=== PATIENT | female | born 1945 | race Caucasian/White ===

== ENCOUNTER 2019-06-19 13:34 | Outpatient (CLI) | payer MEDICARE, SELFPAY ==
--- NOTE | 2019-06-19 15:08 | ECG_ITS ---
Measurements Intervals [place] Rate: 64 P: 49 MI: 194 QRS: -24 QRSD: 118 T: -1 QT: 430 QTc: 444 Interpretive Statements SINUS RHYTHM RIGHT BUNDLE BRANCH BLOCK BASELINE ARTIFACT- I, II, III, AVR, AVL, AVF ABNORMAL ECG Electronically Signed On 06-19-2019 15:25:48 CDT by Shilo Rand D.O.
[2019-06-19 15:42] LABS: Blood Urea Nitrogen 24 mg/dL (7-17); Calcium 9.4 mg/dL (8.4-10.2); Carbon Dioxide 31 mmol/L (22-30); Chloride 101 mmol/L (98-107); Estimated Glomerular Filt Rate > 60; Glucose 77 mg/dL (65-105); Potassium 3.9 mmol/L (3.4-5.0); Sodium 137 mmol/L (137-145)
== END 2019-06-19 13:35 | disposition home or self-care (01) ==
PROVIDERS: Anesthesiology; PCP Family Medicine; Visit Provider Orthopaedic Surgery
DX: I10 Essential (primary) hypertension (principal); I45.10 Unspecified right bundle-branch block
CPT/HCPCS: 36415; 80048; 93005

== ENCOUNTER 2019-09-27 12:45 | Outpatient (CLI) | payer MEDICARE, SELFPAY ==
[2019-09-27 13:30] LABS: Blood Urea Nitrogen 21 mg/dL (7-17); Calcium 9.7 mg/dL (8.4-10.2); Carbon Dioxide 32 mmol/L (22-30); Chloride 102 mmol/L (98-107); Estimated Glomerular Filt Rate > 60; Glucose 91 mg/dL (65-105); Potassium 3.9 mmol/L (3.4-5.0); Sodium 137 mmol/L (137-145)
== END 2019-09-27 12:46 | disposition home or self-care (01) ==
LOC: ANHSURGERY 12:53
PROVIDERS: Anesthesiology; PCP Family Medicine; Visit Provider Orthopaedic Surgery
DX: Z01.818 Encounter for other preprocedural examination (principal); I10 Essential (primary) hypertension
CPT/HCPCS: 36415; 80048

== ENCOUNTER 2019-10-03 00:02 | Outpatient (CLI) | payer MEDICARE, SELFPAY ==
[2019-10-03 19:45] LABS: SARS-CoV-2 RNA PCR Negative
== END 2019-10-03 00:03 | disposition home or self-care (01) ==
LOC: ANHCOVIDDT 00:02
PROVIDERS: Visit Provider Orthopaedic Surgery
DX: Z01.818 Encounter for other preprocedural examination (principal); Z11.59 Encounter for screening for other viral diseases; M19.072 Primary osteoarthritis, left ankle and foot
CPT/HCPCS: 87635; C9803; U0003

== ENCOUNTER 2019-10-05 01:29 | Day surgery (SDC) | payer MEDICARE, SELFPAY ==
[2019-06-19 15:09] VITALS: BP 148/83; PULSE 71; RESP 18; TEMP 36.9; O2SAT 99; BMI 34.0
[2019-10-05] VITALS (14 sets, daily range): BP systolic 113–169; BP diastolic 64–79; PULSE 59–78; RESP 12–20; TEMP 35.6–36.6; O2SAT 90–100
--- NOTE | ~2019-10-05 | XR_ITS ---
EXAMINATION: XR surgery orthopedic DATE: 10/05/2019 09:49 INDICATION: Left ankle tibiofibular arthrodesis TECHNIQUE: 4 fluoroscopic spot images of the left ankle were obtained during procedure performed by Suzanne Briceño. Radiologist was not present for the imaging or procedure. The amount of fluoroscopy time used during this procedure was 1.3 minutes. COMPARISON: 10/03/2019 FINDINGS: Left ankle and distal tibiofibular arthrodesis. The tibiotalar articulation is spanned by a pair of c annulated lag screws. 2 cancellous screws extend from lateral to medial across the distal tibiofibula r syndesmosis and across the talofibular articulation of the ankle joint. A couple lucent screw track s at the distal tibia and fibula, one with negligible residual metallic residue likely related to pre viously removed internal fixation. Alignment of the arthrodesis appears near-anatomic. No fractures i dentified. The profiled joint spaces in the hindfoot appear relatively preserved. Moderate-sized plan tar calcaneal spur. IMPRESSION: 1. Expected appearance post left ankle and distal tibiofibular arthrodesis. See procedure note for fu rther detail. Reviewed, dictated and finalized at location A. IMPRESSION: 1. Expected appearance post left ankle and distal tibiofibular arthrodesis. See procedure note for further detail.
[2019-10-05] MEDS: IBUPROFEN IV 800 MG/200 ML 800 MG/200 ML BAG 400 MG IVPB ×2 (06:45→22:24)
[2019-10-05] MEDS: LACTATED RINGERS 1,000 ML 30 ML IV CONT ×2 (06:45→10:01)
--- NOTE | 2019-10-05 07:03 | WPDANESEPPF ---
Anes - Initial Pre Proc Eval Procedure: Operation Date: 10/05/19 07:30 Proposed Procedures p Left Ankle Tibiofibular Arthrodesis - Stewart Briceño MD s Left Ankle Arthroscopy - Stewrat Briceño MD Date/Time: 10/05/19 07:03 Surgeon: Stewart Briceño MD Pre Op Diagnosis: Left Ankle Arthritis Patient Data Age: 74 Gender: F Height: 5 ft 4 in Weight: 89.95 kg Last Vital Signs Temp 36.9 C 06/19/19 15:09 Pulse 71 06/19/19 15:09 Resp 18 06/19/19 15:09 BP 148/83 H 06/19/19 15:09 Pulse Ox 99 06/19/19 15:09 Allergies Allergy/AdvReac Type Severity Reaction Status Date / Time onion Allergy Severe Anaphylactic Verified 10/05/19 07:04 Shock codeine Allergy Intermediate Vomiting Verified 10/05/19 07:04 cortisone Allergy Intermediate Hypertensio Verified 10/05/19 07:04 n meperidine Allergy Intermediate Vomiting Verified 10/05/19 07:04 morphine Allergy Intermediate Vomiting Verified 10/05/19 07:04 tramadol AdvReac Severe NAUSEA/VOMI Verified 10/05/19 07:04 TING Home Medications Medication Instructions Recorded Confirmed Type ascorbic acid (vitamin C) 500 mg 1,000 mg PO DAILY 02/03/19 09/26/19 History capsule,extended release aspirin 81 mg tablet,delayed 81 mg PO DAILY 02/03/19 09/26/19 History release calcium carbonate 500 mg calcium 500 mg PO BID 02/03/19 09/26/19 History (1,250 mg) tablet dicyclomine 10 mg capsule 10 mg PO BID 02/03/19 09/26/19 History hydrochlorothiazide 12.5 mg capsule 12.5 mg PO DAILY 02/03/19 09/26/19 History magnesium oxide 400 mg PO BID 02/03/19 09/26/19 History methylcellulose (laxative) 500 mg 500 mg PO BID 02/03/19 09/26/19 History tablet multivitamin 1 cap PO DAILY 02/03/19 09/26/19 History vitamin A-vitamin C-vit E-min 1 tablet PO DAILY 02/03/19 09/26/19 History vit C,E,zinc,copper-rstkj2x 250 1 cap PO QAM 10/03/19 History mg-lutein 5 mg-zeaxanthin 1 mg capsule Patient hx anesthesia problems: none Family hx anesthesia problems: none PMFSH Past Medical History Medical History Food allergy GERD (gastroesophageal reflux disease) History of blood clots HTN (hypertension) 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 Seasonal allergies Vision loss Surgical History Surgical History H/O left wrist surgery H/O sinus surgery H/O: hysterectomy History of cardiac cath History of carpal tunnel release History of cholecystectomy History of fundoplication Hx of arthroscopic knee surgery Hx of total knee arthroplasty Family History Family History Father Family history of malignant neoplasm Mother Family history of chronic obstructive pulmonary disease Other Cancer Diabetes mellitus Heart disease Hypertension Social History Social History Smoking status: Never smoker Alcohol intake: current Substance use: never Gender identity (if verbalized by the patient): Female Anes - Eval Final PreProcedure Day of Procedure 10/05/19 07:03 Patient weight: obese Heart: regular rate and rhythm Lungs: clear to auscultation Airway: Mallampati scale class II Neurological: alert and oriented Last oral intake: >/= 8 hours ASA classification: III Emergent: no Anesthetic plan: proceed Anesthesia type and monitoring: general LMA and standard monitoring Informed Consent: The patient's anesthetic plan and its attendant risks and benefits were discussed with the patient/family/POA. Questions were solicited and answers provided to the satisfaction of the patient/family/POA.
--- NOTE | 2019-10-05 07:17 | WPDHPUPDATE1 ---
History and Physical Update Update Date/Time: 10/05/19 07:17 History and Physical has been reviewed, including an updated exam of the patient. There are NO changes in the patient's condition. Risks, benefits, and alternatives have been discussed and questions answered. Patient agrees to proceed with procedure.
[2019-10-05] MEDS: ceFAZolin 2 GM/D5W 50 ML 2 GM/50 ML BAG IVPB (07:36)
[2019-10-05] MEDS: ONDANSETRON INJ 4 MG/2 ML VIAL IV PUSH ×3 (10:46→22:21)
--- NOTE | 2019-10-05 11:21 | PM.PROC ---
Procedure Note - Detailed Date of procedure: 10/05/19 Pre-op diagnosis: Left Ankle Arthritis Post-op diagnosis: same Procedure performed: Left ankle arthroscopic arthrodesis, distal tibia fibular arthrodesis Description of procedure: Indications: Patient is a 74-year-old woman with posttraumatic arthritis of the left ankle. She has failed conservative treatment with bracing, cortisone injections, physical therapy and medication. She presents now for operative treatment. She desires and is indicated for ankle arthrodesis. What was done: Patient identified in the preoperative holding. Informed consent given. Operative extremity marked. Patient received intravenous antibiotics. Patient brought to the operating room where underwent general anesthetic by anesthesia team. Positioned supine on operating room table. Time-out performed confirming the patient, site of the surgery and the plan. Left leg was placed into a posterior thigh allan and the left ankle was prepped draped usual sterile surgical fashion using a ChloraPrep skin solution. Noninvasive external ankle distractor was applied and standard arthroscopic portals were mapped out. A 15 blade knife was used to make the anteromedial portal and blunt dissection was used to penetrate the capsule. The camera and inflow was started through this portal. A anterolateral working portal established an 18 gauge needle followed by 11 blade knife to incise the skin and blunt penetration the capsule. A 3.5 mm shaver, curette and arthroscopic picks were used to debride the cartilage from the tibia talus and the medial fibula. Extensive degenerative changes noted with arthroscopic visualization. This was debrided with the shaver suction and irrigated with normal saline. Ankle was then aligned and provisionally pinned. Image intensification confirmed the alignment including varus valgus and dorsiflexion. Screw fixation was then achieved and verified with image intensification. Tibia fibular syndesmosis was then aligned and provisionally pinned. Fixation achieved with the 4.5 mm screws x2. Final image intensification showed good alignment and placement of the hardware. Wounds were irrigated and closed with 3 Monocryl subcuticular stitch and 4 O nylon for the skin. Sterile dressings followed by bulky dressing and cast applied. Good capillary refill noted in the toes. The patient was then woken from anesthesia, extubated and taken to the recovery room in stable condition. All sponge, needle, instrument counts were correct at the end of the case. Implants: Arthrex 6.7 mm cannulated screw x2, 4.5 mm screw x2 [facility] Surgeon: Stewart Briceño MD Worship Leader: 1st anesthetic assistant Estimated blood loss (mL): 50 Tourniquet time (min): 0 Drains: No Packing: No Pathology: none sent Complications: None Condition: stable Disposition: PACU
[2019-10-05] MEDS: KCL 20 MEQ/D5/0.45% SOD CHL 1,000 ML 80 ML IV CONT (12:45)
[2019-10-05] MEDS: DICYCLOMINE HCL 10 MG CAPSULE PO (17:02)
[2019-10-05] MEDS: CALCIUM CARBONATE (OSCAL) 500 MG TABLET PO (17:02)
[2019-10-05] MEDS: MAGNESIUM OXIDE 400 MG TABLET PO (17:03)
[2019-10-05] MEDS: DOCUSATE SODIUM 100 MG CAPSULE PO (17:03)
[2019-10-05] MEDS: FAMOTIDINE 20 MG TABLET PO (21:37)
[2019-10-05] MEDS: ENOXAPARIN 30 MG/0.3 ML SYRINGE SUB-Q (21:38)
[2019-10-06 02:33] VITALS: BP 123/59; PULSE 58; RESP 16; TEMP 36; O2SAT 99
[2019-10-06] MEDS: KCL 20 MEQ/D5/0.45% SOD CHL 1,000 ML 80 ML IV CONT (03:01)
[2019-10-06 05:23] VITALS: BP 124/59; PULSE 60; RESP 16; TEMP 36.1; O2SAT 99
--- NOTE | 2019-10-06 09:05 | PM.PNORT ---
Progress Note: A&P Assessment and Plan (1) Traumatic arthritis of left ankle: Code(s): M12.572 - Traumatic arthropathy, left ankle and foot Status: Acute Assessment and Plan: Postoperative day 1. Left ankle arthrodesis. Cast in place, well fitted. Nausea and vomiting yesterday which has resolved. Able to tolerate breakfast. Therapy assistance this morning for ambulation. Plan for discharge home if passes therapy later today. Lovenox b.i.d. for DVT prophylaxis at 30 days. Tylenol and anti-inflammatories for pain control, oxycodone for breakthrough pain. Zofran for nausea. Follow up in orthopedic office October 10 Subjective Subjective Date/Time Seen: 10/06/19 09:05 The patient is awake alert. Nausea and vomiting yesterday, improved today. Minimal complaints of ankle pain. Exam Const: General: healthy appearing; No in distress or confusion Orientation/consciousness: patient oriented x3 and No confusion HENMT: Head: normal to inspection, normocephalic and atraumatic Eyes: Conjunctivae: conjunctivae normal Sclera: sclerae normal Resp: Effort & Inspection: normal respiratory effort and no audible wheezes Neuro: General: patient oriented x3 and No confusion Extrem: Right upper extremity: normal to inspection and normal capillary refill Left upper extremity: normal to inspection and normal capillary refill Right lower extremity: normal to inspection, normal capillary refill and foot Details: normal capillary refill, toes with normal ROM, vascular exam Details: dorsalis pedis pulse present and normal capillary refill and motor-sensory exam Details: light-touch normal Location: in all toes; no tenderness Left lower extremity: ankle (Short-leg cast in place.) and foot Details: normal capillary refill, toes with normal ROM, motor-sensory exam light-touch normal in all toes and other (Able to move toes, good sensation, good capillary refill) Psych: Affect: normal affect Objective Data Vital Signs Vital Signs: Vital Signs - 24 hr 10/05/19 10:01 10/05/19 10:15 10/05/19 10:30 Temperature 97.4 F L Pulse Rate 76 68 72 Respiratory Rate 14 14 14 Blood Pressure 145/76 H 141/74 H 135/76 Pulse Oximetry 100 100 100 10/05/19 10:45 10/05/19 11:00 10/05/19 11:15 Temperature Pulse Rate 67 68 63 Respiratory Rate 12 14 14 Blood Pressure 141/75 H 137/69 147/66 H Pulse Oximetry 93 93 90 10/05/19 11:30 10/05/19 11:31 10/05/19 11:46 Temperature 96.5 F L 96.0 F L Pulse Rate 64 77 78 Respiratory Rate 16 20 20 Blood Pressure 142/70 H 169/75 H 144/66 H Pulse Oximetry 97 99 99 10/05/19 12:16 10/05/19 13:16 10/05/19 17:16 Temperature 97.4 F L 97.5 F L 97.7 F Pulse Rate 72 59 L 62 Respiratory Rate 16 18 18 Blood Pressure 147/67 H 141/69 H 138/64 Pulse Oximetry 100 100 100 10/05/19 22:00 10/06/19 02:33 10/06/19 05:23 Temperature 96.4 F L 96.8 F L 97.0 F L Pulse Rate 63 58 L 60 Respiratory Rate 16 16 16 Blood Pressure 145/71 H 123/59 L 124/59 L Pulse Oximetry 100 99 99 Intake/Output Intake/Output: Intake & Output 10/03/19 10/04/19 10/05/19 10/06/19 23:59 23:59 23:59 23:59 Intake Total 1479 691 Balance 1479 691 Meds/Results Medications: Active Medications Generic Name Dose Route Start Last Admin Trade Name Freq PRN Reason Stop Dose Admin Acetaminophen 650 mg 10/05/19 11:31 Tylenol Tablet PO Q6H PRN Pain Rated 1-3 Ascorbic Acid 1,000 mg 10/06/19 09:00 Vitamin C PO 11/05/19 09:01 DAILY [facility] Aspirin 81 mg 10/06/19 09:00 Aspirin Ec PO DAILY [facility] Bisacodyl 10 mg 10/05/19 11:31 Dulcolax Suppository RECTAL DAILY PRN Constipation Calcium Carbonate 500 mg 10/05/19 17:00 10/05/19 17:02 Oscal 500 Mg PO 500 mg BID [facility] Administration Diazepam 5 mg 10/05/19 11:31 Valium Po PO Q8H PRN Muscle Spasm Dicyclomine HCl 10 mg 10/05/19 17:00 10/05/19 17:02 Bentyl Capsule PO 10 mg BID [facility]
--- NOTE | 2019-10-06 09:14 | P.DS_ITS ---
DS: Admitting Diagnosis Admitting Diagnosis Admitting Diagnosis: Essential (primary) hypertension DS: Discharge Diagnosis Discharge Diagnosis (1) Traumatic arthritis of left ankle: Code(s): M12.572 - Traumatic arthropathy, left ankle and foot Status: Acute DS: Summary Hospital Course Reason for hospitalization: 74-year-old woman admitted for observation after left ankle surgery. Hospital Course: Nausea and vomiting day of surgery, resolved with Zofran. Able to tolerate diet. Pain controlled with oral medication. Physical therapy postop day 1 with nonweightbearing left leg. Cleared for discharge. Status at Discharge Cognitive/behavioral status at discharge: Alert and oriented x3. Functional status at discharge: uses cane/walker Overall status at discharge: patient is back to baseline Time Spent with Patient Time attestation: Total time spent providing and/or coordinating discharge services: Time spent: Less than 30 minutes Exam Const: General: healthy appearing; No in distress or confusion Orientation/consciousness: patient oriented x3 and No confusion HENMT: Head: normal to inspection, normocephalic and atraumatic Eyes: Conjunctivae: conjunctivae normal Sclera: sclerae normal Resp: Effort & Inspection: normal respiratory effort and no audible wheezes Neuro: General: patient oriented x3 and No confusion Extrem: Right upper extremity: normal to inspection and normal capillary refill Left upper extremity: normal to inspection and normal capillary refill Right lower extremity: normal to inspection, normal capillary refill and foot Left lower extremity: ankle (Short-leg cast in place.) and foot Psych: Affect: normal affect Discharge Plan Discharge Patient Disposition: Home, Self-Care Discharge Instructions: JUANITA BRICEÑO M.D. [facility] [address] [place] [address] [address] [place] [address] POST OPERATIVE DISCHARGE INSTRUCTIONS FOOT/ANKLE SURGERY * Elevate the involved extremity on pillows. * For the first 48 hours, make sure that the foot is above the level of your heart. * Carefully observe the exposed toes for evidence of swelling or discoloration. * If the dressing is uncomfortable or tight, call the Dr?s office. * Keep the dressing clean and dry. Remove dressing only as directed by doctor. * If the pain medication does not provide adequate relief, please call Dr?s office. * Take other medication as prescribed. * Please call Dr?s office to confirm follow-up appointment for 1 week. * If you have any questions, please call the Dr?s office. * Diet as tolerated. * Activity:___X____Restrictions as follows: no weight operative leg; crutches or walker for ambulation * Do not drive for 24 hours, unless otherwise instructed. * Additional instructions: Patient Instructions: Cast Care (DC), Crutch Instructions (DC) Follow-up/Referrals: Juanita Briceño MD [Physician] - 10/11/19 8:30 am Discharge Medications: New acetaminophen [Mapap (acetaminophen)] 325 mg Tablet 650 mg PO Q6H PRN (Reason: Pain Rated 1-3) Qty: 60 RF: 0 enoxaparin 30 mg/0.3 mL Syringe 3
--- NOTE | 2019-10-06 09:14 | PM.DS ---
DS: Admitting Diagnosis Admitting Diagnosis Admitting Diagnosis: Essential (primary) hypertension DS: Discharge Diagnosis Discharge Diagnosis (1) Traumatic arthritis of left ankle: Code(s): M12.572 - Traumatic arthropathy, left ankle and foot Status: Acute DS: Summary Hospital Course Reason for hospitalization: 74-year-old woman admitted for observation after left ankle surgery. Hospital Course: Nausea and vomiting day of surgery, resolved with Zofran. Able to tolerate diet. Pain controlled with oral medication. Physical therapy postop day 1 with nonweightbearing left leg. Cleared for discharge. Status at Discharge Cognitive/behavioral status at discharge: Alert and oriented x3. Functional status at discharge: uses cane/walker Overall status at discharge: patient is back to baseline Time Spent with Patient Time attestation: Total time spent providing and/or coordinating discharge services: Time spent: Less than 30 minutes Exam Const: General: healthy appearing; No in distress or confusion Orientation/consciousness: patient oriented x3 and No confusion HENMT: Head: normal to inspection, normocephalic and atraumatic Eyes: Conjunctivae: conjunctivae normal Sclera: sclerae normal Resp: Effort & Inspection: normal respiratory effort and no audible wheezes Neuro: General: patient oriented x3 and No confusion Extrem: Right upper extremity: normal to inspection and normal capillary refill Left upper extremity: normal to inspection and normal capillary refill Right lower extremity: normal to inspection, normal capillary refill and foot Left lower extremity: ankle (Short-leg cast in place.) and foot Psych: Affect: normal affect Discharge Plan Discharge Patient Disposition: Home, Self-Care Discharge Instructions: JUANITA BRICEÑO M.D. [facility] [address] [address] [address] [place] [address] POST OPERATIVE DISCHARGE INSTRUCTIONS FOOT/ANKLE SURGERY Elevate the involved extremity on pillows. For the first 48 hours, make sure that the foot is above the level of your heart. Carefully observe the exposed toes for evidence of swelling or discoloration. If the dressing is uncomfortable or tight, call the Dr?s office. Keep the dressing clean and dry. Remove dressing only as directed by doctor. If the pain medication does not provide adequate relief, please call Dr?s office. Take other medication as prescribed. Please call Dr?s office to confirm follow-up appointment for 1 week. If you have any questions, please call the Dr?s office. Diet as tolerated. Activity:___X____Restrictions as follows: no weight operative leg; crutches or walker for ambulation Do not drive for 24 hours, unless otherwise instructed. Additional instructions: Patient Instructions: Cast Care (DC), Crutch Instructions (DC) Follow-up/Referrals: Juanita Briceño MD [Physician] - 10/11/19 8:30 am Discharge Medications: New acetaminophen [Mapap (acetaminophen)] 325 mg Tablet 650 mg PO Q6H PRN (Reason: Pain Rated 1-3) Qty: 60 RF: 0 enoxaparin 30 mg/0.3 mL Syringe 30 mg subcut Q12HR 30 Days Qty: 18 RF: 0 ondansetron HCl [Zofran] 8 mg tablet 8 mg PO Q8H PRN (Reason: nausea and vomiting) Qty: 10 RF: 1 oxycodone 5 mg capsule 5 mg PO Q6H PRN (Reason: pain) Qty: 14 RF: 0 Continued vitamin A-vitamin C-vit E-min Tablet 1 tablet PO DAILY RF: 0 ascorbic acid (vitamin C) [Vitamin C] 500 mg capsule, extended release 1,000 mg PO DAILY RF: 0 Fiber Therapy (m-cellulose) 500 mg tablet 500 mg PO BID RF: 0 calcium carbonate [Calcium 500] 500 mg calcium (1,250 mg) tablet 500 mg PO BID RF: 0 aspirin [Adult Aspirin Regimen] 81 mg tablet,delayed release (DR/EC) 81 mg PO DAILY RF: 0 magnesium oxide 400 mg kevin
[2019-10-06] MEDS: DOCUSATE SODIUM 100 MG CAPSULE PO (09:17)
[2019-10-06] MEDS: ASCORBIC ACID 500 MG TABLET 1000 MG PO (09:17)
[2019-10-06] MEDS: ENOXAPARIN 30 MG/0.3 ML SYRINGE SUB-Q (09:18)
[2019-10-06] MEDS: hydroCHLOROthiazide 12.5 MG CAPSULE PO (09:18)
[2019-10-06] MEDS: MAGNESIUM OXIDE 400 MG TABLET PO (09:18)
[2019-10-06] MEDS: MULTIVITAMINS THERAPEUTIC TAB (*BKC) 1 TABLET PO (09:18)
[2019-10-06] MEDS: FAMOTIDINE 20 MG TABLET PO (09:18)
[2019-10-06] MEDS: OPTI-GEN TAB 1 TABLET PO (09:18)
[2019-10-06] MEDS: DICYCLOMINE HCL 10 MG CAPSULE PO (09:18)
[2019-10-06] MEDS: CALCIUM CARBONATE (OSCAL) 500 MG TABLET PO (09:18)
[2019-10-06] MEDS: ASPIRIN 81 MG ENTERIC TABLET PO (09:28)
[2019-10-06 10:00] VITALS: BP 142/59; PULSE 62; RESP 15; TEMP 37.1; O2SAT 100
[2019-10-06] MEDS: ACETAMINOPHEN 325 MG TABLET 650 MG PO (10:07)
== END 2019-10-06 14:26 | disposition home or self-care (01) ==
LOC: ANHSURGERY 10:33 → ANH2MED 11:41
PROVIDERS: PCP Family Medicine; Visit Provider Orthopaedic Surgery
PROC: (CPT 28715; principal; 2019-10-05 07:30)
PROC: (CPT 29899; 2019-10-05 07:30)
DX: M12.572 Traumatic arthropathy, left ankle and foot (principal); T14.90XS Injury, unspecified, sequela; W18.39XS Other fall on same level, sequela; I10 Essential (primary) hypertension; K21.9 Gastro-esophageal reflux disease without esophagitis; Z79.82 Long term (current) use of aspirin; E66.9 Obesity, unspecified; Z68.36 Body mass index [BMI] 36.0-36.9, adult
CPT/HCPCS: 29899; 97110; 97161; 97165; 97530; A9270; C1769; J0690; J1100; J1170; J1650; J1741; J2405; J2704; J3010; J3480; J7120

== ENCOUNTER → 2020-05-20 01:40 | Outpatient (CLI) | payer MEDICARE, SELFPAY ==
[2020-05-20 19:35] LABS: SARS-CoV-2 RNA PCR Negative
== END ==
PROVIDERS: PCP Family Medicine; Visit Provider Orthopaedic Surgery
DX: Z01.812 Encounter for preprocedural laboratory examination (principal); Z20.822 Contact with and (suspected) exposure to COVID-19
CPT/HCPCS: C9803; U0003; U0005

== ENCOUNTER 2020-05-20 08:37 | Outpatient (CLI) | payer MEDICARE, SELFPAY ==
[2020-05-20 09:22] LABS: Anion Gap 1 mmol/L (8-16); Blood Urea Nitrogen 18 mg/dL (7-17); Calcium 9.1 mg/dL (8.4-10.2); Carbon Dioxide 33 mmol/L (22-30); Chloride 104 mmol/L (98-107); Estimated Glomerular Filt Rate > 60; Glucose 94 mg/dL (65-105); Potassium 4.2 mmol/L (3.4-5.0); Sodium 138 mmol/L (137-145)
== END 2020-05-20 08:38 | disposition home or self-care (01) ==
LOC: ANHSURGERY 08:40
PROVIDERS: Anesthesiology; PCP Family Medicine; Visit Provider Orthopaedic Surgery
DX: Z01.818 Encounter for other preprocedural examination (principal); Z79.899 Other long term (current) drug therapy
CPT/HCPCS: 36415; 80048; C9803; U0003; U0005

== ENCOUNTER 2020-05-23 00:40 | Day surgery (SDC) | payer MEDICARE, SELFPAY ==
[2020-05-15 13:27] VITALS: BMI 35.5
[2020-05-23] VITALS (14 sets, daily range): BP systolic 125–154; BP diastolic 60–86; PULSE 66–102; RESP 12–18; TEMP 36.2–37.2; O2SAT 94–100; BMI 34.9
--- NOTE | ~2020-05-23 | XR_ITS ---
EXAMINATION: XR surgery orthopedic DATE: 05/23/2020 11:34 INDICATION: Left ankle arthrodesis and instrumentation removal TECHNIQUE: 4 fluoroscopic spot images of the ankle were obtained during procedure performed by Dr. Miguel negro. Radiologist was not present for the imaging or procedure. The amount of fluoroscopy time used during this procedure was 1.9 minutes. COMPARISON: 05/07/2020 FINDINGS: Interval removal of the prior fixation screws with residual lucent screw tracks. The distal portion o f the previously fractured lag screws remains within the talus. There is been placement of a new ante rior plate and screw fixation spanning the tibiotalar joint which is in near-anatomic alignment. No a cute fractures identified. The unfused joint spaces in the visualized mid and hindfoot appear relativ ajit preserved. Moderate-sized plantar calcaneal spur. IMPRESSION: 1. Revision of an attempted left ankle arthrodesis with removal of the prior dictation screws, a frac tured portion of a screw which remains in the talus, and placement of a new anterior plate-screw fixa tion. Reviewed, dictated and finalized at location A. ROCESS ENGINEER IMPRESSION: 1. Revision of an attempted left ankle arthrodesis with removal of the prior di ctation screws, a fractured portion of a screw which remains in the talus, and placement of a new anterior plate-screw fixation.
[2020-05-23] MEDS: ACETAMINOPHEN 500 MG TABLET 1000 MG PO (06:33)
[2020-05-23] MEDS: KETOROLAC 15 MG/ML VIAL (*BKC) IV PUSH (06:33)
[2020-05-23] MEDS: LACTATED RINGERS 1,000 ML 30 ML IV CONT ×2 (06:34→11:59)
--- NOTE | 2020-05-23 06:42 | WPDANESEPPF ---
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, painful hardware Patient Data Age: 75 Gender: F Height: 5 ft 2.5 in Weight: 89.54 kg Allergies Allergy/AdvReac Type Severity Reaction Status Date / Time onion Allergy Severe Anaphylactic Verified 05/23/20 06:15 Shock codeine Allergy Intermediate Vomiting Verified 05/23/20 06:15 cortisone Allergy Intermediate Hypertensio Verified 05/23/20 06:15 n meperidine Allergy Intermediate Vomiting Verified 05/23/20 06:15 morphine Allergy Intermediate Vomiting Verified 05/23/20 06:15 tramadol AdvReac Severe NAUSEA/VOMI Verified 05/23/20 06:15 TING Home Medications Medication Instructions Recorded Confirmed Type ascorbic acid (vitamin C) 500 mg 1,000 mg PO DAILY 02/03/19 05/23/20 History capsule,extended release aspirin 81 mg tablet,delayed 81 mg PO DAILY 02/03/19 05/23/20 History release calcium carbonate 500 mg calcium 500 mg PO BID 02/03/19 05/23/20 History (1,250 mg) tablet dicyclomine 10 mg capsule 10 mg PO BID 02/03/19 05/23/20 History hydrochlorothiazide 12.5 mg capsule 12.5 mg PO DAILY 02/03/19 05/23/20 History magnesium oxide 400 mg PO BID 02/03/19 05/23/20 History methylcellulose (laxative) 500 mg 500 mg PO BID 02/03/19 05/23/20 History tablet vitamin A-vitamin C-vit E-min 1 tablet PO DAILY 02/03/19 05/23/20 History tablet vit C,E,zinc,copper-mrjlz3h 250 1 cap PO QAM 10/03/19 05/23/20 History mg-lutein 5 mg-zeaxanthin 1 mg capsule [id number]-folic acid [One 1 tablet PO QAM 05/15/20 05/23/20 History Daily For Women] oxycodone 5 mg capsule 5 mg PO Q6H PRN #20 cap 05/22/20 Rx rivaroxaban 10 mg tablet 10 mg PO DAILY #40 tablet 05/22/20 Rx Patient hx anesthesia problems: none Family hx anesthesia problems: none PMFSH Past Medical History Medical History Food allergy GERD (gastroesophageal reflux disease) History of blood clots HTN (hypertension) 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 Seasonal allergies Vision loss Surgical History Surgical History H/O left wrist surgery H/O sinus surgery H/O: hysterectomy History of cardiac cath History of carpal tunnel release History of cholecystectomy History of fundoplication Hx of arthroscopic knee surgery Hx of total knee arthroplasty Family History Family History Father Family history of malignant neoplasm Mother Family history of chronic obstructive pulmonary disease Other Cancer Diabetes mellitus Heart disease Hypertension Social History Social History Smoking status: Never smoker Second hand tobacco smoke exposure: No Alcohol intake: never Substance use: never Substance use type: does not use Living arrangements: with family Gender identity (if verbalized by the patient): Female Spiritual care concerns: No Anes - Eval Final PreProcedure Day of Procedure 05/23/20 06:42 Patient weight: obese Heart: regular rate and rhythm Lungs: clear to auscultation Airway: Mallampati scale class II Last oral intake: >/= 8 hours ASA classification: III Emergent: no Anesthetic plan: proceed Anesthesia type and monitoring: general LMA and standard monitoring Informed Consent: The patient's anesthetic plan and its attendant risks and benefits were discussed with the patient/family/POA. Questions were solicited and answers provided to the satisfaction of the patient/family/POA.
--- NOTE | 2020-05-23 07:14 | WPDHPUPDATE1 ---
History and Physical Update Update Date/Time: 05/23/20 07:14 History and Physical has been reviewed, including an updated exam of the patient. There are NO changes in the patient's condition. Covid test negative. Risks, benefits, and alternatives have been discussed and questions answered. Patient agrees to proceed with procedure.
--- NOTE | 2020-05-23 07:30 | WPDANESPNB ---
Anes - Peripheral Nerve Block Date/Time: 05/23/20 07:30 I have discussed with the patient/family/POA the placement of a peripheral nerve block for post-operative pain management, including associated risks, benefits, complications, and side effects. Alternative methods of post-operative analgesia were detailed. Questions were solicited and answers provided to the satisfaction of the patient/family/POA. Time-Out: A pre-procedural Time-Out was completed immediately before starting the procedure and confirmed: Patient Identification, Site, Procedure, Patient Position and the Availability of Requisite Equipment. Clinical Indications: Acute post-operative pain management requested by the operative surgeon. Nerve Block Insertion Note Anes-nerve block: posterior fossa sciatic left and other (saphenous) Patient position: supine Skin prep: chlorhexidine Needle: 22 gauge, stimulating, insulated echogenic needle. Needle length: 80 mm Technique: nerve stimulation lost at (mA) (0.3) Injectate: bupivacaine 0.5% with epi 5 mcg/ml (30 cc sciatic, 10cc saphenous) and dexamethasone (mg) (8) Observations: tolerated well Complications: none Procedure start time:: 714 Procedure end time:: 724
[2020-05-23] MEDS: ceFAZolin 2 GM/D5W 50 ML 2 GM/50 ML BAG IVPB (07:47)
--- NOTE | 2020-05-23 12:13 | PM.PROC ---
Procedure Note - Detailed Date of procedure: 05/23/20 Pre-op diagnosis: left ankle non union, painful hardware Post-op diagnosis: same Procedure performed: Left ankle removal of hardware, revision ankle arthrodesis. 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 Approximately 6 months status post arthrodesis. She has nonunion clinically and on radiographs. She has failure of the hardware. She presents now for operative treatment. What was done: Patient identified in the preoperative holding. Informed consent given. Operative extremity marked. Patient received intravenous antibiotics. Patient brought to the operating room where underwent general anesthetic by anesthesia team. Positioned supine on operating room table. Time-out performed confirming the patient, site of the surgery and the plan. Left lower extremity prepped draped usual sterile surgical fashion using a ChloraPrep skin solution. Foot and ankle exsanguinated and a thigh tourniquet inflated to 250 mmHg. Patient had a nerve block placed preoperatively by the anesthesia team. The hardware was removed 1st. Incisions were made over the medial and lateral tibial screw fixation with a 15 blade knife. Hemostasis controlled electrocautery. Guide pins were placed into the cannulated screws and the screws were removed. The lateral screw was noted to be fractured and only the proximal extent was removed. Incision was then made over the distal fibula with 15 blade knife. Hemostasis controlled electrocautery. The 2 screws from the fibula into the tibia were removed. These wounds were thoroughly irrigated and closed with 3 Monocryl interrupted suture and 4 O nylon interrupted suture. Attention then directed to the ankle. A direct anterior ankle incision was made with 15 blade knife just lateral to the tibialis anterior tendon. Care was taken using no-touch technique. The retinaculum was incised line with skin incision and the tibialis anterior was retracted medially extensor tendons and the neurovascular bundle retracted laterally. Capsule was incised in line with skin incision and the previous ankle arthrodesis was inspected and noted to be ununited. The arthrodesis site was then prepared with osteotome and rongeur to remove scar tissue and fibrous tissue. The arthrodesis site was then feathered with the osteotome. Local bone graft as well as allograft was used. 45 cc of peripheral blood was central fused to obtain the plasma layer. This was then mixed with allograft demineralized bone matrix and inserted into the arthrodesis site. 1.5 cm x 1.5 cm amniotic membrane tissue was also applied to the arthrodesis site. Joint was then reduced and provisionally pinned. Image intensification confirmed alignment. Fixation was achieved with an anterior fusion plate with excellent fixation and compression. Image intensification confirm final positioning. Wound then thoroughly irrigated antibiotic solution. The retinaculum carefully closed with 3 0 Monocryl interrupted suture. Subcutaneous tissue repaired with 3 Monocryl interrupted suture and the skin repaired with 4 O nylon interrupted suture. Bulky dressing was applied. Sterile dressing applied. The patient was then woken from anesthesia, extubated and taken to the recovery room in stable condition. All sponge, needle, instrument counts were correct at the end of the case. Implants: Arthrex anterior ankle fusion plate with 4.5 and 5.5 mm screws. Hardware removed Arthrex 6.5 mm cannulated screws x2 and 4.5 mm screws x2 Anesthesia: GLMA Surgeon: Stewart Briceño MD Skein Washer: 1st captain assistant Estimated blood loss (mL): 150 Tourniquet time (min): 135 Drains: No Packing: No Pathology: other (Bone specimen from the arthrodesis nonunion site left ankle, cultures) Complications: None Condition: stable Disp
--- NOTE | 2020-05-23 13:55 | PC.NURSE ---
Returned from OR per stretcher. Report received from Marta TYSON ].
[2020-05-23] MEDS: KCL 20 MEQ/D5/0.45% SOD CHL 1,000 ML 80 ML IV CONT (14:05)
[2020-05-23] MEDS: ACETAMINOPHEN 325 MG TABLET 650 MG PO ×2 (15:25→21:27)
[2020-05-23] MEDS: CALCIUM CARBONATE (OSCAL) 500 MG TABLET PO (16:42)
[2020-05-23] MEDS: DOCUSATE SODIUM 100 MG CAPSULE PO (16:42)
[2020-05-23] MEDS: DICYCLOMINE HCL 10 MG CAPSULE PO (16:42)
[2020-05-23] MEDS: MAGNESIUM OXIDE 400 MG TABLET PO (16:42)
[2020-05-23] MEDS: FAMOTIDINE 20 MG TABLET PO (20:29)
[2020-05-24 02:00] VITALS: BP 115/51; PULSE 87; RESP 16; TEMP 36.7; O2SAT 99
[2020-05-24 05:44] VITALS: BP 124/65; PULSE 81; RESP 18; TEMP 36.5; O2SAT 100
[2020-05-24 06:00] LABS: Anion Gap 0 mmol/L (8-16); Blood Urea Nitrogen 15 mg/dL (7-17); Calcium 8.9 mg/dL (8.4-10.2); Carbon Dioxide 30 mmol/L (22-30); Chloride 106 mmol/L (98-107); Estimated CRCL calculation 71 ml/min; Estimated Glomerular Filt Rate > 60; Glucose 127 mg/dL (65-105); Potassium 4.1 mmol/L (3.4-5.0); Sodium 136 mmol/L (137-145)
[2020-05-24 06:01] LABS: Basophils Percent Auto 0.1 % (0.2-1.2); Eosinophils Percent Auto 0.1 % (0-4.4); Hematocrit 31.4 % (37.0-47.0); Hemoglobin 10.3 g/dL (12.0-15.0); Immature Granulocyte Absolute 0.04 K/mm3 (0.00-0.031); Immature Granulocyte Percent A 0.4 % (0-0.5); Lymphocytes Absolute Auto 0.86 K/mm3 (0.9-3.2); Lymphocytes Percent Auto 8.8 % (18.3-44.2); Mean Corpuscular HGB Conc 32.8 g/dl (32-36); Mean Corpuscular Hemoglobin 29.9 pg (26-34); Mean Corpuscular Volume 91.3 fl (80-100); Mean Platelet Volume 9.8 fl (7.4-10.4); Monocytes Absolute Auto 0.8 K/mm3 (0.1-0.6); Monocytes Percent Auto 8.5 % (2.6-8.5); Neutrophils Percent Auto 82.1 % (45.5-73.1); Platelet Count Result 228 k/mm3 (150-375); Red Blood Count 3.44 M/mm3 (4.2-5.4); Red Cell Distribution Width 12.9 % (11.5-14.5); White Blood Count 9.7 K/mm3 (4.5-10.0)
[2020-05-24] MEDS: ASCORBIC ACID 500 MG TABLET 1000 MG PO (08:01)
[2020-05-24] MEDS: ASPIRIN 81 MG ENTERIC TABLET PO (08:01)
[2020-05-24] MEDS: FONDAPARINUX SODIUM 2.5 MG/0.5 ML SYRINGE SUB-Q (08:02)
[2020-05-24] MEDS: MAGNESIUM OXIDE 400 MG TABLET PO (08:02)
[2020-05-24] MEDS: THERAPEUTIC MULTIVITAMINS/MINERALS TAB (*BKC) 1 TABLET PO (08:02)
[2020-05-24] MEDS: FAMOTIDINE 20 MG TABLET PO (08:02)
[2020-05-24] MEDS: DICYCLOMINE HCL 10 MG CAPSULE PO (08:02)
[2020-05-24] MEDS: DOCUSATE SODIUM 100 MG CAPSULE PO (08:02)
[2020-05-24] MEDS: OPTI-GEN TAB 1 TABLET PO (08:03)
--- NOTE | 2020-05-24 08:05 | P.PNAN_ITS ---
Anes - Prog Note Post-Op Date/Time: 05/24/20 08:05 Cardiovascular status: normal Respiratory status: normal Airway patency: baseline Mental status: baseline Post-Op hydration status: normal Vital Signs: Last Vital Signs Temp 36.5 C 05/24/20 05:44 Pulse 81 05/24/20 05:44 Resp 18 05/24/20 05:44 BP 124/65 05/24/20 05:44 Pulse Ox 100 05/24/20 05:44 Pain Score (VAS): 0 I/O: Intake & Output 05/23/20 05/24/20 05/24/20 23:59 07:59 15:59 Intake Total 650 1050 Output Total 350 1150 Balance 300 -100 Laboratory Tests 05/24/20 05:26 05/24/20 05:26 05/24/20 05/24/20 05:26 05:26 WBC 9.7 RBC 3.44 L Hgb 10.3 L Hct 31.4 L MCV 91.3 MCH 29.9 MCHC 32.8 RDW 12.9 Plt Count 228 MPV 9.8 Immature Gran % (Auto) 0.4 Neut % (Auto) 82.1 H Lymph % (Auto) 8.8 L [place] % (Auto) 8.5 Eos % (Auto) 0.1 Baso % (Auto) 0.1 L Lymph # (Auto) 0.86 L [place] # (Auto) 0.8 H Eos # (Auto) 0.0 Baso # (Auto) 0.0 Abs Immat Gran (auto) 0.04 H Absolute Neuts (auto) 8.0 H Absolute Nucleated RBC 0.0 Nucleated RBC % 0.0 Sodium 136 L Potassium 4.1 Chloride 106 Carbon Dioxide 30 Anion Gap 0 L BUN 15 Creatinine 0.60 L Estim Creat Clear Calc 71 Estimated GFR > 60 Glucose 127 H Calcium 8.9 Microbiology 05/23/20 10:02 Ankle Left Anaerobic Culture - Preliminary Post-procedural complaints: none Patient Feedback: Patient satisfied with anesthetic care.
[2020-05-24] MEDS: ACETAMINOPHEN 325 MG TABLET 650 MG PO (08:10)
[2020-05-24] MEDS: CALCIUM CARBONATE (OSCAL) 500 MG TABLET PO (09:03)
[2020-05-24] MEDS: hydroCHLOROthiazide 12.5 MG CAPSULE PO (09:03)
--- NOTE | 2020-05-24 11:02 | PM.DS ---
DS: Admitting Diagnosis Admitting Diagnosis Admitting Diagnosis: Left ankle arthrodesis nonunion, painful hardware DS: Discharge Diagnosis Discharge Diagnosis (1) Nonunion of joint fusion: Status: Acute Assessment and Plan: status post revision arthrodesis left ankle with removal of hardware. Postoperative splint in place. Toes neurovascular intact. Continue strict nonweightbearing left lower extremity with crutches or walker for ambulation. Edema control with ice and elevation. Pain control reviewed. Follow up in orthopedic office as scheduled next week. (2) Traumatic arthritis of left ankle: Code(s): M12.572 - Traumatic arthropathy, left ankle and foot Status: Acute DS: Summary Hospital Course Reason for hospitalization: Left ankle nonunion Hospital Course: patient taken the operating room on May 23, 2020 underwent left ankle revision arthrodesis with removal of hardware. Patient tolerated procedure without incident. She had a nerve block placed preoperatively to assist with pain control. Admitted to the hospital postoperatively for medical and pain management. Following routine hospital course. Postoperative day 1 was awake and alert, tolerated regular diet, voiding appropriately. Pain was controlled and she was cleared for discharge. Status at Discharge Cognitive/behavioral status at discharge: Alert and oriented x3. Functional status at discharge: uses cane/walker Overall status at discharge: patient is back to baseline Time Spent with Patient Time attestation: Total time spent providing and/or coordinating discharge services: Exam Const: General: healthy appearing; No in distress or confusion Orientation/consciousness: patient oriented x3 and No confusion HENMT: Head: normal to inspection, normocephalic and atraumatic Eyes: Conjunctivae: conjunctivae normal Sclera: sclerae normal Resp: Effort & Inspection: normal respiratory effort and no audible wheezes Neuro: General: patient oriented x3 and No confusion Extrem: Right upper extremity: normal to inspection and normal capillary refill Left upper extremity: normal to inspection and normal capillary refill Right lower extremity: normal to inspection, normal capillary refill and foot Left lower extremity: ankle (Short-leg splint in place.) Details: other ( no calf pain) and foot Details: normal capillary refill, vascular exam Details: normal capillary refill ( All toes) and motor-sensory exam light-touch normal in all toes Psych: Affect: normal affect DS: Data Data Completed and Pending Completed studies during hospitalization: Pending at discharge 05/23/20 09:56 Surgical [PTH] Routine Labs on day of discharge: Labs from last 24 hours 05/24/20 05/24/20 05:26 05:26 WBC 9.7 RBC 3.44 L Hgb 10.3 L Hct 31.4 L MCV 91.3 MCH 29.9 MCHC 32.8 RDW 12.9 Plt Count 228 MPV 9.8 Immature Gran % (Auto) 0.4 Neut % (Auto) 82.1 H Lymph % (Auto) 8.8 L [place] % (Auto) 8.5 Eos % (Auto) 0.1 Baso % (Auto) 0.1 L Lymph # (Auto) 0.86 L [place] # (Auto) 0.8 H Eos # (Auto) 0.0 Baso # (Auto) 0.0 Abs Immat Gran (auto) 0.04 H Absolute Neuts (auto) 8.0 H Absolute Nucleated RBC 0.0 Nucleated RBC % 0.0 Sodium 136 L Potassium 4.1 Chloride 106 Carbon Dioxide 30 Anion Gap 0 L BUN 15 Creatinine 0.60 L Estim Creat Clear Calc 71 Estimated GFR > 60 Glucose 127 H Calcium 8.9 Preliminary micro results at discharge 05/23/20 10:02 Anaerobic Culture - Preliminary Ankle Left Discharge Plan Discharge Patient Disposition: Home, Self-Care Discharge Instructions: JUANITA DOCKERY M.D. [facility] [address] [place] [address] POST OPERATIVE DISCHARGE INSTRUCTIONS FOOT/ANKLE SURGERY Elevate the involved extremity on pillow
[2020-05-24] MEDS: oxyCODONE HCL (*CRX) 5 MG TAB IR PO (12:23)
[2020-05-24] MEDS: ONDANSETRON INJ 4 MG/2 ML VIAL IV PUSH (12:23)
== END 2020-05-24 12:40 | disposition home or self-care (01) ==
LOC: ANHSURGERY 05:50 → ANH2MED 13:25
PROVIDERS: PCP Family Medicine; Visit Provider Orthopaedic Surgery
PROC: (CPT 28715; principal; 2020-05-23 07:30)
PROC: (CPT 20680; 2020-05-23 07:30)
DX: M96.0 Pseudarthrosis after fusion or arthrodesis (principal); Y83.8 Other surgical procedures as the cause of abnormal reaction of the patient, or of later complication, without mention of misadventure at the time of the procedure; M12.572 Traumatic arthropathy, left ankle and foot; T14.90XS Injury, unspecified, sequela; T84.117A Breakdown (mechanical) of internal fixation device of bone of left lower leg, initial encounter; Z79.82 Long term (current) use of aspirin; T84.84XA Pain due to internal orthopedic prosthetic devices, implants and grafts, initial encounter; K21.9 Gastro-esophageal reflux disease without esophagitis; I10 Essential (primary) hypertension; E66.9 Obesity, unspecified; Z68.34 Body mass index [BMI] 34.0-34.9, adult; Z86.718 Personal history of other venous thrombosis and embolism; G89.18 Other acute postprocedural pain; Z79.01 Long term (current) use of anticoagulants
CPT/HCPCS: 20680; 64445; 64450; 27871; 15271; 36415; 80048; 85025; 87070; 87075; 87205; 88304; 88309; 88311; 97116; 97161; 97165; 97530; 97535; A9270; J0690; J1100; J1652; J1885; J2250; J2370; J2405; J2704; J3010; J3480; J7120; Q4137

== ENCOUNTER 2020-07-10 14:08 | Outpatient (CLI) | payer MEDICARE, SELFPAY ==
[2020-07-10 16:25] LABS: Vitamin D 25 Hydroxy 42.1 ng/mL
== END 2020-07-10 14:09 | disposition home or self-care (01) ==
PROVIDERS: PCP Family Medicine; Visit Provider Orthopaedic Surgery
DX: E55.9 Vitamin D deficiency, unspecified (principal)
CPT/HCPCS: 36415; 82306

== ENCOUNTER 2020-11-25 12:18 | Outpatient (CLI) | payer MEDICARE, SELFPAY ==
--- NOTE | ~2020-11-25 | XR_ITS ---
EXAMINATION: XR ankle LT min 3V DATE: 11/25/2020 12:34 INDICATION: Left ankle pain TECHNIQUE: Anteroposterior, oblique, mortise, and lateral views of the left ankle were obtained. COMPARISON: 10/01/2020 and 08/06/2020 FINDINGS: Anterior plate and screw fixation extending from the distal tibia across the tibiotalar joint to the head of the talus. There is residual lucency extending across the tibiotalar articulation which may r emain ununited. No lucency surrounding the screws or progressive osteolysis to suggest loosening or i nfection. There is a residual fragment the tip of a prior fixation screw at the talar body. Lucency s crew tract and a few residual tiny metallic fragments in the distal fibula likely related to a prior since removed fixation. Large plantar calcaneal spur. 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 Diffuse soft tissue swelling about the distal lower leg, ankle and extending over the dorsum of the forefoot. IMPRESSION: 1. Attempted left tibiotalar instrumented arthrodesis with no evident instrumentation failure or colette prosthetic lucency to suggest infection or loosening. There is however residual lucency along the irr egular joint line suggesting this may remain ununited. Reviewed, dictated and finalized at location B. IMPRESSION: 1. Attempted left tibiotalar instrumented arthrodesis with no evident instrumen tation failure or periprosthetic lucency to suggest infection or loosening. The re is however residual lucency along the irregular joint line suggesting this m ay remain ununited.
== END 2020-11-25 12:19 | disposition home or self-care (01) ==
LOC: ANHBWCIMG 12:19
PROVIDERS: PCP Family Medicine; Visit Provider Orthopaedic Surgery
DX: M25.572 Pain in left ankle and joints of left foot (principal); Z96.662 Presence of left artificial ankle joint
CPT/HCPCS: 73610

== ENCOUNTER 2024-05-08 13:03 | Outpatient (CLI) | payer MEDICARE, SELFPAY ==
--- NOTE | ~2024-05-08 | CT_ITS ---
EXAMINATION: CT LE RT wo con DATE: 05/08/2024 12:43 INDICATION: Right knee osteoarthritis. Preoperative planning. TECHNIQUE: Computed tomography (CT) of the right lower limb was performed without intravenous contras t. Automated exposure control and iterative reconstruction technique were employed. The dose-length p roduct was 1794.35 mGy-cm. COMPARISON: Right knee radiographs 03/22/2024 FINDINGS: There is mild right hip osteoarthritis. There is varus angulation at the knee. No fracture. There is severe osteoarthritis of medial compartment and mild osteoarthritis of lateral and patellof emoral compartments. There is a small knee joint effusion. There is a small Tapia's cyst. IMPRESSION: 1. Severe right knee osteoarthritis. 2. Small right knee joint effusion. 3. Small Tapia's cyst. Reviewed, dictated and finalized at location A. RATIONS MANAGER
--- OUTSIDE RECORDS SUMMARY | 2024-05-08 13:05 | XMS_ITS | Encounter Summary ---
Author Organization [facility] Address [address] [place] [address] Phone Care Team Providers Care Construction Framer Name Role Phone Kimberlee Morocho APRN, KAMARI Unavailable [phone] Savage Long MD Primary Care Provider [phone] Leighton Rios MD Unavailable + [phone] Caroline Candelaria MD Unavailable Oleksandr Borjas MD Unavailable Encounter Details Date Type Department Care Team (Late st Contact Info) Description 12/09/2023 Lab Requisition [facility] 1 [place] [id number] Savage Long MD #[address] [address] Anemia, unspecified Social History Tobacco Use Types Packs/Day Years Used Date Smoking Tobacco: Never Smokeless Tobacco: Never Comments:Never smoked Alcohol Use Standard Drinks/Week Comments Not Currently 0 (1 standard drink = 0.6 oz pur e alcohol) socially [facility] Utilities Answer Date Recorded In the past 12 months has th e electric, gas, oil, or water [employer] threatened to shut off services in your home? Patient declined 11/25/2023 Social Connection and Isolation Panel [NHANES] A nswer Date Recorded In a typical week, how many times do you talk on the phone with family, friends, or neighbors? Patient declined 11/25/2023 How often do you get togethe r with friends or relatives? Patient declined 11/25/2023 How often do you attend restoration or mormonism serv ices? Patient declined 11/25/2023 Do you belong to any clubs o r organizations such as restoration groups, unions, fraternal or athletic groups, or school groups? Patient declined 11/25/2023 How often do you attend meet ings of the clubs or organizations you belong to? Patient declined 11/25/2023 Are you , , di vorced, , never , or living with a partner? Patient declined 11/25/2023 AUDIT-C Answer Date Recorded Q1: How often do you have a drink containing alc ohol? Patient declined 11/25/2023 Q2: How many drinks containi ng alcohol do you have on a typical day when you are drinking? Patient declined 11/25/2023 Q3: How often do you have si x or more drinks on one occasion? Patient declined 11/25/2023 Overall Financial Resource Strain (CARDIA) Answe r Date Recorded How hard is it for you to pa y for the very basics like food, housing, medical care, and heating? Patient declined 11/25/2023 PHQ-2 Answer Date Recorded Total Score - Questions 1-9 0 10/03 [facility] - Occupational Stress Questionnaire Answer Date Recorded Do you feel stress - tense, restless, nervous, or anxious, or unable to sleep at night because your mind is troubled all the time - these days? Patient declined 11/25/2023 Exercise Vital Sign Answer Date Recorde d On average, how many days pe r week do you engage in moderate to strenuous exercise (like a brisk walk)? Patient declined On average, how many minutes do you engage in exercise at this level? Patient declined 11/25/2023 Hunger Vital Sign Answer Date Recorded Within the past 12 months, y ou worried that your food would run out before you got the money to buy more. Patient declined Within the past 12 months, t he food you bought just didn't last and you didn't have money to get more. Patient declined PRAPARE - Transportation Answer Date Re corded In the past 12 months, has l ack of transportation kept you from medical appointments or from getting medications? Patient declined 11/25/2023 In the past 12 months, has l ack of transportation kept you from meetings, work, or from getting things needed for daily living? Patient declined 11/25/2023 Housing Stability Vital Sign Answer Carroll e Recorded In the last 12 months, was t here a time when you were not able to pay the mortgage or rent on time? Patient declined 05/13/19 24 In the last 12 months, how many places have you lived? 1 05/13/2023 In the last 12 months, was t here a time when you did not have a steady place to sleep or slept in a alf (including now)? Patient declined 05/13/2023 Housing Stability Vital Sign Answer Carroll e Recorded In the last 12 months, was t here a time when you were not able to pay the mortgage or rent on time? Patient declined 11/25/19 In the past 12 months, how m any times have you moved where you were living? 1 11/25/2023 At any time in the past 12 m [facility], were you homeless or living in a alf (including now)? Patient declined 11/25/2023 Education Answer Date Recorded What is the highest level of school you have completed or the highest degree you have received? 12th grade 12/15/2021 Sexually Active Control Partners Comments Not Currently Male Comments No Sex and Gender Information Value Date Recorded Sex Assigned at Female 11/16/2022 3:26 PM CDT Legal Sex Female 7:05 PM CDT Gender Identity Female 11/16/2022 3:26 PM CDT Sexual Orientation Not on file Occupation Industry Job Start Date Job End Date retired Not on file Not on file Not on file documented as of this encounter Plan of Treatment Upcoming Encounters Date Type Department Care Team (Late st Contact Info) Description 07/11/2024 10:00 AM CDT [facility] [address] [place] [address] Savage Long MD #[address] [address] 10/17/2024 11:00 AM CD[facility] [address] [place] [address] Evans Isaura [facility], [facility] [address] [place] [address] Discharge Disposition: Discharged to home or Selfcare 10/24/2024 10:00 AM CDT Office Visit [facility] [address] [place] [address] Nathan Isaura [facility], PAC [address] [place] [address] Discharge Disposition: Discharged to home or Selfcare documented as of this encounter Procedures Procedure Name Priority Date/Time Associated Diagnosis Comments IRON,TRANSFERN,CALC.T IBC,%SAT Routine 12/09/2023 12:15 PM CDT Anemia, unspecified CBC WITH AUTO DIFFERENTIAL Routine 12/09/2023 12:15 PM CDT Anemia, unspecified VITAMIN B12 Routine 12/09/2023 12:15 PM CDT Anemia, unspecified LIPID PANEL Routine 12/09/2023 12:15 PM CDT Anemia, unspecified FOLIC ACID (FOLATE) Routine 12/09/2023 1 2:15 PM CDT Anemia, unspecified FERRITIN Routine 12/09/2023 12:15 PM CDT Anemia, unspecified COMPLETE BLOOD COUNT (CBC) WITH DIFF Routine 12/09/2023 12:15 PM CDT Anemia, unspecified documented in this encounter Results * (ABNORMAL) CBC WITH AUTO DIFFERENTIAL (12/09/2023 12:15 PM CDT) [facility] WBC 6.18 4.00 - 12.00 10(3)/mcL 12/09/2023 2:[address] [facility] RBC 3.70(L) 3.80 - 5.30 10(6)/mcL 12/09/2023 2:[address] [facility] HEMOGLOBIN (HGB) 11.1(L) 12.0 - 15.8 g/dL 12/09/2023 2:[address] [facility] HEMATOCRIT (HCT) 35.1(L) 36.0 - 47.0 % 12/09/2023 2:[address] [facility] MCV 94.9 82.0 - 96.0 fL 12/09/2023 2:[address] [facility] MCH 30.0 26.0 - 34.0 pg 12/09/2023 2:[address] [facility] MCHC 31.6 31.0 - 36.0 g/dL 12/09/2023 2:01 PM [facility] PLATELET COUNT 476(H) 140 - 440 10(3)/[facility] 12/09/2023 2:[address] [facility] RDW 15.7(H) 11.8 - 15.5 % 12/09/2023 2:[address] [facility] MPV 9.1(L) 9.7 - 12.4 fL 12/09/2023 2:01 PM [facility] NRBC PER 100 WBC 0 12/09/2023 2:01 PM [facility] Blood No Phlebotomy Charged / Unknown 12/09/2023 12:15 PM CDT 12/09/2023 1:48 PM CDT Savage Long MD HEMATOLOGY ORDERABLES Final Result [facility] [address] [place] [address] * FOLIC ACID (FOLATE) (12/09/2023 12:15 PM CDT) FOLATE 12.1 7.0 - 31.4 ng/mL 12/09/2023 2:46 PM CDT [facility] Blood No Phlebotomy Charged / Unknown 12/09/2023 12:15 PM CDT 12/09/2023 1:48 PM CDT Savage Long MD CHEMISTRY ORDERABLES Final Result Performing Organization Address City/[facility]/ZIP Co de Phone Number [facility] [address] [place] [address] * (ABNORMAL) VITAMIN B12 (12/09/2023 12:15 PM CDT) VITAMIN B12 993(H) 213 - 816 pg/mL 12/09/2023 2:46 PM CDT [facility] Blood No Phlebotomy Charged / Unknown 12/09/2023 12:15 PM CDT 12/09/2023 1:48 PM CDT Savage Long MD CHEMISTRY ORDERABLES Final Result [facility] [address] [place] [address] * (ABNORMAL) FERRITIN (12/09/2023 12:15 PM CDT) FERRITIN 290(H) 5 - 204 ng/mL 12/09/2023 2:56 PM CDT [facility] Blood No Phlebotomy Charged / Unknown 12/09/2023 12:15 PM CDT 12/09/2023 1:48 PM CDT Savage Long MD CHEMISTRY ORDERABLES Final Result Performing Organization Address City/[facility]/ZIP Co de Phone Number [facility] [address] [place] [address] * IRON,TRANSFERN,CALC.TIBC,%SAT (12/09/2023 12:15 PM CDT) IRON 77 25 - 156 mcg/dL 12/09/2023 2:43 PM CDT [facility] TRANSFERRIN 229 173 - 360 mg/dL 12/09/2023 2:43 PM CDT [facility] TIBC, CALCULATED 286 265 - 497 mcg/dL 12/09/2023 2:43 PM CDT [facility] % SATURATION * 27 15 - 62 % 12/09/2023 2:43 PM CDT [facility] Blood No Phlebotomy Charged / Unknown 12/09/2023 12:15 PM CDT 12/09/2023 1:48 PM CDT Savage Long MD CHEMISTRY ORDERABLES Final Result Performing Organization Address City/[facility] Co de Phone Number [facility] [address] [place] [address] * LIPID PANEL (12/09/2023 12:15 PM CDT) CHOLESTEROL 147 <200 mg/dL 12/09/2023 2:43 PM CDT [facility] TRIGLYCERIDES 91 <150 mg/dL 12/09/2023 2:43 PM CDT [facility] HDL CHOLESTEROL 47 >40 mg/dL 2:43 PM CDT [facility] LDL 82 <130 mg/dL 12/09/2023 2:43 PM CDT [facility] VLDL 18 10 - 50 mg/dL 12/09/2023 2:43 PM CDT [facility] CHOL/HDL RATIO 3.1 0.0 - 4.4 12/09/2023 2:43 PM CDT [facility] NON-HDL CHOLESTEROL 100 <130 mg/dL 12/09/2023 2:43 PM CDT [facility] Blood No Phlebotomy Charged / Unknown 12/09/2023 12:15 PM CDT 12/09/2023 1:48 PM CDT Savage Long MD CHEMISTRY ORDERABLES Final Result [facility] [address] [place] [address] documented in this encounter Visit Diagnoses Diagnosis Anemia, unspecified documented in this encounter Additional Health Concerns Active Problems Noted Date Diagnosed Date Quality of Life (General Plan of Care) Infection Onset Date Last Indicated Resolved Time Respiratory Rule-Out 04/07/2024 04/07/2024 025 10:22 AM INTERNATIONAL STUDENT ADVISOR COVID - 19 04/07/2024 04/07/2024 04/07/2024 10:2 2 AM INTERNATIONAL STUDENT ADVISOR Assessment Noted Time PHQ-9 Depression Total Score: 0 10/13/19 2:26 PM CDT documented as of this encounter Care Teams Construction Framer Relationship Specialty Start Date End Date Savage Long MD #[address] [address] PCP - General Family Medicine 09/16/20 Kimberlee Morocho, RAILROAD CAR INSPECTOR, WEB DESIGN INTERN Nurse Practitioner Advanced Practice Nurse 10/24/15 Leighton Rios MD #[address] [address] Consulting Physician Clinical Cardiac Electrophysiology 04/10/22 Caroline Candelaria MD #[address] [address] Consulting Physician Endocrinology 02/24/23 Oleksandr Borjas MD #[address] [address] Consulting Physician Colon and Rectal Surgery 05/20/23 documented as of this encounter
--- OUTSIDE RECORDS SUMMARY | 2024-05-08 13:05 | XMS_ITS | Encounter Summary ---
Author Organization 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 Historical Provider Final Res ult documented in this encounter Visit Diagnoses Not on filedocumented in this encounter Additional Health Concerns Infection Onset Date Last Indicated Resolved Time COVID: Suspected 11/13/2023 11/13/2023 11/13/2023 11:34 AM CDT COVID19 11/13/2023 11/13/2023 11/23/2023 3:07 AM CDT COVID: Recovered Comment:Added based on recent COVID infection. 11/23/2023 12/02/2023 02/21/2024 3:[address] documented as of this encounter Care Teams Spent Grain Dryer Relationship Specialty Start Date End Date Shari Borrego MD PCP - General 09/15/16 06/18/22 Savage Long MD [address] [address] PCP - General Family Medicine 06/19/22 documented as of this encounter
--- OUTSIDE RECORDS SUMMARY | 2024-05-08 13:05 | XMS_ITS | Encounter Summary ---
Author Organization [facility] Address [address] [place] [address] Phone Care Team Providers Care Civil Design Specialist Name Role Phone Kimberlee Morocho APRN, KAMARI Unavailable [phone] Savage Long MD Primary Care Provider [phone] Leighton Rios MD Unavailable [phone]- [phone] Caroline Candelaria MD Unavailable Brittnee Mae RN Unavailable Unavailable Oleksandr Borjas MD Unavailable Encounter Details Date Type Department Care Team (Late st Contact Info) Description 12/02/2023 Lab Requisition [facility] Laboratory Services 1 [place] [id number] Savage Long MD #[address] [address] Essential (primary) hypertension; Abnormal coagulation profile; Hyperkalemia Social History Tobacco Use Types Packs/Day Years Used Date Smoking Tobacco: Never Smokeless Tobacco: Never Comments:Never smoked Alcohol Use Standard Drinks/Week Comments Not Currently 0 (1 standard drink = 0.6 oz pur e alcohol) socially [facility] Utilities Answer Date Recorded In the past 12 months has e electric, gas, oil, or water company threatened to shut off services in your home? Patient declined 11/25/2023 Social Connection and Isolation Panel [NHANES] A nswer Date Recorded In a typical week, how many times do you talk on the phone with family, friends, or neighbors? Patient declined 11/25/2023 How often do you get togethe r with friends or relatives? Patient declined 11/25/2023 How often do you attend confucianist or mandaeism serv ices? Patient declined 11/25/2023 Do you belong to any clubs o r organizations such as confucianist groups, unions, fraternal or athletic groups, or [...] Total Score - Questions 1-9 0 10/03 [facility] - Occupational [...] place to sleep or slept in a retirement (including now)? Patient declined 05/13/2023 Housing Stability [...] any time in the past 12 m [facility], were you homeless or living in a retirement (including now)? Patient declined 11/25/2023 Education Answer [...] Description 07/11/2024 10:00 AM CDT Office Visit [facility] - Family [facility] #[address] [place] [address] Savage Long MD #[address] [address] 10/17/2024 11:00 AM CDT Lab [facility] Oncology Services [address] [place] [address] Isaura Evans Tanika, PAC [address] [place] [address] Discharge Disposition: Discharged to home or Selfcare 10/24/2024 10:00 AM CDT Office Visit [facility] Services [address] [place] [address] Isaura Evans Tanika, PAC [address] [place] [address] Discharge Disposition: Discharged to home or Selfcare documented as of this encounter Procedures Procedure Name Priority Date/Time Associated Diagnosis Comments CBC WITH AUTO DIFFERENTIAL Routine 12/02/2023 12:00 PM CDT Essential (primary) hypertension Abnormal coagulation profile Hyperkalemia COMPLETE BLOOD COUNT (CBC) WITH DIFF Routine 12/02/2023 12:00 PM CDT Essential (primary) hypertension Abnormal coagulation profile Hyperkalemia BASIC METABOLIC PANEL W/ CALCIUM TOTAL Routine 12/02/2023 12:00 PM CDT Essential (primary) hypertension Abnormal coagulation profile Hyperkalemia documented in this encounter Results * (ABNORMAL) CBC WITH AUTO DIFFERENTIAL (12/02/2023 12:00 PM CDT) WBC 5.85 4.00 - 12.00 10(3)/mcL 12/02/2023 12:38 PM CDT [facility] RBC 2.98(L) 3.80 - 5.30 10(6)/mcL 12/02/2023 12:38 PM CDT [facility] HEMOGLOBIN (HGB) 8.9(L) 12.0 - 15.8 g/dL 12/02/2023 12:38 PM CDT [facility] HEMATOCRIT (HCT) 26.7(L) 36.0 - 47.0 % 12/02/2023 12:38 PM CDT [facility] MCV 89.6 82.0 - 96.0 fL 12/02/2023 12:38 PM CDT [facility] MCH 29.9 26.0 - 34.0 pg 12/02/2023 12:38 PM CDT [facility] MCHC 33.3 31.0 - 36.0 g/dL 12/02/2023 12:38 PM CDT [facility] PLATELET COUNT 342 140 - 440 10(3)/[facility] 12/02/2023 12:38 PM CDT [facility] RDW 13.1 11.8 - 15.5 % 12/02/2023 12:38 PM CDT [facility] MPV 9.4(L) 9.7 - 12.4 fL 12/02/2023 12:38 PM CDT [facility] NEUTROPHILS 66.5 47.0 - 73.0 % 12/02/2023 12:38 PM CDT [facility] LYMPHOCYTES 16.1(L) 18.0 - 42.0 % 12/02/2023 12:38 PM CDT [facility] MONOCYTES 10.6 4.0 - 12.0 % 12/02/2023 12:38 PM CDT [facility] EOSINOPHILS 5.6(H) 0.0 - 5.0 % 12/02/2023 12:38 PM CDT [facility] BASOPHILS 1.2(H) 0.0 - 1.0 % 12/02/2023 12:38 PM CDT [facility] ABSOLUTE NEUTROPHILS 3.89 1.60 - 7.70 10(3)/[facility] 12/02/2023 12:38 PM CDT [facility] ABSOLUTE LYMPHOCYTES 0.94(L) 1.30 - 3.20 10(3)/mcL 12/02/2023 12:38 PM CDT [facility] ABSOLUTE MONOCYTES 0.62 0.20 - 1.00 10(3)/[facility] 12/02/2023 12:38 PM CDT [facility] ABSOLUTE EOSINOPHIL 0.33 0.00 - 0.40 10(3)/[facility] 12/02/2023 12:38 PM CDT [facility] ABSOLUTE BASOPHILS 0.07 0.00 - 0.10 10(3)/[facility] 12/02/2023 12:38 PM CDT [facility] NRBC PER 100 WBC 0 12/02/19 12:38 PM CDT [facility] Blood No Phlebotomy Charged / Unknown 12/02/2023 12:00 PM CDT 12/02/2023 12:27 PM CDT Savage Long MD HEMATOLOGY ORDERABLES Final Result [facility] [address] [place] [address] * (ABNORMAL) BASIC METABOLIC PANEL W/ CALCIUM TOTAL (12/02/2023 12:00 PM CDT) SODIUM 139 136 - 145 mmol/L 12/02/2023 1:06 PM CDT [facility] POTASSIUM 3.7 3.5 - 5.1 mmol/L 12/02/2023 1:06 PM CDT [facility] CHLORIDE 105 98 - 107 mmol/L 12/02/2023 1:06 PM CDT [facility] CO2, VENOUS 26 22 - 30 mmol/L 12/02/2023 1:06 PM CDT [facility] ANION GAP 11.7 <18.0 mmol/L 12/02/2023 1:06 PM CDT [facility] GLUCOSE 107(H) 70 - 99 mg/dL 12/02/2023 1:06 PM CDT [facility] BUN 12 10 - 20 mg/dL 12/02/2023 1:06 PM CDT [facility] CREATININE, BLOOD 0.62 0.60 - 1.00 mg/dL 12/02/2023 1:06 PM CDT [facility] BUN/CREATININE RATIO 19 12 - 20 ratio 12/02/2023 1:06 PM CDT [facility] CALCIUM 8.9 8.7 - 10.5 mg/dL 12/02/2023 1:06 PM CDT [facility] GFR, ESTIMATED >60 >=60 12/02/2023 1:06 PM CDT [facility] Comment: Creatinine Clearance is the preferred criteria for selecting drug dose adjustments in renally impaired patients. ??The GFR is provided as additional pertinent clinical information. GFR is reported in mL/min/1.73 sq m. Calculation based on the Chronic Kidney Disease Epidemiology Collaboration (CKD- EPI) equation refit without adjustment for race. GFR, EST. >60 >=60 024 1:06 PM CDT [facility] GFR, EST. NONAFRICAN >60 >=60 12/02/2023 1:06 PM CDT [facility] Blood No Phlebotomy Charged / Unknown 12/02/2023 12:00 PM CDT 12/02/2023 12:27 PM CDT us Savage Long MD CHEMISTRY ORDERABLES Final Result [facility] [address] [place] [address] documented in this encounter Visit Diagnoses Diagnosis Essential (primary) hypertension Unspecified essential hypertension Abnormal coagulation profile Hyperkalemia Hyperpotassemia documented in this encounter Additional Health Concerns Active Problems Noted Date Diagnosed Date Quality of Life (General Plan of Care) 4 Infection Onset Date Last Indicated Resolved Time Respiratory Rule-Out 04/07/2024 04/07/2024 025 10:22 AM TELEMETRY TECHNICIAN COVID - 19 04/07/2024 04/07/2024 04/07/2024 10:2 2 AM TELEMETRY TECHNICIAN Assessment Noted Time PHQ-9 Depression Total Score: 0 10/13/19 24 2:26 PM CDT documented as of this encounter Care Teams Civil Design Specialist Relationship Specialty Start Date End Date Savage Long MD #[address] [address] PCP - General Family Medicine 09/16/20 Kimberlee Morocho APRN, NURSE INFORMATICS EDUCATOR Nurse Practitioner Advanced Practice Nurse 10/24/15 Leighton Rios MD #[address] [address] Consulting Physician Clinical Cardiac Electrophysiology 04/10/22 Caroline Candelaria MD #[address] [address] Consulting Physician Endocrinology 02/24/23 Brittnee Mae RN [place] Nurse Salvage Inspector 02/06/22 12/02/23 Oleksandr Borjas MD #[address] [address] Consulting Physician Colon and Rectal Surgery 05/20/23 documented as of this encounter
--- OUTSIDE RECORDS SUMMARY | 2024-05-08 13:05 | XMS_ITS | Encounter Summary ---
Author Organization [facility] Address [address] [place] [address] Phone Care Team Providers Care Reaming Machine Tender Name Role Phone Kimberlee Morocho APRN, CNP Unavailable [phone] Savage Long MD Primary Care Provider [phone] Brittnee Mae RN Unavailable Unavailable Leighton Rios MD Unavailable [phone] Caroline Candelaria MD Unavailable Brittnee Mae RN Unavailable Unavailable Oleksandr Borjas MD Unavailable Reason for Visit * Reason Comments Medication Refill Encounter Details Date Type Department Care Team (Late st Contact Info) Description 09/04/2022 Refill [facility] Medicine [facility] [address] [place] [address] Savage Long MD [address] [address] Medication Refill Social History Tobacco Use Types Packs/Day Years Used Date Smoking Tobacco: Never Smokeless Tobacco: Never Alcohol Use Standard Drinks/Week Comments Yes 0 (1 standard drink = 0.6 oz pur e alcohol) socially PHQ-2 Answer Date Recorded Total Score - Questions 1-9 0 06/03 Education Answer Date Recorded What is the highest level of school you have completed or the highest degree you have received? 12th grade 12/15/2021 Comments No Sex and Gender Information Value Date Recorded Sex Assigned at Female 11/16/2022 3:26 PM CDT Legal Sex Female 7:05 PM CDT Gender Identity Female 11/16/2022 3:26 PM CDT Sexual Orientation Not on file Occupation Industry Job Start Date Job End Date retired Not on file Not on file Not on file COVID-19 Exposure Response Date Recorded In the last 10 days, have yo u been in contact with someone who was confirmed or suspected to have Coronavirus/COVID-19? No / Unsure 08/24/2022 9:58 AM CDT documented as of this encounter Miscellaneous Notes * Telephone Encounter - Flory Ahmadi RN - 09/04/2022 1:45 PM CDT PRN medication requires review from provider Per nursing clinical judgement, provider to review and approve the medication(s) order(s) if appropriate. Requested Prescriptions Pending Prescriptions Disp Refills dicyclomine (BENTYL) 10 MG Capsule [Pharmacy Med Name: DICYCLOMINE 10 MG CAPSULE] 180 Capsule 0 Sig: Take 1 Capsule by mouth 2 times daily as needed (.). Antispasmodic Agents Protocol Passed - 09/04/2022 2:12 AM Passed - Visit with relevant provider in past 12 months or upcoming 90 days Recent Visits Date Type Provider Dept 07/02/22 Office Visit Savage Long MD [facility] 05/28/22 Telemedicine Savage Long MD [facility] 05/26/22 Office Visit Saavge Long MD [facility] 03/26/22 Office Visit Savage Long MD [facility] 02/10/22 Office Visit Yuniel Finley APRN, K[facility] 12/22/21 Office Visit Savage Long MD [facility] 09/15/21 Office Visit Yuniel Finley APRN, SERVICE CENTER REPRESENTATIVE [facility] Showing recent visits within past 365 days and meeting all other requirements Future Appointments Date Type Provider Dept 10/15/22 Appointment Savage Long MD [facility] Showing future appointments within next 90 days and meeting all other requirements documented in this encounter Plan of Treatment Upcoming Encounters Date Type Department Care Team (Late st Contact Info) Description 07/11/2024 10:00 AM CDT Office Visit [facility] - [facility] [address] [place] [address] Savage Long MD [address] [address] 10/17/2024 11:00 AM CDT Lab [facility] [address] [place] [address] Isaura Evans Tanika, PAC [address] [place] [address] Discharge Disposition: Discharged to home or Selfcare 10/24/2024 10:00 AM CDT Office Visit [facility] [address] [place] [address] Isaura Evans Tanika, PAC [address] [place] [address] Discharge Disposition: Discharged to home or Selfcare documented as of this encounter Visit Diagnoses Not on filedocumented in this encounter Additional Health Concerns Infection Onset Date Last Indicated Resolved Time Respiratory Rule-Out 04/07/2024 04/07/2024 025 10:22 AM FLOAT REMOVER COVID - 19 04/07/2024 04/07/2024 04/07/2024 10:2 2 AM FLOAT REMOVER Assessment Noted Time PHQ-9 Depression Total Score: 0 09/17/19 21 1:00 PM CDT documented as of this encounter Care Teams Reaming Machine Tender Relationship Specialty Start Date End Date Savage Long MD [address]2 [facility] [address] [place] [address] PCP - General Family Medicine 09/16/20 Kimberlee Morocho, ROCKET MOTOR MECHANIC, SERVICE CENTER REPRESENTATIVE Nurse Practitioner Advanced Practice Nurse 10/24/15 Brittnee Mae, JAH [place] Director Camp 02/06/22 03/30/23 Leighton Rios MD [place] Consulting Physician Clinical Cardiac Electrophysiology 04/10/22 Caroline Candelaria MD [address]2 [facility] [address] [place] [address] Consulting Physician Endocrinology 02/24/23 Brittnee Mae RN [place] Nurse Director Camp 02/06/22 12/02/23 Oleksandr Borjas MD [address]2 [facility] [address] [place] [address] Consulting Physician Colon and Rectal Surgery 05/20/23 documented as of this encounter
--- OUTSIDE RECORDS SUMMARY | 2024-05-08 13:05 | XMS_ITS | Clinical Summary ---
Author Organization [facility] Address [address] [place] [address]. [place], [place] [id number] [place] [address] Care Team Providers Care Heat Set Operator Name Role Phone Unavailable Primary Care Provider Unavailabl e Social History Tobacco Use Types Packs/Day Years Used Date Smoking Tobacco: Never Assessed Comments Unknown Sex and Gender Information Value Date Recorded Sex Assigned at Not on file Legal Sex Female 4:04 PM CDT Gender Identity Not on file Sexual Orientation Not on file Plan of Treatment Health Maintenance Due Date Last Done Comments Hepatitis C 02/11/1962 DTaP, Tdap and Td Vaccines ( 1 - Tdap) 02/11/1963 Zoster Vaccines (1 of 2) 02/11/1994 Dexa Scan (General) 02/11/2009 Pneumococcal Vaccine: 65+ Ye ars (1 of 1 - PCV) 02/11/2009 RSV Immunization or 60+ Years (1 - 1-dose 75+ series) 02/11/2019 COVID-19 Vaccine (2023-2 5 season) 2023 Influenza Adult (#1) 2024 Meningococcal B Vaccine Aged Out No l onger eligible based on patient's age to complete this topic Meningococcal Vaccine Aged Out No gerri lashell eligible based on patient's age to complete this topic RSV Immunizations Under 20 Months Aged Out No longer eligible based on patient's age to complete this topic
--- OUTSIDE RECORDS SUMMARY | 2024-05-08 13:05 | XMS_ITS | Encounter Summary ---
Author Organization [facility] Address [address] [place] [address] Phone Care Team Providers Care Help Desk Rep Name Role Phone Kimberlee Morocho APRN, CNP Unavailable [phone] Savage Long MD Primary Care Provider [phone] Leighton Rios MD Unavailable [phone] Caroline Candelaria MD Unavailable Brittnee Mae RN Unavailable Unavailable Oleksandr Borjas MD Unavailable Encounter Details Date Type Department Care Team (Late st Contact Info) Description 12/02/2023 Lab Requisition [facility] [address] [place] [id number] Savage Long MD [address] [address] Abnormal coagulation profile; Essential (primary) hypertension; Hyperkalemia Social History Tobacco Use Types Packs/Day [...] declined 11/25/2023 How often do you attend yarsani or presybeterian serv ices? Patient declined 11/25/2023 Do you belong to any clubs o r organizations such as yarsani groups, unions, fraternal or athletic groups, or [...] Total Score - Questions 1-9 0 10/03 [facility] - Occupational Stress [...] place to sleep or slept in a care home (including now)? Patient declined 05/13/2023 Housing Stability [...] any time in the past 12 [facility], were you homeless or living in a care home (including now)? Patient declined 11/25/2023 Education Answer [...] Description 07/11/2024 10:00 AM CDT Office Visit [facility] - Family [facility] [address] [place] [address] Savage Long MD #[address] [address] 10/17/2024 11:00 AM CDT Lab [facility] [address] [place] [address] Isaura Evans Tanika, PAC [address] [place] [address] Discharge Disposition: Discharged to home or Selfcare 10/24/2024 10:00 AM CDT [facility] [address] [place] [address] Isaura Evans Tanika, PAC [address] [place] [address] Discharge Disposition: Discharged to home or Selfcare documented as of this encounter Procedures Procedure Name Priority Date/Time Associated Diagnosis Comments APTT (PTT) Routine 12/02/2023 12:00 PM CDT Abnormal coagulation profile Essential (primary) hypertension Hyperkalemia PROTIME (PT) (PROTHROMBIN TIME) Routine 12/02/2023 12:00 PM CDT Abnormal coagulation profile Essential (primary) hypertension Hyperkalemia documented in this encounter Results * (ABNORMAL) APTT (PTT) (12/02/2023 12:00 PM CDT) PTT 38(H) 24 - 36 sec 12/02/2023 1:29 PM CDT [facility] Blood No Phlebotomy Charged / Unknown 12/02/2023 12:00 PM CDT 12/02/2023 12:59 PM CDT Narrative [facility] - 12/02/2023 1:29 PM CDT Therapeutic range for unfractionated heparin at 0.3-0.7 U/mL is an aPTT value in the range of 71-100 seconds. Critical value for the PTT test is >= 122 seconds. Savage Long MD HEMATOLOGY ORDERABLES Final Result Performing Organization Address City/[facility]/ZIP Co de Phone Number [facility] [address] [place] [address] * (ABNORMAL) PROTIME (PT) (PROTHROMBIN TIME) (12/02/2023 12:00 PM CDT) PROTIME-PATIENT 16.5(H) 11.6 - 14.8 sec 12/02/2023 1:29 PM CDT [facility] INR 1.3(H) 0.9 - 1.2 12/02/2023 1:29 PM CDT [facility] Comment: Therapeutic Ranges INR = 2.0-3.0: Venous thromb, atrial fib, pul embolism, tissue heart valve, ami. INR = 2.5-3.5: Mechanical heart valve Critical value for INR is >/= 4.5 Blood No Phlebotomy Charged / Unknown 12/02/2023 12:00 PM CDT 12/02/2023 12:59 PM CDT Savage Long MD HEMATOLOGY ORDERABLES Final Result Performing Organization Address [facility] Co de Phone Number [facility] [address] [place] [address] documented in this encounter Visit Diagnoses Diagnosis Abnormal coagulation profile Essential (primary) hypertension Unspecified essential hypertension Hyperkalemia Hyperpotassemia documented in this encounter Additional Health Concerns Active Problems Noted Date Diagnosed Date Quality of Life (General Plan of Care) Infection Onset Date Last Indicated Resolved Time Respiratory Rule-Out 04/07/2024 04/07/2024 025 10:22 AM [employer] COVID - 19 04/07/2024 04/07/2024 04/07/2024 10:2 2 AM [employer] Assessment Noted Time PHQ-9 Depression Total Score: 0 10/13/19 2:26 PM CDT documented as of this encounter Care Teams Help Desk Rep Relationship Specialty Start Date End Date Savage Long MD #2 [facility] [address] [place] [address] PCP - General Family Medicine 09/16/20 Kimberlee Morocho, WHARF HELPER, INSTRUMENTATION SPECIALIST Nurse Practitioner Advanced Practice Nurse 10/24/15 Leighton Rios MD #2 [facility] [address] [place] [address] Consulting Physician Clinical Cardiac Electrophysiology 04/10/22 Caroline Candelaria MD #[address] [address] Consulting Physician Endocrinology 02/24/23 Brittnee Mae, JAH [place] Nurse Customer Consulting Manager 02/06/22 12/02/23 Oleksandr Borjas MD #[address] [address] Consulting Physician Colon and Rectal Surgery 05/20/23 documented as of this encounter
--- OUTSIDE RECORDS SUMMARY | 2024-05-08 13:06 | XMS_ITS | Clinical Summary ---
Author Organization [facility] Address [facility] [place] [address] Care Team Providers Care Diamond Blender Name Role Phone Savage Long MD Primary Care Provider [phone] Allergies Active Allergy Reactions Criticality Noted Date Comments Codeine Other (See comments) Reaction: UNKNOWN, Hydrocortisone Other (See comments) Low 04/17/2015 High blood pressure Latex Hives Medium 08/26/2022 Meperidine Other (See comments) Reaction: UNKNOWN, Morphine Other (See comments),Nausea only Low 11/13/2023 Reaction: UNKNOWN Onion Hives,Swelling High 08/19/2022 Opioids - Morphine Analogues Penicillins Hives Medium 08/19/2022 When she was young Tramadol Medications dicyclomine (BENTYL) 10 mg capsule Take 1 capsule (10 mg total) by mouth daily Active aspirin 81 mg enteric coated tablet Take 1 tablet (81 mg total) by mouth daily Active magnesium oxide 400 mg magnesium capsule Take by mouth Active ascorbic acid (vitamin C) 1,000 mg tablet Take 1 tablet (1,000 mg total) by mouth daily Active polycarbophil (Fiber-Tabs) 625 mg tablet Active calcium carbonate (OS-XOCHILT) 1,500 mg (600 mg elemental) tablet daily Active cloNIDine (CATAPRES) 0.1 mg tablet Take 1 tablet (0.1 mg total) by mouth 2 (two) times a day as needed for high blood pressure Of 160 or higher 60 tablet 11 3 Active warfarin (COUMADIN) 1 mg tablet Take 1 tablet (1 mg total) by mouth daily 90 tablet 3 3 Active flecainide (TAMBOCOR) 50 mg tablet Take 1 tablet by mouth twice daily 60 tablet 11 4 Active metoprolol XL (TOPROL-XL) 25 mg extended release tablet Take 1 tablet by mouth once daily 90 tablet [address] (PROTONIX) 40 mg EC tablet Take 1 tablet (40 mg total) by mouth daily 90 tablet 3 4 07/22/19 25 Active L. acidophilus-dig enz cmb 5 5-250 mg capsule Take by mouth Activ e LORazepam (ATIVAN) 1 mg tablet Take one pill 30 minutes before planned MRI. May repeat x1 if needed. 2 tablet 4 Active Additional Information Patient not taking.Reported on 11/01/2023 furosemide (LASIX) 40 mg tablet Take 1 tablet (40 mg total) by mouth daily 30 tablet 11 4 09/20/19 25 Active dexAMETHasone 0.5 mg/5 mL solution FILL CUP WITH 2.5 ML OF SOLUTION & 25 ML OF WATER. SWISH IN MOUTH FOR 30 SECONDS ONCE DAILY. SPIT OUT & DO NOT SWALLOW. AVOID EATING FOR UP TO 30 MINUTES. ONLY USE FOR TWO CONSECUTIVE WEEKS, THEN TAKE A SMALL BREAK AND REPEAT NECESSARY FOR FLARES 4 Active valsartan (DIOVAN) 160 mg tablet Take 1 tablet (160 mg total) by mouth daily 90 tablet 3 4 11/02/19 25 Active albuterol HFA (PROVENTIL HFA,VENTOLIN HFA,PROAIR HFA) 90 mcg/actuation inhalerIndicati ons:COVID-19 Inhale 2 puffs every 6 (six) hours as needed for shortness of breath 18 g 4 Active warfarin (COUMADIN) 2 mg tablet Take 1 tablet by mouth once daily 90 tablet 3 4 Active warfarin (COUMADIN) 3 mg tablet Take 1 tablet (3 mg total) by mouth daily 90 tablet 3 4 Active Active Problems Problem Noted Date Diagnosed Date Cardiac pacemaker in situ 11/01/2023 Intercostal pain 11/01/2023 History of repair of hiatal hernia 07/22/2023 History of colonic diverticulitis 07/22/2023 Lymph node symptom 07/22/2023 Irritable bowel syndrome with diarrhea 3 Assessment & Plan (10/02/2023 11:26 AM CDT): Colonoscopy from 02/2023 showed 8 mm cecal polyp and diverticulosis, random bx normal. Diarrhea work up from 12/2022 showed negative stool culture, Giardia, Cryptosporidium, C diff, celiac panel, 5 HIAA, VIP. She had follow up visit with [facility] 07/2023 and was noted to have elevated chromogranin A level with subsequent PET Dotatate scan from 07/2023 that showed no concerns of neuroendocrine tumor. KUB 08/2023 showed no obstruction with few prominent air-filled loops of small bowel that may be related to ileus or enteritis Blood pressure goes up and down, has intermittent episodes of dizziness and presyncope, previously had negative orthostatics per patient. Diarrhea overall doing well with imodium as needed, only had one episode during one of her presyncopal episodes. Plan Suspect patient has vasovagal syncope episodes Continue imodium as needed Assessment & Plan (12/10/2022 11:16 AM CDT): Diarrhea is mostly well controlled with loose stools about 1-2 times a week and no signs of hematochezia, melena or weight loss. However she does report a few episodes of clamminess, feeling sweaty and flushed prior to diarrhea. Which raises concern for possible carcinoid syndrome and VIPoma. Labs from 12/03/2022 showed normal CBC with elevated eosinophils and basophils, normal CMP, TSH, cortisol, glucose tolerance test, INR 2.55 from 12/05/2022 Upper GI series 10/2015 showed moderate to severe reflux with Kasia fundoplication changes EGD from 11/2015 showed intact Kasia fundoplication also the GE junction seem somewhat loosened Colonoscopy 2012 showed no polyps, internal hemorrhoids was told to repeat in 5- 7 years Plan Will schedule colonoscopy for diarrhea work up and colon cancer screening Will check 24 hour urine 5 HIAA, VIP, and celiac panel With her elevated eosinophils will also check stool culture, giardia, and c diff Screening for colon cancer 12/08/2022 Implantable loop recorder present 10/27/2022 Sick sinus syndrome (CMS/HCC) 08/26/2022 Overview (08/26/2022): Heart rate down to the 20s and 30s while awake. Status post Biotronik Edora 8 DRT dual-chamber pacemaker on 19 Aug 2022 (RL). Assessment & Plan (08/26/2022 2:25 PM CDT): Patient has felt ? so much better? since pacemaker was put in. Now she has much more energy and she is not dizzy anymore. We discussed today's device remote check showing 100% RA pacing and 100% RV pacing with good numbers otherwise. She will follow up with Dr. Garcia in October as scheduled. Bradycardia 08/14/2022 Paroxysmal atrial fibrillation (CMS/HCC) 023 Paroxysmal ventricular tachycardia 06/03/2022 Essential hypertension 06/03/2022 Nasal polyp 09/23/2016 Rash 10/24/2012 Lichen planus 08/19/2012 Sinusitis 08/19/2012 Hiatal hernia 08/13/2011 Gastroesophageal reflux disease 01/16/2010 Assessment & Plan (10/02/2023 11:24 AM CDT): EGD from 07/2023 for worsening reflux showed acute erosive gastritis and small hiatal hernia with intact fundoplication, mild reflux esophagitis. Currently on protonix 40 mg daily with reflux well controlled, will continue current medication and continue follow antireflux lifestyle Assessment & Plan (12/10/2022 11:12 AM CDT): Some occasional heartburn, takes Prilosec OTC at night with some relief but not completely Usually eats out for dinner, likes sodas, ketchup and hot sauce, usually feels worse after that. I counseled her extensively on antireflux lifestyle modifications Will continue her prilosec 20 mg for now and work on eating smaller dinners and avoiding trigger foods. Resolved Problems Problem Noted Date Diagnosed Date Resolved Date Family history of esophageal cancer 07/22/2023 07/22/2023 Encounters Date Type Department Care Team Description 05/01/2024 10:40 AM ARCHITECTURAL DESIGN PROFESSOR Lab [address] [address] Paroxysmal atrial fibrillation (CMS/HCC) (FORM[facility]LY [facility]) 05/01/2024 Anticoagulation Visit [place] [facility] Apprentice at [address] [place] [phone] Luis Buitrago MA 04/21/2024 10:00 AM ARCHITECTURAL DESIGN PROFESSOR Lab [address] [address] Paroxysmal atrial fibrillation (CMS/HCC) (HCC) 04/21/2024 Anticoagulation Visit [place] [facility]ice at [address] [place] [address] Kristal Kwok MA 04/19/2024 9:40 AM ARCHITECTURAL DESIGN PROFESSOR Lab [address] [address] Paroxysmal atrial fibrillation (CMS/HCC) (HCC) 04/19/[address] [facility] App[facility]ice at [address] [place] [address] Luis Buitrago MA 04/03/2024 9:30 AM ARCHITECTURAL DESIGN PROFESSOR Lab [address] [address] Paroxysmal atrial fibrillation (CMS/HCC) (HCC) 04/03/[address] Apprentice at [address] [address] Luis Buitrago MA 03/27/2024 9:40 AM ARCHITECTURAL DESIGN PROFESSOR Lab [address] [address] Paroxysmal atrial fibrillation (CMS/HCC) (HCC) 03/27/[address] Apprentice at [address] [place] [address] Kristal Kwok MA 03/16/2024 11:10 AM ARCHITECTURAL DESIGN PROFESSOR Lab [address] [address] Paroxysmal atrial fibrillation (CMS/HCC) (HCC) 03/16/[address] Apprentice at [address] [place] [address] Luis Buitrago MA 03/07/[address] [facility] App[facility]ice at [address] [place] [address] Luis Buitrago MA 02/17/2024 10:25 AM ARCHITECTURAL DESIGN PROFESSOR Lab [facility] [address] [place] [address] Paroxysmal atrial fibrillation (CMS/HCC) (HCC) 02/17/2024 Anticoagulation Telephone Call [place] [facility]ice at [facility] [address] [facility] [address] [place] [address] Rika Contreras MA 02/16/2024 2:00 PM ARCHITECTURAL DESIGN PROFESSOR Ancillary Procedure [place] [employer] [facility] [address] [place] [address] [address] [place] [address] Paroxysmal atrial fibrillation (CMS/HCC) (HCC) (Primary Dx); Sick sinus syndrome (CMS/HCC) (HCC); Cardiac pacemaker in situ 02/14/2024 Orders Only [place] [employer] [facility] [employer] [address] [place] [address] [address] [place] [address] Nelda Pyle Sick sinus syndrome (CMS/HCC) (HCC) (Primary Dx); Chest pain, unspecified type; Paroxysmal atrial fibrillation (CMS/HCC) (HCC); Cardiac pacemaker in situ from Last 3 Months Immunizations Name Administration Dates Next Due Influenza, Quadrivalent, Hig h Dose, Preservative Free, Intrr 12/25/2022,12/06/2019 Influenza, Quadrivalent, Spl it, Preservative Free, Intramuscular 12/22/2021,01/19/2019,12/28/2017,12/21,12/22/2014 Influenza, Trivalent, High D ose, Split, Preservative Free, Intramuscular 12/06/2019,12/13/2015 Influenza, Trivalent, Preser vative Free, Intramuscular 12/05/2020,01/03/2014 Pneumococcal Conjugate PCV 13 12/06/2019, 016 Pneumococcal Polysaccharide PPV23 01/02/2013 Sars-cov-2 Covid-19 Mrna, Bi valent, Original/omicron Ba.1 12/25/2022 Tdap 05/26/2011 Surgical History Surgery Date Site/Laterality Comments CHOLECYSTECTOMY GASTRIC FUNDOPLICATION KNEE ARTHROSCOPY Left REPLACEMENT TOTAL KNEE Left SINUS SURGERY CARPAL TUNNEL RELEASE Right INCONTINENCE SURGERY HYSTERECTOMY CARPAL TUNNEL RELEASE Left WRIST SURGERY Left ANKLE FUSION Left COLONOSCOPY 10 yrs ago UPPER GASTROINTESTINAL ENDOSCOPY COLONOSCOPY 02/03/2023 - 03/04/2023 CATARACT EXTRACTION 04/05/2022 - 04/04/2023 Bilateral Nov left eye and Dec right eye INSERT / REPLACE / REMOVE PACEMAKER 08/03/2022 - 09/02/2022 Dual pacemaker Medical History Medical History Date Comments Hypertension Arrhythmia Atrial fibrillation (CMS/HCC) (HCC) Colon polyp Family History Medical History Relation Name Comments Cancer Father Family history of malignant neoplasm - (Added by JESSICA Conv) Diabetes Father Family history of diabetes mellitus - (Added by JESSICA Conv) Relation Name Status Comments Father Social History Tobacco Use Types Packs/Day Years Used Date Smoking Tobacco: Never Smokeless Tobacco: Never Tobacco Cessation:Counseling Given: Not Answered AUDIT-C Answer Date Recorded Q1: How often do you have a drink containing alcohol? Never 10/01/2023 Q2: How many drinks containi ng alcohol do you have on a typical day when you are drinking? Patient does not drink Q3: How often do you have si x or more drinks on one occasion? Never 10/01/2023 Personal Safety Answer Date Recorded Have you ever been in or are you currently in a harmful physical or emotional relationship or is someone making you feel afraid or unsafe? Denies 07/27/2023 Comments Unknown Sex and Gender Information Value Date Recorded Sex Assigned at Not on file Legal Sex Female 3:40 AM ARCHITECTURAL DESIGN PROFESSOR Gender Identity Not on file Sexual Orientation Not on file Obstetrics History Last Filed Vital Signs Vital Sign Reading Time Taken Comments Blood Pressure 134/72 11/13/2023 11:15 AM CDT Pulse 78 11/13/2023 11:15 AM CDT Temperature 36.6 ??C (97.8 ??F) 11/13/2023 11:15 AM C DT Respiratory Rate 22 11/13/2023 11:15 AM CDT Oxygen Saturation 99% 11/13/2023 11:15 AM CDT Inhaled Oxygen Concentration - - Weight 97.1 kg (214 lb) 11/13/2023 11:15 AM CDT Height 157.5 cm (5' 2 ) 11/13/2023 11:15 AM CDT Body Mass Index 39.14 11/13/2023 11:15 AM CDT Plan of Treatment Health Maintenance Due Date Last Done Comments Depression Screening 1945 Hepatitis B Screening 02/11/1962 Zoster Vaccine (1 of 2) 02/11/1994 Well Visit 65+ 02/11/2009 DTaP/Tdap/Td Vaccine (2 - Td or Tdap) 05/26/2021 05/26/2011 Osteoporosis Screening-Bone Density Scan 06/28/2023 06/27/2021, 06/27/2021 Covid-19 Vaccine (6 - 2023-2 5 season) 2023 12/25/2022, 08/22/2021, 12/31/2020, Additional history exists Influenza Vaccine (#1) 2023 , 12/22/2021, 12/05/2020, Additional history exists Fall Risk Assessment 07/26/2024 07/27/2023 Pneumococcal vaccine 65+ Completed 020, 04/24/2015, 01/02/2013 Colon Cancer Screening-CT Colonography Discontinued 02/10/2023 Colon Cancer Screening-Colonoscopy Discontinued 02/10/2023 Colon Cancer Screening-DNA Stool Discontinued 02/11/20 Colon Cancer Screening-FIT Discontinued 02/10/2023 Colon Cancer Screening-FOBT Discontinued 02/10/2023 Colon Cancer Screening-Sigmoidoscopy Discontinued 02/10/2023 Colorectal Cancer Screening Discontinued Medical Devices Implanted Type Area Mobile Battery Technician Device Identifier Shelf Expiration Date Model / Serial / Lot [employer]ik Inc Biomonitor Iii Monitor Cardiac Sterile Disposable Latex Free [id number] - [id number] - [id number] Implanted:Qty: 1 on 06/12/2022 by Jared Hernandez MD at [facility] Implantable Loop Recorder N/A: Chest Wall [employer]ronik Inc 11/03/2023 [id number] / [id number] / Medtronic [employer] Tyrx Absorbable Antibacterial Envelope-Large 3.3x2.9in [id number] - [id number] Implanted:Qty: 1 on 08/19/2022 by Jared Hernandez MD at [facility] Mesh Med[employer]onic Inc 04/08/2023 [id number] / [employer]ronik Inc Endocardial Pacing Lead Promri Solia T [id number] - [id number] - [id number] Implanted:Qty: 1 on 08/19/2022 by Jared Hernandez MD at [facility] Pacemaker [employer]ik Inc 07/04/2023 [id number] / [id number] / Bi[employer]ronik Inc Endocardial Pacing Lead Promri Kalynia Jt 45 [id number] - [id number] - [id number] Implanted:Qty: 1 on 08/19/2022 by Jared Hernandez MD at [facility] Pacemaker [employer]ik Inc 02/03/2024 [id number] / [id number] / [employer] Inc Edora Promri [id number] Dual Chamber Rate Adaptive Unipolar Bipolar [id number] - [id number] - [id number] Implanted:Qty: 1 on 08/19/2022 by Jared Hernandez MD at [facility] Pacemaker [employer] Inc 11/03/2023 [id number] / [id number] / Procedures Procedure Name Priority Date/Time Associated Diagnosis Comments PROTIME-INR Routine 05/01/2024 10:48 AM ARCHITECTURAL DESIGN PROFESSOR Paroxysmal atrial fibrillation (CMS/HCC) (HCC) PROTIME-INR Routine 04/21/2024 10:20 AM ARCHITECTURAL DESIGN PROFESSOR Paroxysmal atrial fibrillation (CMS/HCC) (HCC) PROTIME-INR Routine 04/19/2024 9:58 AM ARCHITECTURAL DESIGN PROFESSOR Paroxysmal atrial fibrillation (CMS/HCC) (HCC) PROTIME-INR Routine 04/03/2024 9:35 AM ARCHITECTURAL DESIGN PROFESSOR Paroxysmal atrial fibrillation (CMS/HCC) (HCC) PROTIME-INR Routine 03/27/2024 9:43 AM ARCHITECTURAL DESIGN PROFESSOR Paroxysmal atrial fibrillation (CMS/HCC) (HCC) PROTIME-INR Routine 03/16/2024 11:19 AM ARCHITECTURAL DESIGN PROFESSOR Paroxysmal atrial fibrillation (CMS/HCC) (HCC) PROTIME-INR Routine 02/17/2024 10:28 AM ARCHITECTURAL DESIGN PROFESSOR Paroxysmal atrial fibrillation (CMS/HCC) (HCC) DEVICE CHECK - REMOTE Routine 02/15/2024 11:50 AM ARCHITECTURAL DESIGN PROFESSOR Sick sinus syndrome (CMS/HCC) (HCC) Cardiac pacemaker in situ COLONOSCOPY 02/10/2023 7:17 AM ARCHITECTURAL DESIGN PROFESSOR from Last 3 Months or Most Recently Relevant to Health Maintenance Results * (ABNORMAL) Protime-INR (05/01/2024 10:48 AM ARCHITECTURAL DESIGN PROFESSOR) PT 28.0(H) 9.7 - 13.0 sec [facility] ([place]) INR 2.54(H) 0.90 - 1.20 [facility] ([place]) Comment: Interpretive data Oral anticoagulant therapeutic ranges: Venous thromboembolism prophylaxis or treatment: 2.0-3.0 CARDIOLOGY Standard range: 2.0-3.0 High-intensity range: 2.5-3.5 Refer to indication-specific guidelines for appropriate target ranges for prosthetic heart valve replacement. Current interpretive data was last revised on 2019. Blood 05/01/2024 10:4 8 AM ARCHITECTURAL DESIGN PROFESSOR 05/01/2024 11:03 AM ARCHITECTURAL DESIGN PROFESSOR Dusty Garcia MD LAB BLOOD ORDERABLES Final Resu lt [facility]ANE [facility] ([place]) [address] [facility] [place] [address] * (ABNORMAL) Protime-INR (04/21/2024 10:20 AM ARCHITECTURAL DESIGN PROFESSOR) PT 27.5(H) 9.7 - 13.0 sec [facility] ([place]) INR 2.50(H) 0.90 - 1.20 [facility] ([place]) Comment: Interpretive data Oral anticoagulant therapeutic ranges: Venous thromboembolism prophylaxis or treatment: 2.0-3.0 CARDIOLOGY Standard range: 2.0-3.0 High-intensity range: 2.5-3.5 Refer to indication-specific guidelines for appropriate target ranges for prosthetic heart valve replacement. Current interpretive data was last revised on 2019. Blood 04/21/2024 10:2 0 AM ARCHITECTURAL DESIGN PROFESSOR 04/21/2024 11:00 AM ARCHITECTURAL DESIGN PROFESSOR us Carmen Riley NP LAB BLOOD ORDERABLES Fi nal Result [facility] ([place]) [address] [facility] Department [place] [address] * (ABNORMAL) Protime-INR (04/19/2024 9:58 AM ARCHITECTURAL DESIGN PROFESSOR) PT 57.8(H) 9.7 - 13.0 sec [facility] ([place]) Comment:OK INR 5.18(C) 0.90 - 1.20 [facility] ([place]) Comment: Critical result called to and read back by KIRBY LAGUERRE (DRChapo OFFICE) on 04/19/2024 11:04:36 ARCHITECTURAL DESIGN PROFESSOR to TIM BAE. Interpretive data Oral anticoagulant therapeutic ranges: Venous thromboembolism prophylaxis or treatment: 2.0-3.0 CARDIOLOGY Standard range: 2.0-3.0 High-intensity range: 2.5-3.5 Refer to indication-specific guidelines for appropriate target ranges for prosthetic heart valve replacement. Current interpretive data was last revised on 2019. Blood 04/19/2024 9:58 AM ARCHITECTURAL DESIGN PROFESSOR 04/19/2024 10:45 AM ARCHITECTURAL DESIGN PROFESSOR Dusty Garcia MD LAB BLOOD ORDERABLES Final Resu lt [facility] ([place]) [address] [facility] Department [place] [place] [address] * (ABNORMAL) Protime-INR (04/03/2024 9:35 AM ARCHITECTURAL DESIGN PROFESSOR) PT 21.8(H) 9.7 - 13.0 sec [facility] ([place]) INR 1.99(H) 0.90 - 1.20 [facility] ([place]) Comment: Interpretive data Oral anticoagulant therapeutic ranges: Venous thromboembolism prophylaxis or treatment: 2.0-3.0 CARDIOLOGY Standard range: 2.0-3.0 High-intensity range: 2.5-3.5 Refer to indication-specific guidelines for appropriate target ranges for prosthetic heart valve replacement. Current interpretive data was last revised on 2019. Blood 04/03/2024 9:35 AM ARCHITECTURAL DESIGN PROFESSOR 04/03/2024 9:39 AM ARCHITECTURAL DESIGN PROFESSOR Carmen Riley TOOL ROOM LATHE OPERATOR LAB BLOOD ORDERABLES Fi nal Result Performing Organization Address [facility] Co de Phone Number [facility]ANE GOOD[facility] ([place]) 1 [facility] [place] [address] * (ABNORMAL) Protime-INR (03/27/2024 9:43 AM ARCHITECTURAL DESIGN PROFESSOR) PT 21.8(H) 9.7 - 13.0 sec [facility] ([place]) INR 1.99(H) 0.90 - 1.20 [facility] ([place]) Comment: Interpretive data Oral anticoagulant therapeutic ranges: Venous thromboembolism prophylaxis or treatment: 2.0-3.0 CARDIOLOGY Standard range: 2.0-3.0 High-intensity range: 2.5-3.5 Refer to indication-specific guidelines for appropriate target ranges for prosthetic heart valve replacement. Current interpretive data was last revised on 2019. Blood 03/27/2024 9:43 AM ARCHITECTURAL DESIGN PROFESSOR 03/27/2024 10:19 AM ARCHITECTURAL DESIGN PROFESSOR Carmen Riley TOOL ROOM LATHE OPERATOR LAB BLOOD ORDERABLES nal Result Performing Organization Address [facility] Co de Phone Number [facility] ([place]) [address] [facility] [place] [address] * (ABNORMAL) Protime-INR (03/16/2024 11:19 AM ARCHITECTURAL DESIGN PROFESSOR) PT 20.8(H) 9.7 - 13.0 sec [facility] ([place]) INR 1.90(H) 0.90 - 1.20 [facility] ([place]) Comment: Interpretive data Oral anticoagulant therapeutic ranges: Venous thromboembolism prophylaxis or treatment: 2.0-3.0 CARDIOLOGY Standard range: 2.0-3.0 High-intensity range: 2.5-3.5 Refer to indication-specific guidelines for appropriate target ranges for prosthetic heart valve replacement. Current interpretive data was last revised on 2019. Blood 03/16/2024 11:1 9 AM ARCHITECTURAL DESIGN PROFESSOR 03/16/2024 12:01 PM ARCHITECTURAL DESIGN PROFESSOR Carmen Riley NP LAB BLOOD ORDERABLES Fi nal Result Performing Organization Address [facility] Co de Phone Number DIANE [facility] ([place]) [address] [facility] [place] [address] * (ABNORMAL) Protime-INR (02/17/2024 10:28 AM ARCHITECTURAL DESIGN PROFESSOR) PT 31.6(H) 9.7 - 13.0 sec [facility] ([place]) INR 2.86(H) 0.90 - 1.20 [facility] ([place]) Comment: Interpretive data Oral anticoagulant therapeutic ranges: Venous thromboembolism prophylaxis or treatment: 2.0-3.0 CARDIOLOGY Standard range: 2.0-3.0 High-intensity range: 2.5-3.5 Refer to indication-specific guidelines for appropriate target ranges for prosthetic heart valve replacement. Current interpretive data was last revised on 2019. Blood 02/17/2024 10:2 8 AM ARCHITECTURAL DESIGN PROFESSOR 02/17/2024 10:42 AM ARCHITECTURAL DESIGN PROFESSOR Dusty Garcia MD LAB BLOOD ORDERABLES Final Resu lt Performing Organization Address [facility] Co de Phone Number [facility] ([place] [address] [facility] [place] [address] * DEVICE CHECK - REMOTE (02/15/2024 11:50 AM ARCHITECTURAL DESIGN PROFESSOR) Anatomical Region Laterality Modality Other Narrative 02/24/2024 11:33 PM ARCHITECTURAL DESIGN PROFESSOR Images from the original result were not included. 02/16/2024 [employer] quarterly remote device check NOTE The following shows snippets from the complete quarterly report. ?? The complete report in its entirety is attached to this Result Text in Corporate Strategy Intern Presenting EGM Last in-office check 11/01/2023 Next in-office check 11/06/2024 DC PPM, implanted 08/19/2022 with 85% est remaining longevity Ap 96% RVp 74% 3 AT event episodes recorded in this monitoring quarter, longest 36 minutes 6 seconds Controlled rates 60's-80s Taking Warfarin No anomalies noted on remote Reviewed By Amanda Dee CAGE CLERK ATTESTATION I have reviewed the device interrogation report associated with this encounter in detail. I agree with the documentation recorded/scanned into the electronic medical record. Recommendations: Continue current device follow-up. Dusty Garcia MD us Dusty Garcia MD [facility] C[facility] PROCEDURES Final Result * COLONOSCOPY (02/10/2023 7:17 AM ARCHITECTURAL DESIGN PROFESSOR) Anatomical Region Laterality Modality Other Narrative Procedure Note Jer Sung MD - 02/10/2023 7:17 AM CST [facility] Patient Name: Tamica Saxena Procedure Date: 02/10/2023 7:17 AM Date of : 1945 Admit Type: Outpatient Age: 77 Gender: Female Attending MD: Jer Sung M.D. Room: [facility] ENDOSCOPY ROOM 2 Note Status: Finalized Patient Profile: This is a 77 year old female hx of paroxysmal AFibon warfarin, sick sinus syndrome status post defibrillator 08/2022, kasia fundoplication 2001with revision 2011 here for evaluation of chronicdiarrhea associated with flushing. Colonoscopy 2012 showedno polyps, internal hemorrhoids was told to repeat in5-7 years. No family hx of colon cancer or colitis. Procedure: Colonoscopy Indications: Last colonoscopy 10 years ago, Chronic diarrhea Referring MD: Savage Long M.D. Providers: Jer Sung M.D. Impression: - The examined portion of the ileum was normal. - One 8 mm polyp in the cecum, removed with a cold snare. Resected and retrieved. - Diverticulosis in the entire examined colon. - Internal hemorrhoids. - The examination was otherwise normal. - Biopsies were taken with a cold forceps from the entire colon for evaluation of microscopiccolitis. Recommendation: - Patient has a contact number available for emergencies. The signs and symptoms of potential delayed complications were discussed with thepatient. Return to normal activities tomorrow. Written discharge instructions were provided to thepatient. - Discharge patient to home (with escort). - Resume previous diet. - Continue present medications. - Await pathology results. - Okay to resume warfarin today. - Return to GI clinic as previously scheduled. - Repeat surveillance colonoscopy is notrecommended given age and co-morbidities. Medicines: Monitored Anesthesia Care Complications: No immediate complications. Estimated Blood Loss: Estimated blood loss was minimal. Procedure: Pre-Anesthesia Assessment: - Prior to the procedure, a History and Physicalwas performed, and patient medications and allergieswere reviewed. The patient is competent. The risks and benefits of the procedure and the sedation optionsand risks were discussed with the patient. Allquestions were answered and informed consent was obtained. Patient identification and proposed procedure were verified by the physician, the pilot supervisor and the er medical technician in the endoscopy suite. Mental Status Examination: normal. Prophylactic Antibiotics: The patient does not require prophylactic antibiotics. Prior Anticoagulants: The patient has takenCoumadin (warfarin), last dose was 5 days prior toprocedure. After reviewing the risks and benefits, the patient was deemed in satisfactory condition to undergo the procedure. The anesthesia plan was to use monitored anesthesia care (MAC). Immediately prior to administration of medications, the patient was re-assessed for adequacy to receive sedatives. The heart rate, respiratory rate, oxygen saturations, blood pressure, adequacy of pulmonary ventilation,and response to care were monitored throughout the procedure. The physical status of the patient was re-assessed after the procedure. The benefits, risks and alternatives of theprocedure and sedation were discussed and informed consentwas obtained. All questions were answered. Please referto the signed informed consent document in the medical record. The bowel preparation used was Miralax and bisacodyl tablets via split dose instruction. The scope was passed under direct vision. TheColonoscope [id number] was introduced through the anus and advanced to the the terminal ileum. The colonoscopy was performed without difficulty. The patient tolerated the procedure well. The qualityof the bowel preparation was good. Bowel prep was administered using a split dose. Findings: The perianal and digital rectal examinations were normal. The terminal ileum appeared normal. An 8 mm polyp was found in the cecum. The polyp was flat. The polypwas removed with a cold snare. Resection and retrieval were complete. Scattered small and large-mouthed diverticula were found in theentire colon. Internal hemorrhoids were found during retroflexion and duringendoscopy. The exam was otherwise without abnormality. Biopsies for histology were taken with a cold forceps from the entire colon for evaluation of microscopic colitis. Jer Sung M.D. 02/10/2023 9:44:11 AM Number of Addenda: 0 Note Initiated On: 02/10/2023 7:17 AM Procedure Code(s): --- Professional --- 66559, Colonoscopy, flexible; with removal of tumor(s), polyp(s), or other lesion(s) by snare technique 78067, 59, Colonoscopy, flexible; with biopsy, single or multiple --- Technical --- 51351, Colonoscopy, flexible; with removal of tumor(s), polyp(s), or other lesion(s) by snare technique 45635, 59, Colonoscopy, flexible; with biopsy, single or multiple Diagnosis Code(s): --- Professional --- K64.8, Other hemorrhoids D12.0, Benign neoplasm of cecum K52.9, Noninfective gastroenteritis and colitis, unspecified K57.30, Diverticulosis of large intestine without perforation orabscess without bleeding --- Technical --- K64.8, Other hemorrhoids D12.0, Benign neoplasm of cecum K52.9, Noninfective gastroenteritis and colitis, unspecified K57.30, Diverticulosis of large intestine without perforation orabscess without bleeding CPT copyright 2020 [employer]. All rights reserved. The codes documented in this report are preliminary and upon boatbuilder supervisor reviewmay be revised to meet current compliance requirements. 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
--- OUTSIDE RECORDS SUMMARY | 2024-05-08 13:06 | XMS_ITS | Clinical Summary ---
Author Organization [facility] Address [address] [place] [address] Phone Care Team Providers Care [employer] Supervisor Name Role Phone Kimberlee Morocho Krystal LENNON, GLAZE SPRAYER Unavailable [phone] Savage Long MD Primary Care Provider [phone] Leighton Rios MD Unavailable [phone] Caroline Candelaria MD Unavailable Oleksandr Borjas MD Unavailable Allergies Active Allergy Reactions Criticality Noted Date Comments Codeine Vomiting,Other (see Comments) Medium 04/17/2015 Reaction: UNKNOWN, Hydrocortisone Other (see Comments) 04/17/2015 High blood pressure Meperidine Vomiting,Other (see Comments) Medium 04/17/2015 Reaction: UNKNOWN, Latex Hives Medium 08/26/2022 Morphine Vomiting,Nausea High 04/17/2015 Reaction: UNKNOWN Morphine And Codeine Nausea Onion Unknown 10/24/2015 Penicillins Rash 04/17/2015 Tramadol Vomiting Medium 04/17/2015 Medications Multiple Vitamin (MULTI-VITAMIN PO) Take 1 Tablet by mouth daily. Active FIBER COMPLETE PO Take 2 Tabs by mouth 2 times daily. Active Ascorbic Acid (VITAMIN C) 1000 MG Tablet Take 1,000 mg by mouth daily. Active flecainide (TAMBOCOR) 50 MG Tablet Take 50 mg by mouth 2 times daily. Active metoprolol Succinate (TOPROL-XL) 25 MG TABLET SR 24 HR Take 50 mg by mouth daily. 11/30/19 23 Active Blood Glucose Monitoring Suppl Device Diagnosis: R73.9 Use once daily 1 Each 01/21/20 Active Glucose Blood (OneTouch Ultra) Strip Test once daily R73.9 90 Strip 3 01/21/20 Active Lancets Misc Use once daily R73.9 90 Lancet 3 01/21/20 23 Active pantoprazole (PROTONIX) 40 MG Tablet Delayed Response Take 40 mg by mouth daily. 07/22/19 24 Active valsartan (DIOVAN) 160 MG Tablet Take 1 Tablet by mouth daily. 90 Tablet 3 08/25/19 24 Active polyethylene glycol (GLYCOLAX, MIRALAX) 17 g PackIndications:Co nstipation Take 1 Packet by mouth 2 times daily as needed for Constipation - 1st line. Dissolve in 4-8 oz of liquid. Indications: Constipation 90 Packet 11/27/19 Active Calcium Carbonate (CALCIUM 500 PO) Take 1 Tablet by mouth in the morning and at bedtime. Active Magnesium 400 MG Tablet Take 1 Tablet by mouth 2 times daily. Active docusate sodium (Stool Softener) 100 MG Capsule Take 100 mg by mouth 2 times daily. Active dicyclomine (BENTYL) 10 MG CapsuleIndications :Irritable bowel syndrome, unspecified type TAKE 1 CAPSULE BY MOUTH TWICE DAILY NEEDED 60 Capsule 03/13/20 24 Active warfarin (COUMADIN) 3 MG Tablet Take 3 mg by mouth. WEDNESDAY-Wednesday03/16/20 24 Active warfarin (COUMADIN) 4 MG Tablet Take 4 mg by mouth. ON MONDAYS Active Cyanocobalamin (B-12) 500 MCG TabletIndications: B12 deficiency Take 1 Tablet by mouth daily for 90 doses. 90 Tablet 3 04/24/19 25 025 Active ergocalciferol (VITAMIN D) 20974 UNIT CapsuleIndications :Vitamin D deficiency Take 1 Capsule by mouth once a week for 12 doses. 12 Capsule 04/24/19 25 025 Active trimethoprim-polym yxin b (POLYTRIM) 96062-3.1 UNIT/ML-% SolutionIndication s:Bacterial conjunctivitis of left eye Place 1 Drop in left eye 4 times daily for 7 days. 10 mL 04/07/19 25 025 azithromycin (ZITHROMAX) 250 MG Tablet Take 2 Tablets by mouth daily for 1 day, THEN 1 Tablet daily for 4 days. 2 tab(s) daily for 1 day, then 1 tab(s) daily for days 2-5. 6 Tablet 04/11/19 25 025 Active Problems Problem Noted Date Diagnosed Date Abnormality of plasma protein 04/26/2024 Vitamin D deficiency 04/24/2024 B12 deficiency 04/24/2024 Encounter for screening mamm ogram for malignant neoplasm of breast 01/05/2024 Blood loss anemia 01/05/2024 COVID-19 12/22/2023 Chronic anticoagulation 12/22/2023 Anemia, normocytic normochromic 12/05/2023 Hyperkalemia 12/01/2023 Prolonged Q-T interval on ECG 11/26/2023 Elevated INR 11/26/2023 Syncope and collapse 11/25/2023 Supratherapeutic INR 11/25/2023 Hypomagnesemia 11/25/2023 Left knee pain 11/25/2023 Hypertension 11/25/2023 Enteritis 08/25/2023 Diarrhea 08/25/2023 Dry eyes 08/25/2023 Hypotension 08/25/2023 Lichen planus 06/21/2023 Mouth pain 06/21/2023 Postmenopausal 05/13/2023 Diverticulitis 05/13/2023 Cataract of both eyes 01/28/2023 Morbid obesity 01/28/2023 Heat intolerance 01/28/2023 Syncope 01/28/2023 Irritable bowel syndrome 11/16/2022 Hyperglycemia 10/15/2022 Chronic pain of right knee 09/29/2022 Chronic foot pain, left 07/02/2022 Anticoagulated on Coumadin 07/02/2022 On Coumadin for atrial fibrillation 03/26/2022 Constipation 03/26/2022 Hypokalemia 12/22/2021 Insomnia 12/22/2021 Cough 12/22/2021 Obesity (BMI 30-39.9) 09/16/2020 Mild intermittent asthma without complication 06 / Bilateral leg edema 09/16/2020 Bilateral sciatica 09/16/2020 PAF (paroxysmal atrial fibrillation) 06/07/2018 Status post open reduction w ith internal fixation (ORIF) of fracture of ankle 03/01/2018 Carpal tunnel syndrome, left 05/07/2016 High blood pressure 05/06/2016 Gastroesophageal reflux disease 10/24/2015 History of Stacy fundoplication 10/24/2015 Irritable bowel syndrome with diarrhea 6 Encounters Date Type Department Care Team Description 04/26/2024 10:45 AM WILL CALL ORDER CLERK [facility] [address] [place] [address] Isaura Evans, PAC Anemia, normocytic normochromic (Primary Dx); Blood loss anemia; PAF (paroxysmal atrial fibrillation) (HCC); Abnormality of plasma protein Discharge Disposition: Discharged to home or Selfcare 04/26/2024 Travel 04/24/2024 Results Follow-Up [facility] [address] [place] [address] Savage Long MD Vitamin D deficiency (Primary Dx); B12 deficiency 04/11/2024 Patient Outreach [facility] Managed Services Consultant Management [address] [place] [address] Brittnee Mae, RN Care Management 04/07/2024 10:30 AM WILL CALL ORDER CLERK Office Visit [facility] [address] [place] [address] Yuniel Finley APRN, GLAZE SPRAYER Primary hypertension (Primary Dx); Bacterial conjunctivitis of left eye; Viral URI; Acute cough Discharge Disposition: Discharged to home or Selfcare 04/07/2024 Travel 04/04/2024 7:15 AM WILL CALL ORDER CLERK - 04/04/2024 11:59 PM WILL CALL ORDER CLERK Hospital Encounter [facility] Mammography [address] [place] [address] Rell Escamilla MD Discharge Disposition: Discharged to home or Selfcare 04/03/2024 Travel 03/28/2024 [facility] [address] [place] [address] Savage Long MD 03/24/2024 [facility] [address] [place] [address] Savage Long MD 03/20/2024 Travel 03/13/2024 [facility] [address] [place] [address] Savage Long MD Medication Refill 02/15/2024 Patient Outreach [facility] [address] [place] [phone] Noreen Montgomery Care Management from Last 3 Months Immunizations Immunization Administration Dates Next Due COVID-19 mRNA, bivalent, original/Sheldon BA.1, Non-US Vaccine Product, [employer] 12/25/2022 COVID-19, Mrna, Lnp-s, Pf, 5 0 mcg/0.5 mL 12/25/2022 Covid-19, Mrna, Lnp-s, PF, 1 00 mcg/0.5 mL Dose (Moderna) 12/31/2020,07/26/2020,06/28/2020 Influenza Vaccine 12/05/2020,01/03/2014,01/04/20 14 Influenza Vaccine greater than 3 yrs 12/22/2014 Influenza Vaccine, Quadrivalent, PF 12/04,01/19/2019,12/28/2017,2016,12/22/2014 Influenza, High-dose, Quadrivalent 12/25/2022 Influenza, high-dose, trivalent, PF 12/06/2019,0 12/13/2015 PUR FLU HIGH DOSE (FLUZONE) 12/13/2015 PUR PCV-13 04/24/2015 Pneumococcal Vaccine - 13 Valent 12/06/2019,04/06 Pneumococcal Vaccine Adult - 23 Valent 01/02/2013,01/02/2013 TDAP Vaccine 05/26/2011 Family History Medical History Relation Name Comments No Known Problems Brother No Known Problems Daughter Cancer Father Dinh pancreatic Hypertension Father Dinh Heart Attack Maternal Grandfather No Known Problems Maternal Grandmother Congestive Heart Failure Mother Janette High Cholesterol Mother Janette Hypertension Mother Janette No Known Problems Paternal Grandfather Cancer Paternal Grandmother Ovarian Cancer Paternal Grandmother No Known Problems Son 1 No Known Problems Son 2 Relation Name Status Comments Brother Alive Daughter Alive Father Dinh Maternal Grandfather Maternal Grandmother Mother Janette Paternal Grandfather Paternal Grandmother Son 1 Alive Son 2 Alive Social History Tobacco Use Types Packs/Day Years Used Date Smoking Tobacco: Never Smokeless Tobacco: Never Tobacco Cessation:Counseling Given: No Comments:Never smoked Alcohol Use Standard Drinks/Week Comments Not Currently 0 (1 standard drink = 0.6 oz pur e alcohol) socially [employer] Utilities Answer Date Recorded In the past 12 months has th e electric, gas, oil, or water company [...] declined 11/25/2023 How often do you attend yazidi or anglican serv ices? Patient declined 11/25/2023 Do you belong to any clubs o r organizations such as yazidi groups, unions, fraternal or athletic groups, or [...] Recorded Total Score - Questions 1-9 0 06/2024 [facility] - Occupational [...] place to sleep or slept in a [place] facility (including now)? Patient declined 05/13/2023 Housing Stability Vital Sign Answer Carroll e Recorded In the last 12 months, was t here a time when you were not able to pay the mortgage or rent on time? Patient declined 11/25/19 24 In the past 12 months, how m any times have you moved where you were living? 1 11/25/2023 At any time in the past 12 m [facility], were you homeless or living in a [place] health [place] facility (including now)? Patient declined 11/25/2023 Education Answer [...] file Not on file Not on file Last Filed Vital Signs Vital Sign Reading Time Taken Comments Blood Pressure 123/82 04/26/2024 10:38 AM WILL CALL ORDER CLERK Pulse 74 04/26/2024 10:38 AM WILL CALL ORDER CLERK Temperature 36.6 ??C (97.9 ??F) 04/26/2024 10:[address] Respiratory Rate 20 04/26/2024 10:38 AM WILL CALL ORDER CLERK Oxygen Saturation 98% 04/26/2024 10:38 AM WILL CALL ORDER CLERK Inhaled Oxygen Concentration - - Weight 87 kg (191 lb 14.4 oz) 04/26/2024 10:38 A M WILL CALL ORDER CLERK Height 158.8 cm (5' 2.5 ) 04/26/2024 10:38 AM CS T Body Mass Index 34.54 04/26/2024 10:38 AM WILL CALL ORDER CLERK Plan of Treatment Upcoming Encounters Date Type Department Care Team (Late st Contact Info) Description 07/11/2024 10:00 AM CDT Office Visit [facility] - [facility] [address] [place] [address] Savage Long MD [address] [address] 10/17/2024 11:00 AM CDT [facility] [address] [place] [address] Isaura Evans PAC [address] [place] [address] Discharge Disposition: Discharged to home or Selfcare 10/24/2024 10:00 AM CDT Office Visit [facility] [address] [place] [address] Isaura Evans Tanika, PAC [address] [place] [address] Discharge Disposition: Discharged to home or Selfcare Health Maintenance Due Date Last Done Comments Zoster Immunization (1 of 2) 02/11/1994 Respiratory Syncytial Virus (RSV) Immunization (Adult) (1 - 1-dose 75+ series) 02/11/2019 Td Immunization Every 10 Years (Adults With 1 Tdap) 05/26/2021 05/26/2011 DEXA Bone Density 06/28/2023 06/27/2021 Influenza Immunization (#1) 12/05/202312/05, 12/22/2021, 12/05/2020, Additional history exists SARS-COV-2 Immunization ( season) 2023 12/25/2022, 08/22/2021, 12/31/2020, Additional history exists Pneumococcal Immunization (50+ years) Completed 12/06/2019, 04/24/2015, 04/24/2015, Additional history exists Pneumococcal Immunization Combined Discontinued 12/06/2019, 04/24/2015, 04/24/2015, Additional history exists Hepatitis C Virus (HCV) Screening Completed 10/08/2020 Colonoscopy High Risk Discontinued 02/10/2023 , 02/10/2023, 02/10/2023, Additional history exists Colonoscopy Discontinued 02/10/2023, 11/2022, 02/10/2023, Additional history exists Colorectal Cancer Screening Discontinued Cologuard Discontinued Hepatitis B Immunization Aged Out No longer eligible based on patient's age to complete this topic Immunochemical Fecal Occult Blood Discontinued Meningococcal Immunization (ACWY) Aged Out No longer eligible based on patient's age to complete this topic Rotavirus Immunization Aged Out No lo nger eligible based on patient's age to complete this topic Procedures Procedure Name Priority Date/Time Associated Diagnosis Comments POC SARS-COV-2 BY MOLECULAR Routine 04/07/2024 10:12 AM WILL CALL ORDER CLERK Acute cough POC INFLUENZA A AND B BY MOLECULAR Routine 04/07/2024 10:12 AM WILL CALL ORDER CLERK Acute cough LUX SCREENING BILATERAL DIGITAL W CAD W NICOLE Routine 04/04/2024 8:00 AM WILL CALL ORDER CLERK Anemia, normocytic normochromic PAF (paroxysmal atrial fibrillation) (HCC) Encounter for screening mammogram for malignant neoplasm of breast CBC WITH AUTO DIFFERENTIAL Routine 04/03/2024 8:49 AM WILL CALL ORDER CLERK Anemia, normocytic normochromic LIPID PANEL Routine 04/03/2024 8:49 AM WILL CALL ORDER CLERK Primary hypertension VITAMIN B12 Routine 04/03/2024 8:49 AM WILL CALL ORDER CLERK Anemia, normocytic normochromic FOLIC ACID (FOLATE) Routine 04/03/2024 8 :49 AM WILL CALL ORDER CLERK Anemia, normocytic normochromic FERRITIN Routine 04/03/2024 8:49 AM WILL CALL ORDER CLERK Anemia, normocytic normochromic IRON,TRANSFERN,CALC.TIB C,%SAT Routine 04/03/2024 8:49 AM WILL CALL ORDER CLERK Anemia, normocytic normochromic COMPLETE BLOOD COUNT (CBC) WITH DIFF Routine 04/03/2024 8:49 AM WILL CALL ORDER CLERK Anemia, normocytic normochromic BASIC METABOLIC PANEL W/ CALCIUM TOTAL Routine 04/03/2024 8:49 AM WILL CALL ORDER CLERK Primary hypertension XR - LOWER EXTREMITY 03/22/2024 12:00 AM WILL CALL ORDER CLERK CBC WITH AUTO DIFFERENTIAL Routine 03/20/2024 11:00 AM WILL CALL ORDER CLERK Anemia, normocytic normochromic PAF (paroxysmal atrial fibrillation) (HCC) FREE KAPPA & LAMBDA LIGHT CHAINS SERUM Routine 03/20/2024 11:00 AM WILL CALL ORDER CLERK Anemia, normocytic normochromic PAF (paroxysmal atrial fibrillation) (HCC) IMMUNOFIXATION W/ ELECTROPHORESIS SERUM Routine 03/20/2024 11:00 AM WILL CALL ORDER CLERK Anemia, normocytic normochromic PAF (paroxysmal atrial fibrillation) (HCC) VITAMIN B12 Routine 03/20/2024 11:00 AM WILL CALL ORDER CLERK Anemia, normocytic normochromic PAF (paroxysmal atrial fibrillation) (HCC) RETICULOCYTE COUNT (RETIC) Routine 03/20/2024 11:00 AM WILL CALL ORDER CLERK Anemia, normocytic normochromic PAF (paroxysmal atrial fibrillation) (HCC) FOLIC ACID (FOLATE) Routine 03/20/2024 1 1:00 AM WILL CALL ORDER CLERK Anemia, normocytic normochromic PAF (paroxysmal atrial fibrillation) (HCC) IRON,TRANSFERN,CALC.TIB C,%SAT Routine 03/20/2024 11:00 AM WILL CALL ORDER CLERK Anemia, normocytic normochromic PAF (paroxysmal atrial fibrillation) (HCC) FERRITIN Routine 03/20/2024 11:00 AM WILL CALL ORDER CLERK Anemia, normocytic normochromic PAF (paroxysmal atrial fibrillation) (HCC) CMP (COMPREHENSIVE METABOLIC PANEL) Routine 03/20/2024 11:00 AM WILL CALL ORDER CLERK Anemia, normocytic normochromic PAF (paroxysmal atrial fibrillation) (HCC) COMPLETE BLOOD COUNT (CBC) WITH DIFF Routine 03/20/2024 11:00 AM WILL CALL ORDER CLERK Anemia, normocytic normochromic PAF (paroxysmal atrial fibrillation) (HCC) HM COLONOSCOPY 02/10/2023 12:00 AM WILL CALL ORDER CLERK LUX BONE DENSITOMETRY AXIAL SKELETON Routine 06/27/2021 10:19 AM CDT Asymptomatic menopausal state HEPATITIS C ANTIBODY Routine 10/08/2020 7:11 AM CDT Encounter for hepatitis C screening test for low risk patient from Last 3 Months or Most Recently Relevant to Health Maintenance Results * POC SARS-COV-2 BY MOLECULAR (04/07/2024 10:12 AM WILL CALL ORDER CLERK) SARSCOV2 Negative Negative, INVALID PROCEDURE CONTROL Valid 04/07/2024 10:1 2 AM WILL CALL ORDER CLERK Yuniel Finley APRN, CNP POINT OF CARE TE STING (MANUAL) Final Result * POC INFLUENZA A AND B BY MOLECULAR (04/07/2024 10:12 AM WILL CALL ORDER CLERK) INFLUENZA A RNA Negative Negative, Invalid INFLUENZA B RNA Negative Negative, Invalid PROCEDURE CONTROL Valid 04/07/2024 10:1 2 AM WILL CALL ORDER CLERK Yuniel Finley APRN, CNP POINT OF CARE TE STING (MANUAL) Final Result * LUX SCREENING BILATERAL DIGITAL W CAD W NICOLE (04/04/2024 8:00 AM WILL CALL ORDER CLERK) Anatomical Region Laterality Modality breast Bilateral Mammography 04/04/2024 8:28 AM WILL CALL ORDER CLERK Narrative 04/06/2024 9:33 AM WILL CALL ORDER CLERK - LUX SCREENING BILATERAL DIGITAL W CAD W NICOLE BILATERAL DIGITAL SCREENING MAMMOGRAM 3D/2D WITH CAD WITH MEDIOLATERAL OBLIQUE CRANIOCAUDAL: 04/04/2024 The study was acquired using digital technology and interpreted from soft copy. Current study was also evaluated with ICAD version 7.2. 2D digital mammographic views, as well as 3D digital tomosynthesis were performed in the CC and MLO projections. ?? CLINICAL: Routine screening. Patient has no complaints. She has a new pacemaker since her last exam. She reports some weight loss since being ill this year. No personal history of cancer. No family history of breast cancer. ?? COMPARISONS: Comparison is made to exams dated: ??06/09/2022, 05/30/2021, 05/14/2020, and 05/09/2019 [facility]. BREAST TISSUE:There are scattered areas of fibroglandular density. ?? FINDINGS: Left axillary pace maker is present. ?? No significant masses, calcifications, or other findings are seen in either breast. ?? There has been no significant interval change. IMPRESSION: BENIGN There is no mammographic evidence of malignancy. A 1 year screening mammogram is recommended. ?? A letter will be sent to the patient with these results. The patient will be entered into a reminder system with a target due date of 1 year for her next screening exam. Electronically signed by: Maddy Novak M.D. ? ab/penrad:04/04/2024 14:11:35 ?? Sheeter Operator(s): Myla ??BLANKA Garza)(Armando), [facility] letter sent: Normal Exam ?? Reading location: [facility] Mammogram BI-RADS: Category 2: Benign Procedure Note Maddy Novak MD - 04/06/2024 - LUX SCREENING BILATERAL DIGITAL W CAD W NICOLE BILATERAL DIGITAL SCREENING MAMMOGRAM 3D/2D WITH CAD WITH MEDIOLATERAL OBLIQUE CRANIOCAUDAL: 04/04/2024 The study was acquired using digital technology and interpreted from soft copy. Current study was also evaluated with ICAD version 7.2. 2D digital mammographic views, as well as 3D digital tomosynthesis were performed in the CC and MLO projections. CLINICAL: Routine screening. Patient has no complaints. She has a new pacemaker since her last exam. She reports some weight loss since being ill this year. No personal history of cancer. No family history of breast cancer. COMPARISONS: Comparison is made to exams dated: 06/09/2022, 05/30/2021, 05/14/2020, and 05/09/2019 [facility]. BREAST TISSUE:There are scattered areas of fibroglandular density. FINDINGS: Left axillary pace maker is present. No significant masses, calcifications, or other findings are seen in either breast. There has been no significant interval change. IMPRESSION: BENIGN There is no mammographic evidence of malignancy. A 1 year screening mammogram is recommended. A letter will be sent to the patient with these results. The patient will be entered into a reminder system with a target due date of 1 year for her next screening exam. Electronically signed by: Maddy Novak M.D. ab/penrad:04/04/2024 14:11:35 Sheeter Operator(s): RT Seth(R)(M), [facility]: Normal Exam Reading location: [place] Mammogram BI-RADS: Category 2: Benign us Rell Escamilla MD IMG MAMMO ORDERABLES Fin al Result * IRON,TRANSFERN,CALC.TIBC,%SAT (04/03/2024 8:49 AM WILL CALL ORDER CLERK) Only the most recent of2 resultswithin the time period is included. IRON 95 25 - 156 mcg/dL 04/03/2024 9:47 AM WILL CALL ORDER CLERK [facility] TRANSFERRIN 315 173 - 360 mg/dL 04/03/2024 9:47 AM WILL CALL ORDER CLERK [facility] TIBC, CALCULATED 394 265 - 497 mcg/dL 04/03/2024 9:47 AM WILL CALL ORDER CLERK [facility] % SATURATION * 24 15 - 62 % 04/03/2024 9:47 AM WILL CALL ORDER CLERK [facility] Blood Venipuncture / Unknown 04/03/2024 8:49 AM WILL CALL ORDER CLERK 04/03/2024 9:21 AM WILL CALL ORDER CLERK Savage Long MD CHEMISTRY ORDERABLES Final Result [facility] [address] [place] [address] * (ABNORMAL) CBC WITH AUTO DIFFERENTIAL (04/03/2024 8:49 AM WILL CALL ORDER CLERK) Only the most recent of2 resultswithin the time period is included. WBC 6.10 4.00 - 12.00 10(3)/mcL 04/03/2024 9:28 AM WILL CALL ORDER CLERK [facility] RBC 4.26 3.80 - 5.30 10(6)/mcL 04/03/2024 9:28 AM WILL CALL ORDER CLERK [facility] HEMOGLOBIN (HGB) 12.5 12.0 - 15.8 g/dL 04/03/2024 9:28 AM WILL CALL ORDER CLERK [facility] HEMATOCRIT (HCT) 39.6 36.0 - 47.0 % 04/03/2024 9:28 AM [facility] MCV 93.0 82.0 - 96.0 fL 04/03/2024 9:28 AM [facility] MCH 29.3 26.0 - 34.0 pg 04/03/2024 9:28 AM [facility] MCHC 31.6 31.0 - 36.0 g/dL 04/03/2024 9:28 AM [facility] PLATELET COUNT 238 140 - 440 10(3)/mcL 04/03/2024 9:28 AM [facility] RDW 13.3 11.8 - 15.5 % 04/03/2024 9:28 AM [facility] MPV 9.7 9.7 - 12.4 fL 04/03/2024 9:28 AM [facility] NEUTROPHILS 63.3 47.0 - 73.0 % 04/03/2024 9:28 AM [facility] LYMPHOCYTES 20.0 18.0 - 42.0 % 04/03/2024 9:28 AM [facility] MONOCYTES 9.7 4.0 - 12.0 % 04/03/2024 9:28 AM [facility] EOSINOPHILS 5.9(H) 0.0 - 5.0 % 04/03/2024 9:28 AM [facility] BASOPHILS 1.1(H) 0.0 - 1.0 % 04/03/2024 9:28 AM [facility] ABSOLUTE NEUTROPHILS 3.86 1.60 - 7.70 10(3)/mcL 04/03/2024 9:28 AM [facility] ABSOLUTE LYMPHOCYTES 1.22(L) 1.30 - 3.20 10(3)/mcL 04/03/2024 9:28 AM [facility] ABSOLUTE MONOCYTES 0.59 0.20 - 1.00 10(3)/mcL 04/03/2024 9:28 AM [facility] ABSOLUTE EOSINOPHIL 0.36 0.00 - 0.40 10(3)/mcL 04/03/2024 9:28 AM WILL CALL ORDER CLERK [facility] ABSOLUTE BASOPHILS 0.07 0.00 - 0.10 10(3)/mcL 04/03/2024 9:28 AM WILL CALL ORDER CLERK [facility] NRBC PER 100 WBC 0 04/03/20 9:28 AM WILL CALL ORDER CLERK [facility] Blood Venipuncture / Unknown 04/03/2024 8:49 AM WILL CALL ORDER CLERK 04/03/2024 9:21 AM WILL CALL ORDER CLERK Savage Long MD HEMATOLOGY ORDERABLES Final Result [facility] [address] [place] [address] * VITAMIN B12 (04/03/2024 8:49 AM WILL CALL ORDER CLERK) Only the most recent of2 resultswithin the time period is included. VITAMIN B12 362 213 - 816 pg/mL 04/03/2024 10:20 AM WILL CALL ORDER CLERK [facility] Blood Venipuncture / Unknown 04/03/2024 8:49 AM WILL CALL ORDER CLERK 04/03/2024 9:21 AM WILL CALL ORDER CLERK Savage Long MD CHEMISTRY ORDERABLES Final Result [facility] [address] [place] [address] * LIPID PANEL (04/03/2024 8:49 AM WILL CALL ORDER CLERK) CHOLESTEROL 176 <200 mg/dL 04/03/2024 9:47 AM WILL CALL ORDER CLERK [facility] TRIGLYCERIDES 67 <150 mg/dL 04/03/2024 9:47 AM WILL CALL ORDER CLERK [facility] HDL CHOLESTEROL 68 >40 mg/dL 9:47 AM WILL CALL ORDER CLERK [facility] LDL 95 <130 mg/dL 04/03/2024 9:47 AM WILL CALL ORDER CLERK [facility] VLDL 13 10 - 50 mg/dL 04/03/2024 9:47 AM WILL CALL ORDER CLERK [facility] CHOL/HDL RATIO 2.6 0.0 - 4.4 04/03/2024 9:47 AM WILL CALL ORDER CLERK [facility] NON-HDL CHOLESTEROL 108 <130 mg/dL 04/03/2024 9:47 AM WILL CALL ORDER CLERK [facility] IS THE PATIENT REQUIRED TO BE FASTING? Yes 04/03/2024 9:47 AM WILL CALL ORDER CLERK [facility] HAS THE PATIENT BEEN FASTING? Yes 04/03/2024 9:47 AM WILL CALL ORDER CLERK [facility] Blood Venipuncture / Unknown 04/03/2024 8:49 AM WILL CALL ORDER CLERK 04/03/2024 9:21 AM WILL CALL ORDER CLERK Savage Long MD CHEMISTRY ORDERABLES Final Result Performing Organization Address City/[facility] Co de Phone Number [facility] [address] [place] [address] * FOLIC ACID (FOLATE) (04/03/2024 8:49 AM WILL CALL ORDER CLERK) Only the most recent of2 resultswithin the time period is included. FOLATE 14.9 7.0 - 31.4 ng/mL 04/03/2024 10:20 AM WILL CALL ORDER CLERK [facility] IS THE PATIENT REQUIRED TO BE FASTING? No 04/03/2024 10:20 AM WILL CALL ORDER CLERK [facility] Blood Venipuncture / Unknown 04/03/2024 8:49 AM WILL CALL ORDER CLERK 04/03/2024 9:21 AM WILL CALL ORDER CLERK Savage Long MD CHEMISTRY ORDERABLES Final Result Performing Organization Address City/[facility]/ZIP Co de Phone Number [facility] [address] [place] [address] * FERRITIN (04/03/2024 8:49 AM WILL CALL ORDER CLERK) Only the most recent of2 resultswithin the time period is included. FERRITIN 53 5 - 204 ng/mL 04/03/2024 10:04 AM WILL CALL ORDER CLERK [facility] Blood Venipuncture / Unknown 04/03/2024 8:49 AM WILL CALL ORDER CLERK 04/03/2024 9:21 AM WILL CALL ORDER CLERK Savage Long MD CHEMISTRY ORDERABLES Final Result [facility] [address] [place] [address] * (ABNORMAL) BASIC METABOLIC PANEL W/ CALCIUM TOTAL (04/03/2024 8:49 AM WILL CALL ORDER CLERK) Pathologist [facility] SODIUM 139 136 - 145 mmol/L 04/03/2024 9:47 AM WILL CALL ORDER CLERK [facility] POTASSIUM 4.0 3.5 - 5.1 mmol/L 04/03/2024 9:47 AM [facility] CHLORIDE 104 98 - 107 mmol/L 04/03/2024 9:47 AM [facility] CO2, VENOUS 27 22 - 30 mmol/L 04/03/2024 9:47 AM [facility] ANION GAP 12.0 <18.0 mmol/L 04/03/2024 9:47 AM [facility] GLUCOSE 96 70 - 99 mg/dL 04/03/2024 9:47 AM [facility] BUN 21(H) 10 - 20 mg/dL 04/03/2024 9:47 AM [facility] CREATININE, BLOOD 0.84 0.60 - 1.00 mg/dL 04/03/2024 9:47 AM [facility] BUN/CREATININE RATIO 25(H) 12 - 20 ratio 04/03/2024 9:47 AM [facility] CALCIUM 9.4 8.7 - 10.5 mg/dL 04/03/2024 9:47 AM [facility] IS THE PATIENT REQUIRED TO BE FASTING? No 04/03/2024 9:47 AM WILL CALL ORDER CLERK [facility] GFR, ESTIMATED >60 >=60 04/03/2024 9:47 AM WILL CALL ORDER CLERK [facility] Comment: Creatinine Clearance is the preferred criteria for selecting drug dose adjustments in renally impaired patients. ??The GFR is provided as additional pertinent clinical information. GFR is reported in mL/min/1.73 sq m. Calculation based on the Chronic Kidney Disease Epidemiology Collaboration (CKD- EPI) equation refit without adjustment for race. GFR, EST. >60 >=60 024 9:47 AM WILL CALL ORDER CLERK [facility] GFR, EST. NONAFRICAN >60 >=60 04/03/2024 9:47 AM WILL CALL ORDER CLERK [facility] Blood Venipuncture / Unknown 04/03/2024 8:49 AM WILL CALL ORDER CLERK 04/03/2024 9:21 AM WILL CALL ORDER CLERK us Savage Long MD CHEMISTRY ORDERABLES Final Result Performing Organization Address City/[facility] Co de Phone Number [facility] [address] [place] [address] * XR - LOWER EXTREMITY (03/22/2024 12:00 AM WILL CALL ORDER CLERK) 03/22/2024 us Provider Scan IMG DIAGNOSTIC ORDERABLES Final Result Performing Organization Address City/[facility]/ZIP Co de Phone Number SCAN * (ABNORMAL) FREE KAPPA & LAMBDA LIGHT CHAINS SERUM (03/20/2024 11:00 AM WILL CALL ORDER CLERK) Free Canjilon Lt Chn 33.92(H) 3.30 - 19.40 mg/L 03/22/2024 10:10 AM WILL CALL ORDER CLERK [facility] Free Lambda Lt Chn 16.22 5.71 - 26.30 mg/L 03/22/2024 10:10 AM WILL CALL ORDER CLERK [facility] free julio gordon ratio 2.09(H) 0.26 - 1.65 03/22/2024 10:10 AM WILL CALL ORDER CLERK [facility] Blood Venipuncture / Unknown 03/20/2024 11:00 AM WILL CALL ORDER CLERK 03/20/2024 11:39 AM WILL CALL ORDER CLERK Rell Escamilla MD CHEMISTRY ORDERABLES Fin al Result Performing Organization Address City/[facility]/ZIP Co de Phone Number [facility] [address] [place] [address], [place] * RETICULOCYTE COUNT (RETIC) (03/20/2024 11:00 AM WILL CALL ORDER CLERK) RETICULOCYTES 1.2 0.5 - 2.0 % 03/20/2024 11:46 AM WILL CALL ORDER CLERK [facility] Blood Venipuncture / Unknown 03/20/2024 11:00 AM WILL CALL ORDER CLERK 03/20/2024 11:39 AM WILL CALL ORDER CLERK Rell Escamilla MD HEMATOLOGY ORDERABLES Fi nal Result Performing Organization Address City/[facility]/ZIP Co de Phone Number [facility] [address] [place] [address] * (ABNORMAL) IMMUNOFIXATION W/ ELECTROPHORESIS SERUM (03/20/2024 11:00 AM WILL CALL ORDER CLERK) TOTAL PROTEIN 6.4 6.3 - 8.2 g/dL 03/21/2024 3:57 PM WILL CALL ORDER CLERK [facility] % ALBUMIN 51.5(L) 55.8 - 66.7 % 03/21/2024 3:57 PM WILL CALL ORDER CLERK [facility] ALBUMIN SERUM 3.3 2.5 - 5.4 g/dL 03/21/2024 3:57 PM WILL CALL ORDER CLERK [facility] % ALPHA 1 GLOBULIN 3.7 2.9 - 4.9 % 03/21/2024 3:57 PM WILL CALL ORDER CLERK [facility] ALPHA 1 0.2 0.2 - 0.4 g/dL 03/21/2024 3:57 PM WILL CALL ORDER CLERK [facility] % ALPHA 2 GLOBULIN 11.5 7.1 - 11.8 % 03/21/2024 3:57 PM WILL CALL ORDER CLERK [facility] ALPHA 2 0.7 0.5 - 1.0 g/dL 03/21/2024 3:57 PM [facility] % BETA 15.4(H) 8.4 - 13.1 % 03/21/2024 3:57 PM [facility] BETA-GLOBULIN 1.0 0.5 - 1.1 g/dL 03/21/2024 3:57 PM [facility] % GAMMA GLOBULIN 18.0 11.1 - 18.8 % 03/21/2024 3:57 PM WILL CALL ORDER CLERK [facility] GAMMA 1.1 0.7 - 1.5 g/dL 03/21/2024 3:57 PM [facility] IMMUNOGLOBULIN G 1,115 552 - 1,631 mg/dL 03/21/2024 3:57 PM [facility] IMMUNOGLOBULIN A 231 69 - 517 mg/dL 03/21/2024 3:57 PM [facility] IMMUNOGLOBULIN M 85 33 - 293 mg/dL 03/21/2024 3:57 PM [facility] INTERPRETATION SERUM No abnormal protein band is detected by serum protein electrophoresis. Serum immunofixation electrophoresis is negative for monoclonal immunoglobulins. Reviewed by Yahir Navas, Ph.D. 03/21/2024 3:57 PM [facility] A/G RATIO, SERUM 1.1 03/21/20 24 3:57 PM [facility] Blood Venipuncture / Unknown 03/20/2024 11:00 AM WILL CALL ORDER CLERK 03/20/2024 11:39 AM WILL CALL ORDER CLERK Narrative [facility] - 03/21/2024 3:57 PM WILL CALL ORDER CLERK Reviewed By Suresh Mendez M.D. us Rell aSrah Escamilla MD CHEMISTRY ORDERABLES Fin al Result [facility] [address] [place] [address], [place] * (ABNORMAL) CMP (COMPREHENSIVE METABOLIC PANEL) (03/20/2024 11:00 AM WILL CALL ORDER CLERK) SODIUM 142 136 - 145 mmol/L 03/20/2024 12:45 PM [facility] POTASSIUM 3.7 3.5 - 5.1 mmol/L 03/20/2024 12:45 PM [facility] CHLORIDE 106 98 - 107 mmol/L 03/20/2024 12:45 PM [facility] CO2, VENOUS 31(H) 22 - 30 mmol/L 03/20/2024 12:45 PM [facility] ANION GAP 8.7 <18.0 mmol/L 03/20/2024 12:45 PM [facility] GLUCOSE 91 70 - 99 mg/dL 03/20/2024 12:45 PM [facility] BUN 20 10 - 20 mg/dL 03/20/2024 12:45 PM [facility] CREATININE, BLOOD 0.88 0.60 - 1.00 mg/dL 03/20/2024 12:45 PM [facility] BUN/CREATININE RATIO 23(H) 12 - 20 ratio 03/20/2024 12:45 PM [facility] TOTAL PROTEIN 6.8 6.3 - 8.2 g/dL 03/20/2024 12:45 PM [facility] ALBUMIN 3.8 3.5 - 5.0 g/dL 03/20/2024 12:45 PM [facility] A/G RATIO 1.3 1.0 - 2.2 03/20/2024 12:45 PM [facility] CALCIUM 9.4 8.7 - 10.5 mg/dL 03/20/2024 12:45 PM [facility] T BILI 0.4 0.2 - 1.2 mg/dL 03/20/2024 12:45 PM [facility] SGOT (AST) 21 5 - 34 U/L 03/20/2024 12:45 PM [facility] SGPT (ALT) 16 0 - 55 U/L 03/20/2024 12:45 PM [facility] ALKALINE PHOSPHATASE 54 40 - 150 U/L 03/20/2024 12:45 PM WILL CALL ORDER CLERK [facility] IS THE PATIENT REQUIRED TO BE FASTING? No 03/20/2024 12:45 PM WILL CALL ORDER CLERK [facility] GFR, ESTIMATED >60 >=60 03/20/2024 12:45 PM WILL CALL ORDER CLERK [facility] Comment: Creatinine Clearance is the preferred criteria for selecting drug dose adjustments in renally impaired patients. ??The GFR is provided as additional pertinent clinical information. GFR is reported in mL/min/1.73 sq m. Calculation based on the Chronic Kidney Disease Epidemiology Collaboration (CKD- EPI) equation refit without adjustment for race. GFR, EST. >60 >=60 024 12:45 PM WILL CALL ORDER CLERK [facility] GFR, EST. NONAFRICAN >60 >=60 03/20/2024 12:45 PM WILL CALL ORDER CLERK [facility] Blood Venipuncture / Unknown 03/20/2024 11:00 AM WILL CALL ORDER CLERK 03/20/2024 11:38 AM WILL CALL ORDER CLERK Rell Escamilla MD CHEMISTRY ORDERABLES Fin al Result Performing Organization Address City/[facility]/ZIP Co de Phone Number [facility] [address] [place] [address] * HM COLONOSCOPY (02/10/2023 12:00 AM WILL CALL ORDER CLERK) 02/10/2023 Savage Long MD PROCEDURE/MINOR SURGICAL OR DERABLES Final Result SCAN * LUX BONE DENSITOMETRY AXIAL SKELETON (06/27/2021 10:19 AM CDT) Anatomical Region Laterality Modality BODY N/A Other 06/27/2021 1:05 PM CDT Impressions 06/27/2021 1:08 PM CDT IMPRESSION: ?? Normal bone density. REFERENCE: Bone mineral density: ? Normal (T-score above or = -1.0) ? Low bone mass ??(T-score between -1.0 and -2.5) replaces the previously used term osteopenia ? Osteoporosis (T-score = or below -2.5) Medical evaluation for secondary causes of low bone mineral density may be appropriate. FRAX is a World Health Organization validated fracture risk assessment tool that calculates a person's 10 year probability of a major osteoporosis related fracture and hip fracture. ??According to the National Osteoporosis Foundation guidelines, postmenopausal women and men age 50 or older with low bone mass and a 10 year probability of a major osteoporosis related fracture = or greater than 20% or a 10 year probability of a hip fracture = or greater than 3% should be considered for treatment. For further information, including treatment recommendations, please refer to the 2013 ISCD Official Positions (http://www.iscd.org) and the NOF's Clinician's Guide to Prevention and Treatment of Osteoporosis (http://www.nof.org/professionals/clinical-guidelines) Narrative 06/27/2021 1:08 PM CDT EXAM DESCRIPTION: ?? LUX BONE DENSITOMETRY AXIAL SKELETON REASON FOR STUDY: ?76 y/o ?? year old ?? F ??with given history of screening. 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 [employer] (S/N [id number]) CLINICAL INFORMATION: Current height: ?? 5 foot 3 ??inches ? Maximum height: 5 foot 3 inches ? Weight: 220 pounds Risk factors: adult fracture. COMPARISON: None available. FINDINGS: AP LUMBAR SPINE L1-L4: Total BMD is ?? 1.525 ??g/cm2 T-score is 2.7 LEFT HIP: Total BMD is 1.053 g/cm2 T-score is 0.4 Femoral neck BMD is 0.914 g/cm2 T-score is -0.9 THIS IS AN ELECTRONICALLY VERIFIED FINAL REPORT 06/27/2021 1:05 PM - Electronically signed by ??Luther Christensen M.D. AG: AG D: ??06/27/2021 1:05 PM T: ??06/27/2021 1:05 PM Report ID: [id number] Reading Location: ??[id number] Procedure Note Luther Christensen MD - 06/27/2021 EXAM DESCRIPTION: LUX BONE DENSITOMETRY AXIAL SKELETON REASON FOR STUDY: 76 y/o year old F with given history of screening. Polysomnographer/Model: [employer] (S/N [id number]) CLINICAL INFORMATION: Current height: 5 foot 3 inches Maximum height: 5 foot 3 inches Weight: 220 pounds Risk factors: adult fracture. COMPARISON: None available. FINDINGS: AP LUMBAR SPINE L1-L4: Total BMD is 1.525 g/cm2 T-score is 2.7 LEFT HIP: Total BMD is 1.053 g/cm2 T-score is 0.4 Femoral neck BMD is 0.914 g/cm2 T-score is -0.9 THIS IS AN ELECTRONICALLY VERIFIED FINAL REPORT 06/27/2021 1:05 PM - Electronically signed by Luther Christensen M.D. AG: AG Report ID: [id number] Reading Location: [place] [address] IMPRESSION: Normal bone density. REFERENCE: Bone mineral density: Normal (T-score above or = -1.0) Low bone mass (T-score between -1.0 and -2.5) replaces the previously used term osteopenia Osteoporosis (T-score = or below -2.5) Medical evaluation for secondary causes of low bone mineral density may be appropriate. FRAX is a World Health Organization validated fracture risk assessment tool that calculates a person's 10 year probability of a major osteoporosis related fracture and hip fracture. According to the National Osteoporosis Foundation guidelines, postmenopausal women and men age 50 or older with low bone mass and a 10 year probability of a major osteoporosis related fracture = or greater than 20% or a 10 year probability of a hip fracture = or greater than 3% should be considered for treatment. For further information, including treatment recommendations, please refer to the 2013 ISCD Official Positions (http://www.iscd.org) and the NOF's Clinician's Guide to Prevention and Treatment of Osteoporosis (http://www.nof.org/professionals/clinical-guidelines) us Yuniel Finley APRN, GLAZE SPRAYER IMG DEXA ORDERAB LES Final Result * HEPATITIS C ANTIBODY (10/08/2020 7:11 AM CDT) hepatitis C antibody 0.24 <1 S/CO [facility] [id number] B 10/08/2020 3:02 PM CDT [facility] Comment: Signal/Cutoff ratio ??< 0.79 is Nondetected Signal/Cutoff ratio 0.80-0.99 is Grayzone Signal/Cutoff ratio > 0.99 is Detected Supplemental assays are recommended if signal/cutoff ratio is >/=1.00. ??Signal/cutoff ratio result >/= 5.00 is 97% predictive of positivity for recombinant immunoblot assay (RIBA) and will be reported to the [place] Department of Public Health as required. 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 PRE-ARREST: Use entire range of life support measures to stabilize the patient. * Full Code Date Activated Date Inactivated Comments 05/07/2016 6:31 AM 05/07/2016 4:22 PM CPR-Full Treat ment: FULL ARREST: Attempt Resuscitation/CPR wit intubation and mechanical ventilation. PRE-ARREST: Use entire range of life support measures to stabilize the patient. Care Teams Rocket Propellant Plant Supervisor Relationship Specialty Start Date End Date Savage Long MD #2 [facility] [address] [place] [address] PCP - General Family Medicine 09/16/20 Kimberlee Morocho, PATENT CHEMIST, GLAZE SPRAYER Nurse Practitioner Advanced Practice Nurse 10/24/15 Leighton Rios MD #2 [facility] [address] [place] [address] Consulting Physician Clinical Cardiac Electrophysiology 04/10/22 Caroline Candelaria MD #2 [facility] [address] [place] [address] Consulting Physician Endocrinology 02/24/23 Oleksandr Borjas MD [address] [address] Consulting Physician Colon and Rectal Surgery 05/20/23
--- OUTSIDE RECORDS SUMMARY | 2024-05-08 13:06 | XMS_ITS | Encounter Summary ---
Author Organization [facility] Address [address] [place] [address] Phone Care Team Providers Care Solutions Architect Consultant Name Role Phone Kimberlee Morocho APRN, CNP Unavailable [phone] Savage Long MD Primary Care Provider [phone] Brittnee Mae RN Unavailable Unavailable Leighton Rios MD Unavailable [phone] Caroline Candelaria MD Unavailable Brittnee Mae RN Unavailable Unavailable Oleksandr Borjas MD Unavailable Reason for Visit * Reason Comments Medication Refill Encounter Details Date Type Department Care Team (Late st Contact Info) Description 01/29/2022 Refill [facility] [address] [place] [address] Savage Long MD #[address] [address] Medication Refill Social History Tobacco Use Types [...] on file documented as of this encounter Miscellaneous Notes * Telephone Encounter - Flory Ahmadi RN - 01/29/2022 11:14 AM CDT PRN medication requires review from provider Per nursing clinical judgement, provider to review and approve the medication(s) order(s) if appropriate. Requested Prescriptions Pending Prescriptions Disp Refills dicyclomine (BENTYL) 10 MG Capsule [Pharmacy Med Name: Dicyclomine HCl 10 MG Oral Capsule] 180 Capsule 1 Sig: TAKE 1 CAPSULE BY MOUTH TWICE DAILY NEEDED Antispasmodic Agents Protocol Passed - 01/29/2022 9:04 AM Passed - Visit with relevant provider in past 12 months or upcoming 90 days Recent Visits Date Type Provider Dept 12/22/21 Office Visit Savage Long MD [facility] 09/15/21 Office Visit Yuniel Finley APRN, [facility] 06/13/21 Office Visit [facility] Showing recent visits within past 365 days and meeting all other requirements Future Appointments Date Type Provider Dept 03/26/22 Appointment Savage Long MD [facility] Showing future appointments within next 90 days and meeting all other requirements documented in this encounter Plan of Treatment Upcoming Encounters Date Type Department Care Team (Late st Contact Info) Description 07/11/2024 10:00 AM CDT Office Visit [facility] - Family Medicine - [facility] [address] [place] [address] Savage Long MD [address] [address] 10/17/2024 11:00 AM CDT [facility] [address] [place] [address] Nathan Isaura Tanika, PAC [address] [place] [address] Discharge Disposition: Discharged to home or Selfcare 10/24/2024 10:00 AM CDT [facility] [address] [place] [address] Isaura Evans Tnaika, PAC [address] [place] [address] Discharge Disposition: Discharged to home or Selfcare documented as of this encounter Visit Diagnoses Not on filedocumented in this encounter Additional Health Concerns Infection Onset Date Last Indicated Resolved Time COVID - 19 05/26/2022 05/26/2022 05/26/2022 10:0 5 AM [facility] COVID - 19 05/26/2022 05/26/2022 06/05/2022 12:1 6 AM [facility] Respiratory Rule-Out 04/07/2024 04/07/2024 025 10:22 AM [facility] COVID - 19 04/07/2024 04/07/2024 04/07/2024 10:2 2 AM [facility] Assessment Noted Time PHQ-9 Depression Total Score: 0 09/17/19 1:00 PM CDT documented as of this encounter Care Teams Solutions Architect Consultant Relationship Specialty Start Date End Date Savage Long MD #[address] [address] PCP - General Family Medicine 09/16/20 Kimberlee Morocho, BRASS ROLLER, BASKETBALLS AND FOOTBALLS REVERSER Nurse Practitioner Advanced Practice Nurse 10/24/15 Brittnee Mae, RN [place] Geography Instructor 02/06/22 03/30/23 Leighton Rios MD [place] Consulting Physician Clinical Cardiac Electrophysiology 04/10/22 Caroline Candelaria MD #[address] [address] Consulting Physician Endocrinology 02/24/23 Brittnee Mae RN [place] Nurse Geography Instructor 02/06/22 12/02/23 Oleksandr Borjas MD #[address] [address] Consulting Physician Colon and Rectal Surgery 05/20/23 documented as of this encounter
--- OUTSIDE RECORDS SUMMARY | 2024-05-08 13:06 | XMS_ITS | Referral Summary ---
Author Organization [facility] Address [facility] [place] [address] Care Team Providers Care Electrical Accessories I Assembler Name Role Phone Savage Long MD Primary Care Provider [phone] Encounters Date Type Department Care Team Description 05/01/2024 Anticoagulation Visit [place] [facility] Coordinator at [address] [address] Luis Buitrago MA 05/01/2024 10:40 AM MACHINE COIL ASSEMBLER Lab [address] [address] Paroxysmal atrial fibrillation (CMS/HCC) ([facility]) 04/21/2024 Anticoagulation Visit [place] [facility] Service Coordinator at [address] [address] Kristal Kwok MA 04/21/2024 10:00 AM MACHINE COIL ASSEMBLER Lab [address] [address] Paroxysmal atrial fibrillation (CMS/HCC) (HCC) 04/19/2024 Anticoagulation Visit [place] [facility] Coordinator at [address] [address] Luis Buitrago MA 04/19/2024 9:40 AM MACHINE COIL ASSEMBLER Lab [address] [address] Paroxysmal atrial fibrillation (CMS/HCC) (HCC) 04/03/2024 Anticoagulation Visit [place] [facility] Coordinator at [address] [address] Luis Buitrago MA 04/03/2024 9:30 AM MACHINE COIL ASSEMBLER Lab [address] [address] Paroxysmal atrial fibrillation (CMS/HCC) (HCC) 03/27/2024 Anticoagulation Visit [place] [facility] Coordinator at [address] [address] Kristal Kwok MA 03/27/2024 9:40 AM MACHINE COIL ASSEMBLER Lab [address] [address] Paroxysmal atrial fibrillation (CMS/HCC) (HCC) 03/16/2024 Anticoagulation Visit [place] [facility] Coord[facility] at [address] [address] Luis Buitrago MA 03/16/2024 11:10 AM MACHINE COIL ASSEMBLER Lab [address] [address] Paroxysmal atrial fibrillation (CMS/HCC) (HCC) 03/07/[address] [facility] at [address] [address] Luis Buitrago MA 02/17/[address] [facility] at [address] [address] Rika Contreras MA 02/17/2024 10:25 AM MACHINE COIL ASSEMBLER Lab [address] [address] Paroxysmal atrial fibrillation (CMS/HCC) (HCC) 02/16/2024 2:00 PM MACHINE COIL ASSEMBLER Ancillary Procedure [facility] [address] [place] [phone] Paroxysmal atrial fibrillation (CMS/HCC) ([facility]) (Primary Dx); Sick sinus syndrome (CMS/HCC) (HCC); Cardiac pacemaker in situ 02/14/2024 Orders Only [facility] [address] [place] [phone] Nelda Pyle Sick sinus syndrome (CMS/HCC) (HCC) (Primary Dx); Chest pain, unspecified type; Paroxysmal atrial fibrillation (CMS/HCC) (HCC); Cardiac pacemaker in situ from Last 3 Months Allergies Active Allergy Reactions Criticality Noted Date [...] Family history of esophageal cancer 07/22/2023 07/22/2023 Immunizations Name Administration Dates Next Due Influenza, Quadrivalent, Hig h Dose, Preservative Free, Intrr 12/25/2022,12/06/2019 Influenza, Quadrivalent, Spl it, Preservative Free, Intramuscular 12/22/2021,01/19/2019,12/28/2017,12/21,12/22/2014 Influenza, Trivalent, High D ose, Split, Preservative Free, Intramuscular 12/06/2019,12/13/2015 Influenza, Trivalent, Preser vative Free, Intramuscular 12/05/2020,01/03/2014 Pneumococcal Conjugate PCV 13 12/06/2019, 016 Pneumococcal Polysaccharide PPV23 01/02/2013 Sars-cov-2 Covid-19 Mrna, Bi valent, Original/cyrus Ba.1 12/25/2022 Tdap 05/26/2011 Social History Tobacco Use Types Packs/Day Years [...] on file Legal Sex Female 3:40 AM MACHINE COIL ASSEMBLER Gender Identity Not on file Sexual Orientation Not on file Last Filed Vital Signs [...] 11/13/2023 11:15 AM CDT Plan of Treatment Not on file Medical Devices Implanted Type Area Saw Feeder Device Identifier Shelf Expiration Date Model / Serial / Lot [employer] Biomonitor Iii Monitor Cardiac Sterile Disposable Latex Free [id number] - [id number] - [id number] Implanted:Qty: 1 on 06/12/2022 by Jared Hernandez MD at [facility] Implantable Loop Recorder N/A: Chest Wall [employer] 11/03/2023 [id number] / [id number] / Medtronic Inc Tyrx Absorbable Antibacterial Envelope-Large 3.3x2.9in [id number] - [id number] Implanted:Qty: 1 on 08/19/2022 by Jared Hernandez MD at [facility] Mesh Med[employer]onic Inc 04/08/2023 [id number] / [employer]ot[employer] Endocardial Pacing Lead Promri Solia T [id number] - [id number] - [id number] Implanted:Qty: 1 on 08/19/2022 by Jared Hernandez MD at [facility] Pacemaker [employer] Inc 07/04/2023 [id number] / [id number] / Biot[employer] Endocardial Pacing Lead Promri Epifanio Jt 45 [id number] - [id number] - [id number] Implanted:Qty: 1 on 08/19/2022 by Jared Hernandez MD at [facility] Pacemaker [employer] Inc 02/03/2024 [id number] / [id number] / Biot[employer] Inc Edora Promri [id number] Dual Chamber Rate Adaptive Unipolar Bipolar [id number] - [id number] - [id number] Implanted:Qty: 1 on 08/19/2022 by Jared Hernandez MD at [facility] Pacemaker [employer] 11/03/2023 [id number] / [id number] / Procedures Procedure Name Priority Date/Time Associated Diagnosis Comments PROTIME-INR Routine 05/01/2024 10:48 AM MACHINE COIL ASSEMBLER Paroxysmal atrial fibrillation (CMS/HCC) (HCC) PROTIME-INR Routine 04/21/2024 10:20 AM MACHINE COIL ASSEMBLER Paroxysmal atrial fibrillation (CMS/HCC) (HCC) PROTIME-INR Routine 04/19/2024 9:58 AM MACHINE COIL ASSEMBLER Paroxysmal atrial fibrillation (CMS/HCC) (HCC) PROTIME-INR Routine 04/03/2024 9:35 AM MACHINE COIL ASSEMBLER Paroxysmal atrial fibrillation (CMS/HCC) (HCC) PROTIME-INR Routine 03/27/2024 9:43 AM MACHINE COIL ASSEMBLER Paroxysmal atrial fibrillation (CMS/HCC) (HCC) PROTIME-INR Routine 03/16/2024 11:19 AM MACHINE COIL ASSEMBLER Paroxysmal atrial fibrillation (CMS/HCC) (HCC) PROTIME-INR Routine 02/17/2024 10:28 AM MACHINE COIL ASSEMBLER Paroxysmal atrial fibrillation (CMS/HCC) (HCC) DEVICE CHECK - REMOTE Routine 02/15/2024 11:50 AM MACHINE COIL ASSEMBLER Sick sinus syndrome (CMS/HCC) (HCC) Cardiac pacemaker in situ COLONOSCOPY 02/10/2023 7:17 AM MACHINE COIL ASSEMBLER from Last 3 Months or Most Recently Relevant to Health Maintenance Results * (ABNORMAL) Protime-INR (05/01/2024 10:48 AM MACHINE COIL ASSEMBLER) PT 28.0(H) 9.7 - 13.0 sec [facility] ([place]) INR 2.54(H) 0.90 - 1.20 [facility] ([place]) Comment: Interpretive data Oral anticoagulant therapeutic ranges: Venous thromboembolism prophylaxis or treatment: 2.0-3.0 CARDIOLOGY Standard range: 2.0-3.0 High-intensity range: 2.5-3.5 Refer to indication-specific guidelines for appropriate target ranges for prosthetic heart valve replacement. Current interpretive data was last revised on 2019. Blood 05/01/2024 10:4 8 AM MACHINE COIL ASSEMBLER 05/01/2024 11:03 AM MACHINE COIL ASSEMBLER us Dusty Garcia MD LAB BLOOD ORDERABLES Final Resu lt [facility] ([place]) [address] [facility] [place] [address] * (ABNORMAL) Protime-INR (04/21/2024 10:20 AM MACHINE COIL ASSEMBLER) PT 27.5(H) 9.7 - 13.0 sec [facility] ([place]) INR 2.50(H) 0.90 - 1.20 [facility] ([place]) Comment: Interpretive data Oral anticoagulant therapeutic ranges: Venous thromboembolism prophylaxis or treatment: 2.0-3.0 CARDIOLOGY Standard range: 2.0-3.0 High-intensity range: 2.5-3.5 Refer to indication-specific guidelines for appropriate target ranges for prosthetic heart valve replacement. Current interpretive data was last revised on 2019. Blood 04/21/2024 10:2 0 AM MACHINE COIL ASSEMBLER 04/21/2024 11:00 AM MACHINE COIL ASSEMBLER us Carmen Riley NP LAB BLOOD ORDERABLES Fi nal Result Performing Organization Address City/[facility] Co de Phone Number [facility] ([place]) 1 [facility] [place] [address] * (ABNORMAL) Protime-INR (04/19/2024 9:58 AM MACHINE COIL ASSEMBLER) PT 57.8(H) 9.7 - 13.0 sec [facility] ([place]) Comment:OK INR 5.18(C) 0.90 - 1.20 [facility] ([place]) Comment: Critical result called to and read back by KIRBY LAGUERRE (DRChapo OFFICE) on 04/19/2024 11:04:36 MACHINE COIL ASSEMBLER to TIM BAE. Interpretive data Oral anticoagulant therapeutic ranges: Venous thromboembolism prophylaxis or treatment: 2.0-3.0 CARDIOLOGY Standard range: 2.0-3.0 High-intensity range: 2.5-3.5 Refer to indication-specific guidelines for appropriate target ranges for prosthetic heart valve replacement. Current interpretive data was last revised on 2019. Blood 04/19/2024 9:58 AM MACHINE COIL ASSEMBLER 04/19/2024 10:45 AM MACHINE COIL ASSEMBLER us Dusty Garcia MD LAB BLOOD ORDERABLES Final Resu lt Performing Organization Address [facility] Co de Phone Number [facility] ([place]) 1 [facility] [place] [address] * (ABNORMAL) Protime-INR (04/03/2024 9:35 AM MACHINE COIL ASSEMBLER) PT 21.8(H) 9.7 - 13.0 sec [facility] ([place]) INR 1.99(H) 0.90 - 1.20 [facility] ([place]) Comment: Interpretive data Oral anticoagulant therapeutic ranges: Venous thromboembolism prophylaxis or treatment: 2.0-3.0 CARDIOLOGY Standard range: 2.0-3.0 High-intensity range: 2.5-3.5 Refer to indication-specific guidelines for appropriate target ranges for prosthetic heart valve replacement. Current interpretive data was last revised on 2019. Blood 04/03/2024 9:35 AM MACHINE COIL ASSEMBLER 04/03/2024 9:39 AM MACHINE COIL ASSEMBLER Carmen Riley FORMING PROCESS WORKER LAB BLOOD ORDERABLES Fi nal Result Performing Organization Address [facility] de Phone Number [facility] ([place]) 1 [facility] [place] [address] * (ABNORMAL) Protime-INR (03/27/2024 9:43 AM MACHINE COIL ASSEMBLER) PT 21.8(H) 9.7 - 13.0 sec [facility] ([place]) INR 1.99(H) 0.90 - 1.20 [facility] ([place]) Comment: Interpretive data Oral anticoagulant therapeutic ranges: Venous thromboembolism prophylaxis or treatment: 2.0-3.0 CARDIOLOGY Standard range: 2.0-3.0 High-intensity range: 2.5-3.5 Refer to indication-specific guidelines for appropriate target ranges for prosthetic heart valve replacement. Current interpretive data was last revised on 2019. Blood 03/27/2024 9:43 AM MACHINE COIL ASSEMBLER 03/27/2024 10:19 AM MACHINE COIL ASSEMBLER Carmen Riley FORMING PROCESS WORKER LAB BLOOD ORDERABLES Fi nal Result Performing Organization Address [facility] Co de Phone Number [facility] ([place]) 1 [facility] [place] [address] * (ABNORMAL) Protime-INR (03/16/2024 11:19 AM MACHINE COIL ASSEMBLER) PT 20.8(H) 9.7 - 13.0 sec [facility] ([place]) INR 1.90(H) 0.90 - 1.20 [facility] ([place]) Comment: Interpretive data Oral anticoagulant therapeutic ranges: Venous thromboembolism prophylaxis or treatment: 2.0-3.0 CARDIOLOGY Standard range: 2.0-3.0 High-intensity range: 2.5-3.5 Refer to indication-specific guidelines for appropriate target ranges for prosthetic heart valve replacement. Current interpretive data was last revised on 2019. Blood 03/16/2024 11:1 9 AM MACHINE COIL ASSEMBLER 03/16/2024 12:01 PM MACHINE COIL ASSEMBLER Carmen Riley NP LAB BLOOD ORDERABLES Fi nal Result Performing Organization Address [facility] de Phone Number [facility] ([place]) [address] [facility] [place] [address] * (ABNORMAL) Protime-INR (02/17/2024 10:28 AM MACHINE COIL ASSEMBLER) PT 31.6(H) 9.7 - 13.0 sec [facility] ([place]) INR 2.86(H) 0.90 - 1.20 [facility] ([place]) Comment: Interpretive data Oral anticoagulant therapeutic ranges: Venous thromboembolism prophylaxis or treatment: 2.0-3.0 CARDIOLOGY Standard range: 2.0-3.0 High-intensity range: 2.5-3.5 Refer to indication-specific guidelines for appropriate target ranges for prosthetic heart valve replacement. Current interpretive data was last revised on 2019. Blood 02/17/2024 10:2 8 AM MACHINE COIL ASSEMBLER 02/17/2024 10:42 AM MACHINE COIL ASSEMBLER Dusty Garcia MD LAB BLOOD ORDERABLES Final Resu lt Performing Organization Address [facility] de Phone Number [facility] ([place]) [address] [facility] [place] [address] * DEVICE CHECK - REMOTE (02/15/2024 11:50 AM MACHINE COIL ASSEMBLER) Anatomical Region Laterality Modality Other Narrative 02/24/2024 11:33 PM MACHINE COIL ASSEMBLER Images from the original result were not included. 02/16/2024 [employer] quarterly remote device check NOTE The following shows snippets from the complete quarterly report. ?? The complete report in its entirety is attached to this Result Text in Fur Puller Presenting EGM Last in-office check 11/01/2023 Next in-office check 11/06/2024 DC PPM, implanted 08/19/2022 with 85% est remaining longevity Ap 96% RVp 74% 3 AT event episodes recorded in this monitoring quarter, longest 36 minutes 6 seconds Controlled rates 60's-80s Taking Warfarin No anomalies noted on remote Reviewed By Amanda Dee BUSINESS LINE MANAGER ATTESTATION I have reviewed the device interrogation report associated with this encounter in detail. I agree with the documentation recorded/scanned into the electronic medical record. Recommendations: Continue current device follow-up. Dusty Garcia MD us Dusty Garcia MD [facility] CARDIAC SERVICES PROCEDURES Final Result * COLONOSCOPY (02/10/2023 7:17 AM MACHINE COIL ASSEMBLER) Anatomical Region Laterality Modality Other Narrative Procedure Note Jer Sung MD - 02/10/2023 7:17 AM CST [facility] Patient Name: Tamica Saxena Procedure Date: 02/10/2023 7:17 AM Date of : 1945 Admit Type: Outpatient Age: 77 Gender: Female Attending MD: Jer Sung M.D. Room: [facility] ROOM 2 Note Status: Finalized Patient [...] procedure were verified by the physician, the class a lineman and the plant maintenance technician in the endoscopy suite. Mental Status [...] scope was passed under direct vision. TheColonoscope [id number] was introduced through the anus and advanced [...] 7:17 AM Procedure Code(s): --- Professional --- 67927, Colonoscopy, flexible; with removal of tumor(s), polyp(s), or other lesion(s) by snare technique 11277, 59, Colonoscopy, flexible; with biopsy, single or multiple --- Technical --- 36228, Colonoscopy, flexible; with removal of tumor(s), polyp(s), or other lesion(s) by snare technique 43147, 59, Colonoscopy, flexible; with biopsy, single or [...] perforation orabscess without bleeding CPT copyright 2020 [employer]. All rights reserved. The codes documented in this report are preliminary and upon continuous improvement coordinator reviewmay be revised to meet current compliance requirements. Recognized by the [employer] for promoting quality in endoscopy Jer Sung MD ENDOSCOPY PROCEDURES Final Resul t from Last 3 Months or Most Recently Relevant to Health Maintenance Insurance MEDICARE [facility] MEDICARE BLUE CROSS MEDICARE SUPPLEMENT MEDICARE [facility] Advance Directives For more information, please contact: [phone] Documents on File Type Date Recorded Patient Director Product Safety Expl anation ADVANCE DIRECTIVE 06/27/2017 12:00 AM NASH R OF CONTAINER PACKER OPERATOR FINANCIAL/MEDICAL * Full Code (Latest Code Status [...] 8:49 AM 06/12/2022 2:55 PM Care Teams Electrical Accessories I Assembler Relationship Specialty Start Date End Date Savage Long MD [address] [address] PCP - General Family Medicine 06/19/22
--- OUTSIDE RECORDS SUMMARY | 2024-05-08 13:06 | XMS_ITS | Encounter Summary ---
Author Organization [facility] Address [address] [place] [address] Phone Care Team Providers Care [employer] Wiring Technician Name Role Phone Kimberlee Morocho APRN, CNP Unavailable [phone] Savage Long MD Primary Care Provider [phone] Brittnee Mae RN Unavailable Unavailable Leighton Rios MD Unavailable [phone] Caroline Candelaria MD Unavailable Brittnee Mae RN Unavailable Unavailable Oleksandr Borjas MD Unavailable Reason for Visit * Reason Comments Medication Refill Encounter Details Date Type Department Care Team (Late st Contact Info) Description 03/18/2021 Refill [facility] - [facility] [address] [place] [address] Savage Long MD [address] [address] Medication Refill Social History Tobacco Use Types Packs/Day Years Used Date Smoking Tobacco: Never Smokeless Tobacco: Never Alcohol Use Standard Drinks/Week Comments Yes 0 (1 standard drink = 0.6 oz pur e alcohol) socially PHQ-2 Answer Date Recorded Total Score - Questions 1-9 0 09/03 Comments No Sex and Gender Information Value [...] Telephone Encounter - Flory Ahmadi RN - 03/19/2021 11:16 AM CST PRN medication requires review from provider Per nursing clinical judgement, provider to review and approve the medication(s) order(s) if appropriate. Requested Prescriptions Pending Prescriptions Disp Refills dicyclomine (BENTYL) 10 MG Capsule [Pharmacy Med Name: Dicyclomine HCl 10 MG Oral Capsule] 180 Capsule 1 Sig: TAKE 1 CAPSULE BY MOUTH TWICE DAILY NEEDED Antispasmodic Agents Protocol Passed - 03/18/2021 5:24 PM Passed - Visit with relevant provider in past 12 months or upcoming 90 days Recent Visits Date Type Provider Dept 12/10/20 Office Visit Savage Long MD [facility] 09/16/20 [facility] Showing recent visits within past 365 days and meeting all other requirements Future Appointments Date Type Provider Dept 06/13/21 Appointment Savage Long MD [facility] Showing future appointments within next 90 days and meeting all other requirements ECTION CONSULTANT documented in this encounter Plan of Treatment Upcoming Encounters Date Type Department Care Team (Late st Contact Info) Description 07/11/2024 10:00 AM CDT Office Visit [facility] - [facility] [address] [place] [address] Savage Long MD [address] [address] 10/17/2024 11:00 AM CDT [facility] [address] [place] [address] Isaura Evans, PAC [address] [place] [address] Discharge Disposition: Discharged to home or Selfcare 10/24/2024 10:00 AM CDT Office Visit [facility] [address] [place] [address] Isaura Evans Tanika, PAC [address] [place] [address] Discharge Disposition: Discharged to home or Selfcare documented as of this encounter Visit Diagnoses Not on filedocumented in this encounter Additional Health Concerns Infection Onset Date Last Indicated Resolved Time COVID - 19 03/07/2021 03/07/2021 03/27/2021 12:1 6 AM PROTECTION CONSULTANT COVID - 19 05/26/2022 05/26/2022 05/26/2022 10:0 5 AM PROTECTION CONSULTANT COVID - 19 05/26/2022 05/26/2022 06/05/2022 12:1 6 AM PROTECTION CONSULTANT Respiratory Rule-Out 04/07/2024 04/07/2024 025 10:22 AM PROTECTION CONSULTANT COVID - 19 04/07/2024 04/07/2024 04/07/2024 10:2 2 AM PROTECTION CONSULTANT Assessment Noted Time PHQ-9 Depression Total Score: 0 09/17/19 1:00 PM CDT documented as of this encounter Care Teams [employer] Wiring Technician Relationship Specialty Start Date End Date Savage Long MD [address] [address] PCP - General Family Medicine 09/16/20 Kimberlee Morocho, DAIRY HUSBANDRY TEACHER, HARDNESS TESTER Nurse Practitioner Advanced Practice Nurse 10/24/15 Brittnee Mae RN [place] Regulated Program Manager 02/06/22 03/30/23 Leighton Rios MD [place] Consulting Physician Clinical Cardiac Electrophysiology 04/10/22 Caroline Candelaria MD [address] [address] Consulting Physician Endocrinology 02/24/23 Brittnee Mae RN [place] Nurse Regulated Program Manager 02/06/22 12/02/23 Oleksandr Borjas MD #[address] [address] Consulting Physician Colon and Rectal Surgery 05/20/23 documented as of this encounter
--- NOTE | 2024-05-08 13:25 | ECG_ITS ---
Test Date: 2024-05-08 13:49:09 Measurements Intervals Ida Rate: 80 P: 236 CT: 335 QRS: -69 QRSD: 182 T: 79 QT: 442 QTc: 513 Interpretive Statements ELECTRONIC ATRIAL PACEMAKER ELECTRONIC VENTRICULAR PACEMAKER BASELINE ARTIFACT- I, II, AVR NO FURTHER INTERPRETATION IS POSSIBLE ATYPICAL ECG No previous ECG available for comparison Electronically Signed On 05-08-2024 14:18:20 TEST PULLER by Shilo Rand D.O.
[2024-05-08 14:19] LABS: Albumin Level 3.5 g/dL (3.5-5.1); Estimated Glomerular Filt Rate > 60
== END 2024-05-08 13:04 | disposition home or self-care (01) ==
PROVIDERS: PCP Family Medicine; Visit Provider Orthopaedic Surgery
DX: M17.11 Unilateral primary osteoarthritis, right knee (principal); Z95.0 Presence of cardiac pacemaker
CPT/HCPCS: 36415; 73700; 82040; 82565; 93005

== ENCOUNTER 2024-07-05 14:07 | Outpatient (CLI) | payer MEDICARE, SELFPAY ==
--- OUTSIDE RECORDS SUMMARY | 2024-07-05 15:35 | XMS_ITS | Encounter Summary ---
Author Organization [facility] Address [address] [place] [address] Phone Care Team Providers Care Full Time Name Role Phone Kimberlee Morocho APRN, KAMARI Unavailable [phone] Savage Long MD Primary Care Provider [phone] Leighton Rios MD Unavailable + [phone] Caroline Candelaria MD Unavailable Oleksandr Borjas MD Unavailable Encounter Details Date Type Department Care Team (Late st Contact Info) Description 12/09/2023 [facility] [address] [place] [id number] Savage Long MD #[address] [address] Anemia, unspecified Social History Tobacco Use Types Packs/Day Years Used Date Smoking Tobacco: Never Smokeless Tobacco: Never Comments:Never smoked Alcohol Use Standard Drinks/Week Comments Not Currently 0 (1 standard drink = 0.6 oz pur e alcohol) socially [facility] Utilities Answer Date Recorded In the past 12 months has th e electric, gas, oil, or water [facility] threatened to shut off services in your home? Patient declined 11/25/2023 Social Connection and Isolation Panel [NHANES] A nswer Date Recorded In a typical week, how many times do you talk on the phone with family, friends, or neighbors? Patient declined 11/25/2023 How often do you get togethe r with friends or relatives? Patient declined 11/25/2023 How often do you attend latter-day or roman catholic serv ices? Patient declined 11/25/2023 Do you belong to any clubs o r organizations such as latter-day groups, unions, fraternal or athletic groups, or [...] Total Score - Questions 1-9 0 10/03 [facility] - Occupational [...] place to sleep or slept in a senior living (including now)? Patient declined 05/13/2023 Housing Stability [...] any time in the past 12 m [facility], were you homeless or living in a senior living (including now)? Patient declined 11/25/2023 Education Answer [...] Visit [facility] #2 [place] [address] Savage Long MD #[address] [address] 10/17/2024 11:00 AM CDT Lab [facility] [address] [place] [address] sIaura Evans Tanika, PAC [address] [place] [address] Discharge Disposition: Discharged to home or Selfcare 10/24/2024 10:00 AM CDT Office Visit [facility] Oncology Services [address] [place] [address] Isaura Evans Tanika, PAC [address] [place] [address] Discharge Disposition: Discharged to home or Selfcare [...] WITH AUTO DIFFERENTIAL (12/09/2023 12:15 PM CDT) WBC 6.18 4.00 - 12.00 10(3)/mcL 12/09/2023 2:01 PM CDT [facility] RBC 3.70(L) 3.80 - 5.30 10(6)/mcL 12/09/2023 2:01 PM CDT [facility] HEMOGLOBIN (HGB) 11.1(L) 12.0 - 15.8 g/dL 12/09/2023 2:01 PM CDT [facility] HEMATOCRIT (HCT) 35.1(L) 36.0 - 47.0 % 12/09/2023 2:01 PM CDT [facility] MCV 94.9 82.0 - 96.0 fL 12/09/2023 2:01 PM CDT [facility] MCH 30.0 26.0 - 34.0 pg 12/09/2023 2:01 PM CDT [facility] MCHC 31.6 31.0 - 36.0 g/dL 12/09/2023 2:01 PM CDT [facility] PLATELET COUNT 476(H) 140 - 440 10(3)/[facility] 12/09/2023 2:01 PM CDT [facility] RDW 15.7(H) 11.8 - 15.5 % 12/09/2023 2:01 PM CDT [facility] MPV 9.1(L) 9.7 - 12.4 fL 12/09/2023 2:01 PM CDT [facility] NRBC PER 100 WBC 0 12/09/2023 2:01 PM CDT [facility] Blood No Phlebotomy Charged / Unknown 12/09/2023 12:15 PM CDT 12/09/2023 1:48 PM CDT Savage Long MD HEMATOLOGY ORDERABLES Final Result [facility] #[address] [place] [address] * FOLIC ACID (FOLATE) (12/09/2023 12:15 PM CDT) FOLATE 12.1 7.0 - 31.4 ng/mL 12/09/2023 2:46 PM CDT [facility] Blood No Phlebotomy Charged / Unknown 12/09/2023 12:15 PM CDT 12/09/2023 1:48 PM CDT Savage Long MD CHEMISTRY ORDERABLES Final Result Performing Organization Address City/[facility] [address]/ZIP Co de Phone Number [facility] #[address] [place] [address] * (ABNORMAL) VITAMIN B12 (12/09/2023 12:15 PM CDT) VITAMIN B12 993(H) 213 - 816 pg/mL 12/09/2023 2:46 PM CDT [facility] Blood No Phlebotomy Charged / Unknown 12/09/2023 12:15 PM CDT 12/09/2023 1:48 PM CDT Savage Long MD CHEMISTRY ORDERABLES Final Result Performing Organization Address City/[facility] [address]/ZIP Co de Phone Number [facility] [address] [place] [address] * (ABNORMAL) FERRITIN (12/09/2023 12:15 PM CDT) FERRITIN 290(H) 5 - 204 ng/mL 12/09/2023 2:56 PM CDT [facility] Blood No Phlebotomy Charged / Unknown 12/09/2023 12:15 PM CDT 12/09/2023 1:48 PM CDT Savage Long MD CHEMISTRY ORDERABLES Final Result Performing Organization Address City/[facility] [address]/ZIP Co de Phone Number [facility] #[address] [place] [address] * IRON,TRANSFERN,CALC.TIBC,%SAT (12/09/2023 12:15 PM CDT) IRON 77 25 - 156 mcg/dL 12/09/2023 2:43 PM CDT [facility] TRANSFERRIN 229 173 - 360 mg/dL 12/09/2023 2:43 PM CDT [facility] TIBC, CALCULATED 286 265 - 497 mcg/dL 12/09/2023 2:43 PM CDT [facility] % SATURATION * 27 15 - 62 % 12/09/2023 2:43 PM CDT [facility] Blood No Phlebotomy Charged / Unknown 12/09/2023 12:15 PM CDT 12/09/2023 1:48 PM CDT Savage Long MD CHEMISTRY ORDERABLES Final Result Performing Organization Address [facility] [address]/[facility] Co de Phone Number [facility] [address] [place] [address] * LIPID PANEL (12/09/2023 12:15 PM CDT) CHOLESTEROL 147 <200 mg/dL 12/09/2023 2:43 PM CDT [facility] TRIGLYCERIDES 91 <150 mg/dL 12/09/2023 2:43 PM CDT [facility] HDL CHOLESTEROL 47 >40 mg/dL 2:43 PM CDT [facility] LDL 82 <130 mg/dL 12/09/2023 2:43 PM CDT [facility] VLDL 18 10 - 50 mg/dL 12/09/2023 2:43 PM CDT [facility] CHOL/HDL RATIO 3.1 0.0 - 4.4 12/09/2023 2:43 PM CDT [facility] NON-HDL CHOLESTEROL 100 <130 mg/dL 12/09/2023 2:43 PM CDT [facility] Blood No Phlebotomy Charged / Unknown 12/09/2023 12:15 PM CDT 12/09/2023 1:48 PM CDT Savage Long MD CHEMISTRY ORDERABLES Final Result [facility] #[address] [place] [address] documented in this encounter Visit Diagnoses Diagnosis Anemia, unspecified documented in this encounter Additional Health Concerns Active Problems Noted Date Diagnosed Date Quality of Life (General Plan of Care) Infection Onset Date Last Indicated Resolved Time Respiratory Rule-Out 04/07/2024 04/07/2024 025 10:22 AM RESTAURANT AND BAR MANAGER COVID - 19 04/07/2024 04/07/2024 04/07/2024 10:2 2 AM RESTAURANT AND BAR MANAGER Assessment Noted Time PHQ-9 Depression Total Score: 0 10/13/19 24 2:26 PM CDT documented as of this encounter Care Teams Full Time Relationship Specialty Start Date End Date Savage Long MD #[address] [address] PCP - General Family Medicine 09/16/20 Kimberlee Morocho, LIQUEFIED NATURAL GAS PLANT OPERATOR, VP INFORMATICS Nurse Practitioner Advanced Practice Nurse 10/24/15 Leighton Rios MD #[address] [address] Consulting Physician Clinical Cardiac Electrophysiology 04/10/22 Caroline Candelaria MD [address] [address] Consulting Physician Endocrinology 02/24/23 Oleksandr Borjas MD [address] [address] Consulting Physician Colon and Rectal Surgery 05/20/23 documented as of this encounter
--- OUTSIDE RECORDS SUMMARY | 2024-07-05 15:35 | XMS_ITS | Encounter Summary ---
Author Organization [facility] Address [address] [place] [address] Phone Care Team Providers Care File System Installer Name Role Phone Kimberlee Morocho APRN, CNP Unavailable [phone] Savage Long MD Primary Care Provider [phone] Leighton Rios MD Unavailable [phone]- [phone] Caroline Candelaria MD Unavailable Brittnee Mae RN Unavailable Unavailable Oleksandr Borjas MD Unavailable Encounter Details Date Type Department Care Team (Late st Contact Info) Description 12/02/2023 Lab Requisition [facility] Laboratory Services 1 [place] [phone] Savage Long MD #[address] [address] Essential (primary) hypertension; Abnormal coagulation profile; Hyperkalemia [...] declined 11/25/2023 How often do you attend taoist or buddhism serv ices? Patient declined 11/25/2023 Do you belong to any clubs o r organizations such as taoist groups, unions, fraternal or athletic groups, or [...] Total Score - Questions 1-9 0 10/03 [facility] Occup[facility] - Occupational [...] place to sleep or slept in a fdc (including now)? Patient declined 05/13/2023 Housing Stability [...] any time in the past 12 m [facility], were you homeless or living in a fdc (including now)? Patient declined 11/25/2023 Education Answer [...] Description 07/11/2024 10:00 AM CDT Office Visit [facility] - Family Medicine - [place] [address] [place] [address] Savage Long MD [address] [place] [address] 10/17/2024 11:00 AM CDT Lab [facility] Oncology Services [address] [place] [address] Isaura Evans Tanika, PAC [address] [place] [address] Discharge Disposition: Discharged to home or Selfcare 10/24/2024 10:00 AM CDT Office Visit [facility] Oncology Services [address] [place] [address] Isaura Evans Tanika, PAC [address] [place] [address] Discharge Disposition: Discharged to home or Selfcare [...] - 12.00 10(3)/mcL 12/02/2023 12:38 PM CDT [facility] RBC 2.98(L) 3.80 - 5.30 10(6)/mcL 12/02/2023 12:38 PM CDT [facility] HEMOGLOBIN (HGB) 8.9(L) 12.0 - 15.8 g/dL 12/02/2023 12:38 PM CDT [facility] HEMATOCRIT (HCT) 26.7(L) 36.0 - 47.0 % 12/02/2023 12:38 PM CDT [facility] MCV 89.6 82.0 - 96.0 fL 12/02/2023 12:38 PM CDT [facility] MCH 29.9 26.0 - 34.0 pg 12/02/2023 12:38 PM CDT [facility] MCHC 33.3 31.0 - 36.0 g/dL 12/02/2023 12:38 PM CDT [facility] PLATELET COUNT 342 140 - 440 10(3)/mcL 12/02/2023 12:38 PM CDT [facility] RDW 13.1 11.8 - 15.5 % 12/02/2023 12:38 PM CDT [facility] MPV 9.4(L) 9.7 - 12.4 fL 12/02/2023 12:38 PM T [facility] NEUTROPHILS 66.5 47.0 - 73.0 % 12/02/2023 12:38 PM CDT [facility] LYMPHOCYTES 16.1(L) 18.0 - 42.0 % 12/02/2023 12:38 PM CDT [facility] MONOCYTES 10.6 4.0 - 12.0 % 12/02/2023 12:38 PM CDT [facility] EOSINOPHILS 5.6(H) 0.0 - 5.0 % 12/02/2023 12:38 PM CDT [facility] BASOPHILS 1.2(H) 0.0 - 1.0 % 12/02/2023 12:38 PM CDT [facility] ABSOLUTE NEUTROPHILS 3.89 1.60 - 7.70 10(3)/mcL 12/02/2023 12:38 PM CDT [facility] ABSOLUTE LYMPHOC[facility]TES 0.94(L) 1.30 - 3.20 10(3)/[facility] 12/02/2023 12:38 PM CDT [facility] ABSOLUTE MONOCYTES 0.62 0.20 - 1.00 10(3)/[facility] 12/02/2023 12:38 PM CDT [facility] ABSOLUTE EOSINOPHIL 0.33 0.00 - 0.40 10(3)/[facility] 12/02/2023 12:38 PM CDT [facility] ABSOLUTE BASOPHILS 0.07 0.00 - 0.10 10(3)/[facility] 12/02/2023 12:38 PM CDT [facility] NRBC PER 100 WBC 0 12/02/19 12:38 PM CDT [facility] Blood No Phlebotomy Charged / Unknown 12/02/2023 12:00 PM CDT 12/02/2023 12:27 PM CDT Savage Long MD HEMATOLOGY ORDERABLES Final Result [facility] #[address] [place] [address] * (ABNORMAL) BASIC METABOLIC PANEL W/ CALCIUM TOTAL (12/02/2023 12:00 PM CDT) SODIUM 139 136 - 145 mmol/L 12/02/2023 1:06 PM CDT [facility] POTASSIUM 3.7 3.5 - 5.1 mmol/L 12/02/2023 1:06 PM CDT [facility] CHLORIDE 105 98 - 107 mmol/L 12/02/2023 1:06 PM CDT [facility] CO2, VENOUS 26 22 - 30 mmol/L 12/02/2023 1:06 PM CDT [facility] ANION GAP 11.7 <18.0 mmol/L 12/02/2023 1:06 PM CDT [facility] GLUCOSE 107(H) 70 - 99 mg/dL 12/02/2023 1:06 PM CDT [facility] BUN 12 10 - 20 mg/dL 12/02/2023 1:06 PM CDT [facility] CREATININE, BLOOD 0.62 0.60 - 1.00 mg/dL 12/02/2023 1:06 PM CDT [facility] BUN/CREATININE RATIO 19 12 - 20 ratio 12/02/2023 1:06 PM CDT [facility] CALCIUM 8.9 8.7 - 10.5 mg/dL 12/02/2023 1:06 PM CDT [facility] GFR, ESTIMATED >60 >=60 12/02/2023 1:06 PM CDT [facility] Comment: Creatinine Clearance is the preferred criteria for selecting drug dose adjustments in renally impaired patients. The GFR is provided as additional pertinent clinical information. GFR is reported in mL/min/1.73 sq m. Calculation based on the Chronic Kidney Disease Epidemiology Collaboration (CKD- EPI) equation refit without adjustment for race. GFR, EST. >60 >=60 024 1:06 PM CDT [facility] GFR, EST. NONAFRICAN >60 >=60 12/02/2023 1:06 PM CDT [facility] Blood No Phlebotomy Charged / Unknown 12/02/2023 12:00 PM CDT 12/02/2023 12:27 PM CDT us Savage Long MD CHEMISTRY ORDERABLES Final Result [facility] [address] [place] [address] documented in this encounter Visit Diagnoses Diagnosis Essential (primary) hypertension Unspecified essential hypertension Abnormal coagulation profile Hyperkalemia Hyperpotassemia documented in this encounter Additional Health Concerns Active Problems Noted Date Diagnosed Date Quality of Life (General Plan of Care) 4 Infection Onset Date Last Indicated Resolved Time Respiratory Rule-Out 04/07/2024 04/07/2024 025 10:22 AM FOOD AND BEVERAGE ORDER CLERK COVID - 19 04/07/2024 04/07/2024 04/07/2024 10:2 2 AM FOOD AND BEVERAGE ORDER CLERK Assessment Noted Time PHQ-9 Depression Total Score: 0 10/13/19 2:26 PM CDT documented as of this encounter Care Teams File System Installer Relationship Specialty Start Date End Date Savage Long MD #2 [facility] [address] [place] [address] PCP - General Family Medicine 09/16/20 Kimberlee Morocho APRN, BILLET DRILLER Nurse Practitioner Advanced Practice Nurse 10/24/15 Leighton Rios MD #[address] [address] Consulting Physician Clinical Cardiac Electrophysiology 04/10/22 Caroline Candelaria MD #[address] [address] Consulting Physician Endocrinology 02/24/23 Brittnee Mae RN [place] Nurse Machinery Rigger 02/06/22 12/02/23 Oleksandr Borjas MD #[address] [address] Consulting Physician Colon and Rectal Surgery 05/20/23 documented as of this encounter
--- OUTSIDE RECORDS SUMMARY | 2024-07-05 15:35 | XMS_ITS | Encounter Summary ---
Author Organization [facility] Address [address] [place] [address] Phone Care Team Providers Care Nuclear Plant Construction Worker Name Role Phone Kimberlee Morocho APRN, CNP Unavailable [phone] Savage Long MD Primary Care Provider [phone] Brittnee Mae RN Unavailable Unavailable Leighton Rios MD Unavailable [phone] Caroline Candelaria MD Unavailable Brittnee Mae RN Unavailable Unavailable Oleksandr Borjas MD Unavailable Reason for Visit * Reason Comments Medication Refill Encounter Details Date Type Department Care Team (Late st Contact Info) Description 01/29/2022 Refill [facility] #2 [place] [address] Savage Long MD #[address] [address] Medication Refill Social History Tobacco Use Types [...] 06/13/21 Office Visit Yuniel Finley APRN, [facility] Showing recent visits within past 365 days and meeting all other requirements Future Appointments Date Type Provider Dept 03/26/22 Appointment Savage Long MD [facility] Showing future appointments within next 90 days and meeting all other requirements documented in this encounter Plan of Treatment Upcoming Encounters Date Type Department Care Team (Late st Contact Info) Description 07/11/2024 10:00 AM CDT Office Visit [facility] - Family Medicine - [place] #[address] [place] [address] Savage Long MD #[address] [address] 10/17/2024 11:00 AM CDT [facility] [address] [place] [address] Isaura Evans Tanika, PAC [address] [place] [address] Discharge Disposition: Discharged to home or Selfcare 10/24/2024 10:00 AM CDT Office Visit [facility] Oncology Services [address] [place] [address] Isaura Evans Tanika, PAC [address] [place] [address] Discharge Disposition: Discharged to home or Selfcare documented as of this encounter Visit Diagnoses Not on filedocumented in this encounter Additional Health Concerns Infection Onset Date Last Indicated Resolved Time COVID - 19 05/26/2022 05/26/2022 05/26/2022 10:0 5 AM GREY TENDER COVID - 19 05/26/2022 05/26/2022 06/05/2022 12:1 6 AM GREY TENDER Respiratory Rule-Out 04/07/2024 04/07/2024 025 10:22 AM GREY TENDER COVID - 19 04/07/2024 04/07/2024 04/07/2024 10:2 2 AM GREY TENDER Assessment Noted Time PHQ-9 Depression Total Score: 0 09/17/19 1:00 PM CDT documented as of this encounter Care Teams Nuclear Plant Construction Worker Relationship Specialty Start Date End Date Savage Long MD #[address] [address] PCP - General Family Medicine 09/16/20 Kimberlee Morocho, SCRUM PROJECT MANAGER, READING TUTOR Nurse Practitioner Advanced Practice Nurse 10/24/15 Brittnee Mae, RN [place] Microfilm Processor 02/06/22 03/30/23 Leighton Rios MD [place] Consulting Physician Clinical Cardiac Electrophysiology 04/10/22 Caroline Candelaria MD #[address] [address] Consulting Physician Endocrinology 02/24/23 Brittnee Mae RN [place] Nurse Microfilm Processor 02/06/22 12/02/23 Oleksandr Borjas MD #[address] [address] Consulting Physician Colon and Rectal Surgery 05/20/23 documented as of this encounter
--- OUTSIDE RECORDS SUMMARY | 2024-07-05 15:35 | XMS_ITS | Encounter Summary ---
Author Organization [facility] Address [address] [place] [address] Phone Care Team Providers Care Creative Services Specialist Name Role Phone Kimberlee Morocho APRN, CNP Unavailable [phone] Savage Long MD Primary Care Provider [phone] Leighton Rios MD Unavailable [phone]- [phone] Caroline Candelaria MD Unavailable Brittnee Mae RN Unavailable Unavailable Oleksandr Borjas MD Unavailable Encounter Details Date Type Department Care Team (Late st Contact Info) Description 12/02/2023 Lab Requisition [facility] Laboratory Services [address] [place] [phone] Savage Long MD #[address] [address] Abnormal coagulation profile; Essential (primary) hypertension; Hyperkalemia [...] declined 11/25/2023 How often do you attend sabianism or adventism serv ices? Patient declined 11/25/2023 Do you belong to any clubs o r organizations such as sabianism groups, unions, fraternal or athletic groups, or [...] Total Score - Questions 1-9 0 10/03 [facility] ional Health - [...] any time in the past [address] [facility], were you homeless or living in a [...] Description 07/11/2024 10:00 AM CDT Office Visit [facility] Medical Group - Family [facility] #[address] [place] [address] Savage Long MD #[address] [place] [address] 10/17/2024 11:00 AM CDT [facility] [address] [place] [address] Isaura Evans Tanika, PAC [address] [place] [address] Discharge Disposition: Discharged to home or Selfcare 10/24/2024 10:00 AM CDT [facility] [address] [place] [address] Isaura Evans Tanika, PAC [address] [place] [address] Discharge Disposition: Discharged to home or Selfcare [...] - 36 sec 12/02/2023 1:29 PM CDT [facility] Blood No Phlebotomy Charged / Unknown 12/02/2023 12:00 PM CDT 12/02/2023 12:59 PM CDT Narrative [facility] - 12/02/2023 1:29 PM CDT Therapeutic range for unfractionated heparin at 0.3-0.7 U/mL is an aPTT value in the range of 71-100 seconds. Critical value for the PTT test is >= 122 seconds. Savage Long MD HEMATOLOGY ORDERABLES Final Result Performing Organization Address City/[facility] Co de Phone Number [facility] #[address] [place] [address] * (ABNORMAL) PROTIME (PT) (PROTHROMBIN TIME) (12/02/2023 12:00 PM CDT) PROTIME-PATIENT 16.5(H) 11.6 - 14.8 sec 12/02/2023 1:29 PM CDT [facility] INR 1.3(H) 0.9 - 1.2 12/02/2023 1:29 PM CDT [facility] Comment: Therapeutic Ranges INR = 2.0-3.0: Venous thromb, atrial fib, pul embolism, tissue heart valve, ami. INR = 2.5-3.5: Mechanical heart valve Critical value for INR is >/= 4.5 Blood No Phlebotomy Charged / Unknown 12/02/2023 12:00 PM CDT 12/02/2023 12:59 PM CDT Savage Long MD HEMATOLOGY ORDERABLES Final Result Performing Organization Address [facility] Co de Phone Number [facility] #[address] [place] [address] documented in this encounter Visit Diagnoses Diagnosis Abnormal coagulation profile Essential (primary) hypertension Unspecified essential hypertension Hyperkalemia Hyperpotassemia documented in this encounter Additional Health Concerns Active Problems Noted Date Diagnosed Date Quality of Life (General Plan of Care) Infection Onset Date Last Indicated Resolved Time Respiratory Rule-Out 04/07/2024 04/07/2024 025 10:22 AM SECURITY SPECIALIST COVID - 19 04/07/2024 04/07/2024 04/07/2024 10:2 2 AM SECURITY SPECIALIST Assessment Noted Time PHQ-9 Depression Total Score: 0 10/13/19 2:26 PM CDT documented as of this encounter Care Teams Creative Services Specialist Relationship Specialty Start Date End Date Savage Long MD #2 [facility] [address] [place] [address] PCP - General Family Medicine 09/16/20 Kimberlee Morocho, PREVENTATIVE MAINTENANCE TECHNICIAN, ICING MACHINE OPERATOR Nurse Practitioner Advanced Practice Nurse 10/24/15 Leighton Rios MD #[address] [address] Consulting Physician Clinical Cardiac Electrophysiology 04/10/22 Caroline Candelaria MD #[address] [address] Consulting Physician Endocrinology 02/24/23 Brittnee Mae RN [place] Nurse Rubber Goods Inspector Tester 02/06/22 12/02/23 Oleksandr Borjas MD #[address] [address] Consulting Physician Colon and Rectal Surgery 05/20/23 documented as of this encounter
--- OUTSIDE RECORDS SUMMARY | 2024-07-05 15:35 | XMS_ITS | Clinical Summary ---
Author Organization [facility] Address [address] [place] [id number] Care Team Providers Care Public Health Educator Name Role Phone Unavailable Primary Care Provider Unavailabl e Social History Tobacco Use Types Packs/Day Years Used Date Smoking Tobacco: Never Assessed Comments Unknown Sex and Gender Information Value Date Recorded Sex Assigned at Not on file Legal Sex Female 4:04 PM CDT Gender Identity Not on file Sexual Orientation Not on file Plan of Treatment Health Maintenance Due Date Last Done Comments DTaP, Tdap and Td Vaccines ( 1 [...]
--- OUTSIDE RECORDS SUMMARY | 2024-07-05 15:35 | XMS_ITS | Referral Summary ---
Author Organization [facility] Address [address] [place] [address] Care Team Providers Care Monomer Purification Operator Name Role Phone Savage Long MD Primary Care Provider [phone] Encounters Date Type Department Care Team Description 06/28/2024 Anticoagulation Visit [facility] at [address] [place] [address] Luis Buitrago MA 06/28/2024 11:10 AM CDT Lab [address] [address] Paroxysmal atrial fibrillation (HCC) 06/27/2024 12:15 PM CDT Lab [address] [address] Paroxysmal atrial fibrillation (HCC) 06/27/2024 11:15 AM CDT Office Visit [facility] at [address] [place] [address] Jer Sung MD Gastroesophageal reflux disease with esophagitis without hemorrhage (Primary Dx); Irritable bowel syndrome with diarrhea 05/29/2024 Anticoagulation Visit [facility] at [address] [place] [address] Elaina Saldana MA 05/29/2024 10:05 AM AIR TRAFFIC CONTROL EQUIPMENT REPAIRER Lab [address] [address] Paroxysmal atrial fibrillation (HCC) 05/22/2024 Anticoagulation Visit [facility] at [address] [place] [address] Elaina Saldana MA 05/22/2024 9:00 AM AIR TRAFFIC CONTROL EQUIPMENT REPAIRER Lab [address] [address] Paroxysmal atrial fibrillation (HCC) 05/17/2024 7:30 AM AIR TRAFFIC CONTROL EQUIPMENT REPAIRER Ancillary Procedure [facility] [id number] [phone] Chest pain, unspecified type; Sick sinus syndrome (HCC); Paroxysmal atrial fibrillation (HCC); Cardiac pacemaker in situ 05/01/2024 Anticoagulation Visit [facility] at [address] [address] Luis Buitrago MA 05/01/2024 10:40 AM AIR TRAFFIC CONTROL EQUIPMENT REPAIRER Lab [address] [address] Paroxysmal atrial fibrillation (HCC) 04/21/2024 Anticoagulation Visit [facility] at [address] [address] Kristal Kwok MA 04/21/2024 10:00 AM AIR TRAFFIC CONTROL EQUIPMENT REPAIRER Lab [address] [address] Paroxysmal atrial fibrillation (HCC) 04/19/2024 Anticoagulation Visit [facility] at [address] [address] Luis Buitrago MA 04/19/2024 9:40 AM AIR TRAFFIC CONTROL EQUIPMENT REPAIRER Lab [address] [address] Paroxysmal atrial fibrillation (HCC) from Last 3 Months Allergies Active Allergy [...] Of 160 or higher 60 tablet 11 08/07/19 23 Active warfarin (COUMADIN) 1 mg tablet Take 1 tablet (1 mg total) by mouth daily 90 tablet 3 01/05/20 23 Active flecainide (TAMBOCOR) 50 mg tablet Take 1 tablet by mouth twice daily 60 tablet 11 07/15/19 24 Active metoprolol XL (TOPROL-XL) 25 mg extended release tablet Take 1 tablet by mouth once daily 90 tablet 3 07/15/19 24 Active L. acidophilus-di g enz cmb 5 5-250 mg capsule Take by mouth Active LORazepam (ATIVAN) 1 mg tablet Take one pill 30 minutes before planned MRI. May repeat x1 if needed. 2 tablet 07/30/19 24 Active Additional Information Patient not taking.Reported on 06/27/2024 furosemide (LASIX) 40 mg tablet Take 1 tablet (40 mg total) by mouth daily 30 tablet 11 09/20/19 24 025 Active dexAMETHasone 0.5 mg/5 mL solution FILL CUP WITH 2.5 ML OF SOLUTION & 25 ML OF WATER. SWISH IN MOUTH FOR 30 SECONDS ONCE DAILY. SPIT OUT & DO NOT SWALLOW. AVOID EATING FOR UP TO 30 MINUTES. ONLY USE FOR TWO CONSECUTIVE WEEKS, THEN TAKE A SMALL BREAK AND REPEAT NECESSARY FOR FLARES 10/22/19 24 Active valsartan (DIOVAN) 160 mg tablet Take 1 tablet (160 mg total) by mouth daily 90 tablet 3 11/02/19 24 025 Active albuterol HFA (PROVENTIL HFA,VENTOLIN HFA,PROAIR HFA) 90 mcg/actuation inhalerIndicat ions:COVID-19 Inhale 2 puffs every 6 (six) hours as needed for shortness of breath 18 g 08/10/20 24 Active warfarin (COUMADIN) 2 mg tablet Take 1 tablet by mouth once daily 90 tablet 3 02/18/20 24 Active warfarin (COUMADIN) 3 mg tablet Take 1 tablet (3 mg total) by mouth daily 90 tablet 3 03/16/[address] (PROTONIX) 40 mg EC tablet Take 1 tablet (40 mg total) by mouth daily 90 tablet 3 06/29/[address] (PROTONIX) 40 mg EC tablet Take 1 tablet (40 mg total) by mouth daily 90 tablet 3 07/22/19 24 025 Discontinued Active Problems Problem Noted Date Diagnosed Date Cardiac pacemaker in situ 11/01/2023 Intercostal pain 11/01/2023 History of repair of hiatal hernia 07/22/2023 History of colonic diverticulitis 07/22/2023 Lymph node symptom 07/22/2023 Irritable bowel syndrome with diarrhea Assessment & Plan (10/02/2023 11:26 AM CDT): [...] loop recorder present 10/27/2022 Sick sinus syndrome 08/26/2022 Overview (08/26/2022): Heart rate down to the 20s and 30s while awake. Status post Biotronik Edora 8 DRT dual-chamber pacemaker on 19 Aug 2022 (RL). Assessment & Plan (08/26/2022 2:25 PM CDT): Patient has felt s o much better since pacemaker was put in. Now she has much more energy and she is not dizzy anymore. We discussed today's device remote check showing 100% RA pacing and 100% RV pacing with good numbers otherwise. She will follow up with Dr. Garcia in October as scheduled. Bradycardia 08/14/2022 Paroxysmal atrial fibrillation 06/03/2022 Paroxysmal ventricular tachycardia 06/03/2022 Essential hypertension 06/03/2022 [...] history of esophageal cancer 07/22/2023 07/22/2023 Immunizations Immunization Administration Dates Next Due Influenza, Quadrivalent, Hig h Dose, Preservative Free, Intrr 12/25/2022,12/06/2019 Influenza, Quadrivalent, Spl it, Preservative Free, Intramuscular 12/22/2021,01/19/2019,12/28/2017,12/21,12/22/2014 Influenza, Trivalent, High D ose, Split, Preservative Free, Intramuscular 12/06/2019,12/13/2015 Influenza, Trivalent, Preser vative Free, Intramuscular 12/05/2020,01/03/2014 Pneumococcal Conjugate PCV 13 12/06/2019, 016 Pneumococcal Polysaccharide PPV23 01/02/2013 Sars-cov-2 Covid-19 Mrna, Bi valent, Original/omicron Ba.1 12/25/2022 Tdap 05/26/2011 Social History Tobacco Use Types Packs/Day Years Used Date Smoking Tobacco: Never Smokeless Tobacco: Never Tobacco Cessation:Counseling Given: Not Answered AUDIT-C Answer Date Recorded Q1: How often do you have a drink containing alcohol? Never 06/27/2024 Q2: How many drinks containi ng alcohol do you have on a typical day when you are drinking? Patient does not drink Q3: How often do you have si x or more drinks on one occasion? Never 06/27/2024 Personal Safety Answer Date Recorded Have you ever been in or are you currently in a harmful physical or emotional relationship or is someone making you feel afraid or unsafe? Denies 07/27/2023 Comments Unknown Sex and Gender Information Value Date Recorded Sex Assigned at Not on file Legal Sex Female 3:40 AM AIR TRAFFIC CONTROL EQUIPMENT REPAIRER Gender Identity Not on file Sexual Orientation Not on file Last Filed Vital Signs Vital Sign Reading Time Taken Comments Blood Pressure 129/83 06/27/2024 11:20 AM CDT Pulse 70 06/27/2024 11:20 AM CDT Temperature 36.6 C (97.8 F) 11/13/2023 11:15 AM CDT Respiratory Rate 22 11/13/2023 11:15 AM CDT Oxygen Saturation 96% 06/27/2024 11:20 AM CDT Inhaled Oxygen Concentration - - Weight 87.1 kg (192 lb) 06/27/2024 11:20 AM CDT Height 157.5 cm (5' 2 ) 06/27/2024 11:20 AM CDT Body Mass Index 35.12 06/27/2024 11:20 AM CDT Plan of Treatment Not on file Medical Devices Implanted Type Area Well Treatment Offsider Device Identifier Shelf Expiration Date Model / Serial / Lot Biotronik Inc Biomonitor Iii Monitor Cardiac Sterile Disposable Latex Free [id number] - [id number] - [id number] Implanted:Qty: 1 on 06/12/2022 by Jared Hernandez MD at [facility] Implantable Loop Recorder N/A: Chest Wall [employer] Inc 11/03/2023 [id number] / [id number] / Medtronic [employer] Tyrx Absorbable Antibacterial Envelope-Large 3.3x2.9in [id number] - [id number] Implanted:Qty: 1 on 08/19/2022 by Jared Hernandez MD at [facility] Mesh Med[employer]onic Inc 04/08/2023 [id number] / [employer]otronik Inc Endocardial Pacing Lead Promri Solia T 53 [id number] - [id number] - [id number] Implanted:Qty: 1 on 08/19/2022 by Jared Hernandez MD at [facility] Pacemaker [employer]ik Inc 07/04/2023 [id number] / [id number] / Biotronik [employer] Endocardial Pacing Lead Promri Solia Jt 45 [id number] - [id number] - [id number] Implanted:Qty: 1 on 08/19/2022 by Jared Hernandez MD at [facility] Pacemaker [employer]ik Inc 02/03/2024 [id number] / [id number] / [employer] Edora Promri 60t57a7.5mm Dual Chamber Rate Adaptive Unipolar Bipolar [id number] - [id number] - [id number] Implanted:Qty: 1 on 08/19/2022 by Jared Hernandez MD at [facility] Pacemaker [employer] Inc 11/03/2023 [id number] / [id number] / Procedures Procedure Name Priority Date/Time Associated Diagnosis Comments PROTIME-INR Routine 06/28/2024 11:18 AM CDT Paroxysmal atrial fibrillation (HCC) PROTIME-INR Routine 05/29/2024 10:13 AM AIR TRAFFIC CONTROL EQUIPMENT REPAIRER Paroxysmal atrial fibrillation (HCC) PROTIME-INR Routine 05/22/2024 9:23 AM AIR TRAFFIC CONTROL EQUIPMENT REPAIRER Paroxysmal atrial fibrillation (HCC) DEVICE CHECK - REMOTE Routine 05/17/2024 10:57 AM AIR TRAFFIC CONTROL EQUIPMENT REPAIRER Chest pain, unspecified type Sick sinus syndrome (HCC) Paroxysmal atrial fibrillation (HCC) Cardiac pacemaker in situ PROTIME-INR Routine 05/01/2024 10:48 AM AIR TRAFFIC CONTROL EQUIPMENT REPAIRER Paroxysmal atrial fibrillation (HCC) PROTIME-INR Routine 04/21/2024 10:20 AM AIR TRAFFIC CONTROL EQUIPMENT REPAIRER Paroxysmal atrial fibrillation (HCC) PROTIME-INR Routine 04/19/2024 9:58 AM AIR TRAFFIC CONTROL EQUIPMENT REPAIRER Paroxysmal atrial fibrillation (HCC) COLONOSCOPY 02/10/2023 7:17 AM AIR TRAFFIC CONTROL EQUIPMENT REPAIRER from Last 3 Months or Most Recently Relevant to Health Maintenance Results * (ABNORMAL) Protime-INR (06/28/2024 11:18 AM CDT) PT 27.4(H) 9.7 - 13.0 sec [facility] ([place]) INR 2.49(H) 0.90 - 1.20 [facility] ([place]) Comment: Interpretive data Oral anticoagulant therapeutic ranges: Venous thromboembolism prophylaxis or treatment: 2.0-3.0 CARDIOLOGY Standard range: 2.0-3.0 High-intensity range: 2.5-3.5 Refer to indication-specific guidelines for appropriate target ranges for prosthetic heart valve replacement. Current interpretive data was last revised on 2019. Blood 06/28/2024 11:1 8 AM CDT 06/28/2024 11:25 AM CDT Dusty Garcia MD LAB BLOOD ORDERABLES Final Resu lt Performing Organization Address [facility] de Phone Number DANGFORMERLY NAMED [facility] ([place]) [address] [facility] [place] [address] * (ABNORMAL) Protime-INR (05/29/2024 10:13 AM AIR TRAFFIC CONTROL EQUIPMENT REPAIRER) PT 23.8(H) 9.7 - 13.0 sec [facility] ([place]) INR 2.17(H) 0.90 - 1.20 [facility] ([place]) Comment: Interpretive data Oral anticoagulant therapeutic ranges: Venous thromboembolism prophylaxis or treatment: 2.0-3.0 CARDIOLOGY Standard range: 2.0-3.0 High-intensity range: 2.5-3.5 Refer to indication-specific guidelines for appropriate target ranges for prosthetic heart valve replacement. Current interpretive data was last revised on 2019. Blood 05/29/2024 10:1 3 AM AIR TRAFFIC CONTROL EQUIPMENT REPAIRER 05/29/2024 10:59 AM AIR TRAFFIC CONTROL EQUIPMENT REPAIRER Dusty Garcia MD LAB BLOOD ORDERABLES Final Resu lt Performing Organization Address [facility] de Phone Number [facility] ([place]) [address] [facility] [place] [address] * (ABNORMAL) Protime-INR (05/22/2024 9:23 AM AIR TRAFFIC CONTROL EQUIPMENT REPAIRER) PT 17.7(H) 9.7 - 13.0 sec [facility] ([place]) INR 1.62(H) 0.90 - 1.20 [facility] ([place]) Comment: Interpretive data Oral anticoagulant therapeutic ranges: Venous thromboembolism prophylaxis or treatment: 2.0-3.0 CARDIOLOGY Standard range: 2.0-3.0 High-intensity range: 2.5-3.5 Refer to indication-specific guidelines for appropriate target ranges for prosthetic heart valve replacement. Current interpretive data was last revised on 2019. Blood 05/22/2024 9:23 AM AIR TRAFFIC CONTROL EQUIPMENT REPAIRER 05/22/2024 9:59 AM AIR TRAFFIC CONTROL EQUIPMENT REPAIRER Dusty Garcia MD LAB BLOOD ORDERABLES Final Resu lt [facility] ([place]) 1 [facility] [place] Department [place] [address] * DEVICE CHECK - REMOTE (05/17/2024 10:57 AM AIR TRAFFIC CONTROL EQUIPMENT REPAIRER) Anatomical Region Laterality Modality Other Narrative 05/18/2024 8:29 PM AIR TRAFFIC CONTROL EQUIPMENT REPAIRER Images from the original result were not included. 05/17/2024 [employer] quarterly remote device check NOTE The following shows snippets from the complete quarterly report. The complete report in its entirety is attached to this Result Text in It Security Specialist Presenting EGM Last in-office check 11/01/2023 Next in-office check 11/06/2024 DC PPM, implanted 08/19/2022 with 85% est remaining longevity Ap 95% RVp 76% Afib burden 0%- No recorded AT/AF No event/alert episodes recorded this monitoring quarter Reviewed By Amanda Dee RESOLUTION SPECIALIST ATTESTATION I have reviewed the device interrogation report associated with this encounter in detail. I agree with the documentation recorded/scanned into the electronic medical record. Recommendations: Continue current device follow-up. Dusty Garcia MD Dusty Garcia MD CV CARDIAC SERVICES PROCEDURES Final Result * (ABNORMAL) Protime-INR (05/01/2024 10:48 AM AIR TRAFFIC CONTROL EQUIPMENT REPAIRER) PT 28.0(H) 9.7 - 13.0 sec [facility] ([place]) INR 2.54(H) 0.90 - 1.20 [facility] ([place]) Comment: Interpretive data Oral anticoagulant therapeutic ranges: Venous thromboembolism prophylaxis or treatment: 2.0-3.0 CARDIOLOGY Standard range: 2.0-3.0 High-intensity range: 2.5-3.5 Refer to indication-specific guidelines for appropriate target ranges for prosthetic heart valve replacement. Current interpretive data was last revised on 2019. Blood 05/01/2024 10:4 8 AM AIR TRAFFIC CONTROL EQUIPMENT REPAIRER 05/01/2024 11:03 AM AIR TRAFFIC CONTROL EQUIPMENT REPAIRER us Dusty Garcia MD LAB BLOOD ORDERABLES Final Resu lt Performing Organization Address City/[facility]/ZIP Co de Phone Number [email or web address] ([place]) 1 [facility] [place] [address] * (ABNORMAL) Protime-INR (04/21/2024 10:20 AM AIR TRAFFIC CONTROL EQUIPMENT REPAIRER) PT 27.5(H) 9.7 - 13.0 sec [facility] ([place]) INR 2.50(H) 0.90 - 1.20 [facility] ([place]) Comment: Interpretive data Oral anticoagulant therapeutic ranges: Venous thromboembolism prophylaxis or treatment: 2.0-3.0 CARDIOLOGY Standard range: 2.0-3.0 High-intensity range: 2.5-3.5 Refer to indication-specific guidelines for appropriate target ranges for prosthetic heart valve replacement. Current interpretive data was last revised on 2019. Blood 04/21/2024 10:2 0 AM AIR TRAFFIC CONTROL EQUIPMENT REPAIRER 04/21/2024 11:00 AM AIR TRAFFIC CONTROL EQUIPMENT REPAIRER Carmen Riley NP LAB BLOOD ORDERABLES Fi nal Result [facility] ([place]) [address] [facility] [place] [address] * (ABNORMAL) Protime-INR (04/19/2024 9:58 AM AIR TRAFFIC CONTROL EQUIPMENT REPAIRER) PT 57.8(H) 9.7 - 13.0 sec [facility] ([place]) Comment:OK INR 5.18(C) 0.90 - 1.20 [facility] ([place]) Comment: Critical result called to and read back by KIRBY LAGUERRE (DR. OFFICE) on 04/19/2024 11:04:36 AIR TRAFFIC CONTROL EQUIPMENT REPAIRER to TIM BAE. Interpretive data Oral anticoagulant therapeutic ranges: Venous thromboembolism prophylaxis or treatment: 2.0-3.0 CARDIOLOGY Standard range: 2.0-3.0 High-intensity range: 2.5-3.5 Refer to indication-specific guidelines for appropriate target ranges for prosthetic heart valve replacement. Current interpretive data was last revised on 2019. Blood 04/19/2024 9:58 AM AIR TRAFFIC CONTROL EQUIPMENT REPAIRER 04/19/2024 10:45 AM AIR TRAFFIC CONTROL EQUIPMENT REPAIRER us Dusty Garcia MD LAB BLOOD ORDERABLES Final Resu lt [facility] ([place]) 1 [facility] Department [place] [address] * COLONOSCOPY (02/10/2023 7:17 AM AIR TRAFFIC CONTROL EQUIPMENT REPAIRER) Anatomical Region Laterality Modality Other Narrative Procedure Note Jer Sung MD - 02/10/2023 7:17 AM CST [facility] [place] Patient Name: Tamica Saxena Procedure Date: 02/10/2023 7:17 AM Date of : 1945 Admit Type: Outpatient Age: 77 Gender: Female Attending MD: Jer Sung M.D. Room: [facility] ENDOSCOPY ROOM 2 Note Status: [...] diarrhea Referring MD: Savage Long M.D. Providers: Jre Sung M.D. Impression: - The examined portion [...] procedure were verified by the physician, the jig and fixture maker and the gallery or museum technician in the endoscopy suite. Mental Status [...] scope was passed under direct vision. TheColonoscope [id number] was introduced through the anus and advanced [...] 7:17 AM Procedure Code(s): --- Professional --- 91273, Colonoscopy, flexible; with removal of tumor(s), polyp(s), or other lesion(s) by snare technique [id number], 59, Colonoscopy, flexible; with biopsy, single or multiple --- Technical --- 90104, Colonoscopy, flexible; with removal of tumor(s), polyp(s), or other lesion(s) by snare technique [id number], 59, Colonoscopy, flexible; with biopsy, single or [...] perforation orabscess without bleeding CPT copyright 2020 [place] [employer]. All rights reserved. The codes documented in this report are preliminary and upon nude model reviewmay be revised to meet current compliance requirements. Recognized by the [place] [employer] for promoting quality in endoscopy Jer Sung MD ENDOSCOPY PROCEDURES Final Resul t from Last 3 Months or Most Recently Relevant to Health Maintenance Insurance MEDICARE [facility] MEDICARE BLUE CROSS MEDICARE SUPPLEMENT MEDICARE [facility] Advance Directives For more information, please contact: [phone] Documents on File Type Date Recorded Patient Digital X Ray Service Engineer Expl anation ADVANCE DIRECTIVE 06/27/2017 12:00 AM [employer] EMPLOYMENT LAW SPECIALIST FINANCIAL/MEDICAL * Full Code (Latest Code Status [...] 8:49 AM 06/12/2022 2:55 PM Care Teams Monomer Purification Operator Relationship Specialty Start Date End Date Savage Long MD [address] [place] [address] PCP - General Family Medicine 06/19/22
--- OUTSIDE RECORDS SUMMARY | 2024-07-05 15:35 | XMS_ITS | Encounter Summary ---
Author Organization [facility] Care Team Providers Care Pyrotechnic Assembler Name Role Phone Shari Borrego MD Primary Care Provider [phone] Savage Long MD Primary Care Provider [phone] Encounter Details Date Type Department Care Team (Latest Contact Info) Description 06/10/2017 Orders Only [facility] CLINCONV ProviderDominga MD [address] [place] [address] Social History Tobacco Use Types Packs/Day Years Used Date Smoking Tobacco: Never Comments Unknown Sex and Gender Information Value Date Recorded Sex Assigned at Not on file Legal Sex Female 3:40 AM WOMEN'S STUDIES LECTURER Gender Identity Not on file Sexual Orientation Not on file documented as of this encounter Plan of Treatment Not on file documented as of this encounter Procedures Procedure Name Priority Date/Time Associated Diagnosis Comments PROCEDURE - RESULT 06/10/2017 12 :00 AM WOMEN'S STUDIES LECTURER documented in this encounter Results * PROCEDURE - RESULT (06/10/2017 12:00 AM WOMEN'S STUDIES LECTURER) Narrative 06/10/2017 12:00 AM WOMEN'S STUDIES LECTURER Ordered by an unspecified provider. Historical Provider [...] documented as of this encounter Care Teams Pyrotechnic Assembler Relationship Specialty Start Date End Date Shari Borrego MD PCP - General 09/15/16 06/18/22 Savage Long MD [address] [address] PCP - General Family Medicine 06/19/22 documented as of this encounter
--- OUTSIDE RECORDS SUMMARY | 2024-07-05 15:35 | XMS_ITS | Clinical Summary ---
Author Organization [facility] Address [address] [place] [address] Phone Care Team Providers Care Benzol Still Operator Name Role Phone Kimberlee Morocho Krystal LENNON, STICK INSERTER Unavailable [phone] Savage Long MD Primary Care Provider [phone] Leighton Rios MD Unavailable [phone] Caroline Candelaria MD Unavailable Oleksandr Borjas MD [...] Active polyethylene glycol (GLYCOLAX, MIRALAX) 17 g PackIndication s:Constipation Take 1 Packet by mouth 2 times [...] mg by mouth 2 times daily. Active warfarin (COUMADIN) 3 MG Tablet Take 3 mg by mouth. WEDNESDAY-Wednesday03/16/20 24 Active warfarin (COUMADIN) 4 MG Tablet Take 4 mg by mouth. ON MONDAYS Active Cyanocobalamin (B-12) 500 MCG TabletIndicati ons:B12 deficiency Take 1 Tablet by mouth daily for 90 doses. 90 Tablet 3 04/24/19 25 025 Active ergocalciferol (VITAMIN D) 21474 UNIT CapsuleIndicat ions:Vitamin D deficiency Take 1 Capsule by mouth once a week for 12 doses. 12 Capsule 04/24/19 25 025 Active dicyclomine (BENTYL) 10 MG CapsuleIndicat ions:Irritable bowel syndrome, unspecified type TAKE 1 CAPSULE BY MOUTH TWICE DAILY NEEDED 60 Capsule 06/17/19 25 Active dicyclomine (BENTYL) 10 MG CapsuleIndicat ions:Irritable bowel syndrome, unspecified type TAKE 1 CAPSULE BY MOUTH TWICE DAILY NEEDED 60 Capsule 03/13/20 24 025 Discontinued Active Problems Problem Noted [...] 30-39.9) 09/16/2020 Mild intermittent asthma without complication Bilateral leg edema 09/16/2020 Bilateral sciatica 09/16/2020 PAF (paroxysmal atrial fibrillation) 06/07/2018 Status post open reduction w ith internal fixation (ORIF) of fracture of ankle 03/01/2018 Carpal tunnel syndrome, left 05/07/2016 High blood pressure 05/06/2016 Gastroesophageal reflux disease 10/24/2015 History of Stacy fundoplication 10/24/2015 Irritable bowel syndrome with diarrhea 6 Encounters Date Type Department Care Team Description 07/05/2024 Results Follow-Up [facility] [place] [address] Savage Long MD 06/27/2024 Travel 06/15/2024 Refill [facility] [address] [place] [address] Savage Long MD Medication Refill 04/26/2024 10:45 AM BEAUTY PARLOR CLEANER Office Visit [facility] Oncology Services [address] [place] [address] Isaura Evans Tanika, Anemia, normocytic normochromic (Primary Dx); Blood loss anemia; PAF (paroxysmal atrial fibrillation) (HCC); Abnormality of plasma protein Discharge Disposition: Discharged to home or Selfcare 04/26/2024 Travel 04/24/2024 Results Follow-Up [facility] [address] [place] [address] Savage Long MD Vitamin D deficiency (Primary Dx); B12 deficiency 04/11/2024 Patient Outreach [facility] Pathology Laboratory Technologist Management [address] [place] [address] Brittnee Mae, RN Care Management 04/07/2024 10:30 AM BEAUTY PARLOR CLEANER Office Visit [facility] [address] [place] [address] Yuniel Finley APRN, STICK INSERTER Primary hypertension (Primary Dx); Bacterial conjunctivitis of left eye; Viral URI; Acute cough Discharge Disposition: Discharged to home or Selfcare 04/07/2024 Travel from Last 3 Months Immunizations Immunization Administration Dates Next Due COVID-19 mRNA, bivalent, original/Omicron BA.1, Non-US Vaccine Product, [employer] 12/25/2022 COVID-19, Mrna, Lnp-s, Pf, 5 0 [...] = 0.6 oz pur e alcohol) socially [employer] Utilities Answer Date Recorded In the past 12 months has th e [employer], gas, oil, or water company threatened to [...] declined 11/25/2023 How often do you attend shinto or mosque serv ices? Patient declined 11/25/2023 Do you belong to any clubs o r organizations such as shinto groups, unions, fraternal or athletic groups, or [...] Total Score - Questions 1-9 0 06/2024 [facility] - Occupational [...] place to sleep or slept in a longterm (including now)? Patient declined 05/13/2023 Housing Stability [...] any time in the past 12 m [facility], were you homeless or living in a longterm (including now)? Patient declined 11/25/2023 Education Answer [...] Comments Blood Pressure 123/82 04/26/2024 10:38 AM BEAUTY PARLOR CLEANER Pulse 74 04/26/2024 10:38 AM BEAUTY PARLOR CLEANER Temperature 36.6 C (97.9 F) 04/26/2024 10:38 AM BEAUTY PARLOR CLEANER Respiratory Rate 20 04/26/2024 10:38 AM BEAUTY PARLOR CLEANER Oxygen Saturation 98% 04/26/2024 10:38 AM BEAUTY PARLOR CLEANER Inhaled Oxygen Concentration - - Weight 87 kg (191 lb 14.4 oz) 04/26/2024 10:38 A M BEAUTY PARLOR CLEANER Height 158.8 cm (5' 2.5 ) 04/26/2024 10:38 AM CS T Body Mass Index 34.54 04/26/2024 10:38 AM BEAUTY PARLOR CLEANER Plan of Treatment Upcoming Encounters Date Type Department Care Team (Late st Contact Info) Description 07/11/2024 10:00 AM CDT Office Visit [facility] - Family Medicine [facility] [address] [place] [address] Savage Long MD [address] [address] 10/17/2024 11:00 AM CDT Lab [facility] Oncology Services [address] [place] [address] Isaura Evans Tanika, [facility] [address] [place] [address] Discharge Disposition: Discharged to home or Selfcare 10/24/2024 10:00 AM CDT Office Visit [facility] Oncology Services [address] [place] [address] Isaura Evans Tanika, [facility] [address] [place] [address] Discharge Disposition: Discharged to home or Selfcare Health Maintenance Due Date Last Done Comments Zoster Immunization (1 of 2) 02/11/1994 Respiratory Syncytial Virus (RSV) Immunization (Adult) (1 - 1-dose 75+ series) 02/11/2019 Td Immunization Every 10 Years (Adults With 1 Tdap) 05/26/2021 05/26/2011 DEXA Bone Density 06/28/2023 06/27/2021 SARS-COV-2 Immunization ( season) 2023 12/25/2022, 08/22/2021, 12/31/2020, Additional history exists Influenza Immunization (Season Ended) 2024 12/25/2022, 12/22/2021, 12/05/2020, Additional history exists Pneumococcal Immunization (50+ years) [...] Procedure Name Priority Date/Time Associated Diagnosis Comments VITAMIN B12 Routine 06/27/2024 9:26 AM CDT B12 deficiency VITAMIN D, 25 HYDROXY TOTAL Routine 06/27/2024 9:26 AM CDT Vitamin D deficiency CT - LOWER EXTREMITY 05/08/2024 12:00 AM BEAUTY PARLOR CLEANER POC SARS-COV-2 BY MOLECULAR Routine 04/07/2024 10:12 AM BEAUTY PARLOR CLEANER Acute cough POC INFLUENZA A AND B BY MOLECULAR Routine 04/07/2024 10:12 AM BEAUTY PARLOR CLEANER Acute cough HM COLONOSCOPY 02/10/2023 12:00 AM BEAUTY PARLOR CLEANER LUX BONE DENSITOMETRY AXIAL SKELETON Routine 06/27/2021 10:19 AM CDT Asymptomatic menopausal state HEPATITIS C ANTIBODY Routine 10/08/2020 7:11 AM CDT Encounter for hepatitis C screening test for low risk patient from Last 3 Months or Most Recently Relevant to Health Maintenance Results * VITAMIN D, 25 HYDROXY TOTAL (06/27/2024 9:26 AM CDT) VITAMIN D, 25 HYDROX 45.8 ng/mL 06/27/2024 11:28 AM CDT [facility] Blood Venipuncture / Unknown 06/27/2024 9:26 AM CDT 06/27/2024 10:39 AM CDT Narrative [facility] - 06/27/2024 11:28 AM CDT Published reference ranges for Vitamin D vary depending on time and place and method of testing, and on patient's age, sex, ethnicity and levels of other measured analytes such as parathormone, calcium and phosphorus. The result should be evaluated in conjunction with clinical findings and suspicions. [place] of [employer] and Endocrine Clinical Practice Guidelines: Status Vitamin D levels (ng/mL) Deficient <=20 At risk of inadequacy 21-29 Sufficient 30-100 Centers of Disease Control and Prevention Guidelines: Status Vitamin D levels (ng/mL) Deficient <13 At risk of inadequacy 13-19 Sufficient 20-50 Possibly harmful >50 References: [place] [employer], 2010 Dietary reference intakes for calcium and vitamin D. [place]: The National Academies Press. Kimberlee M, Radha N, Whit BRAXTON, et al., Evaluation, treatment, and prevention of Vitamin D deficiency: an Endocrinology Clinical Practice Guideline. JCEM 2011 96: 7 7853-9422. Krystal A, Guy C, Bill D, et al., Vitamin D Status: [place], 5330-6678, [facility] data brief, no. 59, MD [place]: National Center for Health Statistics. 2011. Savage Long MD CHEMISTRY ORDERABLES Final Result [facility] [address] [place] [address] * VITAMIN B12 (06/27/2024 9:26 AM CDT) VITAMIN B12 449 213 - 816 pg/mL 06/27/2024 11:28 AM CDT [facility] Blood Venipuncture / Unknown 06/27/2024 9:26 AM CDT 06/27/2024 10:39 AM CDT Savage Long MD CHEMISTRY ORDERABLES Final Result [facility] [address] [place] [address] * CT - LOWER EXTREMITY (05/08/2024 12:00 AM BEAUTY PARLOR CLEANER) 05/08/2024 us Provider Scan IMG CT ORDERABLES Final Result Performing Organization Address [facility] Co de Phone Number SCAN * POC SARS-COV-2 BY MOLECULAR (04/07/2024 10:12 AM BEAUTY PARLOR CLEANER) SARSCOV2 Negative Negative, INVALID PROCEDURE CONTROL Valid 04/07/2024 10:1 2 AM BEAUTY PARLOR CLEANER Yuniel Finley APRN, CNP POINT OF CARE TE STING (MANUAL) Final Result * POC INFLUENZA A AND B BY MOLECULAR (04/07/2024 10:12 AM BEAUTY PARLOR CLEANER) INFLUENZA A RNA Negative Negative, Invalid INFLUENZA B RNA Negative Negative, Invalid PROCEDURE CONTROL Valid 04/07/2024 10:1 2 AM BEAUTY PARLOR CLEANER Yuniel Finley APRN, CNP POINT OF CARE TE STING (MANUAL) Final Result * HM COLONOSCOPY (02/10/2023 12:00 AM BEAUTY PARLOR CLEANER) 02/10/2023 Savage Long MD PROCEDURE/MINOR SURGICAL OR DERABLES Final Result Performing Organization Address City/[facility]/ZIP Co de Phone Number SCAN * LUX BONE DENSITOMETRY AXIAL SKELETON (06/27/2021 10:19 AM CDT) Anatomical Region Laterality Modality BODY N/A Other 06/27/2021 1:05 PM CDT Impressions 06/27/2021 1:08 PM CDT IMPRESSION: Normal bone density. REFERENCE: Bone mineral [...] Narrative 06/27/2021 1:08 PM CDT EXAM DESCRIPTION: LUX BONE DENSITOMETRY AXIAL SKELETON REASON FOR STUDY: 76 y/o year old F with given history of screening. Precision Filer Hand/Model: NJVC (S/N [id number]) CLINICAL INFORMATION: Current height: 5 foot 3 [...] Electronically signed by Luther Christensen M.D. AG: [employer] Report ID: [id number] Reading Location: [place] [address] Procedure Note Luther Christensen MD - 06/27/2021 EXAM DESCRIPTION: LUX BONE DENSITOMETRY AXIAL SKELETON REASON FOR STUDY: 76 y/o year old F with given history of screening. Precision Filer Hand/Model: NJVC (S/N [id number]) CLINICAL INFORMATION: Current height: 5 foot 3 [...] Electronically signed by Luther Christensen M.D. AG: CRYSTAL Report ID: [id number] Reading Location: [place] [address] IMPRESSION: Normal bone density. REFERENCE: Bone mineral [...] of Osteoporosis (http://www.nof.org/professionals/clinical-guidelines) us Yuniel Finley APRN, STICK INSERTER IMG DEXA ORDERAB LES Final Result * HEPATITIS C ANTIBODY (10/08/2020 7:11 AM CDT) hepatitis C antibody 0.24 <1 S/CO [facility] ARCH [id number] 10/08/2020 3:02 PM CDT [facility] Comment: Signal/Cutoff ratio < 0.79 is Nondetected Signal/Cutoff ratio 0.80-0.99 is Grayzone Signal/Cutoff ratio > 0.99 is Detected Supplemental assays are recommended if signal/cutoff ratio is >/=1.00. Signal/cutoff ratio result >/= 5.00 is 97% predictive of positivity for recombinant immunoblot assay (RIBA) and will be reported to the [place] Department of Public Health as required. Blood Venipuncture / Unknown 10/08/2020 7:11 AM CDT 10/08/2020 7:11 AM CDT us Savage Long MD CHEMISTRY ORDERABLES Final Result [facility] [address] [place] [address], from Last 3 Months or Most Recently Relevant to Health Maintenance Additional Health Concerns Active Problems Noted Date Diagnosed Date Quality of Life (General Plan of Care) 4 Insurance [facility] MEDICARE Advance Directives Documents on File Type Date Recorded Patient Plug Grower Expl anation Other Advance Directive 05/06/2022 3:03 [...] measures to stabilize the patient. Care Teams Benzol Still Operator Relationship Specialty Start Date End Date Savage Long MD [address]2 [facility] [address] [place] [address] PCP - General Family Medicine 09/16/20 Kimberlee Morocho APRN, STICK INSERTER Nurse Practitioner Advanced Practice Nurse 10/24/15 Leighton Rios MD [address]2 [facility] [address] [place] [address] Consulting Physician Clinical Cardiac Electrophysiology 04/10/22 Caroline Candelaria MD [address]2 [facility] [address] [place] [address] Consulting Physician Endocrinology 02/24/23 Oleksandr Borjas MD [address] [address] Consulting Physician Colon and Rectal Surgery 05/20/23
--- OUTSIDE RECORDS SUMMARY | 2024-07-05 15:35 | XMS_ITS | Encounter Summary ---
Author Organization [facility] Address [address] [place] [address] Phone Care Team Providers Care Landing Scaler Name Role Phone Kimberlee Morocho APRN, CNP Unavailable [phone] Savage Long MD Primary Care Provider [phone] Brittnee Mae RN Unavailable Unavailable Leighton Rios MD Unavailable [phone] Caroline Candelaria MD Unavailable Brittnee Mae RN Unavailable Unavailable Oleksandr Borjas MD Unavailable Reason for Visit * Reason Comments Medication Refill Encounter Details Date Type Department Care Team (Late st Contact Info) Description 03/18/2021 Refill [facility] [address] [place] [address] Savage Long MD [address] [address] Medication Refill Social History Tobacco Use Types [...] Jensen 09/16/20 Office Visit Savage Long MD [facility] Showing recent visits within past 365 days and meeting all other requirements Future Appointments Date Type Provider Dept 06/13/21 Appointment Savage Long MD [facility] Showing future appointments within next 90 days and meeting all other requirements DERRICK OPERATOR documented in this encounter Plan of Treatment Upcoming Encounters Date Type Department Care Team (Late st Contact Info) Description 07/11/2024 10:00 AM CDT [facility] Visit [facility] - [place] [address] [place] [address] Savage Long MD [address] [address] 10/17/2024 11:00 AM CDT [facility] [address] [place] [address] Isaura Evans September, PAC [address] [place] [address] Discharge Disposition: Discharged to home or Selfcare 10/24/2024 10:00 AM CDT Office Visit [facility] Oncology Services [address] [place] [address] [facility] September, PAC [address] [place] [address] Discharge Disposition: Discharged to home or Selfcare documented as of this encounter Visit Diagnoses Not on filedocumented in this encounter Additional Health Concerns Infection Onset Date Last Indicated Resolved Time COVID - 19 03/07/2021 03/07/2021 03/27/2021 12:1 6 AM OIL DERRICK OPERATOR COVID - 19 05/26/2022 05/26/2022 05/26/2022 10:0 5 AM OIL DERRICK OPERATOR COVID - 19 05/26/2022 05/26/2022 06/05/2022 12:1 6 AM OIL DERRICK OPERATOR Respiratory Rule-Out 04/07/2024 04/07/2024 025 10:22 AM OIL DERRICK OPERATOR COVID - 19 04/07/2024 04/07/2024 04/07/2024 10:2 2 AM OIL DERRICK OPERATOR Assessment Noted Time PHQ-9 Depression Total Score: 0 09/17/19 1:00 PM CDT documented as of this encounter Care Teams Landing Scaler Relationship Specialty Start Date End Date Savage Long MD #[address] [address] PCP - General Family Medicine 09/16/20 Kimberlee Morocho, DIE CASTING MACHINE MAINTAINER, ELIGIBILITY COUNSELOR Nurse Practitioner Advanced Practice Nurse 10/24/15 Brittnee Mae RN [place] Vascular Neurologist 02/06/22 03/30/23 Leighton Rios MD [place] Consulting Physician Clinical Cardiac Electrophysiology 04/10/22 Caroline Candelaria MD #[address] [address] Consulting Physician Endocrinology 02/24/23 Brittnee Mae RN [place] Nurse Vascular Neurologist 02/06/22 12/02/23 Oleksandr Borjas MD #[address] [address] Consulting Physician Colon and Rectal Surgery 05/20/23 documented as of this encounter
--- OUTSIDE RECORDS SUMMARY | 2024-07-05 15:35 | XMS_ITS | Encounter Summary ---
Author Organization [facility] Address [address] [place] [address] Phone Care Team Providers Care Bar Attendant Name Role Phone Kimberlee Morocho APRN, CNP Unavailable [phone] Savage Long MD Primary Care Provider [phone] Leighton Rios MD Unavailable [phone] Caroline Candelaria MD Unavailable Oleksandr Borjas MD Unavailable Encounter Details Date Type Department Care Team (Late st Contact Info) Description 07/05/2024 Results Follow-Up [facility] - Family Medicine [facility] [address] [place] [address] Savage Long MD #[address] [address] Social History Tobacco Use Types Packs/Day Years Used Date Smoking Tobacco: Never Smokeless Tobacco: Never Comments:Never smoked Alcohol Use Standard Drinks/Week Comments Not Currently 0 (1 standard drink = 0.6 oz pur e alcohol) socially [facility] Utilities Answer Date Recorded In the past 12 months has th e electric, gas, oil, or water [employer] threatened to shut off services in your home? Patient declined 11/25/2023 Social Connection and Isolation Panel [NHANES] A nswer Date Recorded In a typical week, how many times do you talk on the phone with family, friends, or neighbors? Patient declined 11/25/2023 How often do you get togethe r with friends or relatives? Patient declined 11/25/2023 How often do you attend mosque or spiritism serv ices? Patient declined 11/25/2023 Do you belong to any clubs o r organizations such as mosque groups, unions, fraternal or athletic groups, or [...] Recorded Total Score - Questions 1-9 0 01/0 06/2024 [facility] - Occupational [...] any time in the past 12 m [facility], were you homeless or living in a [...] Office Visit [facility] [address] [place] [address] Savage Long MD #[address] [address] 10/17/2024 11:00 AM CDT [facility] [address] [place] [address] [facility] [address] [place] [address] Discharge Disposition: Discharged to home or Selfcare 10/24/2024 10:00 AM CDT Office Visit [facility] Oncology Services [address] [place] [address] [facility], [facility] [address] [place] [address] Discharge Disposition: Discharged to home or Selfcare documented as of this encounter Visit Diagnoses Not on filedocumented in this encounter Additional Health Concerns Active Problems Noted Date Diagnosed Date Quality of Life (General Plan of Care) 4 Assessment Noted Time PHQ-9 Depression Total Score: 0 04/07/19 25 9:47 AM DIRECTOR OF INFORMATICS documented as of this encounter Care Teams Bar Attendant Relationship Specialty Start Date End Date Savage Long MD #[address] [address] PCP - General Family Medicine 09/16/20 Kimberlee Morocho AUTO ADJUDICATION SPECIALIST, RESPIRATORY CARE SPECIALIST Nurse Practitioner Advanced Practice Nurse 10/24/15 Leighton Rios MD #[address] [address] Consulting Physician Clinical Cardiac Electrophysiology 04/10/22 Caroline Candelaria MD #[address] [address] Consulting Physician Endocrinology 02/24/23 Oleksandr Borjas MD #[address] [address] Consulting Physician Colon and Rectal Surgery 05/20/23 documented as of this encounter
--- OUTSIDE RECORDS SUMMARY | 2024-07-05 15:35 | XMS_ITS | Clinical Summary ---
Author Organization [facility] Address [facility] [place] [address] Care Team Providers Care Welder Experimental Name Role Phone Savage Long MD Primary Care Provider [phone] Allergies Active Allergy Reactions Criticality Noted Date [...] needed for shortness of breath 18 g 11/13/19 24 Active warfarin (COUMADIN) 2 mg tablet [...] Date Type Department Care Team Description 06/28/2024 11:10 AM CDT Lab [address] [address] Paroxysmal atrial fibrillation (HCC) 06/28/2024 Anticoagulation Visit [facility] Specialist at [address] [place] [address] Luis Buitrago MA 06/27/2024 12:15 PM CDT Lab [address] [address] Paroxysmal atrial fibrillation (HCC) 06/27/2024 11:15 AM CDT Office Visit [facility] Gastroenterology at [address] [place] [address] Jer Sung MD Gastroesophageal reflux disease with esophagitis without hemorrhage (Primary Dx); Irritable bowel syndrome with diarrhea 05/29/2024 10:05 AM AIRCRAFT NAVIGATOR Lab [address] [address] Paroxysmal atrial fibrillation (HCC) 05/29/2024 Anticoagulation Visit [facility] Specialist at [address] [address] Elaina Saldana MA 05/22/2024 9:00 AM AIRCRAFT NAVIGATOR Lab [address] [address] Paroxysmal atrial fibrillation (HCC) 05/22/2024 Anticoagulation Visit [facility] Specialist at [address] [address] Elaina Saldana MA 05/17/2024 7:30 AM AIRCRAFT NAVIGATOR Ancillary Procedure [facility] [address] [place] [phone] Chest pain, unspecified type; Sick sinus syndrome (HCC); Paroxysmal atrial fibrillation (HCC); Cardiac pacemaker in situ 05/01/2024 10:40 AM AIRCRAFT NAVIGATOR Lab [address] [address] Paroxysmal atrial fibrillation (HCC) 05/01/2024 Anticoagulation Visit [facility] Specialist at [address] [address] Luis Buitrago MA 04/21/2024 10:00 AM AIRCRAFT NAVIGATOR Lab [address] [address] Paroxysmal atrial fibrillation (HCC) 04/21/2024 Anticoagulation Visit [facility] Specialist at [address] [place] [address] Kristal Kwok MA 04/19/2024 9:40 AM AIRCRAFT NAVIGATOR Lab [facility] [address] [place] [address] Paroxysmal atrial fibrillation (HCC) 04/19/2024 Anticoagulation Visit [facility] Translational Specialist at [address] [place] [address] Luis Buitrago MA from Last 3 Months Immunizations Immunization Administration Dates Next Due Influenza, [...] History Date Comments Hypertension Arrhythmia Atrial fibrillation (HCC) Colon polyp Family History Medical History Relation Name Comments Cancer Father Family history of malignant neoplasm - (Added by TW Conv) Diabetes Father Family history of diabetes mellitus - (Added by TW Conv) Relation Name Status Comments Father Social [...] on file Legal Sex Female 3:40 AM AIRCRAFT NAVIGATOR Gender Identity Not on file Sexual Orientation [...] 06/27/2024 11:20 AM CDT Plan of Treatment Health Maintenance Due Date Last Done Comments Depression Screening 1945 Hepatitis B Screening 02/11/1962 Zoster Vaccine (1 of 2) 02/11/1994 Well Visit 65+ 02/11/2009 DTaP/Tdap/Td Vaccine (2 - Td or Tdap) 05/26/2021 05/26/2011 Osteoporosis Screening-Bone Density Scan 06/28/2023 06/27/2021, 06/27/2021 Covid-19 Vaccine (2023-2 5 season) 2023 12/25/2022, 08/22/2021, 12/31/2020, Additional history exists Fall Risk Assessment 07/26/2024 07/27/2023 Influenza Vaccine (Season Ended) 2024 12/25/2022, 12/22/2021, 12/05/2020, Additional history exists Pneumococcal vaccine 65+ Completed 020, 04/24/2015, 01/02/2013 Colon Cancer Screening-CT Colonography Discontinued 02/10/2023 Colon Cancer Screening-Colonoscopy Discontinued 02/10/2023 Colon Cancer Screening-DNA Stool Discontinued 02/11/20 Colon Cancer Screening-FIT Discontinued 02/10/2023 Colon Cancer Screening-FOBT Discontinued 02/10/2023 Colon Cancer Screening-Sigmoidoscopy Discontinued 02/10/2023 Colorectal Cancer Screening Discontinued Medical Devices Implanted Type Area Protohistorian Device Identifier Shelf Expiration Date Model / Serial / Lot [employer] Biomonitor Iii Monitor Cardiac Sterile Disposable Latex Free [id number] - [id number] - [id number] Implanted:Qty: 1 on 06/12/2022 by Jared Hernandez MD at [facility] Implantable Loop Recorder N/A: Chest Wall [employer] 11/03/2023 [id number] / [id number] / Medtronic [employer] Tyrx Absorbable Antibacterial Envelope-Large 3.3x2.9in [id number] - [id number] Implanted:Qty: 1 on 08/19/2022 by Jared Hernandez MD at [facility] Mesh Med[employer]onic Inc 04/08/2023 [id number] / [employer] Endocardial Pacing Lead Promri Solia T [id number] - [id number] - [id number] Implanted:Qty: 1 on 08/19/2022 by Jared Hernandez MD at [facility] Pacemaker [employer] 07/04/2023 [id number] / [id number] / [employer] Endocardial Pacing Lead Promri Solia Jt [id number] - [id number] - [id number] Implanted:Qty: 1 on 08/19/2022 by Jared Hernandez MD at [facility] Pacemaker [employer] 02/03/2024 [id number] / [id number] / [employer] Edora Promri [id number] Dual Chamber Rate Adaptive Unipolar Bipolar [id number] - [id number] - [id number] Implanted:Qty: 1 on 08/19/2022 by Jared Hernandez MD at [facility] Pacemaker [employer] 11/03/2023 [id number] / [id number] / Procedures Procedure Name Priority Date/Time Associated Diagnosis Comments PROTIME-INR Routine 06/28/2024 11:18 AM CDT Paroxysmal atrial fibrillation (HCC) PROTIME-INR Routine 05/29/2024 10:13 AM AIRCRAFT NAVIGATOR Paroxysmal atrial fibrillation (HCC) PROTIME-INR Routine 05/22/2024 9:23 AM AIRCRAFT NAVIGATOR Paroxysmal atrial fibrillation (HCC) DEVICE CHECK - REMOTE Routine 05/17/2024 10:57 AM AIRCRAFT NAVIGATOR Chest pain, unspecified type Sick sinus syndrome (HCC) Paroxysmal atrial fibrillation (HCC) Cardiac pacemaker in situ PROTIME-INR Routine 05/01/2024 10:48 AM AIRCRAFT NAVIGATOR Paroxysmal atrial fibrillation (HCC) PROTIME-INR Routine 04/21/2024 10:20 AM AIRCRAFT NAVIGATOR Paroxysmal atrial fibrillation (HCC) PROTIME-INR Routine 04/19/2024 9:58 AM AIRCRAFT NAVIGATOR Paroxysmal atrial fibrillation (HCC) COLONOSCOPY 02/10/2023 7:17 AM AIRCRAFT NAVIGATOR from Last 3 Months or Most Recently Relevant to Health Maintenance Results * (ABNORMAL) Protime-INR (06/28/2024 11:18 AM CDT) PT 27.4(H) 9.7 - 13.0 sec [facility] INR 2.49(H) 0.90 - 1.20 [facility] Comment: Interpretive data Oral anticoagulant therapeutic ranges: Venous thromboembolism prophylaxis or treatment: 2.0-3.0 CARDIOLOGY Standard range: 2.0-3.0 High-intensity range: 2.5-3.5 Refer to indication-specific guidelines for appropriate target ranges for prosthetic heart valve replacement. Current interpretive data was last revised on 2019. Blood 06/28/2024 11:1 8 AM CDT 06/28/2024 11:25 AM CDT Dusty Garcia MD LAB BLOOD ORDERABLES Final Resu lt Performing Organization Address [facility] Co de Phone Number [facility] [address] [facility] [place] [address] * (ABNORMAL) Protime-INR (05/29/2024 10:13 AM AIRCRAFT NAVIGATOR) PT 23.8(H) 9.7 - 13.0 sec [facility] INR 2.17(H) 0.90 - 1.20 [facility] Comment: Interpretive data Oral anticoagulant therapeutic ranges: Venous thromboembolism prophylaxis or treatment: 2.0-3.0 CARDIOLOGY Standard range: 2.0-3.0 High-intensity range: 2.5-3.5 Refer to indication-specific guidelines for appropriate target ranges for prosthetic heart valve replacement. Current interpretive data was last revised on 2019. Blood 05/29/2024 10:1 3 AM AIRCRAFT NAVIGATOR 05/29/2024 10:59 AM AIRCRAFT NAVIGATOR Dusty Garcia MD LAB BLOOD ORDERABLES Final Resu lt Performing Organization Address [facility] Co de Phone Number [facility] [address] [facility] [place] [address] * (ABNORMAL) Protime-INR (05/22/2024 9:23 AM AIRCRAFT NAVIGATOR) PT 17.7(H) 9.7 - 13.0 sec [facility] INR 1.62(H) 0.90 - 1.20 [facility] Comment: Interpretive data Oral anticoagulant therapeutic ranges: Venous thromboembolism prophylaxis or treatment: 2.0-3.0 CARDIOLOGY Standard range: 2.0-3.0 High-intensity range: 2.5-3.5 Refer to indication-specific guidelines for appropriate target ranges for prosthetic heart valve replacement. Current interpretive data was last revised on 2019. Blood 05/22/2024 9:23 AM AIRCRAFT NAVIGATOR 05/22/2024 9:59 AM AIRCRAFT NAVIGATOR Dusty Garcia MD LAB BLOOD ORDERABLES Final Resu lt [facility] [address] [facility] [place] [address] * DEVICE CHECK - REMOTE (05/17/2024 10:57 AM AIRCRAFT NAVIGATOR) Anatomical Region Laterality Modality Other Narrative 05/18/2024 8:29 PM AIRCRAFT NAVIGATOR Images from the original result were not included. 05/17/2024 [employer] quarterly remote device check NOTE The following shows snippets from the complete quarterly report. The complete report in its entirety is attached to this Result Text in Flame Hardening Machine Operator Presenting EGM Last in-office check 11/01/2023 Next in-office check 11/06/2024 DC PPM, implanted 08/19/2022 with 85% est remaining longevity Ap 95% RVp 76% Afib burden 0%- No recorded AT/AF No event/alert episodes recorded this monitoring quarter Reviewed By Amanda Dee SYSTEMS REQUIREMENTS PLANNER ATTESTATION I have reviewed the device interrogation report associated with this encounter in detail. I agree with the documentation recorded/scanned into the electronic medical record. Recommendations: Continue current device follow-up. Dusty Garcia MD Dusty Garcia MD CV CARDIAC SERVICES PROCEDURES Final Result * (ABNORMAL) Protime-INR (05/01/2024 10:48 AM AIRCRAFT NAVIGATOR) PT 28.0(H) 9.7 - 13.0 sec [facility] INR 2.54(H) 0.90 - 1.20 [facility] Comment: Interpretive data Oral anticoagulant therapeutic ranges: Venous thromboembolism prophylaxis or treatment: 2.0-3.0 CARDIOLOGY Standard range: 2.0-3.0 High-intensity range: 2.5-3.5 Refer to indication-specific guidelines for appropriate target ranges for prosthetic heart valve replacement. Current interpretive data was last revised on 2019. Blood 05/01/2024 10:4 8 AM AIRCRAFT NAVIGATOR 05/01/2024 11:03 AM AIRCRAFT NAVIGATOR Dusty Garcia MD LAB BLOOD ORDERABLES Final Resu lt Performing Organization Address [facility] Co de Phone Number [facility] [address] [facility] [place] [address] * (ABNORMAL) Protime-INR (04/21/2024 10:20 AM AIRCRAFT NAVIGATOR) PT 27.5(H) 9.7 - 13.0 sec [facility] INR 2.50(H) 0.90 - 1.20 [facility] Comment: Interpretive data Oral anticoagulant therapeutic ranges: Venous thromboembolism prophylaxis or treatment: 2.0-3.0 CARDIOLOGY Standard range: 2.0-3.0 High-intensity range: 2.5-3.5 Refer to indication-specific guidelines for appropriate target ranges for prosthetic heart valve replacement. Current interpretive data was last revised on 2019. Blood 04/21/2024 10:2 0 AM AIRCRAFT NAVIGATOR 04/21/2024 11:00 AM AIRCRAFT NAVIGATOR Carmen Riley NP LAB BLOOD ORDERABLES Fi nal Result Performing Organization Address [facility] Co de Phone Number [facility] [address] [facility] [place] [address] * (ABNORMAL) Protime-INR (04/19/2024 9:58 AM AIRCRAFT NAVIGATOR) PT 57.8(H) 9.7 - 13.0 sec [facility] Comment:OK INR 5.18(C) 0.90 - 1.20 [facility] Comment: Critical result called to and read back by KIRBY LAGUERRE (DRChapo OFFICE) on 04/19/2024 11:04:36 AIRCRAFT NAVIGATOR to TIM BAE. Interpretive data Oral anticoagulant therapeutic ranges: Venous thromboembolism prophylaxis or treatment: 2.0-3.0 CARDIOLOGY Standard range: 2.0-3.0 High-intensity range: 2.5-3.5 Refer to indication-specific guidelines for appropriate target ranges for prosthetic heart valve replacement. Current interpretive data was last revised on 2019. Blood 04/19/2024 9:58 AM AIRCRAFT NAVIGATOR 04/19/2024 10:45 AM AIRCRAFT NAVIGATOR us Dusty Garcia MD LAB BLOOD ORDERABLES Final Resu lt [facility] [address] [facility] Department [place] [address] * COLONOSCOPY (02/10/2023 7:17 AM AIRCRAFT NAVIGATOR) Anatomical Region Laterality Modality Other Narrative Procedure Note Jer Sung MD - 02/10/2023 7:17 AM CST [facility] Patient Name: Tamica Saxena Procedure Date: 02/10/2023 7:17 AM Date of : 1945 Admit Type: Outpatient Age: 77 Gender: Female Attending MD: Jer Sugn M.D. Room: [facility]COPY ROOM 2 [...] Referring MD: Savage Long M.D. Providers: Jer uSng M.D. Impression: - The examined portion of [...] procedure were verified by the physician, the quality control inspector heading and the cdl service technician in the endoscopy suite. Mental Status [...] scope was passed under direct vision. TheColonoscope [id number] was introduced through the anus and advanced [...] 7:17 AM Procedure Code(s): --- Professional --- 83576, Colonoscopy, flexible; with removal of tumor(s), polyp(s), or other lesion(s) by snare technique [id number], 59, Colonoscopy, flexible; with biopsy, single or multiple --- Technical --- 83542, Colonoscopy, flexible; with removal of tumor(s), polyp(s), or other lesion(s) by snare technique 67701, 59, Colonoscopy, flexible; with biopsy, single or [...] perforation orabscess without bleeding CPT copyright 2020 [employer]. All rights reserved. The codes documented in this report are preliminary and upon c developer reviewmay be revised to meet current compliance requirements. Recognized by the [employer] for promoting quality in endoscopy Jer Sung MD ENDOSCOPY PROCEDURES Final Resul t from Last 3 Months or Most Recently Relevant to Health Maintenance Insurance MEDICARE [facility] MEDICARE BLUE CROSS MEDICARE SUPPLEMENT MEDICARE [facility] Advance Directives For more information, please contact: [phone] Documents on File Type Date Recorded Patient Airborne Mission Systems Superintendent Expl anation ADVANCE DIRECTIVE 06/27/2017 12:00 AM NASH R OF ASSISTANT PROFESSOR NURSE EDUCATION FINANCIAL/MEDICAL * Full Code (Latest Code Status [...] 8:49 AM 06/12/2022 2:55 PM Care Teams Welder Experimental Relationship Specialty Start Date End Date Savage Long MD [address] [address] PCP - General Family Medicine 06/19/22
--- OUTSIDE RECORDS SUMMARY | 2024-07-05 15:35 | XMS_ITS | Encounter Summary ---
Author Organization [facility] Address [address] [place] [address] Phone Care Team Providers Care Wheat Combine Driver Name Role Phone Kimberlee Morocho APRN, CNP Unavailable [phone] Savage Long MD Primary Care Provider [phone] Brittnee Mae RN Unavailable Unavailable Leighton Rios MD Unavailable [phone] Caroline Candelaria MD Unavailable Brittnee Mae RN Unavailable Unavailable Oleksandr Borjas MD Unavailable Reason for Visit * Reason Comments Medication Refill Encounter Details Date Type Department Care Team (Late st Contact Info) Description 09/04/2022 Refill [facility] [address] [place] [address] Savage oLng MD #[address] [address] Medication Refill Social History Tobacco Use Types [...] Long MD [facility] 05/26/22 Office Visit Savage Long MD [facility] 03/26/22 Office Visit Savage Long MD [facility] 02/10/22 Office Visit Yuniel Finley APRN, K[facility] 12/22/21 Office Visit Savage Long MD [facility] 09/15/21 Office Visit Yuniel Finley APRN, RENTAL CLERK TOOL AND EQUIPMENT [facility] Showing recent visits within past 365 days and meeting all other requirements Future Appointments Date Type Provider Dept 10/15/22 Appointment Savage Long MD [facility] Showing future appointments within next 90 days and meeting all other requirements documented in this encounter Plan of Treatment Upcoming Encounters Date Type Department Care Team (Late st Contact Info) Description 07/11/2024 10:00 AM CDT Office Visit [facility] - Family Medicine [facility] [address] [place] [address] Savage Long MD #[address] [address] 10/17/2024 11:00 AM CDT Lab [facility] [address] [place] [address] Isaura Evans Tanika, PAC [address] [place] [address] Discharge Disposition: Discharged to home or Selfcare 10/24/2024 10:00 AM CDT Office Visit [facility] [address] [place] [address] Isaura Evans Tanika, PAC [address] [place] [address] Discharge Disposition: Discharged to home or Selfcare documented as of this encounter Visit Diagnoses Not on filedocumented in this encounter Additional Health Concerns Infection Onset Date Last Indicated Resolved Time Respiratory Rule-Out 04/07/2024 04/07/2024 025 10:22 AM PATIENT SAFETY ATTENDANT COVID - 19 04/07/2024 04/07/2024 04/07/2024 10:2 2 AM PATIENT SAFETY ATTENDANT Assessment Noted Time PHQ-9 Depression Total Score: 0 09/17/19 21 1:00 PM CDT documented as of this encounter Care Teams Wheat Combine Driver Relationship Specialty Start Date End Date Savage Long MD #2 [facility] [address] [place] [address] PCP - General Family Medicine 09/16/20 Kimberlee Morocho, FURNITURE DELIVERY DRIVER, RENTAL CLERK TOOL AND EQUIPMENT Nurse Practitioner Advanced Practice Nurse 10/24/15 Brittnee Mae, JAH [place] Pipe Machine Operator 02/06/22 03/30/23 Leighton Rios MD [place] Consulting Physician Clinical Cardiac Electrophysiology 04/10/22 Caroline Candelaria MD #2 [facility] [address] [place] [address] Consulting Physician Endocrinology 02/24/23 Brittnee Mae RN [place] Nurse Pipe Machine Operator 02/06/22 12/02/23 Oleksandr Borjas MD #2 [facility] [address] [place] [address] Consulting Physician Colon and Rectal Surgery 05/20/23 documented as of this encounter
[2024-07-05 15:53] LABS: Basophils Absolute Auto 0.1 K/mm3 (0.0-0.1); Eosinophils Absolute Auto 0.5 K/mm3 (0-0.3); Eosinophils Percent Auto 8.9 % (0-4.4); Hemoglobin 12.2 g/dL (12.0-15.0); Immature Granulocyte Absolute 0.01 K/mm3 (0.00-0.031); Immature Granulocyte Percent A 0.2 % (0-0.5); Lymphocytes Absolute Auto 1.66 K/mm3 (0.9-3.2); Lymphocytes Percent Auto 28.8 % (18.3-44.2); Mean Corpuscular HGB Conc 31.3 g/dl (32-36); Mean Corpuscular Hemoglobin 29.3 pg (26-34); Mean Corpuscular Volume 93.5 fl (80-100); Mean Platelet Volume 9.4 fl (7.4-10.4); Monocytes Absolute Auto 0.5 K/mm3 (0.1-0.6); Neutrophils Percent Auto 52.1 % (45.5-73.1); Platelet Count Result 245 k/mm3 (150-375); Red Blood Count 4.17 M/mm3 (4.2-5.4); Red Cell Distribution Width 14.1 % (11.5-14.5); White Blood Count 5.8 K/mm3 (4.5-10.0)
[2024-07-05 16:04] LABS: INR 2.2; Prothrombin Time 24.6 Seconds (11.1-14.7)
[2024-07-05 16:07] LABS: Albumin Level 3.9 g/dL (3.5-5.1)
[2024-07-05 16:09] LABS: Anion Gap 6 mmol/L (4-12); Blood Urea Nitrogen 30 mg/dL (7-17); Calcium 9.5 mg/dL (8.4-10.2); Carbon Dioxide 28 mmol/L (22-30); Chloride 103 mmol/L (98-107); Estimated Glomerular Filt Rate > 60; Glucose 99 mg/dL (65-110); Potassium 4.1 mmol/L (3.4-5.0); Sodium 137 mmol/L (137-145)
[2024-07-05 16:32] LABS: Urine Cotinine NEGATIVE
[2024-07-05 16:51] LABS: Hemoglobin A1C 5.3 % (<5.7)
[2024-07-05 17:04] LABS: MRSA (PCR) NOT DETECTED (NOT DETECTE)
== END 2024-07-05 14:08 | disposition home or self-care (01) ==
LOC: ANHSURGERY 14:12
PROVIDERS: Anesthesiology; PCP Family Medicine; Visit Provider Orthopaedic Surgery
DX: Z01.812 Encounter for preprocedural laboratory examination (principal); M17.11 Unilateral primary osteoarthritis, right knee; Z79.01 Long term (current) use of anticoagulants; I10 Essential (primary) hypertension
CPT/HCPCS: 36415; 80048; 80307; 82040; 83036; 85025; 85610; 85730; 87641

== ENCOUNTER 2024-07-31 00:27 | Day surgery (SDC) | payer MEDICARE, SELFPAY ==
--- NOTE | 2024-07-05 14:10 | PC.NURSE ---
Report to the Outpatient Waiting Room, entrance under the green pavilion located off [facility], at time _10 AM on date _07/31/24 . Planned Procedure Time: __1200 NOON .? Time changes happen often and if your time is changed the preop area will call you the afternoon before. - You and your visitor will be asked to self-screen and do not enter if you have any COVID symptoms. Please call surgeon if you need to reschedule. - A mask is optional within the hospital at this time. Patients may have clear liquids (water, carbonated beverages, clear teas, apple juice) until 3 hours prior to surgery ( 9AM) with a maximum of 20 ounces. - No food from midnight until time of surgery and no smoking, or chewing tobacco (or any form of nicotine). No chewing gum, candy or mints. - Take only the following medications with a SIP of water on the morning of surgery: ___METOPROLOL_,INHALER IF NEEDED,FLECAINIDE DO NOT STOP ANY OF YOUR OTHER PRESCRIPTION MEDICATIONS PRIOR TO SURGERY EXCEPT THE FOLLOWING Hold all vitamins and supplements for 3 days per anesthesiologist.LAST DOSE 07/27/24 Medications to discontinue per physician ____HOLD ASPIRIN 7 DAYS PRE OP PER DR ALLEN LAST DOSE 07/23/24 HOLD COUMADIN 3 DAYS PRE OP PER DR NAGEL. LAST DOSE 07/27/24 MAY TAKE TYLENOL IF NEEDED FOR PAIN Please no make-up, nail solomon islander, hairspray, perfume, deodorant, or body powder the day of surgery.? No jewelry (including any body piercings) or valuables the day of surgery, leave them at home.? Please take a shower or bath the night before, or the morning of, surgery with an antibacterial soap.? Wear comfortable, loose fitting clothing.? Children are encouraged to wear pajamas. - Jewelry must be removed prior to entering the operating room.? Rings and piercings that are not removed may be cut off. - The hospital will not accept responsibility for valuables.? - Please leave all valuables, including medications, at home the day of surgery. If you are going home after surgery, a licensed shuttle truck driver must drive you home.? - NO public transportation without another adult if you receive anesthesia. - We recommend that an adult stay with you for 24 hours following discharge. - We also recommend that you do not drive, make important decision, drink alcoholic beverages, or take any drugs that were not prescribed by your health care provider for at least 24 hours after your discharge time. For Pediatric surgeries, we recommend two adults accompany the child home. Follow any additional instructions given to you from your surgeon. VERBAL AND WRITTEN instructions given to ___PATIENT and asked if any additional questions and then verbalized understanding. Patient advised to call surgeon office or pre surgery nurse liaison [phone] if any additional questions.
[2024-07-05 14:21] VITALS: BMI 35.2
[2024-07-05 15:20] VITALS: BP 133/79; PULSE 80; RESP 18; TEMP 36.8; O2SAT 98
[2024-07-31] VITALS (13 sets, daily range): BP systolic 108–159; BP diastolic 56–86; PULSE 70–82; RESP 14–20; TEMP 35.8–36.4; O2SAT 94–100
--- NOTE | ~2024-07-31 | XR_ITS ---
EXAMINATION: [id number] DATE: 07/31/2024 14:58 INDICATION: Postoperative evaluation following right total knee arthroplasty. TECHNIQUE: Anteroposterior and lateral views of the right knee were obtained. COMPARISON: 03/22/2024 FINDINGS: Right total knee arthroplasty with patellar resurfacing appears well seated and in near anatomic alig nment. No fractures identified. Expected postoperative subcutaneous and intra-articular gas. IMPRESSION: 1. Right total knee arthroplasty, negative for postoperative purposes. Reviewed, dictated and finalized at location B.
--- OUTSIDE RECORDS SUMMARY | 2024-07-31 00:30 | XMS_ITS | Encounter Summary ---
Author Organization [facility] Address [address] [place] [address] Phone Care Team Providers Care Operations Representative Name Role Phone Kimberlee Morocho APRN, CNP Unavailable Savage Long MD Primary Care Provider [phone] Brittnee Mae RN Unavailable Unavailable Leighton Rios MD Unavailable [phone]- [phone] Caroline Candelaria MD Unavailable Brittnee Mae RN Unavailable Unavailable Oleksandr Borjas MD Unavailable Brittnee Mae RN Unavailable Unavailable Reason for Visit * Reason Comments Medication Refill Encounter Details Date Type Department Care Team (Late st Contact Info) Description 03/18/2021 Refill [facility] [address] [place] [address] Savage Long MD #[address] [address] Medication Refill Social History Tobacco Use Types [...] Dept 12/10/20 Office Visit Savage Long MD [facility] 09/16/20 Office Visit Savage Long MD [facility] Showing recent visits within past 365 days and meeting all other requirements Future Appointments Date Type Provider Dept 06/13/21 Appointment Savage Long MD [facility] Showing future appointments within next 90 days and meeting all other requirements O REFINISHER documented in this encounter Plan of Treatment Upcoming Encounters Date Type Department Care Team (Late st Contact Info) Description 10/02/2024 9:30 AM CDT Appointment [facility] [address] [place] [address] Savage Long MD #[address] [address] Discharge Disposition: Discharged to home or Selfcare 10/17/2024 11:00 AM CDT [facility] [address] [place] [address] EvansKennyIsaura September, PAC [address] [place] [address] Discharge Disposition: Discharged to home or Selfcare 10/24/2024 10:00 AM CDT [facility] [address] [place] [address] EvansIsaura September, PAC [address] [place] [address] Discharge Disposition: Discharged to home or Selfcare 11/14/2024 9:30 AM CDT Office Visit [facility] - Family Medicine [facility] [address] [place] [address] Savage Long MD #[address] [address] documented as of this encounter Visit Diagnoses Not on filedocumented in this encounter Additional Health Concerns Infection Onset Date Last Indicated Resolved Time COVID - 19 03/07/2021 03/07/2021 03/27/2021 12:1 6 AM PIANO REFINISHER COVID - 19 05/26/2022 05/26/2022 05/26/2022 10:0 5 AM PIANO REFINISHER COVID - 19 05/26/2022 05/26/2022 06/05/2022 12:1 6 AM PIANO REFINISHER Respiratory Rule-Out 04/07/2024 04/07/2024 025 10:22 AM PIANO REFINISHER COVID - 19 04/07/2024 04/07/2024 04/07/2024 10:2 2 AM PIANO REFINISHER Assessment Noted Time PHQ-9 Depression Total Score: 0 09/17/19 1:00 PM CDT documented as of this encounter Care Teams Operations Representative Relationship Specialty Start Date End Date Savage Long MD #2 [facility] [address] [place] [address] PCP - General Family Medicine 09/16/20 Kimberlee Morocho, DEPALLETIZER OPERATOR, ELECTRICAL AND ELECTRONIC ASSEMBLER Nurse Practitioner Advanced Practice Nurse 10/24/15 Brittnee Mae, RN [place] Legal Transcriptionist 02/06/22 03/30/23 Leighton Rios MD [place] Consulting Physician Clinical Cardiac Electrophysiology 04/10/22 Caroline Candelaria MD #2 [facility] [address] [place] [address] Consulting Physician Endocrinology 02/24/23 Brittnee Mae, JAH [place] Nurse Legal Transcriptionist 02/06/22 12/02/23 Oleksandr Borjas MD #2 [facility] [address] [place] [address] Consulting Physician Colon and Rectal Surgery 05/20/23 Brittnee Mae, RN [place] Nurse Legal Transcriptionist 07/06/24 07/06/24 documented as of this encounter
--- OUTSIDE RECORDS SUMMARY | 2024-07-31 00:30 | XMS_ITS | Encounter Summary ---
Author Organization [facility] Address [address] [place] [address] Phone Care Team Providers Care Sane Nurse Name Role Phone Kimberlee Morocho APRN, GEAR GRINDING MACHINE OPERATOR Unavailable [phone] Savage Long MD Primary Care Provider [phone] Leighton Rios MD Unavailable +- [phone] Caroline Candelaria MD Unavailable Brittnee Mae RN Unavailable Unavailable Oleksandr Borjas MD Unavailable rBittnee Mae RN Unavailable Unavailable Encounter Details Date Type Department Care Team (Late st Contact Info) Description 12/02/2023 Lab Requisition [facility] Laboratory Services 1 [place] [address] Savage Long MD #[address] [address] Essential (primary) hypertension; Abnormal coagulation profile; Hyperkalemia Social History Tobacco Use Types Packs/Day Years Used Date Smoking Tobacco: Never Smokeless Tobacco: Never Comments:Never smoked Alcohol Use Standard Drinks/Week Comments Not Currently 0 (1 standard drink = 0.6 oz pur e alcohol) socially [facility] Utilities Answer Date Recorded In the [...] declined 11/25/2023 How often do you attend mormon or spiritism serv ices? Patient declined 11/25/2023 Do you belong to any clubs o r organizations such as mormon groups, unions, fraternal or athletic groups, or [...] Total Score - Questions 1-9 0 10/03 [facility] of Occupat ional Health - Occupational Stress [...] place to sleep or slept in a half-way (including now)? Patient declined 05/13/2023 Housing Stability [...] time in the past 12 m [facility], were you homeless or living in a half-way (including now)? Patient declined 11/25/2023 Education Answer [...] Info) Description 10/02/2024 9:30 AM CDT [facility] 1 [place] [address] Savage Long MD #2 [facility] [address] [place] [address] Discharge Disposition: Discharged to home or Selfcare 10/17/2024 11:00 AM CDT [facility] [address] [place] [address] Isaura Evans, PAC [address] [place] [address] Discharge Disposition: Discharged to home or Selfcare 10/24/2024 10:00 AM CDT [facility] [address] [facility] [place] [address] Isaura Evans, PAC [address] [place] [address] Discharge Disposition: Discharged to home or Selfcare 11/14/2024 9:30 AM CDT Office Visit [facility] Medical Group - Family Medicine [facility] #2 [place] [address] Savage Long MD #[address] [address] documented as of this encounter Procedures Procedure [...] - 12.00 10(3)/mcL 12/02/2023 12:38 PM CDT [facility] RBC 2.98(L) 3.80 - 5.30 10(6)/mcL 12/02/2023 12:38 PM CDT [facility] HEMOGLOBIN (HGB) 8.9(L) 12.0 - 15.8 g/dL 12/02/2023 12:38 PM CDT [facility] HEMATOCRIT (HCT) 26.7(L) 36.0 - 47.0 % 12/02/2023 12:38 PM CDT [facility] MCV 89.6 82.0 - 96.0 fL 12/02/2023 12:38 PM CDT [facility] MCH 29.9 26.0 - 34.0 pg 12/02/2023 12:38 PM CDT [facility] MCHC 33.3 31.0 - 36.0 g/dL 12/02/2023 12:38 PM CDT [facility] PLATELET COUNT 342 140 - 440 10(3)/mcL 12/02/2023 12:38 PM CDT [facility] RDW 13.1 11.8 - 15.5 % 12/02/2023 12:38 PM CDT [facility] MPV 9.4(L) 9.7 - 12.4 fL 12/02/2023 12:38 PM CDT [facility] NEUTROPHILS 66.5 47.0 - 73.0 % 12/02/2023 12:38 PM CDT [facility] LYMPHOCYTES 16.1(L) 18.0 - 42.0 % 12/02/2023 12:38 PM CDT [facility] MONOCYTES 10.6 4.0 - 12.0 % 12/02/2023 12:38 PM CDT [facility] EOSINOPHILS 5.6(H) 0.0 - 5.0 % 12/02/2023 12:38 PM CDT [facility] BASOPHILS 1.2(H) 0.0 - 1.0 % 12/02/2023 12:38 PM CDT [facility] ABSOLUTE NEUTROPHILS 3.89 1.60 - 7.70 10(3)/mcL 12/02/2023 12:38 PM CDT [facility] ABSOLUTE LYMPHOCYTES 0.94(L) 1.30 - 3.20 10(3)/[facility] 12/02/2023 12:38 PM CDT [facility] ABSOLUTE MONOCYTES 0.62 0.20 - 1.00 10(3)/[facility] 12/02/2023 12:38 PM CDT [facility] ABSOLUTE EOSINOPHIL 0.33 0.00 - 0.40 10(3)/[facility] 12/02/2023 12:38 PM CDT [facility] ABSOLUTE BASOPHILS 0.07 0.00 - 0.10 10(3)/[facility] 12/02/2023 12:38 PM CDT [facility] NRBC PER 100 WBC 0 12/02/19 24 12:38 PM CDT [facility] Blood No Phlebotomy Charged / Unknown 12/02/2023 12:00 PM CDT 12/02/2023 12:27 PM CDT us Savage Long MD HEMATOLOGY ORDERABLES Fin al Result [facility] #1 [place] [address] * (ABNORMAL) BASIC METABOLIC PANEL W/ CALCIUM TOTAL (12/02/2023 12:00 PM CDT) SODIUM 139 136 - 145 mmol/L 12/02/2023 1:06 PM CDT [facility] POTASSIUM 3.7 3.5 - 5.1 mmol/L 12/02/2023 1:06 PM CDT [facility] CHLORIDE 105 98 - 107 mmol/L 12/02/2023 1:06 PM CDT [facility] CO2, VENOUS 26 22 - 30 mmol/L 12/02/2023 1:06 PM CDT [facility] ANION GAP 11.7 <18.0 mmol/L 12/02/2023 1:06 PM CDT [facility] GLUCOSE 107(H) 70 - 99 mg/dL 12/02/2023 1:06 PM CDT [facility] BUN 12 10 - 20 mg/dL 12/02/2023 1:06 PM CDT [facility] CREATININE, BLOOD 0.62 0.60 - 1.00 mg/dL 12/02/2023 1:06 PM CDT [facility] BUN/CREATININE RATIO 19 12 - 20 ratio 12/02/2023 1:06 PM T [facility] CALCIUM 8.9 8.7 - 10.5 mg/dL 12/02/2023 1:06 PM CDT [facility] GFR, ESTIMATED >60 >=60 12/02/2023 1:06 PM CDT [facility] Comment: Creatinine Clearance is the preferred criteria for selecting drug dose adjustments in renally impaired patients. The GFR is provided as additional pertinent clinical information. GFR is reported in mL/min/1.73 sq m. Calculation based on the Chronic Kidney Disease Epidemiology Collaboration (CKD- EPI) equation refit without adjustment for race. GFR, EST. >60 >=60 024 1:06 PM CDT [facility] GFR, EST. NONAFRICAN >60 >=60 12/02/2023 1:06 PM CDT [facility] Blood No Phlebotomy Charged / Unknown 12/02/2023 12:00 PM CDT 12/02/2023 12:27 PM CDT us Savage Long MD CHEMISTRY ORDERABLES Amara l Result [facility]1 [facility] [place] [address] documented in this encounter Visit Diagnoses Diagnosis Essential (primary) hypertension Unspecified essential hypertension Abnormal coagulation profile Hyperkalemia Hyperpotassemia documented in this encounter Additional Health Concerns Active Problems Noted Date Diagnosed Date Quality of Life (General Plan of Care) Infection Onset Date Last Indicated Resolved Time Respiratory Rule-Out 04/07/2024 04/07/2024 025 10:22 AM HOSPICE MASSAGE THERAPIST COVID - 19 04/07/2024 04/07/2024 04/07/2024 10:2 2 AM HOSPICE MASSAGE THERAPIST Assessment Noted Time PHQ-9 Depression Total Score: 0 10/13/19 2:26 PM CDT documented as of this encounter Care Teams Sane Nurse Relationship Specialty Start Date End Date Savage Long MD #[address] [address] PCP - General Family Medicine 09/16/20 Kimberlee Morocho APRN, GEAR GRINDING MACHINE OPERATOR Nurse Practitioner Advanced Practice Nurse 10/24/15 Leighton Rios MD #[address] [address] Consulting Physician Clinical Cardiac Electrophysiology 04/10/22 Caroline Candelaria MD #[address] [id number] Consulting Physician Endocrinology 02/24/23 Brittnee Mae RN [place] Nurse Criminal Justice Professor 02/06/22 12/02/23 Oleksandr Borjas MD #[address] [address] Consulting Physician Colon and Rectal Surgery 05/20/23 Brittnee Mae RN [place] Nurse Criminal Justice Professor 07/06/24 07/06/24 documented as of this encounter
--- OUTSIDE RECORDS SUMMARY | 2024-07-31 00:30 | XMS_ITS | Encounter Summary ---
Author Organization [facility] Address [address] [place] [address] Phone Care Team Providers Care Wall Crane Operator Name Role Phone Kimberlee Morocho APRN, LEAF BLENDER Unavailable [phone] Savage Long MD Primary Care Provider [phone] Leighton Rios MD Unavailable +- [phone] Caroline Candelaria MD Unavailable Oleksandr Borjas MD Unavailable Brittnee Mae RN Unavailable Unavailable Encounter Details Date Type Department Care Team (Late st Contact Info) Description 12/09/2023 Lab Requisition [facility] Laboratory Services 1 [place] [id number] Savage Long MD #[address] [address] Anemia, unspecified Social History Tobacco Use Types Packs/Day Years Used Date Smoking Tobacco: Never Smokeless Tobacco: Never Comments:Never smoked Alcohol Use Standard Drinks/Week Comments Not Currently 0 (1 standard drink = 0.6 oz pur e alcohol) socially [facility] Utilities Answer Date Recorded In the past 12 months has th e electric, gas, oil, or water [employer] threatened to shut off services in your home? Patient declined 11/25/2023 Social Connection and Isolation Panel [NHANES] A nswer Date Recorded In a typical week, how many times do you talk on the phone with family, friends, or neighbors? Patient declined 11/25/2023 How often do you get togethe r with friends or relatives? Patient declined 11/25/2023 How often do you attend voodoo or taoist serv ices? Patient declined 11/25/2023 Do you belong to any clubs o r organizations such as voodoo groups, unions, fraternal or athletic groups, or [...] Total Score - Questions 1-9 0 10/03 [facility] of Occupat ional Health - Occupational [...] place to sleep or slept in a penitentiary (including now)? Patient declined 05/13/2023 Housing Stability [...] any time in the past 12 m [facility], were you homeless or living in a penitentiary (including now)? Patient declined 11/25/2023 Education Answer [...] Info) Description 10/02/2024 9:30 AM CDT Appointment [facility]amm[facility] 1 [place] [address] Savage Long MD #[address] [address] Discharge Disposition: Discharged to home or Selfcare 10/17/2024 11:00 AM CDT [facility] [address] [place] [address] Isaura Evans Tanika, PAC [address] [place] [address] Discharge Disposition: Discharged to home or Selfcare 10/24/2024 10:00 AM CDT Office Visit [facility] Oncology Services [address] [place] [address] Isaura Evans Tanika, PAC [address] [place] [address] Discharge Disposition: Discharged to home or Selfcare 11/14/2024 9:30 AM CDT Office Visit [facility] - Family Medicine [facility] #2 [place] [address] Savage Long MD #[address] [address] documented as of this encounter Procedures Procedure [...] - 12.00 10(3)/mcL 12/09/2023 2:01 PM CDT [facility] RBC 3.70(L) 3.80 - 5.30 10(6)/mcL 12/09/2023 2:01 PM CDT [facility] HEMOGLOBIN (HGB) 11.1(L) 12.0 - 15.8 g/dL 12/09/2023 2:01 PM CDT [facility] HEMATOCRIT (HCT) 35.1(L) 36.0 - 47.0 % 12/09/2023 2:01 PM CDT [facility] MCV 94.9 82.0 - 96.0 fL 12/09/2023 2:01 PM CDT [facility] MCH 30.0 26.0 - 34.0 pg 12/09/2023 2:01 PM CDT [facility] MCHC 31.6 31.0 - 36.0 g/dL 12/09/2023 2:01 PM CDT [facility] PLATELET COUNT 476(H) 140 - 440 10(3)/mcL 12/09/2023 2:01 PM CDT [facility] RDW 15.7(H) 11.8 - 15.5 % 12/09/2023 2:01 PM CDT [facility] MPV 9.1(L) 9.7 - 12.4 fL 12/09/2023 2:01 PM CDT [facility] NRBC PER 100 WBC 0 12/09/2023 2:01 PM CDT [facility] Blood No Phlebotomy Charged / Unknown 12/09/2023 12:15 PM CDT 12/09/2023 1:48 PM CDT Savage Long MD HEMATOLOGY ORDERABLES Fin al Result Performing Organization Address City/[facility]/ZIP Co de Phone Number [facility] #1 [place] [address] * FOLIC ACID (FOLATE) (12/09/2023 12:15 PM CDT) FOLATE 12.1 7.0 - 31.4 ng/mL 12/09/2023 2:46 PM CDT [facility] Blood No Phlebotomy Charged / Unknown 12/09/2023 12:15 PM CDT 12/09/2023 1:48 PM CDT Savage Long MD CHEMISTRY ORDERABLES Amara l Result Performing Organization Address City/[facility] Co de Phone Number [facility] #1 [place] [address] * (ABNORMAL) VITAMIN B12 (12/09/2023 12:15 PM CDT) VITAMIN B12 993(H) 213 - 816 pg/mL 12/09/2023 2:46 PM CDT [facility] Blood No Phlebotomy Charged / Unknown 12/09/2023 12:15 PM CDT 12/09/2023 1:48 PM CDT Savage Long MD CHEMISTRY ORDERABLES Amara l Result Performing Organization Address City/[facility]/ZIP Co de Phone Number [facility] #[address] [place] [address] * (ABNORMAL) FERRITIN (12/09/2023 12:15 PM CDT) FERRITIN 290(H) 5 - 204 ng/mL 12/09/2023 2:56 PM CDT [facility] Blood No Phlebotomy Charged / Unknown 12/09/2023 12:15 PM CDT 12/09/2023 1:48 PM CDT Savage Long MD CHEMISTRY ORDERABLES Amara l Result Performing Organization Address [facility] Co de Phone Number [facility] #[address] [place] [address] * IRON,TRANSFERN,CALC.TIBC,%SAT (12/09/2023 12:15 PM CDT) IRON 77 25 - 156 mcg/dL 12/09/2023 2:43 PM CDT [facility] TRANSFERRIN 229 173 - 360 mg/dL 12/09/2023 2:43 PM CDT [facility] TIBC, CALCULATED 286 265 - 497 mcg/dL 12/09/2023 2:43 PM CDT [facility] % SATURATION * 27 15 - 62 % 12/09/2023 2:43 PM CDT [facility] Blood No Phlebotomy Charged / Unknown 12/09/2023 12:15 PM CDT 12/09/2023 1:48 PM CDT Savage Long MD CHEMISTRY ORDERABLES Amara l Result Performing Organization Address City/[facility]/ZIP Co de Phone Number [facility] #1 [place] [address] * LIPID PANEL (12/09/2023 12:15 PM CDT) CHOLESTEROL 147 <200 mg/dL 12/09/2023 2:43 PM CDT [facility] TRIGLYCERIDES 91 <150 mg/dL 12/09/2023 2:43 PM CDT [facility] HDL CHOLESTEROL 47 >40 mg/dL 2:43 PM CDT [facility] LDL 82 <130 mg/dL 12/09/2023 2:43 PM CDT [facility] VLDL 18 10 - 50 mg/dL 12/09/2023 2:43 PM CDT [facility] CHOL/HDL RATIO 3.1 0.0 - 4.4 12/09/2023 2:43 PM CDT [facility] NON-HDL CHOLESTEROL 100 <130 mg/dL 12/09/2023 2:43 PM CDT [facility] Blood No Phlebotomy Charged / Unknown 12/09/2023 12:15 PM CDT 12/09/2023 1:48 PM CDT Savage Long MD CHEMISTRY ORDERABLES Amara l Result [facility] #[address] [place] [address] documented in this encounter Visit Diagnoses Diagnosis Anemia, unspecified documented in this encounter Additional Health Concerns Active Problems Noted Date Diagnosed Date Quality of Life (General Plan of Care) 4 Infection Onset Date Last Indicated Resolved Time Respiratory Rule-Out 04/07/2024 04/07/2024 025 10:22 AM ENVIRONMENTAL SAMPLER COVID - 19 04/07/2024 04/07/2024 04/07/2024 10:2 2 AM ENVIRONMENTAL SAMPLER Assessment Noted Time PHQ-9 Depression Total Score: 0 10/13/19 2:26 PM CDT documented as of this encounter Care Teams Wall Crane Operator Relationship Specialty Start Date End Date Savage Long MD #[address] [facility] [address] [address] PCP - General Family Medicine 09/16/20 Kimberlee Morocho, MANAGER MONEY, LEAF BLENDER Nurse Practitioner Advanced Practice Nurse 10/24/15 Leighton Rios MD #2 [facility] [address] [place] [address] Consulting Physician Clinical Cardiac Electrophysiology 04/10/22 Caroline Candelaria MD #2 [facility] [address] [place] [address] Consulting Physician Endocrinology 02/24/23 Oleksadnr Borjas MD #2 [facility] [address] [place] [address] Consulting Physician Colon and Rectal Surgery 05/20/23 Brittnee Mae RN [place] Nurse Shaker Screen Operator 07/06/24 07/06/24 documented as of this encounter
--- OUTSIDE RECORDS SUMMARY | 2024-07-31 00:30 | XMS_ITS | Encounter Summary ---
Author Organization [facility] Address [address] [place] [address] Phone Care Team Providers Care Tallow Refiner Name Role Phone Kimberlee Morocho APRN, [employer] ADVISOR Unavailable Savage Long MD Primary Care Provider [phone] Leighton Rios MD Unavailable [phone] Caroline Candelaria MD Unavailable Oleksandr Borjas MD Unavailable Brittnee Mae RN Unavailable Unavailable Encounter Details Date Type Department Care Team (Late st Contact Info) Description 07/05/2024 Results Follow-Up [facility] - Family Medicine [facility] #2 [place] [address] Savage Long MD #[address] [address] VITAMIN D, 25 HYDROXY TOTAL, VITAMIN B12 Social History Tobacco Use Types Packs/Day Years Used Date Smoking Tobacco: Never Smokeless Tobacco: Never Comments:Never smoked Alcohol Use Standard Drinks/Week Comments Not Currently 0 (1 standard drink = 0.6 oz pur e alcohol) socially [facility] Utilities Answer Date Recorded In the past 12 months has th e electric, gas, oil, or water company threatened to shut off services in your home? No 07/06/2024 Social Connection and Isolation Panel [NHANES] A nswer Date Recorded In a typical week, how many times do you talk on the phone with family, friends, or neighbors? Three times a week 07/06/2024 How often do you get togethe r with friends or relatives? Twice a week 07/06/2024 How often do you attend chur ch or oriental orthodox services? Never 07/06/2024 Do you belong to any clubs o r organizations such as mosque groups, unions, fraternal or athletic groups, or school groups? No 07/06/2024 How often do you attend meet ings of the clubs or organizations you belong to? Never 07/06/2024 Are you , , di vorced, , never , or living with a partner? 07/06/2024 AUDIT-C Answer Date Recorded Q1: How often do you have a drink containing alc ohol? 2-4 times a month 07/06/2024 Q2: How many drinks containi ng alcohol do you have on a typical day when you are drinking? 1 or 2 07/06/2024 Q3: How often do you have si x or more drinks on one occasion? Never 07/06/2024 Overall Financial Resource Strain (CARDIA) Answe r Date Recorded How hard is it for you to pa y for the very basics like food, housing, medical care, and heating? Not hard at all 07/06/2024 PHQ-2 Answer Date Recorded Total Score - Questions 1-9 0 06/2024 [facility] [place] of Occupat ional Health - Occupational Stress Questionnaire Answer Date Recorded Do you feel stress - tense, restless, nervous, or anxious, or unable to sleep at night because your mind is troubled all the time - these days? Not at all 07/06/2024 Exercise Vital Sign Answer Date Recorde d On average, how many days pe r week do you engage in moderate to strenuous exercise (like a brisk walk)? 0 days 07/06/2024 On average, how many minutes do you engage in exercise at this level? 0 min 07/06/2024 Hunger Vital Sign Answer Date Recorded Within the past 12 months, y ou worried that your food would run out before you got the money to buy more. Never true 07/07/19 25 Within the past 12 months, t he food you bought just didn't last and you didn't have money to get more. Never true 07/06/2024 PRAPARE - Transportation Answer Date Re corded In the past 12 months, has l ack of transportation kept you from medical appointments or from getting medications? No 06/2024 In the past 12 months, has l ack of transportation kept you from meetings, work, or from getting things needed for daily living? No 07/06/2024 Housing Stability Vital Sign Answer Carroll e [...] place to sleep or slept in a correction (including now)? Patient declined 05/13/2023 Housing Stability Vital Sign Answer Carroll e Recorded In the last 12 months, was t here a time when you were not able to pay the mortgage or rent on time? No 07/06/2024 In the past 12 months, how m any times have you moved where you were living? 0 07/06/2024 At any time in the past 12 m onths, were you homeless or living in a correction (including now)? No 07/06/2024 Education Answer Date Recorded What is the [...] on file documented as of this encounter Functional Status * Question Answer Date of Assessment Author Q1: How often do you have a drink containing alcohol? 2-4 times a month 07/06/2024 3:59 PM CDT Brittnee Mae RN Q2: How many drinks containing alcohol do you have on a typical day when you are drinking? 1 or 2 07/06/2024 3:59 PM CDT Brittnee Mae RN Q3: How often do you have six or more drinks on one occasion? Never 07/06/2024 3:59 PM CDT Brittnee Mae RN * Audit-C Score Answer Date of Assessment Author 2 07/06/2024 3:59 PM CDT Suzanne Mae RN * Question Answer Date of Assessment Author Little interest or pleasure in doing things Not at all 07/06/2024 3:59 PM CDT Brittnee Mae RN Feeling down, depressed, or hopeless Not at all 07/06/2024 3:59 PM CDT Brittnee Mae RN * Over the past 2 weeks, how often have you been bothered by any of the following problems? Question Answer Date of Assessment Author Patient Health Questionnaire -2 Score 0 07/06/2024 3:59 PM CDT Brittnee Mae RN documented as of this encounter Plan of Treatment Upcoming Encounters Date Type Department Care Team (Late st Contact Info) Description 10/02/2024 9:30 AM CDT Appointment [facility] Mammography 1 [place] [address] Savage Long MD #[address] [address] Discharge Disposition: Discharged to home or Selfcare 10/17/2024 11:00 AM CDT Lab [facility] [address] [place] [address] Iasura Evans PAC [address] [place] [address] Discharge Disposition: Discharged to home or Selfcare 10/24/2024 10:00 AM CDT Office Visit [facility] Services [address] [place] [address] Isaura Evans Tanika, PAC [address] [place] [address] Discharge Disposition: Discharged to home or Selfcare 11/14/2024 9:30 AM CDT [facility] Visit [facility] #2 [place] [address] Savage Long MD #[address] [address] documented as of this encounter Visit Diagnoses Not on filedocumented in this encounter Additional Health Concerns Active Problems Noted Date Diagnosed Date Quality of Life (General Plan of Care) 4 Assessment Noted Time PHQ-9 Depression Total Score: 0 04/07/19 9:47 AM HOT TOP LINER documented as of this encounter Care Teams Tallow Refiner Relationship Specialty Start Date End Date Savage Long MD #[address] [address] PCP - General Family Medicine 09/16/20 Kimberlee Morocho APRN, [employer] ADVISOR Nurse Practitioner Advanced Practice Nurse 10/24/15 Leighton Rios MD #[address] [address] Consulting Physician Clinical Cardiac Electrophysiology 04/10/22 Caroline Candelaria MD #[address] [address] Consulting Physician Endocrinology 02/24/23 Oleksandr Borjas MD #2 [facility] [address] Consulting Physician Colon and Rectal Surgery 05/20/23 Brittnee aMe, RN [place] Nurse Bag Making Machine Operator 07/06/24 07/06/24 documented as of this encounter
--- OUTSIDE RECORDS SUMMARY | 2024-07-31 00:30 | XMS_ITS | Clinical Summary ---
Author Organization [facility] Address [address] [place] [address] Care Team Providers Care Planer Offbearer Name Role Phone Unavailable Primary Care Provider [...] Td Vaccines ( 1 - Tdap) 02/11/1963 Pneumococcal Vaccine: 50+ Ye ars (1 of 1 - PCV) 02/11/1994 Zoster Vaccines (1 of 2) 02/11/1994 Dexa Scan (General) 02/11/2009 RSV Immunization or 60+ Years (1 - 1-dose 75+ series) 02/11/2019 COVID-19 Vaccine (2023-2 5 season) 2023 Meningococcal B Vaccine Aged Out No l onger eligible based on patient's age to complete this topic Meningococcal Vaccine Aged Out No gerri lashell eligible based on patient's age to complete this topic RSV Immunizations Under 20 Months Aged Out No longer eligible based on patient's age to complete this topic
--- OUTSIDE RECORDS SUMMARY | 2024-07-31 00:30 | XMS_ITS | Encounter Summary ---
Author Organization [facility] Address [address] [place] [address] Phone Care Team Providers Care Chalk Tester Name Role Phone Kimberlee Morocho APRN, CNP Unavailable Savage Long MD Primary Care Provider [phone] Brittnee Mae RN Unavailable Unavailable Leighton Rios MD Unavailable [phone] Caroline Candelaria MD Unavailable Brittnee Mae RN Unavailable Unavailable Oleksandr Borjas MD Unavailable Brittnee Mae RN Unavailable Unavailable Reason for Visit * Reason Comments Medication Refill Encounter Details Date Type Department Care Team (Late st Contact Info) Description 01/29/2022 Refill [facility] - Family Medicine [facility] [address] [place] [address] Savage Long MD [address] [address] Medication Refill Social History Tobacco Use Types [...] 09/15/21 Office Visit Yuniel Finley APRN, KAMARI Griffithsimran Jensen 06/13/21 Office Visit [facility]un[facility] Showing recent visits within past 365 days and meeting all other requirements Future Appointments Date Type Provider Dept 03/26/22 Appointment Savage Long MD Ossimran Jensen Showing future appointments within next 90 days and meeting all other requirements documented in this encounter Plan of Treatment Upcoming Encounters Date Type Department Care Team (Late st Contact Info) Description 10/02/2024 9:30 AM CDT [facility] [place] [address] Savage Long MD #[address] [address] Discharge Disposition: Discharged to home or Selfcare 10/17/2024 11:00 AM CDT [facility] [address] [place] [address] Isaura Evans Tanika, PAC [address] [place] [address] Discharge Disposition: Discharged to home or Selfcare 10/24/2024 10:00 AM CDT [facility] [address] [place] [address] Isaura Evans Tanika, PAC [address] [place] [address] Discharge Disposition: Discharged to home or Selfcare 11/14/2024 9:30 AM CDT Office Visit [facility] - Family Medicine [facility] [address] [place] [address] Savage Long MD #[address] [address] documented as of this encounter Visit Diagnoses Not on filedocumented in this encounter Additional Health Concerns Infection Onset Date Last Indicated Resolved Time COVID - 19 05/26/2022 05/26/2022 05/26/2022 10:0 5 AM TUMBLER TENDER COVID - 19 05/26/2022 05/26/2022 06/05/2022 12:1 6 AM TUMBLER TENDER Respiratory Rule-Out 04/07/2024 04/07/2024 025 10:22 AM TUMBLER TENDER COVID - 19 04/07/2024 04/07/2024 04/07/2024 10:2 2 AM TUMBLER TENDER Assessment Noted Time PHQ-9 Depression Total Score: 0 09/17/19 1:00 PM CDT documented as of this encounter Care Teams Chalk Tester Relationship Specialty Start Date End Date Savage Long MD #2 [facility] [address] [place] [address] PCP - General Family Medicine 09/16/20 Kimberlee Morocho, BOX OFFICE CLERK, CONTINUOUS WELD PIPE MILL SUPERVISOR Nurse Practitioner Advanced Practice Nurse 10/24/15 Brittnee Mae, RN [place] Collar Pointer 02/06/22 03/30/23 Leighton Rios MD [place] Consulting Physician Clinical Cardiac Electrophysiology 04/10/22 Caroline Candelaria MD #2 [facility] [address] [place] [address] Consulting Physician Endocrinology 02/24/23 Brittnee Mae, RN [place] Nurse Collar Pointer 02/06/22 12/02/23 Oleksandr Borjas MD #2 [facility] [address] [place] [address] Consulting Physician Colon and Rectal Surgery 05/20/23 Brittnee Mae, RN [place] Nurse Collar Pointer 07/06/24 07/06/24 documented as of this encounter
--- OUTSIDE RECORDS SUMMARY | 2024-07-31 00:30 | XMS_ITS | Continuity of Care Document ---
Author Organization [facility] Address [address] [place] [address] [address] [place] [address] Phone Care Team Providers Care Carpentry Specialist Name Role Phone Chel MAYFIELD/Elizabeth Vazquez CHT Unavailable Socorro vailable Procedures Procedure Date Therapeutic Exercise Therapeutic Activities Neuromuscular Re-Ed Hot or Cold Pack Paraffin Bath Therapeutic Exercise Therapeutic Activities Hot or Cold Pack Paraffin Bath Therapeutic Exercise Therapeutic Activities Hot or Cold Pack Paraffin Bath Progress Note Therapeutic Exercise Therapeutic Activities Neuromuscular Re-Ed Hot or Cold Pack Paraffin Bath Carrying, Moving And Handling Objects-Cu rrent Carrying, Moving And Handling Objects-Go al Therapeutic Exercise Therapeutic Activities Neuromuscular Re-Ed Hot or Cold Pack Paraffin Bath Therapeutic Exercise Therapeutic Activities Neuromuscular Re-Ed Hot or Cold Pack Paraffin Bath Therapeutic Exercise Therapeutic Activities Neuromuscular Re-Ed Hot or Cold Pack Paraffin Bath Therapeutic Exercise Therapeutic Activities Neuromuscular Re-Ed Hot or Cold Pack Paraffin Bath Therapeutic Exercise Therapeutic Activities Neuromuscular Re-Ed Hot or Cold Pack Paraffin Bath Therapeutic Exercise Therapeutic Activities Neuromuscular Re-Ed Hot or Cold Pack Paraffin Bath Therapeutic Exercise Therapeutic Activities Neuromuscular Re-Ed Manual Therapy Hot or Cold Pack Therapeutic Exercise Therapeutic Activities Neuromuscular Re-Ed Manual Therapy Hot or Cold Pack Paraffin Bath OT Evaluation High Complexity 7 Therapeutic Exercise Hot or Cold Pack Paraffin Bath Carrying, Moving And Handling Objects-Cu rrent Carrying, Moving And Handling Objects-Go al Advance Directives Directive Yes / No Effective Date File Name No Information Encounters Encounter Description Practice Location Reason(s) For Visit Diagnoses Date Provider Providers Copied on Encounter [facility] [place] [address], [id number], tel:[phone] [place] No Information [address] [facility], [address], [place], [place], [facility], [place]. tel:[phone] [facility] [address], [place], [place], [id number], tel:[phone] [place] No Information [address] [facility], [address], [place], [address], [place]. tel:[phone] Referring Provider: Vasyl Lara , [address], [place], [address]. tel:[phone] [facility] [address] [place] [address], [place], [place], [id number], tel:[phone] [place] No Information Dec-0 1-[address] [facility], [address], [place], [place], [facility], [place]. tel:[phone] Referring Provider: Vasyl Lara [address] [place] [address], [facility]. tel:[phone], [place], [place], [id number], tel:[phone] [place] No Information Nov-2 4201 7 Milligan Elizabeth. [address] [place] [address], [address], [place], [place], [facility], [place]. tel:[phone] Referring Provider: Vasyl Lara [address] [place] [address], [facility]. tel:[phone], [id number], [place] tel:[phone] [place]key No Information Feb-1 7 Milligan Elizabeth. [address] [place] [address], [address], [place], [facility], [place]. tel:[phone] Referring Provider: Vasyl Lara [address] [place] [address] [place] [address], [facility]. tel:[phone], [id number], tel:[phone] [place] No Information Nov-1 3201 7 Milligan Elizabeth. [address] [place] [address], [address], [place], [place], [facility], [place]. tel:[phone] Referring Provider: Vasyl Lara [address] [place] [address] [place] [address], [facility]. tel:[phone], [place], [id number], tel:[phone] Mikey No Information Nov-1 0-201 7 Milligan Elizabeth. [address] [place] [address], [address], [place], [facility], [place]. tel:[phone] Referring Provider: Vasyl Lara [address] [place] [address], [address]. tel:[phone], [id number], tel:[phone] Mikey No Information Nov-0 8-201 7 Milligan Elizabeth. [address] [place] [address], [address], [place], [facility], . tel:[phone] Referring Provider: Vasyl Lara [facility] [address], [address]. tel:[phone], [id number], tel:[phone] Mikey No Information Nov-0 1-201 7 Milliagn Elizabeth. [address] [place] [address], [address], [facility], . tel:[phone] Referring Provider: Vasyl Lara [address] [place] [address], [address]. tel:[phone], [id number], tel:[phone] [place] No Information Oct-3 0-201 7 Milligan Elizabeth. [address] [place] [address], [address], [facility], . tel:[phone] Referring Provider: Vasyl Lara [facility] [address] [place] [address], [address]. tel:[phone], [id number], tel:[phone] [place] No Information Oct-2 5-201 7 Milligan Elizabeth. [address] [place] [address], [address], [facility], . tel:[phone] Referring Provider: Vasyl Lara [address] [place] [address] [address] [place] [address], [facility]. tel:[phone], [id number], tel:[phone] Mikey No Information Chel Johnson. [address] [place] [address], [address], [facility], . tel:[phone] Referring Provider: Vasyl Lara [address] [place] [address] [address] [place] [address], [facility]. tel:[phone], [id number], tel:[phone] [place] No Information Chel Johnson. [address] [place] [address], [address], [facility], . tel:[phone] Referring Provider: Vasyl Lara [facility] [address] [place] [address], [facility]. tel:[phone], [id number], tel:[phone] [place] Pain in left wristStiffness of left wrist, not elsewhere classifiedOth symptoms and signs involving the musculoskeletal systemPrimary osteoarthritis, unspecified handAftercare following joint replacement surgery Chel Johnson. [address] [place] [address], [address], [place], [facility], . tel:[phone] Referring Provider: Sandy Julien[address] [place] [address] [address], [place], [facility]. tel:[phone] Family History Family Member Type Diagnosis Age At Onset No Information Payers Payer name Insurance type Covered green party ID Authoriza tijoey(s) [place] [id number] [facility] [id number] Social History Type Description Quantity Date Captured Comments Sex Female Smoking Status No Information Chief Complaint And Reason For Visit No Information Reason For Referral Reason For Referral No Information History Of Present Illness Encounter Date Complaint History Of Prese nt Illness No Information Functional Status Date Functional Assessmen t No Information Instructions Date Instruction Additional Infor mation No Information Assessments Type Assessment Date No Information Patient Care Teams Name Effective Dates (start - stop) Status Members No Information
--- OUTSIDE RECORDS SUMMARY | 2024-07-31 00:30 | XMS_ITS | Clinical Summary ---
Author Organization [facility] Address [address] [place] [address] Phone Care Team Providers Care Wire Frame Maker Name Role Phone Kimberlee Morocho APRN, WASTEWATER ENGINEER Unavailable [phone] Savage Long MD Primary Care Provider [phone] Leighton Rios MD Unavailable [phone] Caroline Candelaria MD Unavailable Oleksandr Borjas MD [...] R73.9 90 Lancet 3 01/21/20 23 Active valsartan (DIOVAN) 160 MG Tablet Take [...] 4 mg by mouth. ON MONDAYS Active furosemide (LASIX) 40 MG Tablet Take 40 mg by mouth daily. 05/07/19 25 Active dicyclomine (BENTYL) 10 MG CapsuleIndicat ions:Irritable bowel syndrome, unspecified type TAKE 1 CAPSULE BY MOUTH TWICE DAILY NEEDED 60 Capsule 07/29/19 25 Active pantoprazole (PROTONIX) 40 MG Tablet Delayed Response Take 40 mg by mouth daily. 07/22/19 24 025 Cyanocobalamin (B-12) 500 MCG TabletIndicati ons:B12 deficiency Take 1 Tablet by mouth daily for 90 doses. 90 Tablet 3 04/24/19 25 025 ergocalciferol (VITAMIN D) 58745 UNIT CapsuleIndicat ions:Vitamin D deficiency Take 1 Capsule by mouth once a week for 12 doses. 12 Capsule 04/24/19 25 025 dicyclomine (BENTYL) 10 MG CapsuleIndicat ions:Irritable bowel syndrome, unspecified type TAKE 1 CAPSULE BY MOUTH TWICE DAILY NEEDED 60 Capsule 06/17/19 25 025 Discontinued Active Problems Problem Noted Date Diagnosed Date Skin lesions 07/11/2024 Abnormality of plasma protein 04/26/2024 Vitamin D [...] Encounters Date Type Department Care Team Description 07/28/2024 Refill [facility] [address] [place] [address] Savage Long MD Medication Refill 07/11/2024 10:00 AM CDT Office Visit [facility] [address] [place] [address] Savage Long MD Postmenopausal (Primary Dx); Obesity (BMI 30-39.9); Skin lesions Discharge Disposition: Discharged to home or Selfcare 07/11/2024 Travel 07/06/2024 Patient Outreach [facility] Gag Writer Management [address] [place] [id number] Brittnee Mae, RN Care Management (CM licensed plumber) 07/05/2024 Results Follow-Up [facility] [address] [place] [address] Savage Long MD VITAMIN D, 25 HYDROXY TOTAL, VITAMIN B12 06/27/2024 Travel 06/15/2024 Refill [facility] [address] [place] [address] Savage Long MD Medication Refill from Last 3 Months Immunizations Immunization Administration Dates Next Due COVID-19 mRNA, bivalent, original/Sheldon BA.1, Non-US Vaccine Product, [employer] 12/25/2022 COVID-19, Mrna, Lnp-s, Pf, 5 0 [...] Never Smokeless Tobacco: Never Tobacco Cessation:Counseling Given: Yes Comments:Never smoked Alcohol Use Standard Drinks/Week Comments Not Currently 0 (1 standard drink = 0.6 oz pur e alcohol) socially [employer] Utilities Answer Date Recorded In the past 12 months has [employer], gas, oil, or water [employer] threatened to shut off services in your home? No 07/06/2024 Social Connection and Isolation Panel [NHANES] A nswer Date Recorded In a typical week, how many times do you talk on the phone with family, friends, or neighbors? Three times a week 07/06/2024 How often do you get togethe r with friends or relatives? Twice a week 07/06/2024 How often do you attend [facility] or catholic services? Never 07/06/2024 Do you belong to any clubs o r organizations such as amish groups, unions, fraternal or athletic groups, or [...] Total Score - Questions 1-9 0 06/2024 [facility] Occupat ional Health - [...] any time in the past 12 m [facility], were you homeless or living in a senior living (including now)? No 07/06/2024 Education Answer Date [...] Sign Reading Time Taken Comments Blood Pressure 130/78 07/11/2024 9:35 AM CDT Pulse 77 07/11/2024 9:35 AM CDT Temperature 35.9 C (96.6 F) 07/11/2024 9:35 AM CDT Respiratory Rate 20 04/26/2024 10:38 AM SETTLEMENT AGENT Oxygen Saturation 98% 07/11/2024 9:35 AM CDT Inhaled Oxygen Concentration - - Weight 89.8 kg (198 lb) 07/11/2024 9:35 AM CDT Height 158.8 cm (5' 2.5 ) 07/11/2024 9:35 AM CDT Body Mass Index 35.64 07/11/2024 9:35 AM CDT Plan of Treatment Upcoming Encounters Date Type Department Care Team (Late st Contact Info) Description 10/02/2024 9:30 AM CDT [facility] [address] [place] [address] Savage Long MD [address] [address] Discharge Disposition: Discharged to home or Selfcare 10/17/2024 11:00 AM CDT [facility] [address] [place] [address] Isaura Evans Tanika, PAC [address] [place] [address] Discharge Disposition: Discharged to home or Selfcare 10/24/2024 10:00 AM CDT [facility] [address] [facility] [place] [address] Isaura Evans Tanika, PAC [address] [place] [address] Discharge Disposition: Discharged to home or Selfcare 11/14/2024 9:30 AM CDT Office Visit [facility] - Family Medicine [facility] [address] [place] [address] Savage Long MD #[address] [address] Health Maintenance Due Date Last Done Comments [...] Procedure Name Priority Date/Time Associated Diagnosis Comments XR - LOWER EXTREMITY 07/04/2024 12:00 AM CDT VITAMIN B12 Routine 06/27/2024 9:26 AM CDT B12 deficiency VITAMIN D, 25 HYDROXY TOTAL Routine 06/27/2024 9:26 AM CDT Vitamin D deficiency CT - LOWER EXTREMITY 05/08/2024 12:00 AM SETTLEMENT AGENT HM COLONOSCOPY 02/10/2023 12:00 AM SETTLEMENT AGENT LUX BONE DENSITOMETRY AXIAL SKELETON Routine 06/27/2021 10:19 AM CDT Asymptomatic menopausal state HEPATITIS C ANTIBODY Routine 10/08/2020 7:11 AM CDT Encounter for hepatitis C screening test for low risk patient from Last 3 Months or Most Recently Relevant to Health Maintenance Results * XR - LOWER EXTREMITY (07/04/2024 12:00 AM CDT) 07/04/2024 us Provider Scan IMG DIAGNOSTIC ORDERABLES Final Result SCAN * VITAMIN D, 25 HYDROXY TOTAL (06/27/2024 9:26 AM CDT) VITAMIN D, 25 HYDROX 45.8 ng/mL 06/27/2024 11:28 AM CDT [facility] Blood Venipuncture / Unknown 06/27/2024 9:26 AM CDT 06/27/2024 10:39 AM CDT Narrative [facility] - 06/27/2024 11:28 AM CDT Published reference ranges for Vitamin D vary depending on time and place and method of testing, and on patient's age, sex, ethnicity and levels of other measured analytes such as parathormone, calcium and phosphorus. The result should be evaluated in conjunction with clinical findings and suspicions. [employer] of [employer] and Endocrine Clinical Practice Guidelines: Status Vitamin D levels (ng/mL) Deficient <=20 At risk of inadequacy 21-29 Sufficient 30-100 Centers of Disease Control and Prevention Guidelines: Status Vitamin D levels (ng/mL) Deficient <13 At risk of inadequacy 13-19 Sufficient 20-50 Possibly harmful >50 References: [employer], 2010 Dietary reference intakes for calcium and vitamin D. [place]: The National Academies Press. Kimberlee M, Radha N, Whit BRAXTON, et al., Evaluation, treatment, and prevention of Vitamin D deficiency: an Endocrinology Clinical Practice Guideline. JCEM 2011 96: 7 5888-1237. Krystal A, Guy C, Bill D, et al., Vitamin D Status: [place], 9471-8080, MNHS data brief, no. 59, MD Diana: National Center for Health Statistics. 2011. Savage Long MD CHEMISTRY ORDERABLES Amara l Result [facility] [address] [place] [address] * VITAMIN B12 (06/27/2024 9:26 AM CDT) VITAMIN B12 449 213 - 816 pg/mL 06/27/2024 11:28 AM CDT [facility] Blood Venipuncture / Unknown 06/27/2024 9:26 AM CDT 06/27/2024 10:39 AM CDT Savage Long MD CHEMISTRY ORDERABLES Amara l Result Performing Organization Address City/[facility] Co de Phone Number [facility] [address] [place] [address] * CT - LOWER EXTREMITY (05/08/2024 12:00 AM SETTLEMENT AGENT) 05/08/[address] ORDERABLES Final Result Performing Organization Address [facility]/ZIP Co de Phone Number SCAN * HM COLONOSCOPY (02/10/2023 12:00 AM SETTLEMENT AGENT) 02/10/2023 Savage Long MD PROCEDURE/MINOR SURGICAL ORDERABLES Final Result Performing Organization Address [facility] de Phone Number SCAN * LUX BONE [...] Narrative 06/27/2021 1:08 PM CDT EXAM DESCRIPTION: [facility] BONE DENSITOMETRY AXIAL SKELETON REASON FOR STUDY: 76 y/o year old F with given history of screening. Powerhouse Mechanic/Model: Lybrate (S/N [id number]) CLINICAL INFORMATION: Current height: 5 foot 3 [...] Luther Christensen M.D. AG: CRYSTAL Report ID: [id number] Reading Location: [id number] Procedure Note Luther Christensen MD - 06/27/2021 EXAM DESCRIPTION: [facility] BONE DENSITOMETRY AXIAL SKELETON REASON FOR STUDY: 76 y/o year old F with given history of screening. Powerhouse Mechanic/Model: Lybrate (S/N [id number]) CLINICAL INFORMATION: Current height: 5 foot 3 [...] Luther Christensen M.D. AG: AG Report ID: [id number] Reading Location: [id number] IMPRESSION: Normal bone density. REFERENCE: Bone mineral [...] to Prevention and Treatment of Osteoporosis (http://www.nof.org/professionals/clinical-guidelines) Yuniel Finley APRN, WASTEWATER ENGINEER IMG DEXA ORDERAB LES Final Result * HEPATITIS C ANTIBODY (10/08/2020 7:11 AM CDT) hepatitis C antibody 0.24 <1 S/CO [facility] ARCH [id number] B 10/08/2020 3:02 PM CDT [facility] Comment: Signal/Cutoff ratio < 0.79 is Nondetected Signal/Cutoff ratio 0.80-0.99 is Grayzone Signal/Cutoff ratio > 0.99 is Detected Supplemental assays are recommended if signal/cutoff ratio is >/=1.00. Signal/cutoff ratio result >/= 5.00 is 97% predictive of positivity for recombinant immunoblot assay (RIBA) and will be reported to the [place] Department of Public Health as required. Blood Venipuncture / Unknown 10/08/2020 7:11 AM CDT 10/08/2020 7:11 AM CDT us Savage Long MD CHEMISTRY ORDERABLES Amara masterson Result 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 Healthcare Agents on File Name Relationship Healthcare Agent Relationshi p Communication Chano Saxena Spouse Healthcare POA Care Teams Wire Frame Maker Relationship Specialty Start Date End Date Savage Long MD #[address] [address] PCP - General Family Medicine 09/16/20 Kimberlee Morocho APRN, WASTEWATER ENGINEER Nurse Practitioner Advanced Practice Nurse 10/24/15 Leighton Rios MD #[address] [address] Consulting Physician Clinical Cardiac Electrophysiology 04/10/22 Caroline Candelaria MD #[address] [address] Consulting Physician Endocrinology 02/24/23 Oleksandr Borjas MD #[address] [address] Consulting Physician Colon and Rectal Surgery 05/20/23
--- OUTSIDE RECORDS SUMMARY | 2024-07-31 00:30 | XMS_ITS | Encounter Summary ---
Author Organization [facility] Address [address] [place] [address] Phone Care Team Providers Care Tub Washer Name Role Phone Kimberlee Morocho APRN, CNP Unavailable Savage Long MD Primary Care Provider [phone] Brittnee Mae RN Unavailable Unavailable Leighton Rios MD Unavailable [phone] Caroline Candelaria MD Unavailable Brittnee Mae RN Unavailable Unavailable Oleksandr Borjas MD Unavailable Brittnee Mae RN Unavailable Unavailable Reason for Visit * Reason Comments Medication Refill Encounter Details Date Type Department Care Team (Late st Contact Info) Description 09/04/2022 Refill [facility] [place] [address] Savage Long MD #[address] [address] Medication Refill Social History Tobacco Use Types [...] Dept 07/02/22 Office Visit Savage Long MD [facility] 05/28/22 Telemedicine Savage Long MD [facility] 05/26/22 Office Visit Savage Long MD [facility] 03/26/22 Office Visit Savage Long MD [facility] 02/10/22 Office Visit Yuniel Finley APRN, KAMARI [facility] 12/22/21 Office Visit Savage Long MD [facility] 09/15/21 Office Visit Yuniel Finley, LUMBER TYING MACHINE OPERATOR, IRRIGATION SERVICE TECHNICIAN [facility] Show[facility] recent visits within past 365 days and meeting all other requirements Future Appointments Date Type Provider Dept 10/15/22 Appointment Savage Long MD [facility]key Showing future appointments within next 90 days and meeting all other requirements documented in this encounter Plan of Treatment Upcoming Encounters Date Type Department Care Team (Late st Contact Info) Description 10/02/2024 9:30 AM CDT Appointment [facility] Mammography 1 [place] [address] Savage Long MD #[address] [address] Discharge Disposition: Discharged to home or Selfcare 10/17/2024 11:00 AM CDT Lab [facility] [place] [facility] [address] [place] [address] Isaura Evans Tanika, PAC [address] [place] [address] Discharge Disposition: Discharged to home or Selfcare 10/24/2024 10:00 AM CDT Office Visit [facility] [address] [place] [address] Isaura Evans Tanika, PAC [address] [place] [address] Discharge Disposition: Discharged to home or Selfcare 11/14/2024 9:30 AM CDT Office Visit [facility] - [facility] [place] [address] Savage Long MD #[address] [place] [address] documented as of this encounter Visit Diagnoses Not on filedocumented in this encounter Additional Health Concerns Infection Onset Date Last Indicated Resolved Time Respiratory Rule-Out 04/07/2024 04/07/2024 025 10:22 AM CHANNEL OPENER OUTSOLES COVID - 19 04/07/2024 04/07/2024 04/07/2024 10:2 2 AM CHANNEL OPENER OUTSOLES Assessment Noted Time PHQ-9 Depression Total Score: 0 09/17/19 21 1:00 PM CDT documented as of this encounter Care Teams Tub Washer Relationship Specialty Start Date End Date Savage Long MD #2 [facility] [address] [place] [address] PCP - General Family Medicine 09/16/20 Kimberlee Morocho, LUMBER TYING MACHINE OPERATOR, IRRIGATION SERVICE TECHNICIAN Nurse Practitioner Advanced Practice Nurse 10/24/15 Brittnee Mae, RN [place] Customer Services Manager 02/06/22 03/30/23 Leighton Rios MD MD Consulting Physician Clinical Cardiac Electrophysiology 04/10/22 Caroline Candelaria MD #2 [facility] [address] [place] [address] Consulting Physician Endocrinology 02/24/23 Brittnee Mae, RN [place] Nurse Customer Services Manager 02/06/22 12/02/23 Oleksandr Borjas MD #2 [facility] [address] [place] [address] Consulting Physician Colon and Rectal Surgery 05/20/23 Brittnee Mae, RN [place] Nurse Customer Services Manager 07/06/24 07/06/24 documented as of this encounter
--- OUTSIDE RECORDS SUMMARY | 2024-07-31 00:30 | XMS_ITS | Encounter Summary ---
Author Organization [facility] Address [address] [place] [address] Phone Care Team Providers Care Mitochondrial Disorders Counselor Name Role Phone Kimberlee Morocho APRN, KAMARI Unavailable [phone] Savage Long MD Primary Care Provider [phone] Leighton Rios MD Unavailable [phone]- [phone] Caroline Candelaria MD Unavailable Brittnee Mae RN Unavailable Unavailable Oleksandr Borjas MD Unavailable Brittnee Mae RN Unavailable Unavailable Encounter Details Date Type Department Care Team (Late st Contact Info) Description 12/02/2023 Lab Requisition [facility] Services [address] [place] [address] Savage Long MD #[address] [address] Abnormal coagulation profile; Essential (primary) hypertension; Hyperkalemia Social History Tobacco Use Types Packs/Day Years Used Date Smoking Tobacco: Never Smokeless Tobacco: Never Comments:Never smoked Alcohol Use Standard Drinks/Week Comments Not Currently 0 (1 standard drink = 0.6 oz pur e alcohol) socially [facility] Utilities Answer Date Recorded In the past [...] declined 11/25/2023 How often do you attend adventist or sikhism serv ices? Patient declined 11/25/2023 Do you belong to any clubs o r organizations such as adventist groups, unions, fraternal or athletic groups, or [...] Total Score - Questions 1-9 0 10/03 [facility] [place] of Occupat ional Health - Occupational Stress [...] place to sleep or slept in a custodial (including now)? Patient declined 05/13/2023 Housing Stability [...] any time in the past 12 m [facility], were you homeless or living in a custodial (including now)? Patient declined 11/25/2023 Education Answer [...] Info) Description 10/02/2024 9:30 AM CDT [facility] 1 [place] [address] Savage Long MD #2 [facility] [address] [place] [address] Discharge Disposition: Discharged to home or Selfcare 10/17/2024 11:00 AM CDT [facility] [place] [facility] [address] [place] [address] Isaura Evans, PAC [address] [place] [address] Discharge Disposition: Discharged to home or Selfcare 10/24/2024 10:00 AM CDT [facility] [address] [facility] [place] [address] Isaura Evans, PAC [address] [place] [address] Discharge Disposition: Discharged to home or Selfcare 11/14/2024 9:30 AM CDT Office Visit [facility] - Family Medicine [facility] #2 [place] [address] Savage Long MD #[address] [address] documented as of this encounter Procedures Procedure [...] - 36 sec 12/02/2023 1:29 PM CDT [facility] Blood No Phlebotomy Charged / Unknown 12/02/2023 12:00 PM CDT 12/02/2023 12:59 PM CDT Narrative [facility] - 12/02/2023 1:29 PM CDT Therapeutic range for unfractionated heparin at 0.3-0.7 U/mL is an aPTT value in the range of 71-100 seconds. Critical value for the PTT test is >= 122 seconds. Savage Long MD HEMATOLOGY ORDERABLES Fin al Result Performing Organization Address [facility] Co de Phone Number [facility] #[address] [place] [address] * (ABNORMAL) PROTIME (PT) (PROTHROMBIN TIME) (12/02/2023 12:00 PM CDT) PROTIME-PATIENT 16.5(H) 11.6 - 14.8 sec 12/02/2023 1:29 PM CDT [facility] INR 1.3(H) 0.9 - 1.2 12/02/2023 1:29 PM CDT [facility] Comment: Therapeutic Ranges INR = 2.0-3.0: Venous thromb, atrial fib, pul embolism, tissue heart valve, ami. INR = 2.5-3.5: Mechanical heart valve Critical value for INR is >/= 4.5 Blood No Phlebotomy Charged / Unknown 12/02/2023 12:00 PM CDT 12/02/2023 12:59 PM CDT Savage Long MD HEMATOLOGY ORDERABLES Fin al Result Performing Organization Address [facility]/ZIP Co de Phone Number [facility]1 [facility] [place] [address] documented in this encounter Visit Diagnoses Diagnosis Abnormal coagulation profile Essential (primary) hypertension Unspecified essential hypertension Hyperkalemia Hyperpotassemia documented in this encounter Additional Health Concerns Active Problems Noted Date Diagnosed Date Quality of Life (General Plan of Care) Infection Onset Date Last Indicated Resolved Time Respiratory Rule-Out 04/07/2024 04/07/2024 025 10:22 AM AUTOMATIC SPINNING LATHE OPERATOR COVID - 19 04/07/2024 04/07/2024 04/07/2024 10:2 2 AM AUTOMATIC SPINNING LATHE OPERATOR Assessment Noted Time PHQ-9 Depression Total Score: 0 10/13/19 2:26 PM CDT documented as of this encounter Care Teams Mitochondrial Disorders Counselor Relationship Specialty Start Date End Date Savage Long MD #[address] [address] PCP - General Family Medicine 09/16/20 Kimberlee Morocho APRN, A P MECHANIC Nurse Practitioner Advanced Practice Nurse 10/24/15 Leighton Rios MD #[address] [address] Consulting Physician Clinical Cardiac Electrophysiology 04/10/22 Caroline Candelaria MD #[address] [address] Consulting Physician Endocrinology 02/24/23 Brittnee Mae, JAH [place] Nurse Social Media Marketing Analyst 02/06/22 12/02/23 Oleksandr Borjas MD #[address] [address] Consulting Physician Colon and Rectal Surgery 05/20/23 Brittnee Mae, RN [place] Nurse Social Media Marketing Analyst 07/06/24 07/06/24 documented as of this encounter
[2024-07-31 10:39] LABS: INR 1.4; Prothrombin Time 17.8 Seconds (11.1-14.7)
[2024-07-31] MEDS: TRANEXAMIC ACID 1,000MG/ISO100 1,000 MG/100 ML BAG 200 MG IVPB (10:45)
[2024-07-31] MEDS: LACTATED RINGERS 1,000 ML 30 ML IV CONT ×2 (10:45→14:50)
[2024-07-31] MEDS: ACETAMINOPHEN 500 MG TABLET 1000 MG PO (10:45)
--- NOTE | 2024-07-31 12:02 | WPDHPUPDATE1 ---
History and Physical Update Update Date/Time: 07/31/24 12:02 History and Physical has been reviewed, including an updated exam of the patient. There are NO changes in the patient's condition. Risks, benefits, and alternatives have been discussed and questions answered. Patient agrees to proceed with procedure.
--- NOTE | 2024-07-31 12:08 | WPDANESEPPF ---
Anes - Initial Pre Proc Eval Procedure: Operation Date: 07/31/24 12:00 Proposed Procedures p Right Custom Total Knee Arthroplasty - Vasyl Lara MD Date/Time: 07/31/24 12:08 Surgeon: Vasyl Lara MD Pre Op Diagnosis: primary oa right knee Patient Data Age: 79 Gender: F Height: 1.6 m Weight: 90.1 kg Last Vital Signs Temp 36.8 C 07/05/24 15:20 Pulse 80 07/05/24 15:20 Resp 18 07/05/24 15:20 BP 133/79 07/05/24 15:20 Pulse Ox 98 07/05/24 15:20 O2 Del Method Room Air 07/05/24 15:20 Allergies Allergy/AdvReac Type Severity Reaction Status Date / Time onion Allergy Severe Anaphylactic Verified 07/05/24 14:23 Shock codeine Allergy Intermediate Vomiting Verified 07/05/24 14:23 cortisone Allergy Intermediate Hypertensio Verified 07/05/24 14:23 n meperidine Allergy Intermediate Vomiting Verified 07/05/24 14:23 morphine Allergy Intermediate Vomiting Verified 07/05/24 14:23 tramadol AdvReac Severe NAUSEA/VOMI Verified 07/05/24 14:23 TING Home Medications ?Medication ?Instructions ?Recorded ?Confirmed ?Type ascorbic acid (vitamin C) 500 mg 1,000 mg PO DAILY 02/03/19 07/13/24 History capsule,extended release (Vitamin C) aspirin 81 mg tablet,delayed 81 mg PO DAILY 02/03/19 07/13/24 History release (Adult Aspirin Regimen) calcium carbonate (Calcium 500) 500 mg PO BID 02/03/19 07/13/24 History dicyclomine 10 mg capsule 10 mg PO BID 02/03/19 07/13/24 History magnesium oxide 400 mg PO BID 02/03/19 07/13/24 History methylcellulose (laxative) 500 mg 500 mg PO BID 02/03/19 07/13/24 History tablet (Fiber Therapy (methylcellulose)) vitamin A-vitamin C-vit E-min 1 tablet PO DAILY 02/03/19 07/13/24 History tablet vit C,E,zinc,copper-ogixk7p 250 1 cap PO QAM 10/03/19 07/13/24 History mg-lutein 5 mg-zeaxanthin 1 mg capsule (Ocuvite Adult 50 Plus) wpajhtga-okpx-fcz-folic acid 18 1 tablet PO QAM 05/15/20 07/13/24 History mg-0.4 mg tablet (One Daily For Women) furosemide 40 mg tablet 40 mg PO QAM 03/22/24 07/13/24 History metoprolol tartrate 25 mg tablet 25 mg PO BID 03/22/24 07/13/24 History pantoprazole 40 mg tablet,delayed 40 mg PO QAM 03/22/24 07/13/24 History release valsartan 160 mg tablet 160 mg PO DAILY 03/22/24 07/13/24 History warfarin 3 mg tablet 3 mg PO 6XW 03/22/24 07/13/24 History acetaminophen 500 mg tablet 1,000 mg PO PRN PRN pain 07/05/24 07/05/24 History (Acetaminophen Extra Strength) albuterol sulfate 90 mcg/actuation 2 puff inhalation PRN WHEEZING 07/05/24 07/05/24 History aerosol inhaler flecainide 50 mg tablet 50 mg PO Q12H 07/05/24 07/05/24 History warfarin 4 mg tablet (Jantoven) 4 mg PO WEEKLY 07/05/24 07/05/24 History ondansetron 4 mg disintegrating 4 mg PO Q8H #30 tabs 07/31/24 Rx tablet oxycodone-acetaminophen 5 mg-325 1 - 2 tablet PO Q4-6H PRN pain #30 07/31/24 Rx mg tablet tabs Laboratory Tests 07/31/24 10:21 PT 17.8 H Seconds (11.1-14.7) INR 1.4 Blood Type A Positive Antibody Screen Negative Patient hx anesthesia problems: post op nausea/vomiting Family hx anesthesia problems: none Results Review: All pre-operative results and documents have been reviewed as part of the pre-operative evaluation. 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 History of blood clots Food allergy Seasonal allergies GERD (gastroesophageal reflux disease) HTN (hypertension) Vision loss Surgical History Surgical History H/O left wrist surgery H/O: hysterectomy History of carpal tunnel release H/O sinus surgery Hx of total knee arthroplasty History of cardiac cath Hx of arthroscopic knee surgery History of fundoplication History of cholecystectomy Family History Family History Father Family history of malignant neoplasm Mother Family history of chronic obstructive pulmonary disease Other Cancer Diabetes mellitus Heart disease Hypertension Social History Social History Smoking status: Never smoker Second hand tobacco smoke exposure: No Alcohol intake: never Substance use: never Substance use type: does not use Living arrangements: with family Occupation/Education: other Gender identity (if verbalized by the patient): Female Sexual Orientation (if Verbalized by the Patient): Straight or Heterosexual Spiritual care concerns: No Anes - Eval Final PreProcedure Day of Procedure 07/31/24 12:08 Patient weight: obese Heart: regular rate and rhythm Lungs: clear to auscultation Airway: Mallampati scale class II Neurological: alert and oriented Last oral intake: >/= 8 hours ASA classification: III Emergent: no Anesthetic plan: proceed Anesthesia type and monitoring: general LMA and standard monitoring Results Review: All pre-operative results and documents have been reviewed as part of the pre-operative evaluation. Informed Consent: The patient's anesthetic plan and its attendant risks and benefits were discussed with the patient/family/POA. Questions were solicited and answers provided to the satisfaction of the patient/family/POA.
[2024-07-31] MEDS: ceFAZolin 2 GM/D5W 50 ML 2 GM/50 ML BAG IVPB ×2 (12:44→20:39)
[2024-07-31] MEDS: SODIUM CHLORIDE 0.9% IV 37.7 ML, MORPHINE SULFATE INJ (*CRX) 2 MG, ROPivacaine HCL 1% 2... INFILTRATE (13:20)
[2024-07-31] MEDS: GENTAMICIN BONE CEMENT REFOBACIN 1 EACH TOPICAL (14:07)
[2024-07-31] MEDS: TRANEXAMIC ACID 1,000 MG/10 ML AMPUL 1000 MG IV PUSH (14:31)
--- NOTE | 2024-07-31 17:09 | P.OP_ITS ---
Procedure Note - Detailed Date of Procedure 07/31/24 Pre-op Diagnosis Right knee degenerative arthritis. Post-op Diagnosis Same Procedure Performed Total knee arthroplasty, right custom Surgeon Vasyl Lara MD Manufacturing Chief Engineer Isabel Gaviria PA-C Anesthesia General Findings Custom knee optimal fit. Good bone quality. No ligament releases. Description of Procedure Preoperative antibiotics were given. The limb was prepped and draped in the usual sterile fashion with a well-padded tourniquet high on the thigh. The limb was exsanguinated and the tourniquet inflated to 300 mmHg for the exposure only. A longitudinal incision was created just medial to the patella. A trivector approach to the knee was performed. Arthrotomy was taken down through the joint capsule. No significant releases were initially taken. The femur was exposed and the F1 jig was applied. The coring tool was used to remove the cartilage for the F2 jig to sit flush with the bone. The jig was pinned and the distal cut carefully taken. Caliper measurements confirmed appropriate bony resections according to the preoperative templated plan. The F4 cutting jig for the femur was applied, at the standard rotation. The AP and anterior chamfer cuts were taken. The F5 jig was applied and the posterior chamfer cuts were taken. The tibia was prepared using the T1 jig, after removing cartilage for the jig contact points. Proper alignment was checked with the alignment priyank. The tibia was cut using the T1u guide. Gap balancing was performed. Gap measurements were taken and the knee was trialed. Excellent alignment and soft tissue balancing was confirmed. The posterior cruciate ligament was recessed along the proximal tibia. The patella was cut for resurfacing. Three lug holes were drilled. Meniscal remnants were removed. The trial components were assembled. Excellent range of motion and proper soft tissue balancing were confirmed throughout the full range of motion. Patellar tracking was excellent. The knee was copiously irrigated periodically throughout the procedure. The real implants were cemented into position. Excess cement was carefully removed. The wound was closed in layers with interrupted #1 Vicryl suture, 2-0 strata fix suture, 0 strata fix suture, 2-0 strata fix suture. Steri-Strips placed on the skin with the knee flexed. Sterile bulky dressing applied. The patient was brought to the recovery room in stable condition. There were no complications. Physician assistant county attorney, Isabel Gaviria PA-C, required for surgery; including patient positioning, draping, tissue retraction, maintaining instrument position, wound closure, and dressing placement. Implants Conformis Custom total knee arthroplasty. Cemented. Cruciate retaining. 32 mm round patella. Estimated Blood Loss 100 Drains No Complications No immediate complications Condition Stable Disposition PACU [facility] Billing Surgery - Charge Forward: Surgery Billing
[2024-07-31] MEDS: ACETAMINOPHEN 325 MG TABLET 650 MG PO (18:03)
[2024-07-31] MEDS: SENNA/DOCUSATE SODIUM TABLET 2 TAB PO (18:03)
--- NOTE | 2024-07-31 18:47 | ADMGEN ---
This patient, Tamica Saxena, was admitted to [facility] Surg Room 329-01. Patient/family oriented to hospital policies and general routines including ID bracelet, bed and alarms, visiting hours, pain management, procedures, bathroom and other care routines, personal items, smoking policy, room service/diet, and visiting hours. Information on how to activate the Rapid Response Team has been discussed. Patient/Family are encouraged to report perceived risks to care and to ask questions if they do not understand what they are told or what they should do.
[2024-07-31] MEDS: FLECAINIDE ACETATE 50 MG TABLET PO (20:40)
[2024-07-31] MEDS: METOPROLOL TARTRATE 25 MG TABLET PO (20:41)
[2024-07-31 23:36] LABS: Glucose Point of Care 184 mg/dl (65-105)
[2024-07-31] MEDS: oxyCODONE/ACETAMINOPHEN (*CRX) 5-325 MG TABLET 1 TABLET PO (23:57)
[2024-08-01] MEDS: ONDANSETRON INJ 4 MG/2 ML VIAL IV PUSH
[2024-08-01 01:39] VITALS: BP 125/69; PULSE 80; RESP 16; TEMP 36.2; O2SAT 97
[2024-08-01] MEDS: ceFAZolin 2 GM/D5W 50 ML 2 GM/50 ML BAG IVPB (04:00)
[2024-08-01] MEDS: ACETAMINOPHEN 325 MG TABLET 650 MG PO ×2 (05:15→11:43)
[2024-08-01 05:39] VITALS: BP 128/61; PULSE 73; RESP 20; TEMP 35.8; O2SAT 98
[2024-08-01 06:32] LABS: Basophils Percent Auto 0.3 % (0.2-1.2); Eosinophils Percent Auto 0.6 % (0-4.4); Hematocrit 34.3 % (37.0-47.0); Hemoglobin 10.8 g/dL (12.0-15.0); Immature Granulocyte Absolute 0.03 K/mm3 (0.00-0.031); Immature Granulocyte Percent A 0.4 % (0-0.5); Lymphocytes Absolute Auto 0.98 K/mm3 (0.9-3.2); Lymphocytes Percent Auto 14.1 % (18.3-44.2); Mean Corpuscular HGB Conc 31.5 g/dl (32-36); Mean Corpuscular Hemoglobin 29.8 pg (26-34); Mean Corpuscular Volume 94.8 fl (80-100); Mean Platelet Volume 9.3 fl (7.4-10.4); Monocytes Absolute Auto 0.6 K/mm3 (0.1-0.6); Monocytes Percent Auto 8.5 % (2.6-8.5); Neutrophils Absolute Auto 5.3 K/mm3 (1.3-6.7); Neutrophils Percent Auto 76.1 % (45.5-73.1); Platelet Count Result 199 k/mm3 (150-375); Red Blood Count 3.62 M/mm3 (4.2-5.4); Red Cell Distribution Width 13.2 % (11.5-14.5)
[2024-08-01 06:41] LABS: Anion Gap 4 mmol/L (4-12); Blood Urea Nitrogen 19 mg/dL (7-17); Calcium 8.5 mg/dL (8.4-10.2); Carbon Dioxide 26 mmol/L (22-30); Chloride 105 mmol/L (98-107); Estimated CRCL calculation 54 ml/min; Estimated Glomerular Filt Rate > 60; Glucose 104 mg/dL (65-110); Potassium 4.1 mmol/L (3.4-5.0); Sodium 135 mmol/L (137-145)
[2024-08-01] MEDS: FLECAINIDE ACETATE 50 MG TABLET PO (09:29)
[2024-08-01] MEDS: SENNA/DOCUSATE SODIUM TABLET 2 TAB PO (09:29)
[2024-08-01] MEDS: PANTOPRAZOLE 40 MG TABLET PO (09:30)
[2024-08-01] MEDS: VALSARTAN 160 MG TABLET PO (09:30)
[2024-08-01] MEDS: DICYCLOMINE HCL 10 MG CAPSULE PO (09:30)
[2024-08-01] MEDS: METOPROLOL TARTRATE 25 MG TABLET PO (09:30)
[2024-08-01] MEDS: polyethylene glycoL 3350 17 GM POWD.PACK PO (09:31)
[2024-08-01] MEDS: ASPIRIN 81 MG ENTERIC TABLET PO (09:33)
[2024-08-01 09:39] VITALS: BP 119/69; PULSE 70; RESP 18; TEMP 36.9; O2SAT 96
[2024-08-01] MEDS: oxyCODONE/ACETAMINOPHEN (*CRX) 5-325 MG TABLET 1 TABLET PO (09:52)
== END 2024-08-01 12:00 | disposition home or self-care (01) ==
LOC: ANHSURGERY 09:34 → ANH3MEDSUR 16:26
PROVIDERS: Anesthesiology; Physician Assistant Surgical; PCP Family Medicine; Visit Provider Orthopaedic Surgery
PROC: (CPT 27447; principal; 2024-07-31 12:00)
DX: M17.11 Unilateral primary osteoarthritis, right knee (principal); I10 Essential (primary) hypertension; K21.9 Gastro-esophageal reflux disease without esophagitis; M19.072 Primary osteoarthritis, left ankle and foot; E66.9 Obesity, unspecified; Z68.34 Body mass index [BMI] 34.0-34.9, adult; Z79.01 Long term (current) use of anticoagulants; Z79.82 Long term (current) use of aspirin; Z79.51 Long term (current) use of inhaled steroids; Z79.891 Long term (current) use of opiate analgesic; Z98.890 Other specified postprocedural states; Z90.49 Acquired absence of other specified parts of digestive tract; Z96.652 Presence of left artificial knee joint; Z98.61 Coronary angioplasty status; Z80.9 Family history of malignant neoplasm, unspecified; Z82.49 Family history of ischemic heart disease and other diseases of the circulatory system
CPT/HCPCS: 27447; 36415; 73560; 80048; 82948; 85025; 85610; 86850; 86900; 86901; 97110; 97161; 97165; A9270; C1713; C1776; J0171; J0690; J1100; J1885; J2003; J2270; J2405; J2704; J2795; J3010; J7120

== ENCOUNTER 2024-11-20 13:36 | Outpatient (CLI) | payer MEDICARE, SELFPAY ==
--- NOTE | ~2024-11-20 | XR_ITS ---
EXAMINATION: XR ankle LT min 3V DATE: 11/20/2024 13:48 INDICATION: Traumatic arthropathy. TECHNIQUE: 4 images of the left ankle were obtained COMPARISON: 07/04/2024 FINDINGS: Grossly stable postoperative changes about the left ankle dating back to 07/04/2024. Pes planus. Moderate-sized plantar calcaneal spur. Bones appear osteopenic. Soft tissue swelling abou t the left ankle. IMPRESSION: 1. Grossly stable appearance of the left ankle as compared to the study from 07/04/2024. Soft tissue sw elling about the left ankle. If symptoms persist or worsen, consider a short-term follow-up study or MRI imaging for further asse ssment. Reviewed, dictated and finalized at location A. IMPRESSION: 1. Grossly stable appearance of the left ankle as compared to the study from 07/04/2024. Soft tissue swelling about the left ankle. If symptoms persist or worsen, consider a short-term follow-up study or MRI ashley ging for further assessment.
--- OUTSIDE RECORDS SUMMARY | 2024-11-20 14:44 | XMS_ITS | Encounter Summary ---
Author Organization [facility] Address [address] [place] [address] Phone Care Team Providers Care Cop Winder Name Role Phone Kimberlee Morocho APRN, SUBWAY GUARD Unavailable [phone] Savage Long MD Primary Care Provider [phone] Leighton Rios MD Unavailable [phone] Caroline Candelaria MD Unavailable Oleksandr Borjas MD Unavailable Encounter Details Date Type Department Care Team (Late st Contact Info) Description 10/19/2024 Results Follow-Up [facility] Oncology Services [address] [place] [address] Isaura Evans Tanika, PAC [address] [place] [address] FERRITIN, IRON,TRANSFERN,CALC. TIBC,%SAT, VITAMIN B12, Additional followed-up results: 4 Social History Tobacco Use Types Packs/Day Years Used Date Smoking Tobacco: Never Smokeless Tobacco: Never Comments:Never smoked Alcohol Use Standard Drinks/Week Comments Not Currently 0 (1 standard drink = 0.6 oz pur e alcohol) socially [facility] Utilities Answer Date Recorded In the past 12 months has th e electric, gas, oil, or water company threatened to shut off services in your home? No 07/06/2024 Social Connection and Isolation Panel Answer Date Recorded In a typical week, how many times do you talk on the phone with family, friends, or neighbors? Three times a week 07/06/2024 How often do you get togethe r with friends or relatives? Twice a week 07/06/2024 How often do you attend [facility] or sikhism services? Never 07/06/2024 Do you belong to any clubs o r organizations such as orthodoxy groups, unions, fraternal or athletic groups, or [...] Total Score - Questions 1-9 0 06/2024 [facility] - [...] Care Team (Late st Contact Info) Description 02/14/2025 9:30 AM AUTOMATIC HEMMER Office Visit [facility] - Family [facility] [address] [place] [address] Yuniel Finley APRN, SUBWAY GUARD [address] [address] 04/19/2025 10:00 AM AUTOMATIC HEMMER Lab [facility] Services [address] [place] [address] Evans Isaura Tanika, PAC [address] [place] [address] Discharge Disposition: Discharged to home or Selfcare 04/26/2025 9:40 AM AUTOMATIC HEMMER Office Visit [facility] Oncology Services [address] [place] [address] MariannaIsaura Tanika, PAC [address] [place] [address] Discharge Disposition: Discharged to home or Selfcare documented as of this encounter Visit Diagnoses Not on filedocumented in this encounter Additional Health Concerns Active Problems Noted Date Diagnosed Date Quality of Life (General Plan of Care) 4 Assessment Noted Time PHQ-9 Depression Total Score: 0 07/07/19 25 3:59 PM CDT documented as of this encounter Care Teams Cop Winder Relationship Specialty Start Date End Date Savage Long MD #[address] [address] PCP - General Family Medicine 09/16/20 Kimberlee Morocho APRN, SUBWAY GUARD Nurse Practitioner Advanced Practice Nurse 10/24/15 Leighton Rios MD #[address] [place] [address] Consulting Physician Clinical Cardiac Electrophysiology 04/10/22 Caroline Candelaria MD [address] [address] Consulting Physician Endocrinology 02/24/23 Oleksandr Borjas MD [address] [address] Consulting Physician Colon and Rectal Surgery 05/20/23 documented as of this encounter
--- OUTSIDE RECORDS SUMMARY | 2024-11-20 14:44 | XMS_ITS | Encounter Summary ---
Author Organization [facility] Address [address] [place] [address] Phone Care Team Providers Care Research And Development Director Name Role Phone Kimberlee Morocho APRN, CNP Unavailable Savage Long MD Primary Care Provider [phone] Brittnee Mae RN Unavailable Unavailable Leighton Rios MD Unavailable [phone] Caroline Candelaria MD Unavailable Brittnee Mae RN Unavailable Unavailable Oleksandr Borjas MD Unavailable Brittnee Mae RN Unavailable Unavailable Reason for Visit * Reason Comments Medication Refill Encounter Details Date Type Department Care Team (Late st Contact Info) Description 09/04/2022 Refill [facility] - Family Medicine [facility] [address] [place] [address] Savage Long MD #[address] [address] Medication Refill Social History Tobacco Use Types [...] 02/10/22 Office Visit Yuniel Finley APRN, [facility] 12/22/21 Office Visit Savage Long MD [facility] 09/15/21 Office Visit Yuniel Finley APRN, [facility] Showing recent visits within past 365 days and meeting all other requirements Future Appointments Date Type Provider Dept 10/15/22 Appointment Savage Long MD [facility] Showing future appointments within next 90 days and meeting all other requirements documented in this encounter Plan of Treatment Upcoming Encounters Date Type Department Care Team (Late st Contact Info) Description 02/14/2025 9:30 AM PUBLIC HEALTH EPIDEMIOLOGIST Office Visit [facility] - Family [facility] [address] [place] [address] Yuniel Finley APRN, MISSING PERSONS INVESTIGATOR #[address] [address] 04/19/2025 10:00 AM PUBLIC HEALTH EPIDEMIOLOGIST Lab [facility] Oncology Services [address] [place] [address] Isaura Evans Tanika, PAC [address] [place] [address] Discharge Disposition: Discharged to home or Selfcare 04/26/2025 9:40 AM PUBLIC HEALTH EPIDEMIOLOGIST Office Visit [facility] Oncology Services [address] [place] [address] Isaura Evans Tanika, PAC [address] [place] [address] Discharge Disposition: Discharged to home or Selfcare documented as of this encounter Visit Diagnoses Not on filedocumented in this encounter Additional Health Concerns Infection Onset Date Last Indicated Resolved Time Respiratory Rule-Out 04/07/2024 04/07/2024 025 10:22 AM PUBLIC HEALTH EPIDEMIOLOGIST COVID - 19 04/07/2024 04/07/2024 04/07/2024 10:2 2 AM PUBLIC HEALTH EPIDEMIOLOGIST Assessment Noted Time PHQ-9 Depression Total Score: 0 09/17/19 21 1:00 PM CDT documented as of this encounter Care Teams Research And Development Director Relationship Specialty Start Date End Date Savage Long MD #2 [facility] [address] [place] [address] PCP - General Family Medicine 09/16/20 Kimberlee Morocho, AIRCRAFT DISPATCHER, MISSING PERSONS INVESTIGATOR Nurse Practitioner Advanced Practice Nurse 10/24/15 Brittnee Mae, JAH [place] Lockmaker 02/06/22 03/30/23 Leighton Rios MD [place] Consulting Physician Clinical Cardiac Electrophysiology 04/10/22 Caroline Candelaria MD #2 [facility] [address] [place] [address] Consulting Physician Endocrinology 02/24/23 Brittnee Mae RN [place] Nurse Lockmaker 02/06/22 12/02/23 Oleksandr Borjas MD #[address] [address] Consulting Physician Colon and Rectal Surgery 05/20/23 Brittnee Mae, RN [place] Nurse Lockmaker 07/06/24 07/06/24 documented as of this encounter
--- OUTSIDE RECORDS SUMMARY | 2024-11-20 14:44 | XMS_ITS | Clinical Summary ---
Author Organization [facility] Address [address] [place] [address] Care Team Providers Care Packaging Manager Name Role Phone Savage Long MD Primary Care Provider [phone] Allergies Active Allergy Reactions Criticality Noted Date [...] or higher 60 tablet 11 3 Active L. acidophilus-di g enz cmb 5 5-250 mg capsule Take by mouth Active LORazepam (ATIVAN) 1 mg tablet Take one pill 30 minutes before planned MRI. May repeat x1 if needed. 2 tablet 4 Active Additional Information Patient not taking.Reported on 06/27/2024 dexAMETHasone 0.5 mg/5 mL solution FILL CUP [...] mouth daily 90 tablet 3 4 Active albuterol HFA (PROVENTIL HFA,VENTOLIN HFA,PROAIR HFA) 90 mcg/actuation inhalerIndicat ions:COVID-19 Inhale 2 puffs every 6 (six) hours as needed for shortness of breath 18 [address] (PROTONIX) 40 mg EC tablet Take 1 tablet (40 mg total) by mouth daily 90 tablet 3 5 Active warfarin (COUMADIN) 3 mg tablet Take 1 tablet (3 mg total) by mouth daily 90 tablet 3 5 Active warfarin (COUMADIN) 4 mg tablet Take 1 tablet (4 mg total) by mouth daily 90 tablet 1 5 02/12/20 25 Active metoprolol XL (TOPROL-XL) 25 mg extended release tablet Take 1 tablet by mouth once daily 90 tablet 3 5 Active flecainide (TAMBOCOR) 100 mg tablet Take 1 tablet (100 mg total) by mouth 2 (two) times a day 180 tablet 3 5 11/07/19 26 Active furosemide (LASIX) 40 mg tablet Take 1 tablet (40 mg total) by mouth daily 30 tablet 11 5 11/07/19 26 Active furosemide (LASIX) 40 mg tablet Take 1 tablet (40 mg total) by mouth daily 30 tablet 11 4 11/07/19 25 Discontin ued(Reord er) flecainide (TAMBOCOR) 50 mg tablet Take 1 tablet (50 mg total) by mouth 2 (two) times a day 180 tablet 3 5 11/07/19 25 Discontin ued(Thera py completed ) Active Problems Problem Noted Date Diagnosed Date Dyslipidemia 11/06/2024 Cardiac pacemaker in situ 11/01/2023 Intercostal pain [...] Encounters Date Type Department Care Team Description 11/15/2024 7:00 AM CDT Ancillary Procedure [place] [facility] [address] [facility] [address] [place] [id number] Chest pain, unspecified type; Sick sinus syndrome (HCC); Paroxysmal atrial fibrillation (HCC); Cardiac pacemaker in situ 11/15/2024 Results Follow-Up [place] at [address] [address] Chiara Pillai MA Protime-INR 11/15/2024 Anticoagulation Visit [place] at [address] [address] Chiara Pillai MA 11/14/2024 10:25 AM CDT Lab [address] Paroxysmal atrial fibrillation (HCC) 11/06/2024 9:00 AM CDT Ancillary Procedure [place] [facility] at [address] [address] Pacemaker reprogramming/check (Primary Dx); Chest pain, unspecified type; Sick sinus syndrome (HCC); Paroxysmal atrial fibrillation (HCC); Cardiac pacemaker in situ 11/06/2024 9:00 AM CDT Office Visit [facility] at [address] [address] Dusty Garcia MD Paroxysmal atrial fibrillation (HCC) (Primary Dx); Cardiac pacemaker in situ; Sick sinus syndrome (HCC); Dyslipidemia; Essential hypertension 10/17/2024 11:15 AM CDT Lab [address] Paroxysmal atrial fibrillation (HCC) 10/17/2024 Anticoagulation Visit [facility] at [address] [address] Chiara Pillai MA 10/17/2024 Results Follow-Up [facility] at [address] [place] [address] Chiara Pillai MA Protime-INR 10/10/2024 Anticoagulation Visit [place] at [address] [place] [address] Luis Buitrago MA 10/09/2024 8:55 AM CDT Lab [address] Paroxysmal atrial fibrillation (HCC) 10/09/2024 Results Follow-Up [facility] at [address] [place] [address] Luis Buitrago MA Protime-INR 09/12/2024 10:10 AM CDT Lab [address] Paroxysmal atrial fibrillation (HCC) 09/12/2024 Anticoagulation Visit [facility] at [address] [place] [address] Luis Buitrago MA from Last 3 Months [...] you have a drink containing alc ohol? Never 06/27/2024 Average Number of Drinks Not on file 025 Frequency of Binge Drinking Not on file 06/04 Personal Safety Answer Date Recorded Have you ever been in or are you currently in a harmful physical or emotional relationship or is someone making you feel afraid or unsafe? Denies 07/27/2023 Comments Unknown Sex and Gender Information Value Date Recorded Sex Assigned at Not on file Legal Sex Female 3:40 AM CHIP TESTER Gender Identity Not on file Sexual Orientation Not on file Obstetrics History Last Filed Vital Signs Vital Sign Reading Time Taken Comments Blood Pressure 159/89 11/06/2024 9:01 AM CDT Pulse 70 11/06/2024 9:01 AM CDT Temperature 36.6 C (97.8 F) 11/13/2023 11:15 AM CDT Respiratory Rate 18 11/06/2024 9:01 AM CDT Oxygen Saturation 96% 06/27/2024 11:20 AM CDT Inhaled Oxygen Concentration - - Weight 90.3 kg (199 lb) 11/06/2024 9:01 AM CDT Height 157.5 cm (5' 2) 11/06/2024 9:01 AM CDT Body Mass Index 36.4 11/06/2024 9:01 AM CDT Plan of Treatment Health Maintenance [...] Fall Risk Assessment 07/26/2024 07/27/2023 Influenza Vaccine (#1) 2024 , 12/22/2021, 12/05/2020, Additional history exists Pneumococcal vaccine 65+ Completed 020, 04/24/2015, 01/02/2013 Colon Cancer Screening-CT Colonography Discontinued 02/10/2023 Colon Cancer Screening-Colonoscopy Discontinued 02/10/2023 Colon Cancer Screening-DNA Stool Discontinued 02/11/20 Colon Cancer Screening-FIT Discontinued 02/10/2023 Colon Cancer Screening-FOBT Discontinued 02/10/2023 Colon Cancer Screening-Sigmoidoscopy Discontinued 02/10/2023 Colorectal Cancer Screening Discontinued Medical Devices Implanted Type Area Cone Sewer Device Identifier Shelf Expiration Date Model / Serial / Lot [employer] Biomonitor Iii Monitor Cardiac Sterile Disposable Latex Free [id number] - [id number] - [id number] Implanted:Qty: 1 on 06/12/2022 by Jared Hernandez MD at [facility] Implantable Loop Recorder N/A: Chest Wall [employer] 11/03/2023 [id number] / [id number] / [employer] Tyrx Absorbable Antibacterial Envelope-Large 3.3x2.9in [id number] - [id number] Implanted:Qty: 1 on 08/19/2022 by Jared Hernandez MD at [facility] Mesh [employer] 04/08/2023 [id number] / [employer] Endocardial Pacing Lead Promri Solia T 53 [id number] - [id number] - [id number] Implanted:Qty: 1 on 08/19/2022 by Jared Hernandez MD at [facility] Pacemaker [employer] 07/04/2023 [id number] / [id number] / [employer] Endocardial Pacing Lead Promri Solia Jt 45 [id number] - [id number] - [id number] Implanted:Qty: 1 on 08/19/2022 by Jared Hernandez MD at [facility] Pacemaker [employer] 02/03/2024 [id number] / [id number] / [employer] Edora Promri 37r91r9.5mm Dual Chamber Rate Adaptive Unipolar Bipolar [id number] - [id number] - [id number] Implanted:Qty: 1 on 08/19/2022 by Jared Hernandez MD at [facility] Pacemaker [employer] 11/03/2023 [id number] / [id number] / Procedures Procedure Name Priority Date/Time Associated Diagnosis Comments DEVICE CHECK - REMOTE Routine 11/14/2024 11:36 AM CDT Chest pain, unspecified type Sick sinus syndrome (HCC) Paroxysmal atrial fibrillation (HCC) Cardiac pacemaker in situ PROTIME-INR Routine 11/14/2024 10:26 AM CDT Paroxysmal atrial fibrillation (HCC) DEVICE CHECK - IN OFFICE Routine 11/06/2024 8:51 AM CDT Chest pain, unspecified type Sick sinus syndrome (HCC) Paroxysmal atrial fibrillation (HCC) Cardiac pacemaker in situ PROTIME-INR Routine 10/17/2024 11:21 AM CDT Paroxysmal atrial fibrillation (HCC) PROTIME-INR Routine 10/09/2024 8:55 AM CDT Paroxysmal atrial fibrillation (HCC) PROTIME-INR Routine 09/12/2024 10:10 AM CDT Paroxysmal atrial fibrillation (HCC) COLONOSCOPY 02/10/2023 7:17 AM CHIP TESTER from Last 3 Months or Most Recently Relevant to Health Maintenance Results * DEVICE CHECK - REMOTE (11/14/2024 11:36 AM CDT) Anatomical Region Laterality Modality Other Narrative 11/17/2024 12:04 PM CDT Images from the original result were not included. 11/15/2024 [employer] quarterly remote device check NOTE The following shows snippets from the complete quarterly report. The complete report in its entirety is attached to this Result Text in [facility] Periodic IEGM Detection Nov 15, 2024, 2:30:00 AM Last in-office check: 11/06/2024 Next in-office appointment: 11/12/2025 Battery longevity = OK/80% AT/AF burden: 0% Ap: 97% RVp: 100% No events this monitoring period Reviewed By Amanda Dee WRAPPER LEAF INSPECTOR at 10:38 AM ATTESTATION I have reviewed the device interrogation report associated with this encounter in detail. I agree with the documentation recorded/scanned into the electronic medical record. Recommendations: Continue current device follow-up. Dusty Garcia MD MD Review and Recommendations below (please forward an in-basket message to your MA if check requires attention) us Dusty Garcia MD CV CARDIAC SERVICES PROCEDURES Final Result * (ABNORMAL) Protime-INR (11/14/2024 10:26 AM CDT) PT 24.0(H) 10.2 - 13.5 sec [facility]ANE [facility] (CARL) INR 2.16(H) 0.90 - 1.20 [facility]ANE [facility] ([place]) Comment: Interpretive data Oral anticoagulant therapeutic ranges: Venous thromboembolism prophylaxis or treatment: 2.0-3.0 CARDIOLOGY Standard range: 2.0-3.0 High-intensity range: 2.5-3.5 Refer to indication-specific guidelines for appropriate target ranges for prosthetic heart valve replacement. Current interpretive data was last revised on 2019. Blood 11/14/2024 10:2 6 AM CDT 11/14/2024 10:53 AM CDT Dusty Garcia MD LAB BLOOD ORDERABLES Final Resu lt DIANE GOODWIN ([place]) 1 [facility] [employer] [place] [address] * DEVICE CHECK - IN OFFICE (11/06/2024 8:51 AM CDT) Anatomical Region Laterality Modality Other Narrative 11/06/2024 11:55 AM CDT Images from the original result were not included. 11/06/2024 [employer] in-office device check The complete report is attached to this Result Text in [employer] Layer Helper Dusty Garcia MD CV CARDIAC SERVICES PROCEDURES Final Result * (ABNORMAL) Protime-INR (10/17/2024 11:21 AM CDT) PT 22.3(H) 9.7 - 13.0 sec [facility]ANE [facility] ([place]) INR 2.04(H) 0.90 - 1.20 DIANE [facility] ([place]) Comment: Interpretive data Oral anticoagulant therapeutic ranges: Venous thromboembolism prophylaxis or treatment: 2.0-3.0 CARDIOLOGY Standard range: 2.0-3.0 High-intensity range: 2.5-3.5 Refer to indication-specific guidelines for appropriate target ranges for prosthetic heart valve replacement. Current interpretive data was last revised on 2019. Blood 10/17/2024 11:2 1 AM CDT 10/17/2024 1:31 PM CDT Dusty Garcia MD LAB BLOOD ORDERABLES Final Resu lt DIANE [facility] ([place]) 1 [facility] [place] [address] * (ABNORMAL) Protime-INR (10/09/2024 8:55 AM CDT) PT 20.7(H) 9.7 - 13.0 sec [facility] ([place]) INR 1.89(H) 0.90 - 1.20 [facility] ([place]) Comment: Interpretive data Oral anticoagulant therapeutic ranges: Venous thromboembolism prophylaxis or treatment: 2.0-3.0 CARDIOLOGY Standard range: 2.0-3.0 High-intensity range: 2.5-3.5 Refer to indication-specific guidelines for appropriate target ranges for prosthetic heart valve replacement. Current interpretive data was last revised on 2019. Blood 10/09/2024 8:55 AM CDT 10/09/2024 10:52 AM CDT Dusty Garcia MD LAB BLOOD ORDERABLES Final Resu lt Performing Organization Address [facility] Co de Phone Number DIANE GOODWIN ([place]) 1 [facility] [employer] [place] [address] * (ABNORMAL) Protime-INR (09/12/2024 10:10 AM CDT) PT 23.2(H) 9.7 - 13.0 sec DIANE [facility] ([place]) INR 2.12(H) 0.90 - 1.20 DIANE [facility] ([place]) Comment: Interpretive data Oral anticoagulant therapeutic ranges: Venous thromboembolism prophylaxis or treatment: 2.0-3.0 CARDIOLOGY Standard range: 2.0-3.0 High-intensity range: 2.5-3.5 Refer to indication-specific guidelines for appropriate target ranges for prosthetic heart valve replacement. Current interpretive data was last revised on 2019. Blood 09/12/2024 10:1 0 AM CDT 09/12/2024 1:19 PM CDT Dusty Garcia MD LAB BLOOD ORDERABLES Final Resu Performing Organization Address [facility] Co de Phone Number DIANE GOODWIN ([place]) 1 [facility] [place] [address] * COLONOSCOPY (02/10/2023 7:17 AM CHIP TESTER) Anatomical Region Laterality Modality Other Narrative Procedure Note Jer Sung MD - 02/10/2023 7:17 AM CST [facility] Patient Name: Tamica Saxena Procedure Date: 02/10/2023 7:17 AM Date of : 1945 Admit Type: Outpatient Age: 77 Gender: Female Attending MD: Jer Sung M.D. Room: [facility] ENDOSCOPY ROOM 2 Note Status: Finalized Patient [...] procedure were verified by the physician, the security analyst and the personnel and payroll technician in the endoscopy suite. Mental Status [...] scope was passed under direct vision. TheColonoscope [id number] was introduced through the anus and advanced [...] 7:17 AM Procedure Code(s): --- Professional --- 66328, Colonoscopy, flexible; with removal of tumor(s), polyp(s), or other lesion(s) by snare technique [id number], 59, Colonoscopy, flexible; with biopsy, single or multiple --- Technical --- 48912, Colonoscopy, flexible; with removal of tumor(s), polyp(s), or other lesion(s) by snare technique 19973, 59, Colonoscopy, flexible; with biopsy, single or [...] perforation orabscess without bleeding CPT copyright 2020 [employer]. All rights reserved. The codes documented in this report are preliminary and upon doughnut fryer reviewmay be revised to meet current compliance requirements. Recognized by the [employer] for promoting quality in endoscopy Jer Sung MD ENDOSCOPY PROCEDURES Final Resul t from Last 3 Months or Most Recently Relevant to Health Maintenance Insurance MEDICARE [facility] MEDICARE BLUE CROSS MEDICARE SUPPLEMENT MEDICARE [employer] [place] Advance Directives For more information, please contact: [phone] Documents on File Type Date Recorded Patient Ncqa Specialist Expl anation ADVANCE DIRECTIVE 06/27/2017 12:00 AM [facility] [employer] FORMER FINANCIAL/MEDICAL * Full Code (Latest Code Status [...] 8:49 AM 06/12/2022 2:55 PM Care Teams Packaging Manager Relationship Specialty Start Date End Date Savage Long MD [address] [address] PCP - General Family Medicine 06/19/22
--- OUTSIDE RECORDS SUMMARY | 2024-11-20 14:44 | XMS_ITS | Encounter Summary ---
Author Organization [facility] Address [address] [place] [address] Phone Care Team Providers Care Last Dipper Name Role Phone Kimberlee Morocho APRN, COMMUNITY HEALTH REPRESENTATIVE Unavailable [phone] Savage Long MD Primary Care Provider [phone] Leighton Rios MD Unavailable [phone]- [phone] Caroline Candelaria MD Unavailable Oleksandr Borjas MD Unavailable Brittnee Mae RN Unavailable Unavailable Encounter Details Date Type Department Care Team (Late st Contact Info) Description 12/09/2023 Lab Requisition [facility] [address] [place] [phone] Savage Long MD #[address] [address] Anemia, unspecified Social History Tobacco Use Types Packs/Day Years Used Date Smoking Tobacco: Never Smokeless Tobacco: Never Comments:Never smoked Alcohol Use Standard Drinks/Week Comments Not Currently 0 (1 standard drink = 0.6 oz pur e alcohol) socially [facility] Utilities Answer Date Recorded In the past 12 months has e [employer], gas, oil, or water [employer] threatened to shut off services in your home? Patient declined 11/25/2023 Social Connection and Isolation Panel Answer Date Recorded In a typical week, how many times do you talk on the phone with family, friends, or neighbors? Patient declined 11/25/2023 How often do you get togethe r with friends or relatives? Patient declined 11/25/2023 How often do you attend restorationist or yazidi serv ices? Patient declined 11/25/2023 Do you belong to any clubs o r organizations such as restorationist groups, unions, fraternal or athletic groups, or [...] Total Score - Questions 1-9 0 10/03 [facility] of Occupat ional Health - Occupational Stress [...] time in the past 12 m [facility], were you homeless or living in a [...] st Contact Info) Description 02/14/2025 9:30 AM CONSTRUCTION MGR Office Visit [facility] - Family Medicine [facility] [address] [place] [address] Yuniel Finley APRN, COMMUNITY HEALTH REPRESENTATIVE #[address] [address] 04/19/2025 10:00 AM CONSTRUCTION MGR Lab [facility] [address] [place] [address] Isaura Evans Tanika, PAC [address] [place] [address] Discharge Disposition: Discharged to home or Selfcare 04/26/2025 9:40 AM CONSTRUCTION MGR Office Visit [facility] [address] [place] [address] EvansIsaura Tanika, PAC [address] [place] [address] Discharge Disposition: Discharged to home or Selfcare [...] - 12.00 10(3)/mcL 12/09/2023 2:01 PM CDT [facility] RBC 3.70(L) 3.80 - 5.30 10(6)/mcL 12/09/2023 2:01 PM CDT [facility] HEMOGLOBIN (HGB) 11.1(L) 12.0 - 15.8 g/dL 12/09/2023 2:01 PM CDT [facility] HEMATOCRIT (HCT) 35.1(L) 36.0 - 47.0 % 12/09/2023 2:01 PM CDT [facility] MCV 94.9 82.0 - 96.0 fL 12/09/2023 2:01 PM CDT [facility] MCH 30.0 26.0 - 34.0 pg 12/09/2023 2:01 PM CDT [facility] MCHC 31.6 31.0 - 36.0 g/dL 12/09/2023 2:01 PM CDT [facility] PLATELET COUNT 476(H) 140 - 440 10(3)/[facility] 12/09/2023 2:01 PM CDT [facility] RDW 15.7(H) 11.8 - 15.5 % 12/09/2023 2:01 PM CDT [facility] MPV 9.1(L) 9.7 - 12.4 fL 12/09/2023 2:01 PM CDT [facility] NRBC PER 100 WBC 0 12/09/2023 2:01 PM CDT [facility] Blood No Phlebotomy Charged / Unknown 12/09/2023 12:15 PM CDT 12/09/2023 1:48 PM CDT Savage Long MD HEMATOLOGY ORDERABLES Fin al Result Performing Organization Address City/[facility]/ZIP Co de Phone Number [facility] [address] [place] [address] * FOLIC ACID (FOLATE) (12/09/2023 12:15 PM CDT) FOLATE 12.1 7.0 - 31.4 ng/mL 12/09/2023 2:46 PM CDT [facility] Blood No Phlebotomy Charged / Unknown 12/09/2023 12:15 PM CDT 12/09/2023 1:48 PM CDT Savage Long MD CHEMISTRY ORDERABLES Amara l Result Performing Organization Address City/[facility]/ZIP Co de Phone Number [facility] [address] [place] [address] * (ABNORMAL) VITAMIN B12 (12/09/2023 12:15 PM CDT) VITAMIN B12 993(H) 213 - 816 pg/mL 12/09/2023 2:46 PM CDT [facility] Blood No Phlebotomy Charged / Unknown 12/09/2023 12:15 PM CDT 12/09/2023 1:48 PM CDT Savage Long MD CHEMISTRY ORDERABLES Amara l Result [facility] [address] [place] [address] * (ABNORMAL) FERRITIN (12/09/2023 12:15 PM CDT) FERRITIN 290(H) 5 - 204 ng/mL 12/09/2023 2:56 PM CDT [facility] Blood No Phlebotomy Charged / Unknown 12/09/2023 12:15 PM CDT 12/09/2023 1:48 PM CDT Savage Long MD CHEMISTRY ORDERABLES Amara l Result [facility] [address] [place] [address] * IRON,TRANSFERN,CALC.TIBC,%SAT (12/09/2023 12:15 PM CDT) IRON 77 25 - 156 mcg/dL 12/09/2023 2:43 PM CDT [facility] TRANSFERRIN 229 173 - 360 mg/dL 12/09/2023 2:43 PM CDT [facility] TIBC, CALCULATED 286 265 - 497 mcg/dL 12/09/2023 2:43 PM CDT [facility] % SATURATION * 27 15 - 62 % 12/09/2023 2:43 PM CDT [facility] Blood No Phlebotomy Charged / Unknown 12/09/2023 12:15 PM CDT 12/09/2023 1:48 PM CDT Savage Long MD CHEMISTRY ORDERABLES Amara l Result Performing Organization Address City/[facility]/ZIP Co de Phone Number [facility] [address] [place] [address] * LIPID PANEL (12/09/2023 12:15 PM CDT) CHOLESTEROL 147 <200 mg/dL 12/09/2023 2:43 PM CDT [facility] TRIGLYCERIDES 91 <150 mg/dL 12/09/2023 2:43 PM CDT [facility] HDL CHOLESTEROL 47 >40 mg/dL 2:43 PM CDT [facility] LDL 82 <130 mg/dL 12/09/2023 2:43 PM CDT [facility] VLDL 18 10 - 50 mg/dL 12/09/2023 2:43 PM CDT [facility] CHOL/HDL RATIO 3.1 0.0 - 4.4 12/09/2023 2:43 PM CDT [facility] NON-HDL CHOLESTEROL 100 <130 mg/dL 12/09/2023 2:43 PM CDT [facility] Blood No Phlebotomy Charged / Unknown 12/09/2023 12:15 PM CDT 12/09/2023 1:48 PM CDT Savage Long MD CHEMISTRY ORDERABLES Amara l Result [facility] [address] [place] [address] documented in this encounter Visit Diagnoses Diagnosis Anemia, unspecified documented in this encounter Additional Health Concerns Active Problems Noted Date Diagnosed Date Quality of Life (General Plan of Care) Infection Onset Date Last Indicated Resolved Time Respiratory Rule-Out 04/07/2024 04/07/2024 025 10:22 AM CONSTRUCTION MGR COVID - 19 04/07/2024 04/07/2024 04/07/2024 10:2 2 AM CONSTRUCTION MGR Assessment Noted Time PHQ-9 Depression Total Score: 0 10/13/19 24 2:26 PM CDT documented as of this encounter Care Teams Last Dipper Relationship Specialty Start Date End Date Savage Long MD #[address] [address] PCP - General Family Medicine 09/16/20 Kimberlee Morocho, COMMERCIAL SALES DIRECTOR, COMMUNITY HEALTH REPRESENTATIVE Nurse Practitioner Advanced Practice Nurse 10/24/15 Leighton Rios MD #[address] [address] Consulting Physician Clinical Cardiac Electrophysiology 04/10/22 Caroline Candelaria MD #2 [facility] [address] [place] [address] Consulting Physician Endocrinology 02/24/23 Oleksandr Borjas MD #[address] [address] Consulting Physician Colon and Rectal Surgery 05/20/23 Brittnee Mae, JAH [place] Nurse Coastal/Harbor Defense Officer 07/06/24 07/06/24 documented as of this encounter
--- OUTSIDE RECORDS SUMMARY | 2024-11-20 14:44 | XMS_ITS | Encounter Summary ---
Author Organization [facility] Address [address] [place] [address] Phone Care Team Providers Care Homeland Security Program Specialist Name Role Phone Kimberlee Morocho APRN, ELECTRONIC TESTER Unavailable [phone] Savage Long MD Primary Care Provider [phone] Leighton Rios MD Unavailable [phone] Caroline Candelaria MD Unavailable Brittnee Mae RN Unavailable Unavailable Oleksandr Borjas MD Unavailable Brittnee Mae RN Unavailable Unavailable Encounter Details Date Type Department Care Team (Late st Contact Info) Description 12/02/2023 Lab Requisition [facility] [address] [place] [address] Savage Long MD #[address] [address] Abnormal coagulation profile; Essential (primary) hypertension; Hyperkalemia Social History Tobacco Use Types Packs/Day Years Used Date Smoking Tobacco: Never Smokeless Tobacco: Never Comments:Never smoked Alcohol Use Standard Drinks/Week Comments Not Currently 0 (1 standard drink = 0.6 oz pur e alcohol) socially [facility] Utilities Answer Date Recorded In the [...] declined 11/25/2023 How often do you attend uatsdin or hoahaoism serv ices? Patient declined 11/25/2023 Do you belong to any clubs o r organizations such as uatsdin groups, unions, fraternal or athletic groups, or [...] Total Score - Questions 1-9 0 10/03 [facility] - [...] any time in the past 12 [address] [place], were you homeless or living in a [...] st Contact Info) Description 02/14/2025 9:30 AM ENERGY ASSISTANT Office Visit [facility] [address] [place] [address] Yuniel Finley APRN, ELECTRONIC TESTER #2 [facility] [address] [place] [address] 04/19/2025 10:00 AM ENERGY ASSISTANT Lab [facility] [address] [place] [address] Isaura Evans Tanika, PAC [address] [place] [address] Discharge Disposition: Discharged to home or Selfcare 04/26/2025 9:40 AM ENERGY ASSISTANT Office Visit [facility] [address] [place] [address] Isaura Evans Tanika, PAC [address] [place] [address] Discharge Disposition: Discharged to home or Selfcare [...] - 36 sec 12/02/2023 1:[address] [facility] Blood No Phlebotomy Charged / Unknown 12/02/2023 12:00 PM CDT 12/02/2023 12:59 PM CDT Narrative [facility] - 12/02/2023 1:29 PM CDT Therapeutic range for unfractionated heparin at 0.3-0.7 U/mL is an aPTT value in the range of 71-100 seconds. Critical value for the PTT test is >= 122 seconds. Result [facility] Savage Long MD HEMATOLOGY ORDERABLES Fin al Result Performing Organization Address City/[facility] Co de Phone Number [facility] [address] [place] [address] * (ABNORMAL) PROTIME (PT) (PROTHROMBIN TIME) (12/02/2023 12:00 PM CDT) PROTIME-PATIENT 16.5(H) 11.6 - 14.8 sec 12/02/2023 1:[address] [facility] INR 1.3(H) 0.9 - 1.2 12/02/2023 1:[address] [facility] Comment: Therapeutic Ranges INR = 2.0-3.0: Venous thromb, atrial fib, pul embolism, tissue heart valve, ami. INR = 2.5-3.5: Mechanical heart valve Critical value for INR is >/= 4.5 Blood No Phlebotomy Charged / Unknown 12/02/2023 12:00 PM CDT 12/02/2023 12:59 PM CDT Savage Long MD HEMATOLOGY ORDERABLES Fin al Result Performing Organization Address [facility] Co de Phone Number [facility] [address] [place] [address] documented in this encounter Visit Diagnoses Diagnosis Abnormal coagulation profile Essential (primary) hypertension Unspecified essential hypertension Hyperkalemia Hyperpotassemia documented in this encounter Additional Health Concerns Active Problems Noted Date Diagnosed Date Quality of Life (General Plan of Care) Infection Onset Date Last Indicated Resolved Time Respiratory Rule-Out 04/07/2024 04/07/2024 025 10:22 AM ENERGY ASSISTANT COVID - 19 04/07/2024 04/07/2024 04/07/2024 10:2 2 AM ENERGY ASSISTANT Assessment Noted Time PHQ-9 Depression Total Score: 0 10/13/19 2:26 PM CDT documented as of this encounter Care Teams Homeland Security Program Specialist Relationship Specialty Start Date End Date Savage Long MD #2 [facility] [address] [place] [address] PCP - General Family Medicine 09/16/20 Kimberlee Morocho, CISCO ENGINEER, ELECTRONIC TESTER Nurse Practitioner Advanced Practice Nurse 10/24/15 Leighton Rios MD #2 [facility] [address] [place] [address] Consulting Physician Clinical Cardiac Electrophysiology 04/10/22 Caroline Candelaria MD #2 [facility] [address] [place] [address] Consulting Physician Endocrinology 02/24/23 Brittnee Mae RN [place] Nurse Lawn Care Technician 02/06/22 12/02/23 Oleksandr oBrjas MD #[address] [address] Consulting Physician Colon and Rectal Surgery 05/20/23 Brittnee Mae, RN [place] Nurse Lawn Care Technician 07/06/24 07/06/24 documented as of this encounter
--- OUTSIDE RECORDS SUMMARY | 2024-11-20 14:44 | XMS_ITS | Encounter Summary ---
Author Organization [facility] Facility Care Team Providers Care Stave Inspector Name Role Phone Shari Borrego MD Primary Care Provider [phone] Savage Long MD Primary Care Provider [phone] Encounter Details Date Type Department Care Team (Latest Contact Info) Description 06/10/2017 Orders Only [facility] ProviderDominga MD [address] [place] [address] Social History Tobacco Use Types Packs/Day Years Used Date Smoking Tobacco: Never Comments Unknown Sex and Gender Information Value Date Recorded Sex Assigned at Not on file Legal Sex Female 3:40 AM DUTY MANAGER Gender Identity Not on file Sexual Orientation Not on file documented as of this encounter Plan of Treatment Not on file documented as of this encounter Procedures Procedure Name Priority Date/Time Associated Diagnosis Comments PROCEDURE - RESULT 06/10/2017 12 :00 AM DUTY MANAGER documented in this encounter Results * PROCEDURE - RESULT (06/10/2017 12:00 AM DUTY MANAGER) Narrative 06/10/2017 12:00 AM DUTY MANAGER Ordered by an unspecified provider. Historical Provider [...] documented as of this encounter Care Teams Stave Inspector Relationship Specialty Start Date End Date Shari Borrego MD PCP - General 09/15/16 06/18/22 Savage Long MD [address] [address] PCP - General Family Medicine 06/19/22 documented as of this encounter
--- OUTSIDE RECORDS SUMMARY | 2024-11-20 14:44 | XMS_ITS | Clinical Summary ---
Author Organization [facility] Address [address] [place] [address] Phone Care Team Providers Care Civil Cad Designer Name Role Phone Kimberlee Morocho APRN, ASSEMBLER CAMPER Unavailable [phone] Savage Long MD Primary Care Provider [phone] Leighton Rios MD Unavailable [phone] Caroline Candelaria MD Unavailable Oleksandr Borjas MD [...] Take 40 mg by mouth daily. 05/07/19 Active COMPOUNDED MEDICATIONIndi cations:Mouth pain Take 5-10 mL by mouth 4 times daily as needed for Other. for mouth/throat discomfort. Pharmacist Mixture Instructions *ALUM & MAG HYDROXIDE-SIMET H 200-200-20 MG/5ML PO SUSP -- 360 mL *DIPEHENHYDRAMI NE HCL 12.5 MG/5ML PO ELIX -- 50 mL *LIDOCAINE VISCOUS 2% MT SOLN -- 80 mL 490 mL 3 10/19/19 25 Active dicyclomine (BENTYL) 10 MG CapsuleIndicat ions:Irritable bowel syndrome, unspecified type TAKE 1 CAPSULE BY MOUTH TWICE DAILY NEEDED 60 Capsule 2 11/16/19 25 Active dicyclomine (BENTYL) 10 MG CapsuleIndicat ions:Irritable bowel syndrome, unspecified type TAKE 1 CAPSULE BY MOUTH TWICE DAILY NEEDED 60 Capsule 09/28/19 25 025 Discontinued Active Problems Problem Noted [...] Date Type Department Care Team Description 11/15/2024 Refill [facility] [address] [place] [address] Savage Long MD Medication Refill 11/14/2024 9:30 AM CDT Office Visit [facility] [address] [place] [address] Savage Long MD Postmenopausal (Primary Dx); Obesity (BMI 30-39.9); Constipation, unspecified constipation type Discharge Disposition: Discharged to home or Selfcare 11/14/2024 Travel 10/24/2024 10:00 AM CDT Office Visit [facility] [address] [place] [address] Isaura Evans Tanika, PAC Anemia, normocytic normochromic (Primary Dx); Abnormality of plasma protein Discharge Disposition: Discharged to home or Selfcare 10/24/2024 Travel 10/19/2024 Results Follow-Up [facility] [address] [place] [phone] Evans, Isaura Tanika, PAC FERRITIN, IRON,TRANSFERN,CALC.TI BC,%SAT, VITAMIN B12, Additional followed-up results: 4 10/18/2024 Patient Outreach [facility] [address] [place] [address] Brittnee Mae, RN Care Management 10/17/2024 11:00 AM CDT Lab [facility] [address] [place] [phone] Isaura Evans Tanika, PAC Anemia, normocytic normochromic; Abnormality of plasma protein Discharge Disposition: Discharged to home or Selfcare 10/17/2024 Travel 09/27/2024 Refill [facility] [address] [place] [address] Savage Long MD Medication Refill from Last 3 Months Immunizations Immunization Administration Dates Next Due COVID-19 mRNA, bivalent, original/Omicron BA.1, Non-US Vaccine Product, CellNovo-Verificoech 12/25/2022 COVID-19, Mrna, Lnp-s, Pf, 5 0 [...] - 23 Valent 01/02/2013,01/02/2013 TDAP Vaccine 05/26/2011 Zoster Vaccine Recombinant 11/14/2024 Family History Medical History Relation Name Comments [...] Status Comments Brother Alive Daughter Alive Father Idnh Maternal Grandfather Maternal Grandmother Mother Janette Paternal Grandfather Paternal Grandmother Son 1 Alive Son 2 Alive Social History Tobacco Use Types Packs/Day Years Used Date Smoking Tobacco: Never Smokeless Tobacco: Never Tobacco Cessation:Counseling Given: Yes Comments:Never smoked Alcohol Use Standard Drinks/Week Comments Not Currently 0 (1 standard drink = 0.6 oz pur e alcohol) socially [facility] Utilities Answer Date Recorded In the [...] often do you attend chur ch or zoroastrianism services? Never 07/06/2024 Do you belong to any clubs o r organizations such as faith groups, unions, fraternal or athletic groups, or [...] Total Score - Questions 1-9 0 06/2024 [facility] Occupational Stress Questionnaire Answer [...] place to sleep or slept in a snf (including now)? Patient declined 05/13/2023 Housing Stability [...] any time in the past 12 m [facility], were you homeless or living in a snf (including now)? No 07/06/2024 Education Answer Date [...] Sign Reading Time Taken Comments Blood Pressure 132/82 11/14/2024 9:04 AM CDT Pulse 98 11/14/2024 9:04 AM CDT Temperature 36.2 C (97.1 F) 11/14/2024 9:04 AM CDT Respiratory Rate 18 10/24/2024 9:54 AM CDT Oxygen Saturation 97% 11/14/2024 9:04 AM CDT Inhaled Oxygen Concentration - - Weight 89.4 kg (197 lb) 11/14/2024 9:04 AM CDT Height 158.8 cm (5' 2.5) 11/14/2024 9:04 AM CDT Body Mass Index 35.46 11/14/2024 9:04 AM CDT Plan of Treatment Upcoming Encounters Date Type Department Care Team (Late st Contact Info) Description 02/14/2025 9:30 AM PRODUCTION OPERATOR Office Visit [facility] [address] [place] [address] Yuniel Finley APRN, ASSEMBLER CAMPER [address] [address] 04/19/2025 10:00 AM PRODUCTION OPERATOR Lab [facility] [address] [place] [address] Isaura Evans September, PAC [address] [place] [address] Discharge Disposition: Discharged to home or Selfcare 04/26/2025 9:40 AM PRODUCTION OPERATOR [facility] [address] [place] [address] Isaura Evans September, PAC [address] [place] [address] Discharge Disposition: Discharged to home or Selfcare Health Maintenance Due Date Last Done Comments Respiratory Syncytial Virus (RSV) Immunization (Adult) (1 - 1-dose 75+ series) 02/11/2019 Td Immunization Every 10 Years (Adults With 1 Tdap) 05/26/2021 05/26/2011 DEXA Bone Density 06/28/2023 06/27/2021 SARS-COV-2 Immunization ( season) 2023 12/25/2022, 08/22/2021, 12/31/2020, Additional history exists Influenza Immunization (#1) 2024 09/2 05/2022, 12/22/2021, 12/05/2020, Additional history exists Zoster Immunization (2 of 2) 01/09/2025 11/14/2024 Pneumococcal Immunization (50+ years) Completed 12/06/2019, 04/24/2015, 04/24/2015, Additional history exists Pneumococcal Immunization Combined Discontinued 12/06/2019, 04/24/2015, 04/24/2015, Additional history exists Hepatitis C Virus (HCV) Screening Completed 10/08/2020 Colonoscopy Discontinued 02/10/2023, 11/2022, 02/10/2023, Additional history exists Colorectal Cancer Screening Discontinued Cologuard Discontinued Hepatitis B Immunization Aged Out No longer eligible based on patient's age to complete this topic Human Papillomavirus (HPV) Immunization Aged Out No longer eligible based [...] Diagnosis Comments CBC WITH AUTO DIFFERENTIAL Routine 10/17/2024 11:04 AM CDT Anemia, normocytic normochromic FREE KAPPA & LAMBDA LIGHT CHAINS SERUM Routine 10/17/2024 11:04 AM CDT Anemia, normocytic normochromic Abnormality of plasma protein FOLIC ACID (FOLATE) Routine 10/17/2024 1 1:04 AM CDT Anemia, normocytic normochromic CMP (COMPREHENSIVE METABOLIC PANEL) Routine 10/17/2024 11:04 AM CDT Anemia, normocytic normochromic COMPLETE BLOOD COUNT (CBC) WITH DIFF Routine 10/17/2024 11:04 AM CDT Anemia, normocytic normochromic VITAMIN B12 Routine 10/17/2024 11:04 AM CDT Anemia, normocytic normochromic IRON,TRANSFERN,CALC.T IBC,%SAT Routine 10/17/2024 11:04 AM CDT Anemia, normocytic normochromic FERRITIN Routine 10/17/2024 11:04 AM CDT Anemia, normocytic normochromic XR - LOWER EXTREMITY 08/21/2024 12:00 AM CDT HM COLONOSCOPY 02/10/2023 12:00 AM PRODUCTION OPERATOR LUX BONE DENSITOMETRY AXIAL SKELETON Routine 06/27/2021 10:19 AM CDT Asymptomatic menopausal state HEPATITIS C ANTIBODY Routine 10/08/2020 7:11 AM CDT Encounter for hepatitis C screening test for low risk patient from Last 3 Months or Most Recently Relevant to Health Maintenance Results * IRON,TRANSFERN,CALC.TIBC,%SAT (10/17/2024 11:04 AM CDT) IRON 67 25 - 156 mcg/dL 10/17/2024 12:11 PM CDT [facility] TRANSFERRIN 306 173 - 360 mg/dL 10/17/2024 12:11 PM CDT [facility] TIBC, CALCULATED 383 265 - 497 mcg/dL 10/17/2024 12:11 PM CDT [facility] % SATURATION * 17 15 - 62 % 10/17/2024 12:11 PM CDT [facility] Blood Venipuncture / Unknown 10/17/2024 11:04 AM CDT 10/17/2024 11:04 AM CDT us Isaura Evans PAC CHEMISTRY ORDERABLES Amara l Result [facility] [address] [place] [address] * (ABNORMAL) CBC WITH AUTO DIFFERENTIAL (10/17/2024 11:04 AM CDT) [facility] WBC 6.27 4.00 - 12.00 10(3)/mcL 10/17/2024 11:49 AM CDT [facility] RBC 4.14 3.80 - 5.30 10(6)/mcL 10/17/2024 11:49 AM CDT [facility] HEMOGLOBIN (HGB) 12.4 12.0 - 15.8 g/dL 10/17/2024 11:49 AM CDT [facility] HEMATOCRIT (HCT) 39.3 36.0 - 47.0 % 10/17/2024 11:49 AM CDT [facility] MCV 94.9 82.0 - 96.0 fL 10/17/2024 11:49 AM CDT [facility] MCH 30.0 26.0 - 34.0 pg 10/17/2024 11:49 AM CDT [facility] MCHC 31.6 31.0 - 36.0 g/dL 10/17/2024 11:49 AM CDT [facility] PLATELET COUNT 266 140 - 440 10(3)/[facility] 10/17/2024 11:49 AM CDT [facility] RDW 13.9 11.8 - 15.5 % 10/17/2024 11:49 AM CDT [facility] MPV 9.4(L) 9.7 - 12.4 fL 10/17/2024 11:49 AM CDT [facility] NEUTROPHILS 59.9 47.0 - 73.0 % 10/17/2024 11:49 AM CDT [facility] LYMPHOCYTES 25.0 18.0 - 42.0 % 10/17/2024 11:49 AM CDT [facility] MONOCYTES 8.0 4.0 - 12.0 % 10/17/2024 11:49 AM CDT [facility] EOSINOPHILS 5.6(H) 0.0 - 5.0 % 10/17/2024 11:49 AM CDT [facility] BASOPHILS 1.0 0.0 - 1.0 % 10/17/2024 11:49 AM CDT [facility] IMMATURE GRANULOCYTE 0.5(H) 0.0 - 0.4 % 10/17/2024 11:49 AM CDT [facility] Comment:Immature Granulocyte s includes Metamyelocytes, Myelocytes, and Promyelocytes. ABSOLUTE NEUTROPHILS 3.76 1.60 - 7.70 10(3)/mcL 10/17/2024 11:49 AM CDT [facility] ABSOLUTE LYMPHOCYTES 1.57 1.30 - 3.20 10(3)/[facility] 10/17/2024 11:49 AM CDT [facility] ABSOLUTE MONOCYTES 0.50 0.20 - 1.00 10(3)/[facility] 10/17/2024 11:49 AM CDT [facility] ABSOLUTE EOSINOPHIL 0.35 0.00 - 0.40 10(3)/[facility] 10/17/2024 11:49 AM CDT [facility] ABSOLUTE BASOPHILS 0.06 0.00 - 0.10 10(3)/[facility] 10/17/2024 11:49 AM CDT [facility] ABSOLUTE IMMATURE GRANULOCYTE 0.03 0.00 - 0.03 10 (3) mcL. 10/17/2024 11:49 AM CDT [facility] NRBC PER 100 WBC 0 10/18/19 25 11:49 AM CDT [facility] Blood Venipuncture / Unknown 10/17/2024 11:04 AM CDT 10/17/2024 11:04 AM CDT Isaura Evans PAC HEMATOLOGY ORDERABLES Fin al Result [facility] [address] [place] [address] * (ABNORMAL) FREE KAPPA & LAMBDA LIGHT CHAINS SERUM (10/17/2024 11:04 AM CDT) Free Burnside Lt Chn 31.71(H) 3.30 - 19.40 mg/L 10/18/2024 8:47 AM CDT [facility] Free Lambda Lt Chn 19.90 5.71 - 26.30 mg/L 10/18/2024 8:47 AM CDT [facility] free julio gordon ratio 1.59 0.26 - 1.65 10/18/2024 8:47 AM CDT [facility] Blood Venipuncture / Unknown 10/17/2024 11:04 AM CDT 10/17/2024 11:04 AM CDT [facility] PAC CHEMISTRY ORDERABLES Amara l Result Performing Organization Address City/[facility]/ZIP Co de Phone Number [facility] [address] [place] [address], * VITAMIN B12 (10/17/2024 11:04 AM CDT) [facility] VITAMIN B12 601 213 - 816 pg/mL 10/17/2024 12:40 PM CDT [facility] Blood Venipuncture / Unknown 10/17/2024 11:04 AM CDT 10/17/2024 11:04 AM CDT [facility] PAC CHEMISTRY ORDERABLES Amara l Result [facility] [address] [place] [address] * FOLIC ACID (FOLATE) (10/17/2024 11:04 AM CDT) Pathologist [facility] FOLATE 16.1 7.0 - 31.4 ng/mL 10/17/2024 12:40 PM CDT [facility] IS THE PATIENT REQUIRED TO BE FASTING? No 10/17/2024 12:40 PM CDT [facility] Blood Venipuncture / Unknown 10/17/2024 11:04 AM CDT 10/17/2024 11:04 AM CDT [facility] PAC CHEMISTRY ORDERABLES Amara l Result Performing Organization Address City/[facility]/ZIP Co de Phone Number [facility] [address] [place] [address] * FERRITIN (10/17/2024 11:04 AM CDT) Pathologist [facility] FERRITIN 67 5 - 204 ng/mL 10/17/2024 12:25 PM CDT [facility] Blood Venipuncture / Unknown 10/17/2024 11:04 AM CDT 10/17/2024 11:04 AM CDT [facility] PAC CHEMISTRY ORDERABLES Amara l Result Performing Organization Address City/[facility]/ZIP Co de Phone Number [facility] [address] [place] [address] * (ABNORMAL) CMP (COMPREHENSIVE METABOLIC PANEL) (10/17/2024 11:04 AM CDT) Pathologist [facility] SODIUM 140 136 - 145 mmol/L 10/17/2024 12:11 PM CDT [facility] POTASSIUM 4.1 3.5 - 5.1 mmol/L 10/17/2024 12:11 PM CDT [facility] CHLORIDE 105 98 - 107 mmol/L 10/17/2024 12:11 PM CDT [facility] CO2, VENOUS 27 22 - 30 mmol/L 10/17/2024 12:11 PM CDT [facility] ANION GAP 12.1 <18.0 mmol/L 10/17/2024 12:11 PM CDT [facility] GLUCOSE 85 70 - 99 mg/dL 10/17/2024 12:11 PM CDT [facility] BUN 21(H) 10 - 20 mg/dL 10/17/2024 12:11 PM [facility] CREATININE, BLOOD 0.86 0.60 - 1.00 mg/dL 10/17/2024 12:11 PM [facility] BUN/CREATININE RATIO 24(H) 12 - 20 ratio 10/17/2024 12:11 PM [facility] TOTAL PROTEIN 6.9 6.0 - 8.0 g/dL 10/17/2024 12:11 PM [facility] ALBUMIN 3.9 3.5 - 5.0 g/dL 10/17/2024 12:11 PM [facility] A/G RATIO 1.3 1.0 - 2.2 10/17/2024 12:11 PM [facility] CALCIUM 9.2 8.7 - 10.5 mg/dL 10/17/2024 12:11 PM [facility] T BILI 0.5 0.2 - 1.2 mg/dL 10/17/2024 12:11 PM [facility] SGOT (AST) 22 <43 U/L 10/17/2024 12:11 PM [facility] SGPT (ALT) 15 <56 U/L 10/17/2024 12:11 PM [facility] ALKALINE PHOSPHATASE 49 40 - 150 U/L 10/17/2024 12:11 PM [facility] IS THE PATIENT REQUIRED TO BE FASTING? No 10/17/2024 12:11 PM [facility] GFR, ESTIMATED >60 >=60 10/17/2024 12:11 PM [facility] Comment: Creatinine Clearance is the preferred criteria for selecting drug dose adjustments in renally impaired patients. The GFR is provided as additional pertinent clinical information. GFR is reported in mL/min/1.73 sq m. Calculation based on the Chronic Kidney Disease Epidemiology Collaboration (CKD- EPI) equation refit without adjustment for race. GFR, EST. >60 >=60 025 12:11 PM [facility] GFR, EST. NONAFRICAN >60 >=60 10/17/2024 12:11 PM CDT [facility] Blood Venipuncture / Unknown 10/17/2024 11:04 AM CDT 10/17/2024 11:04 AM CDT Isaura Evans PAC CHEMISTRY ORDERABLES Amara l Result Performing Organization Address City/[facility] de Phone Number [facility] [address] [place] [address] * XR - LOWER EXTREMITY (08/21/2024 12:00 AM CDT) 08/21/2024 Provider Scan IMG DIAGNOSTIC ORDERABLES Final Result Performing Organization Address [facility] de Phone Number SCAN * HM COLONOSCOPY (02/10/2023 12:00 AM PRODUCTION OPERATOR) 02/10/2023 Savage Long MD PROCEDURE/MINOR SURGICAL ORDERABLES Final Result Performing Organization Address [facility] de Phone Number SCAN * [...] Narrative 06/27/2021 1:08 PM CDT EXAM DESCRIPTION: [facility] BONE DENSITOMETRY AXIAL SKELETON REASON FOR STUDY: 76 y/o year old F with given history of screening. Device Processing Engineer/Model: [employer] ([id number]/N [id number]) CLINICAL INFORMATION: Current height: 5 foot 3 [...] Luther Christensen M.D. AG: CRYSTAL Report ID: [id number] Reading Location: [place] [address] Procedure Note Luther Christensen MD - 06/27/2021 EXAM DESCRIPTION: [facility] BONE DENSITOMETRY AXIAL SKELETON REASON FOR STUDY: 76 y/o year old F with given history of screening. Device Processing Engineer/Model: [employer] ([id number]/N [id number]) CLINICAL INFORMATION: Current height: 5 foot 3 [...] Luther Christensen M.D. AG: [employer] Report ID: [id number] Reading Location: [place] [address] IMPRESSION: Normal bone density. REFERENCE: Bone mineral [...] Treatment of Osteoporosis (http://www.nof.org/professionals/clinical-guidelines) Yuniel Finley APRN, KAMARI IMG DEXA ORDERAB LES Final Result * HEPATITIS C ANTIBODY (10/08/2020 7:11 AM CDT) hepatitis C antibody 0.24 <1 S/CO [facility] ARCH [id number] B 10/08/2020 3:02 PM CDT [facility] Comment: Signal/Cutoff ratio < 0.79 is Nondetected Signal/Cutoff ratio 0.80-0.99 is Grayzone Signal/Cutoff ratio > 0.99 is Detected Supplemental assays are recommended if signal/cutoff ratio is >/=1.00. Signal/cutoff ratio result >/= 5.00 is 97% predictive of positivity for recombinant immunoblot assay (RIBA) and will be reported to the [place] Department of Public Health as required. Blood Venipuncture / Unknown 10/08/2020 7:11 AM CDT 10/08/2020 7:11 AM CDT us Savage Long MD CHEMISTRY ORDERABLES Amara masterson Result [facility] [address] [place] [address], from Last 3 Months or Most Recently Relevant to Health Maintenance Additional Health Concerns Active Problems Noted Date Diagnosed Date Quality of Life (General Plan of Care) 4 Insurance [facility] MEDICARE Advance Directives Documents on File Type Date Recorded Patient Inspector Clip On Sunglasses Expl anation Power of Door Operator for Health Care 07/06/2024 5:36 PM POA-HC, [...] Chano Saxena Spouse Healthcare POA Care Teams Civil Cad Designer Relationship Specialty Start Date End Date Savage Long MD #[address] [address] PCP - General Family Medicine 09/16/20 Kimberlee Morocho APRN, ASSEMBLER CAMPER Nurse Practitioner Advanced Practice Nurse 10/24/15 Leighton Rios MD #[address] [address] Consulting Physician Clinical Cardiac Electrophysiology 04/10/22 Caroline Candelaria MD #[address] [address] Consulting Physician Endocrinology 02/24/23 Oleksandr Borjas MD #[address] [address] Consulting Physician Colon and Rectal Surgery 05/20/23
--- OUTSIDE RECORDS SUMMARY | 2024-11-20 14:44 | XMS_ITS | Encounter Summary ---
Author Organization [facility] Address [address] [place] [address] Care Team Providers Care Microcomputer Technician Name Role Phone Savage Long MD Primary Care Provider [phone] Encounter Details Date Type Department Care Team (Late st Contact Info) Description 10/09/2024 Results Follow-Up [facility] Director Of Epidemiology at [address] [place] [address] Luis Buitrago MA Protime-INR Social History Tobacco Use Types Packs/Day Years Used Date Smoking Tobacco: Never Smokeless Tobacco: Never AUDIT-C Answer Date Recorded Q1: How often [...] on file Legal Sex Female 3:40 AM BIODIESEL PRODUCTION ASSOCIATE Gender Identity Not on file Sexual Orientation Not on file documented as of this encounter Plan of Treatment Not on file documented as of this encounter Visit Diagnoses Not on filedocumented in this encounter Care Teams Microcomputer Technician Relationship Specialty Start Date End Date Savage Long MD [address] [id number] PCP - General Family Medicine 06/19/22 documented as of this encounter
--- OUTSIDE RECORDS SUMMARY | 2024-11-20 14:44 | XMS_ITS | Encounter Summary ---
Author Organization [facility] Address [address] [place] [address] Phone Care Team Providers Care Regional Sales Consultant Name Role Phone Kimberlee Morocho APRN, CNP Unavailable [phone] Savage Long MD Primary Care Provider [phone] Brittnee Mae RN Unavailable Unavailable Leighton Rios MD Unavailable [phone] Caroline Candelaria MD Unavailable Brittnee Mae RN Unavailable Unavailable Oleksandr Borjas MD Unavailable Brittnee Mae RN Unavailable Unavailable Reason for Visit * Reason Comments Medication Refill Encounter Details Date Type Department Care Team (Late st Contact Info) Description 03/18/2021 Refill [facility] [address] [place] [address] Savage Long MD #[address] [address] Medication Refill Social History Tobacco Use Types [...] [place] 09/16/20 Office Visit Savage Long MD [facility] Showing recent visits within past 365 days and meeting all other requirements Future Appointments Date Type Provider Dept 06/13/21 Appointment Savage Long MD [facility] Showing future appointments within next 90 days and meeting all other requirements OR SCRIPT EDITOR documented in this encounter Plan of Treatment Upcoming Encounters Date Type Department Care Team (Late st Contact Info) Description 02/14/2025 9:30 AM BOOK OR SCRIPT EDITOR Office Visit [facility] - [facility] [address] [place] [address] Yuniel Finley APRN, PCU RN #[address] [address] 04/19/2025 10:00 AM BOOK OR SCRIPT EDITOR [facility] [address] [place] [address] EvansIsaura September, PAC [address] [place] [address] Discharge Disposition: Discharged to home or Selfcare 04/26/2025 9:40 AM BOOK OR SCRIPT EDITOR Office Visit [facility] [address] [place] [address] [facility] September, PAC [address] [place] [address] Discharge Disposition: Discharged to home or Selfcare documented as of this encounter Visit Diagnoses Not on filedocumented in this encounter Additional Health Concerns Infection Onset Date Last Indicated Resolved Time COVID - 19 03/07/2021 03/07/2021 03/27/2021 12:1 6 AM BOOK OR SCRIPT EDITOR COVID - 19 05/26/2022 05/26/2022 05/26/2022 10:0 5 AM BOOK OR SCRIPT EDITOR COVID - 19 05/26/2022 05/26/2022 06/05/2022 12:1 6 AM BOOK OR SCRIPT EDITOR Respiratory Rule-Out 04/07/2024 04/07/2024 025 10:22 AM BOOK OR SCRIPT EDITOR COVID - 19 04/07/2024 04/07/2024 04/07/2024 10:2 2 AM BOOK OR SCRIPT EDITOR Assessment Noted Time PHQ-9 Depression Total Score: 0 09/17/19 1:00 PM CDT documented as of this encounter Care Teams Regional Sales Consultant Relationship Specialty Start Date End Date Savage Long MD #[address] [address] PCP - General Family Medicine 09/16/20 Kimberlee Morocho, ADMINISTRATIVE OFFICE CLERK, PCU RN Nurse Practitioner Advanced Practice Nurse 10/24/15 Brittnee Mae RN [place] Professor Of Environmental Science 02/06/22 03/30/23 Leighton Rios MD [place] Consulting Physician Clinical Cardiac Electrophysiology 04/10/22 Caroline Candelaria MD #[address] [address] Consulting Physician Endocrinology 02/24/23 Brittnee Mae RN [place] Nurse Professor Of Environmental Science 02/06/22 12/02/23 Oleksandr Borjas MD #[address] [address] Consulting Physician Colon and Rectal Surgery 05/20/23 Brittnee Mae RN [place] Nurse Professor Of Environmental Science 07/06/24 07/06/24 documented as of this encounter
--- OUTSIDE RECORDS SUMMARY | 2024-11-20 14:44 | XMS_ITS | Encounter Summary ---
Author Organization [facility] Address [address] [place] [address] Phone Care Team Providers Care Mechatronics Technician Name Role Phone Kimberlee Morocho APRN, SCROLL SHEAR OPERATOR Unavailable [phone] Savage Long MD Primary Care Provider [phone] Leighton Rios MD Unavailable +- [phone] Caroline Candelaria MD Unavailable Brittnee Mae RN Unavailable Unavailable Oleksandr Borjas MD Unavailable Brittnee Mae RN Unavailable Unavailable Encounter Details Date Type Department Care Team (Late st Contact Info) Description 12/02/2023 Lab Requisition [facility] Laboratory Services [address] [place] [address] Savage Long MD #[address] [address] Essential (primary) hypertension; Abnormal coagulation profile; Hyperkalemia Social History Tobacco Use Types Packs/Day Years Used Date Smoking Tobacco: Never Smokeless Tobacco: Never Comments:Never smoked Alcohol Use Standard Drinks/Week Comments Not Currently 0 (1 standard drink = 0.6 oz pur e alcohol) socially [facility] Utilities Answer Date Recorded In [...] declined 11/25/2023 How often do you attend christian or sabianist serv ices? Patient declined 11/25/2023 Do you belong to any clubs o r organizations such as christian groups, unions, fraternal or athletic groups, or [...] Total Score - Questions 1-9 0 10/03 [facility] - Occupational [...] place to sleep or slept in a nursing home (including now)? Patient declined 05/13/2023 Housing [...] any time in the past 12 [facility], were you homeless or living in a nursing home (including now)? Patient declined 11/25/2023 Education [...] st Contact Info) Description 02/14/2025 9:30 AM VENDOR ANALYST Office Visit [facility] - Family [facility] [address] [place] [address] Yuniel Finley APRN, SCROLL SHEAR OPERATOR [facility] [address] [address] 04/19/2025 10:00 AM VENDOR ANALYST Lab [facility] [address] [place] [address] Isaura Evans Tanika, PAC [address] [place] [address] Discharge Disposition: Discharged to home or Selfcare 04/26/2025 9:40 AM VENDOR ANALYST Office Visit [facility] Oncology Services [address] [place] [address] Isaura Evans Tanika, PAC [address] [place] [address] Discharge Disposition: Discharged to home or Selfcare [...] - 12.00 10(3)/mcL 12/02/2023 12:38 PM CDT [facility] RBC 2.98(L) 3.80 - 5.30 10(6)/mcL 12/02/2023 12:38 PM CDT [facility] HEMOGLOBIN (HGB) 8.9(L) 12.0 - 15.8 g/dL 12/02/2023 12:38 PM CDT [facility] HEMATOCRIT (HCT) 26.7(L) 36.0 - 47.0 % 12/02/2023 12:38 PM CDT [facility] MCV 89.6 82.0 - 96.0 fL 12/02/2023 12:38 PM CDT [facility] MCH 29.9 26.0 - 34.0 pg 12/02/2023 12:38 PM CDT [facility] MCHC 33.3 31.0 - 36.0 g/dL 12/02/2023 12:38 PM CDT [facility] PLATELET COUNT 342 140 - 440 10(3)/mcL 12/02/2023 12:38 PM CDT [facility] RDW 13.1 11.8 - 15.5 % 12/02/2023 12:38 PM CDT [facility] MPV 9.4(L) 9.7 - 12.4 fL 12/02/2023 12:38 PM [facility] NEUTROPHIL[facility] 66.5 47.0 - 73.0 % 12/02/2023 12:38 PM CDT [facility] LYMPHOCYTES 16.1(L) 18.0 - 42.0 % 12/02/2023 12:38 PM CDT [facility] MONOCYTES 10.6 4.0 - 12.0 % 12/02/2023 12:38 PM CDT [facility] EOSINOPHILS 5.6(H) 0.0 - 5.0 % 12/02/2023 12:38 PM CDT [facility] BASOPHILS 1.2(H) 0.0 - 1.0 % 12/02/2023 12:38 PM CDT [facility] ABSOLUTE NEUTROPHILS 3.89 1.60 - 7.70 10(3)/mcL 12/02/2023 12:38 PM CDT [facility] ABSOLUTE LYMPHOCYTES 0.94(L) 1.30 - 3.20 10(3)/[facility] 12/02/2023 12:38 PM CDT [facility] ABSOLUTE MONOCYTES 0.62 0.20 - 1.00 10(3)/[facility] 12/02/2023 12:38 PM CDT [facility] ABSOLUTE EOSINOPHIL 0.33 0.00 - 0.40 10(3)/mcL 12/02/2023 12:38 PM CDT [facility] ABSOLUTE BASOPHILS 0.07 0.00 - 0.10 10(3)/[facility] 12/02/2023 12:38 PM CDT [facility] NRBC PER 100 WBC 0 12/02/19 12:38 PM CDT [facility] Blood No Phlebotomy Charged / Unknown 12/02/2023 12:00 PM CDT 12/02/2023 12:27 PM CDT us Savage Long MD HEMATOLOGY ORDERABLES Fin al Result [facility] [address] [place] [address] * (ABNORMAL) BASIC METABOLIC PANEL W/ CALCIUM TOTAL (12/02/2023 12:00 PM CDT) SODIUM 139 136 - 145 mmol/L 12/02/2023 1:06 PM CDT [facility] POTASSIUM 3.7 3.5 - 5.1 mmol/L 12/02/2023 1:06 PM CDT [facility] CHLORIDE 105 98 - 107 mmol/L 12/02/2023 1:06 PM CDT [facility] CO2, VENOUS 26 22 - 30 mmol/L 12/02/2023 1:06 PM CDT [facility] ANION GAP 11.7 <18.0 mmol/L 12/02/2023 1:06 PM CDT [facility] GLUCOSE 107(H) 70 - 99 mg/dL 12/02/2023 1:06 PM CDT [facility] BUN 12 10 - 20 mg/dL 12/02/2023 1:06 PM CDT [facility] CREATININE, BLOOD 0.62 0.60 - 1.00 mg/dL 12/02/2023 1:06 PM CDT [facility] BUN/CREATININE RATIO 19 12 - 20 ratio 12/02/2023 1:06 PM CDT [facility] CALCIUM 8.9 8.7 - 10.5 mg/dL 12/02/2023 1:06 PM CDT [facility] GFR, ESTIMATED >60 >=60 12/02/2023 1:06 PM CDT [facility] Comment: Creatinine Clearance is the preferred criteria for selecting drug dose adjustments in renally impaired patients. The GFR is provided as additional pertinent clinical information. GFR is reported in mL/min/1.73 sq m. Calculation based on the Chronic Kidney Disease Epidemiology Collaboration (CKD- EPI) equation refit without adjustment for race. GFR, EST. >60 >=60 024 1:06 PM CDT [facility] GFR, EST. NONAFRICAN >60 >=60 12/02/2023 1:06 PM CDT [facility] Blood No Phlebotomy Charged / Unknown 12/02/2023 12:00 PM CDT 12/02/2023 12:27 PM CDT us Savage Long MD CHEMISTRY ORDERABLES Amara l Result [facility] [address] [place] [address] documented in this encounter Visit Diagnoses Diagnosis Essential (primary) hypertension Unspecified essential hypertension Abnormal coagulation profile Hyperkalemia Hyperpotassemia documented in this encounter Additional Health Concerns Active Problems Noted Date Diagnosed Date Quality of Life (General Plan of Care) 4 Infection Onset Date Last Indicated Resolved Time Respiratory Rule-Out 04/07/2024 04/07/2024 025 10:22 AM VENDOR ANALYST COVID - 19 04/07/2024 04/07/2024 04/07/2024 10:2 2 AM VENDOR ANALYST Assessment Noted Time PHQ-9 Depression Total Score: 0 10/13/19 2:26 PM CDT documented as of this encounter Care Teams Mechatronics Technician Relationship Specialty Start Date End Date Savage Long MD #2 [facility] [address] [place] [address] PCP - General Family Medicine 09/16/20 Kimberlee Morocho APRN, SCROLL SHEAR OPERATOR Nurse Practitioner Advanced Practice Nurse 10/24/15 Leighton Rios MD #[address] [address] Consulting Physician Clinical Cardiac Electrophysiology 04/10/22 Caroline Candelaria MD #[address] [address] Consulting Physician Endocrinology 02/24/23 Brittnee Mae RN [place] Nurse Traffic Survey Technician 02/06/22 12/02/23 Oleksandr Borjas MD #[address] [address] Consulting Physician Colon and Rectal Surgery 05/20/23 Brittnee Mae, RN [place] Nurse Traffic Survey Technician 07/06/24 07/06/24 documented as of this encounter
--- OUTSIDE RECORDS SUMMARY | 2024-11-20 14:44 | XMS_ITS | Clinical Summary ---
Author Organization [facility] Address [address] [place] [id number] Care Team Providers Care Ordnance Truck Installation Supervisor Name Role Phone Unavailable Primary Care Provider [...]
--- OUTSIDE RECORDS SUMMARY | 2024-11-20 14:44 | XMS_ITS | Encounter Summary ---
Author Organization [facility] Address [address] [place] [address] Care Team Providers Care Steamer Blocker Name Role Phone Savage Long MD Primary Care Provider [phone] Encounter Details Date Type Department Care Team (Late st Contact Info) Description 10/17/2024 Results Follow-Up [facility] Heat Set Operator at [address] [place] [id number] Chiara Pillai MA Protime-INR Social History Tobacco Use Types [...] on file Legal Sex Female 3:40 AM CIGARETTE MAKING MACHINE HOPPER FEEDER Gender Identity Not on file Sexual Orientation Not on file documented as of this encounter Miscellaneous Notes * Result Encounter Note - Chiara Pillai MA - 10/17/2024 3:55 PM CDT Pt advised. documented in this encounter Plan of Treatment Not on file documented as of this encounter Visit Diagnoses Not on filedocumented in this encounter Care Teams Steamer Blocker Relationship Specialty Start Date End Date Savage Long MD [address] [address] PCP - General Family Medicine 06/19/22 documented as of this encounter
--- OUTSIDE RECORDS SUMMARY | 2024-11-20 14:44 | XMS_ITS | Encounter Summary ---
Author Organization [facility] Address [address] [place] [address] Phone Care Team Providers Care Bioinformatician Name Role Phone Kimberlee Morocho APRN, CNP Unavailable Savage Long MD Primary Care Provider [phone] Brittnee Mae RN Unavailable Unavailable Leighton Rios MD Unavailable [phone] Caroline Candelaria MD Unavailable Brittnee Mae RN Unavailable Unavailable Oleksandr Borjas MD Unavailable Brittnee Mae RN Unavailable Unavailable Reason for Visit * Reason Comments Medication Refill Encounter Details Date Type Department Care Team (Late st Contact Info) Description 01/29/2022 Refill [facility] [address] [place] [address] Savage Long MD #[address] [address] Medication Refill Social History Tobacco Use Types [...] Dept 12/22/21 Office Visit Savage Long MD [facility] 09/15/21 Office Visit Yuniel Finley APRN, [facility] 06/13/21 Office Visit Yuniel Finley APRN, [facility]key Showing recent visits within past 365 days and meeting all other requirements Future Appointments Date Type Provider Dept 03/26/22 Appointment Savage Long MD [facility] Showing future appointments within next 90 days and meeting all other requirements documented in this encounter Plan of Treatment Upcoming Encounters Date Type Department Care Team (Late st Contact Info) Description 02/14/2025 9:30 AM PASTEURIZER HELPER Office Visit [facility] - Family Medicine - [place] [address] [place] [address] Yuniel Finley APRN, VENUE COORDINATOR #[address] [address] 04/19/2025 10:00 AM PASTEURIZER HELPER Lab [facility] [address] [place] [address] Isaura Evans Tanika, PAC [address] [place] [address] Discharge Disposition: Discharged to home or Selfcare 04/26/2025 9:40 AM PASTEURIZER HELPER Office Visit [facility] Oncology Services [address] [place] [address] EvansIsaura Tanika, PAC [address] [place] [address] Discharge Disposition: Discharged to home or Selfcare documented as of this encounter Visit Diagnoses Not on filedocumented in this encounter Additional Health Concerns Infection Onset Date Last Indicated Resolved Time COVID - 19 05/26/2022 05/26/2022 05/26/2022 10:0 5 AM PASTEURIZER HELPER COVID - 19 05/26/2022 05/26/2022 06/05/2022 12:1 6 AM PASTEURIZER HELPER Respiratory Rule-Out 04/07/2024 04/07/2024 025 10:22 AM PASTEURIZER HELPER COVID - 19 04/07/2024 04/07/2024 04/07/2024 10:2 2 AM PASTEURIZER HELPER Assessment Noted Time PHQ-9 Depression Total Score: 0 09/17/19 1:00 PM CDT documented as of this encounter Care Teams Bioinformatician Relationship Specialty Start Date End Date Savage Long MD #[address] [address] PCP - General Family Medicine 09/16/20 Kimberlee Morocho, ITALIAN LECTURER, VENUE COORDINATOR Nurse Practitioner Advanced Practice Nurse 10/24/15 Brittnee Mae, RN [place] Finish Painter 02/06/22 03/30/23 Leighton Rios MD [place] Consulting Physician Clinical Cardiac Electrophysiology 04/10/22 Caroline Candelaria MD #[address] [id number] Consulting Physician Endocrinology 02/24/23 Brittnee Mae RN [place] Nurse Finish Painter 02/06/22 12/02/23 Oleksandr Borjas MD #[address] [address] Consulting Physician Colon and Rectal Surgery 05/20/23 Brittnee Mae, RN [place] Nurse Finish Painter 07/06/24 07/06/24 documented as of this encounter
== END 2024-11-20 13:37 | disposition home or self-care (01) ==
PROVIDERS: PCP Family Medicine; Visit Provider Orthopaedic Surgery
DX: M12.572 Traumatic arthropathy, left ankle and foot (principal)
CPT/HCPCS: 73610